=== PATIENT | female | born 2000 | race Caucasian/White ===

== ENCOUNTER → 2020-03-20 | Outpatient (CLI) | payer BC, SELFPAY ==
[2020-03-20 19:59] LABS: Chlamydia Trachomatis by PCR Negative (Negative); Neisserai gonorrhoeae by PCR Negative (Negative); Probe Check PASS; Sample Adequacy Control PASS; Specimen Processing Control PASS
== END | disposition home or self-care (01) ==
PROVIDERS: PCP Pediatrics; Visit Provider Obstetrics & Gynecology
DX: Z12.4 Encounter for screening for malignant neoplasm of cervix (principal); Z11.3 Encounter for screening for infections with a predominantly sexual mode of transmission
CPT/HCPCS: 87491; 87591; 88175; G0145

== ENCOUNTER → 2021-06-27 | Outpatient (CLI) | payer BC, SELFPAY | END | disposition home or self-care (01) | LOC: LABSPEC 10:27 | PROVIDERS: PCP Pediatrics; Visit Provider Obstetrics & Gynecology | DX: Z12.4 Encounter for screening for malignant neoplasm of cervix (principal) | CPT/HCPCS: 88175; G0145 ==

== ENCOUNTER → 2022-10-25 | Outpatient (CLI) | payer BC, SELFPAY ==
[2022-10-25 16:17] LABS: Absolute Lymphocyte Count 3.02 X10^3/uL (0.83-4.51); Absolute Neutrophil Count 7.6 X10^3/uL (2.0-7.7); Basophil# 0.04 X10^3/uL; Basophil% 0.3 % (0-1); Eosinophil# 0.04 X10^3/uL; Eosinophils% 0.3 % (0-5); Hematocrit 40.2 % (37-47); Hemoglobin 13.3 g/dL (12.0-15.0); Lymphocyte # 3.02 X10^3/ul (0.83-4.51); Lymphocyte % 26.4 % (19-41); Mean Corp Hgb Conc 33.1 g/dL (32-36); Mean Corpuscular Hgb 30.7 pg (27.0-32.0); Mean Corpuscular Volume 92.8 fL (81-99); Mean Platelet Vol. 9.9 fl (6.2-12.0); Monocyte# 0.73 X10^3/uL; Monocyte% 6.4 % (0-10); NRBC Flagged by Analyzer 0 % (0-5); Neutrophil # 7.58 X10^3/uL (2.7-7.7); Neutrophil % 66.3 % (47-70); Platelet Count 300 K/mm3 (150-450); RBC Distribution Width CV 11.6 % (11.6-14.6); RBC Distribution Width SD 39.8 fl (35.1-43.9); Red Blood Count 4.33 M/mm3 (4.2-5.4); White Blood Count 11.5 K/mm3 (4.4-11.0)
[2022-10-25 17:45] LABS: HIV - WCH Non-Reactive (Nonreactive); Hepatitis B Surface Antigen Non-Reactive (Nonreactive); Hepatitis C Antibody Non-Reactive (Nonreactive); Rubella IgG Reactive (Nonreactive); Syphilis Antibodies Non-reactive
[2022-10-27 09:22] LABS: V-Zoster IgG (Immunity) 396 index (Immune >165)
== END | disposition home or self-care (01) ==
LOC: WOBLAB 14:42
PROVIDERS: PCP Pediatrics; Visit Provider Obstetrics & Gynecology
DX: N91.2 Amenorrhea, unspecified (principal)
CPT/HCPCS: 36415; 85025; 86703; 86762; 86780; 86787; 86803; 87077; 87086; 87088; 87186; 87340

== ENCOUNTER → 2023-03-21 | Outpatient (CLI) | payer BC, MEDICAID, SELFPAY ==
[2023-03-21 10:27] LABS: Hematocrit 36.2 % (37-47); Hemoglobin 11.7 g/dL (12.0-15.0); Mean Corp Hgb Conc 32.3 g/dL (32-36); Mean Platelet Vol. 9.8 fl (6.2-12.0); Platelet Count 235 K/mm3 (150-450); RBC Distribution Width CV 12.6 % (11.6-14.6); RBC Distribution Width SD 44.5 fl (35.1-43.9); Red Blood Count 3.77 M/mm3 (4.2-5.4); White Blood Count 9.6 K/mm3 (4.4-11.0)
[2023-03-21 10:34] LABS: Glucose Challenge Gest 1H 50g 93 mg/dL (70-140)
[2023-03-21 11:00] LABS: Syphilis Antibodies Non-reactive
== END | disposition home or self-care (01) ==
LOC: WOBLAB 08:56
PROVIDERS: PCP Pediatrics; Visit Provider Obstetrics & Gynecology
DX: Z34.92 Encounter for supervision of normal pregnancy, unspecified, second trimester (principal); Z3A.00 Weeks of gestation of pregnancy not specified
CPT/HCPCS: 36415; 82950; 85027; 86780

== ENCOUNTER → 2023-04-11 | Outpatient (CLI) | payer BC, SELFPAY | END | disposition home or self-care (01) | LOC: LABSPEC 09:20 | PROVIDERS: PCP Pediatrics; Visit Provider Nurse Practitioner Women's Health | DX: N39.0 Urinary tract infection, site not specified (principal) | CPT/HCPCS: 87086; 87088 ==

== ENCOUNTER → 2023-05-23 | Outpatient (CLI) | payer BC, MEDICAID, SELFPAY ==
[2023-05-23 16:55] LABS: Hematocrit 35.8 % (37-47); Hemoglobin 12.2 g/dL (12.0-15.0); Mean Corp Hgb Conc 34.1 g/dL (32-36); Mean Corpuscular Hgb 31.4 pg (27.0-32.0); Mean Platelet Vol. 10.1 fl (6.2-12.0); Platelet Count 262 K/mm3 (150-450); RBC Distribution Width CV 12.5 % (11.6-14.6); RBC Distribution Width SD 41.2 fl (35.1-43.9); Red Blood Count 3.89 M/mm3 (4.2-5.4); White Blood Count 11.1 K/mm3 (4.4-11.0)
== END | disposition home or self-care (01) ==
PROVIDERS: PCP Pediatrics; Visit Provider Obstetrics & Gynecology
DX: Z34.83 Encounter for supervision of other normal pregnancy, third trimester (principal); Z36.85 Encounter for antenatal screening for Streptococcus B
CPT/HCPCS: 36415; 85027; 87081

== ENCOUNTER 2023-06-11 05:10 | Inpatient (IN) | payer BC, MEDICAID, SELFPAY ==
[2023-06-11] VITALS (59 sets, daily range): BP systolic 97–149; BP diastolic 50–83; PULSE 56–181; RESP 16; TEMP 36–37; O2SAT 94–99; BMI 32.9
[2023-06-11 05:07] LABS: ROM Internal Control Test YES-OK TO RESULT pt. (Internal QC)
[2023-06-11 05:11] LABS: ROM Patient Test POSITIVE (Negative); Record Kit Lot#, ROM+ K1374
[2023-06-11] MEDS: Lactated Ringers 1,000 ML 50 ML IV ×2 (05:35→09:24)
[2023-06-11 05:47] LABS: Absolute Lymphocyte Count 2.33 X10^3/uL (0.83-4.51); Absolute Neutrophil Count 12.1 X10^3/uL (2.0-7.7); Basophil# 0.04 X10^3/uL; Basophil% 0.3 % (0-1); Eosinophil# 0.04 X10^3/uL; Eosinophils% 0.3 % (0-5); Hematocrit 38.6 % (37-47); Hemoglobin 12.6 g/dL (12.0-15.0); Lymphocyte # 2.33 X10^3/ul (0.83-4.51); Lymphocyte % 15.2 % (19-41); Mean Corp Hgb Conc 32.6 g/dL (32-36); Mean Corpuscular Hgb 29.9 pg (27.0-32.0); Mean Corpuscular Volume 91.5 fL (81-99); Mean Platelet Vol. 10.1 fl (6.2-12.0); Monocyte# 0.69 X10^3/uL; Monocyte% 4.5 % (0-10); NRBC Flagged by Analyzer 0 % (0-5); Neutrophil # 12.07 X10^3/uL (2.7-7.7); Platelet Count 254 K/mm3 (150-450); RBC Distribution Width CV 13.2 % (11.6-14.6); RBC Distribution Width SD 43.4 fl (35.1-43.9); Red Blood Count 4.22 M/mm3 (4.2-5.4); White Blood Count 15.3 K/mm3 (4.4-11.0)
--- NOTE | 2023-06-11 06:46 | PCM.HP.BLA ---
History and Physical Date of Admission: 06/11/23 Chief complaint: Leakage of fluid History present illness: 23-year-old G1, P0 at 38 weeks and 6 days with MERLE 06/19/2023 arrives with leakage of clear fluid. Denies headache, vision change, chest pain, shortness of breath, nausea vomit, right upper quadrant pain. Patient states good movement. is complicated by BMI 32 Obstetric history: G1: Current Past medical history: None Medications: vitamin Past surgical history: Left ankle, wisdom teeth extraction Allergies: No known drug allergies Family history: Denies history DVT or PE Social history: Denies smoking, alcohol use, drug use Review of systems: Besides above pertinent positives a full review of systems was performed and found to be negative Physical exam: Vitals: Blood pressure 131/81 pulse 80 temperature 97.7 ?F SPO2 98% on room air General: Normal-appearing no acute distress HEENT: Normocephalic/atraumatic no cervical lymphadenopathy Cardiac/respiratory: No use of accessory muscles, nonlabored breathing Abdomen: Soft, nontender, gravid Extremities: No peripheral edema normal peripheral pulses Psych: Normal affect normal demeanor nonpressured speech Labs: White blood cell count 15.3 hemoglobin 12.6 hematocrit 38.6% platelets 254. ROM positive Assessment plan: 23-year-old G1, P0 at 38 weeks and 6 days with leakage of fluid and positive ROM, now with SROM Admit labor and delivery CEFM GBS negative Routine orders
[2023-06-11] MEDS: LACTATED RINGERS 500 ML 999 ML IV ×4 (07:51→20:15)
[2023-06-11 08:52] LABS: Syphilis Antibodies Non-reactive
[2023-06-11] MEDS: Oxytocin 15 Units/NS 250ml 15 UNITS/250 ML IV.SOLN 2 UNITS IV (11:25)
[2023-06-11] MEDS: fentaNYL 100 MCG/2 ML Ampul IV (15:59)
--- NOTE | 2023-06-11 16:54 | PN.OBGYN_ITS ---
Subjective Subjective Patient uncomfortable with contractions Objective Data Objective Data Vital Signs: Vital Signs Temp Pulse BP Pulse Ox 98.1 F 83 128/71 H 96 06/11/23 16:04 06/11/23 16:04 06/11/23 16:04 06/11/23 15:30 Weight: 174 lb 2.643 oz Body Mass Index (BMI) 32.9 Intake & Output: Intake and Output for Last 24 Hours 06/09/23 06/10/23 06/11/23 23:59 23:59 23:59 Intake Total 1290.83 / 1290.83 Output Total 401 / 401 Balance 889.83 / 889.83 Lab / Micro Data 06/11/23 05:35 Labs: Laboratory Results - last 24 hr 06/11/23 04:40: Vag Amniotic Fld Detect POSITIVE H 06/11/23 05:35: WBC 15.3 H, RBC 4.22, Hgb 12.6, Hct 38.6, MCV 91.5, MCH 29.9, MCHC 32.6, RDW Std Deviation 43.4, RDW Coeff of Fany 13.2, Plt Count 254, MPV 10.1, Immature Gran % (Auto) 0.700, Neut % (Auto) 79.0 H, Lymph % (Auto) 15.2 L, [place] % (Auto) 4.5, Eos % (Auto) 0.3, Baso % (Auto) 0.3, Absolute Neuts (auto) 12.1 H, Absolute Lymphs (auto) 2.33, Nucleated RBC % 0, Syphilis Total Ab Non- reactive, Blood Type A POSITIVE, Antibody Screen NEGATIVE Micro: Microbiology 06/11/23 05:30 Interface Orders Chlamydia trachomatis (PCR) - Final 06/11/23 05:30 Interface Orders Neisseria gonorrhoeae (PCR) - Final Physical Exam Const alert, oriented x3, average body habitus, healthy appearing and well nourished HEENT normocephalic and moist oral mucous membranes Eyes PERRL Neck full ROM Resp normal respiratory effort, no retractions and no use of accessory muscles Extremity normal to inspection and full ROM Neuro moves all extremities and no focal motor deficits Psych mental status grossly normal, affect normal, speech normal and activity/motor behavior normal Assessment & Plan (1) : PLAN: Patient seen and examined. Uncomfortable with contractions currently getting bolus IV fluids for epidural. Educated patient on epidurals risk benefits alternatives, discussed medical benefits and detriments of having epidural. Patient and partner state understanding. For epidural now and will recheck cervix after epidural placement, patient declines cervical exam now. Educated patient and nursing on care plan, patient and partner state lupillo matias
[2023-06-11] MEDS: fentaNYL-bupivacaine (epidural) 100 ML BAG EPIDURAL (17:45)
--- NOTE | 2023-06-11 19:57 | PCM.PN.OB ---
Subjective Subjective Patient comfortable with epidural Objective Data Objective Data Vital Signs: Vital Signs Temp Pulse BP Pulse Ox 97.3 F L 80 105/63 97 06/11/23 19:15 06/11/23 19:15 06/11/23 19:15 06/11/23 18:32 Weight: 174 lb 2.643 oz Body Mass Index (BMI) 32.9 Intake & Output: Intake and Output for Last 24 Hours 06/09/23 06/10/23 06/11/23 23:59 23:59 23:59 Intake Total 1806.40 / 1806.40 Output Total 401 / 401 Balance 1405.40 / 1405.40 Lab / Micro Data 06/11/23 05:35 Labs: Laboratory Results - last 24 hr 06/11/23 04:40: Vag Amniotic Fld Detect POSITIVE H 06/11/23 05:35: WBC 15.3 H, RBC 4.22, Hgb 12.6, Hct 38.6, MCV 91.5, MCH 29.9, MCHC 32.6, RDW Std Deviation 43.4, RDW Coeff of Fany 13.2, Plt Count 254, MPV 10.1, Immature Gran % (Auto) 0.700, Neut % (Auto) 79.0 H, Lymph % (Auto) 15.2 L, [place] % (Auto) 4.5, Eos % (Auto) 0.3, Baso % (Auto) 0.3, Absolute Neuts (auto) 12.1 H, Absolute Lymphs (auto) 2.33, Nucleated RBC % 0, Syphilis Total Ab Non-reactive, Blood Type A POSITIVE, Antibody Screen NEGATIVE Micro: Microbiology 06/11/23 05:30 Interface Orders Chlamydia trachomatis (PCR) - Final 06/11/23 05:30 Interface Orders Neisseria gonorrhoeae (PCR) - Final Physical Exam Const alert, oriented x3, no apparent distress, average body habitus, healthy appearing and well nourished HEENT normocephalic and moist oral mucous membranes Eyes PERRL Neck full ROM Resp normal respiratory effort, no retractions and no use of accessory muscles GI GI Narrative: Soft, nontender, gravid Narrative: Cervical exam: 6-70/-1 Psych mental status grossly normal, affect normal, speech normal and activity/motor behavior normal Assessment & Plan (1) : PLAN: Called by nursing patient status post epidural with recurrently decelerations, informed nursing that oxygen IV fluid bolus given and position change now with Pitocin off, nursing also notified me that FSE placed. Reviewed heart rate tracing with nursing somewhat improved heart rate tracing. Reviewed possible care plans with nursing thoroughly, nursing given opportunity to discuss her thoughts on the process, after further discussion discussed continue with Pitocin off until heart rate tracing category 1 and to continue to manage position changes to find position that heart rate tracings category 1. Nursing agrees states understanding. Patient seen and examined comfortable with epidural. Cervical exam as above unchanged from previous nursing exam. Scalp stim positive during cervical exam. At this time recurrent decelerations resolved while in room discussed criteria for section with patient, partner, and family thoroughly. At this time patient and partner do wish to continue current management with improved heart tones understanding the nonreassuring heart tones and there effects. We will continue to monitor with Pitocin off and if recurrent decelerations will refer to tracing and [place] heart rate tracing algorithm when applicable. Reviewed care plan with nursing who agrees. We will continue to monitor minutes a minute heart rate tracing and educated patient and partner on medical options including section
[2023-06-11] MEDS: Sodium Citrate/Citric Acid 30 ML UDC PO (20:14)
[2023-06-11] MEDS: Acetaminophen 500 MG Tablet PO (20:14)
[2023-06-11] MEDS: Cefazolin 2 GM in 0.9% Normal Saline 100 ML IV (20:24)
--- NOTE | 2023-06-11 21:25 | EX.PCM.OBRPT ---
Details Operative Information Date of Procedure: 06/11/23 Pre-Operative Diagnosis: Term, nonreassuring heart tones Post-Operative Diagnosis: Term, nonreassuring heart tones education instructor #1: Marguerite Phan Findings Description of Procedure: Procedure: Primary low transverse section Via Pfannenstiel incision Surgeon: Bolivar Kumar MD Esthesia: Epidural EBL: 850 cc Urine output: 400 cc IV fluids: 1500 cc Complications: None Specimen: None Findings: Male infant in vertex position Apgars 8/9. Normal uterus, tubes, and ovaries. Consent: Patient arrived with spontaneous rupture of membranes subsequently had nonreassuring heart tones and elected for primary low-transverse section via Pfannenstiel incision. Patient understands risk of the procedure include but are not limited to visceral vascular injury, prolonged hospitalization, blood loss need for transfusion, reoperation. Patient state understanding wish to proceed. All questions were answered and consent was signed. Procedure: Patient was brought back to the OR where epidural anesthesia was found to be adequate. 2 g of Ancef and 500 mg of azithromycin were given for infection prophylaxis. Patient was prepared and draped in a supine position with leftward tilt. A Pfannenstiel incision was made at the skin with a scalpel. The incision was carried down to the fascia with a scalpel. The fascia was excised and extended laterally. Rectus muscle was dissected at the midline down to the level of the pubic symphysis. Preperitoneal fat tissue was noted peritoneum was entered bluntly. Peritoneum was extended superiorly and inferiorly with good visualization of bladder. Bladder was inserted vesicouterine peritoneum was identified. Low transverse hysterotomy was made. Hand was placed in the incision and gentle fundal pressure was applied once the bladder blade was removed and the head was brought into the incision. Head and shoulders were delivered with ease. Cord was clamped and cut. Baby handed off to nursing. Placenta was delivered via cord traction and fundal massage. IV oxytocin was initiated on to facilitate uterine contractions. Uterus was exteriorized and wiped out with dry laparotomy sponge on removing placental membranes. Uterus was closed in a continuous running fashion. Iuadyy-tj-lqcos sutures were used for hemostasis and a Bovie, left round ligament with bleeding zyvakq-ov-fiacu suture was used for hemostasis. Good hemostasis was noted. Uterus was placed back in the abdominal cavity and the incision was reinspected, good hemostasis was noted. Floseal was placed at the site of the left round ligament bleeding and also along the rest of the hysterotomy. Good hemostasis was noted. Fascia was closed in continuous running fashion with PDS suture. Subcutaneous irrigation was performed and hemostasis was achieved with the Bovie. Good hemostasis was noted. Skin was closed in subcuticular fashion. Good hemostasis was noted. All counts were correct x2. Patient tolerated procedure well and was brought to recovery in stable condition.
[2023-06-11] MEDS: Oxytocin 15 Units/NS 250ml 15 UNITS/250 ML IV.SOLN 83 UNITS IV (21:55)
[2023-06-11] MEDS: Ketorolac 30 MG/ML Syringe IV (22:42)
[2023-06-12] VITALS (9 sets, daily range): BP systolic 96–104; BP diastolic 42–66; PULSE 84–101; RESP 16; TEMP 36.2–36.6; O2SAT 96–98
[2023-06-12] MEDS: Lactated Ringers 1,000 ML 100 ML IV (01:36)
[2023-06-12] MEDS: Acetaminophen 500 MG Tablet 1000 MG PO ×4 (01:37→21:07)
[2023-06-12] MEDS: Ketorolac 30 MG/ML Syringe IV ×3 (04:04→16:12)
[2023-06-12 04:41] LABS: Hematocrit 29.2 % (37-47); Hemoglobin 9.8 g/dL (12.0-15.0); Mean Corp Hgb Conc 33.6 g/dL (32-36); Mean Corpuscular Hgb 30.8 pg (27.0-32.0); Mean Corpuscular Volume 91.8 fL (81-99); Mean Platelet Vol. 10.1 fl (6.2-12.0); Platelet Count 214 K/mm3 (150-450); RBC Distribution Width CV 13.3 % (11.6-14.6); RBC Distribution Width SD 44.3 fl (35.1-43.9); Red Blood Count 3.18 M/mm3 (4.2-5.4); White Blood Count 14.4 K/mm3 (4.4-11.0)
--- NOTE | 2023-06-12 08:28 | PCM.PN.OB ---
Subjective Subjective No overnight complaints Objective Data Objective Data Vital Signs: Vital Signs Temp Pulse Resp BP Pulse Ox O2 Del Method 97.2 F L 89 16 96/57 L 98 Room Air 06/12/23 07:11 06/12/23 07:11 06/12/23 07:11 06/12/23 07:11 06/12/23 07:11 06/12/23 07:11 Oxygen Delivery Method Room Air Weight: 174 lb 2.643 oz Body Mass Index (BMI) 32.9 Intake & Output: Intake and Output for Last 24 Hours 06/10/23 06/11/23 06/12/23 23:59 23:59 23:59 Intake Total 2596.25 / 2851.25 505 / 505 Output Total 2251 / 2251 200 / 200 Balance 345.25 / 600.25 305 / 305 Lab / Micro Data 06/12/23 04:20 Labs: Laboratory Results - last 24 hr 06/11/23 05:35: Syphilis Total Ab Non-reactive 06/12/23 04:20: WBC 14.4 H, RBC 3.18 L, Hgb 9.8 L, Hct 29.2 L, MCV 91.8, MCH 30.8, MCHC 33.6, RDW Std Deviation 44.3 H, RDW Coeff of Fany 13.3, Plt Count 214, MPV 10.1 Micro: Microbiology 06/11/23 05:30 Interface Orders Chlamydia trachomatis (PCR) - Final 06/11/23 05:30 Interface Orders Neisseria gonorrhoeae (PCR) - Final Physical Exam Const alert, oriented x3, no apparent distress, average body habitus, healthy appearing and well nourished HEENT normocephalic and moist oral mucous membranes Eyes PERRL Neck full ROM Resp normal respiratory effort, no retractions and no use of accessory muscles GI GI Narrative: Soft, nontender, bandage clean dry and intact Extremity normal to inspection and full ROM Neuro moves all extremities and no focal motor deficits Psych mental status grossly normal, affect normal, speech normal and activity/motor behavior normal Assessment & Plan (1) delivery delivered: PLAN: Post op day 1 statues post primary section for nonreassuring heart tones. Breast feeding. Pain well controlled. Likely home tomorrow
[2023-06-12] MEDS: Senna/Docusate Sodium 1 Tablet PO (09:19)
[2023-06-12] MEDS: Enoxaparin 40 MG/0.4 ML Syringe SC (10:30)
[2023-06-12] MEDS: 0.9% Saline Lock 10 ML Syringe IV ×4 (10:33→16:18)
--- NOTE | 2023-06-12 11:06 | NURSING ---
This school of nursing director was present for med administration by [employer] student nurse.
--- NOTE | 2023-06-12 13:27 | NURSING ---
This nursing staff development coordinator reviewed the documentation completed by Chiquis Low, student nurse.
[2023-06-12] MEDS: Ibuprofen 600 MG Tablet PO (22:16)
[2023-06-13 02:00] VITALS: BP 102/64; PULSE 84; RESP 16; O2SAT 96
[2023-06-13] MEDS: Acetaminophen 500 MG Tablet 1000 MG PO ×2 (03:18→09:36)
[2023-06-13] MEDS: Ibuprofen 600 MG Tablet PO ×2 (04:50→11:14)
--- NOTE | 2023-06-13 07:13 | PCM.DC.BLA ---
Discharge Summary Date of Admission: 06/11/23 Date of Discharge: 06/13/23 Summary: Patient arrived on 06/11/2023 with spontaneous rupture of membranes subsequently with nonreassuring heart tones and elected for primary section performed on 06/11/2023. Routine postoperative recovery and discharged home on 06/13/2023 Meaningful Use Info Meaningful Use Diagnoses (Choose all that apply): None applicable Discharge Plan Admission Admit Date/Time: 06/11/23 05:10 Primary Reason for Your Visit: Spontaneous rupture membranes Attending Provider: Bolivar Kumar Primary Care Provider: Billy Cates Instructions Additional Instructions / Restrictions: Regular diet. Okay to shower. No tub baths for 2 weeks. No lifting over 25 pounds for 2 to 3 weeks. No intercourse for 6 to 8 weeks. Call if fevers, chills, chest pain, shortness of breath. Follow-up 2 weeks postoperatively Discharge Orders/Prescriptions Prescriptions: New oxycodone 5 mg tablet 5 mg PO Q6H PRN (Reason: pain (scale score 7-10)) 4 Days Qty: 16 0RF Continued PNV cmb#[id number] fumarate-FA [] 28 mg iron- 800 mcg tablet 1 tab PO DAILY Referrals / Follow Up: Billy Cates MD [Primary Care Provider] - Disposition Disposition (needs filled in before D/C Order can be placed): Home, Self Care
--- NOTE | 2023-06-13 07:15 | PCM.PN.OB ---
Subjective Subjective No overnight complaints Objective Data Objective Data Vital Signs: Vital Signs Temp Pulse Resp BP Pulse Ox O2 Del Method 97.9 F 84 16 102/64 96 Room Air 06/12/23 19:59 06/13/23 02:00 06/13/23 02:00 06/13/23 02:00 06/13/23 02:00 06/13/23 02:00 Oxygen Delivery Method Room Air Weight: 174 lb 2.643 oz Body Mass Index (BMI) 32.9 Intake & Output: Intake and Output for Last 24 Hours 06/11/23 06/12/23 06/13/23 23:59 23:59 23:59 Intake Total 2596.25 / 2851.25 505 / 505 Output Total 2251 / 2251 200 / 200 Balance 345.25 / 600.25 305 / 305 Lab / Micro Data 06/12/23 04:20 Micro: Microbiology 06/11/23 05:30 Interface Orders Chlamydia trachomatis (PCR) - Final 06/11/23 05:30 Interface Orders Neisseria gonorrhoeae (PCR) - Final Physical Exam Const alert, oriented x3, no apparent distress, average body habitus, healthy appearing and well nourished HEENT normocephalic and moist oral mucous membranes Eyes PERRL Neck full ROM Resp normal respiratory effort, no retractions and no use of accessory muscles GI GI Narrative: Soft, nontender, bandage clean dry and intact Extremity normal to inspection and full ROM Neuro moves all extremities and no focal motor deficits Psych mental status grossly normal, affect normal, speech normal and activity/motor behavior normal Assessment & Plan (1) delivery delivered: PLAN: Postop day 2 status post primary section for nonreassuring heart tones. Breast-feeding. Pain well controlled. Okay to discharge home today
[2023-06-13 08:00] VITALS: BP 125/67; PULSE 83; RESP 16; TEMP 36.8
[2023-06-13] MEDS: Senna/Docusate Sodium 1 Tablet PO (09:36)
[2023-06-13] MEDS: Enoxaparin 40 MG/0.4 ML Syringe SC (09:38)
== END 2023-06-13 11:40 | disposition home or self-care (01) | DRG 788 ==
LOC: WPOUT 05:13 → WP 05:13
PROVIDERS: Student in an Organized Health Care Education/Training Program; Admitting Provider Obstetrics & Gynecology; PCP Pediatrics; Visit Provider Obstetrics & Gynecology
DX: O76 Abnormality in fetal heart rate and rhythm complicating labor and delivery (principal); Z37.0 Single live birth; Z3A.38 38 weeks gestation of pregnancy
CPT/HCPCS: 59025; 59050; 84112; 85025; 85027; 86780; 86850; 86900; 86901; 87491; 87591; 99221; 99252; J7120; A4216; G0378; G0463; J2405; J3490

== ENCOUNTER → 2024-08-16 | Outpatient (CLI) | payer BC, SELFPAY ==
[2024-08-18 21:07] LABS: Chlamydia By Nucleic Acid AMP Negative (Negative); Gonococcus By Nucleic Acid AMP Negative (Negative)
[2024-08-24 12:57] LABS: HPV Reflexed? NOT INDICATED
== END | disposition home or self-care (01) ==
LOC: LABSPEC 15:52
PROVIDERS: PCP Pediatrics; Referring Provider Obstetrics & Gynecology; Visit Provider Obstetrics & Gynecology
DX: O99.210 Obesity complicating pregnancy, unspecified trimester (principal); Z3A.00 Weeks of gestation of pregnancy not specified; O09.90 Supervision of high risk pregnancy, unspecified, unspecified trimester; Z12.4 Encounter for screening for malignant neoplasm of cervix
CPT/HCPCS: 87086; 87088; 87491; 87591; 88175; G0145

== ENCOUNTER → 2024-09-13 | Outpatient (CLI) | payer BC, SELFPAY ==
[2024-09-13 17:09] LABS: Absolute Lymphocyte Count 3.06 X10^3/uL (0.83-4.51); Absolute Neutrophil Count 6.1 X10^3/uL (2.0-7.7); Basophil# 0.02 X10^3/uL; Basophil% 0.2 % (0-1); Eosinophil# 0.12 X10^3/uL; Eosinophils% 1.2 % (0-5); Hematocrit 38.7 % (37-47); Hemoglobin 12.7 g/dL (12.0-15.0); Lymphocyte # 3.06 X10^3/ul (0.83-4.51); Lymphocyte % 31.2 % (19-41); Mean Corp Hgb Conc 32.8 g/dL (32-36); Mean Corpuscular Volume 91.3 fL (81-99); Mean Platelet Vol. 9.7 fl (6.2-12.0); Monocyte% 5.1 % (0-10); NRBC Flagged by Analyzer 0 % (0-5); Neutrophil # 6.07 X10^3/uL (2.7-7.7); Platelet Count 290 K/mm3 (150-450); RBC Distribution Width CV 12.9 % (11.6-14.6); RBC Distribution Width SD 42.2 fl (35.1-43.9); Red Blood Count 4.24 M/mm3 (4.2-5.4); White Blood Count 9.8 K/mm3 (4.4-11.0)
[2024-09-13 17:38] LABS: Hemoglobin A1c 5.1 % (3.8-5.6)
[2024-09-13 18:06] LABS: HIV - WCH Non-Reactive (Nonreactive); Hepatitis B Surface Antigen Non-Reactive (Nonreactive); Hepatitis C Antibody Non-Reactive (Nonreactive); Rubella IgG Reactive (Nonreactive); Syphilis Antibodies Non-reactive
== END | disposition home or self-care (01) ==
LOC: BWCLAB 15:07
PROVIDERS: Obstetrics & Gynecology; PCP Pediatrics; Referring Provider Advanced Practice Midwife; Visit Provider Advanced Practice Midwife
DX: O99.210 Obesity complicating pregnancy, unspecified trimester (principal); Z3A.00 Weeks of gestation of pregnancy not specified
CPT/HCPCS: 36415; 83036; 85025; 86703; 86762; 86780; 86803; 86850; 86900; 86901; 87340

== ENCOUNTER → 2024-12-28 | Outpatient (CLI) | payer BC, SELFPAY ==
[2024-12-28 12:15] LABS: Absolute Lymphocyte Count 2.45 X10^3/uL (0.83-4.51); Absolute Neutrophil Count 6.8 X10^3/uL (2.0-7.7); Basophil# 0.05 X10^3/uL; Basophil% 0.5 % (0-1); Eosinophil# 0.09 X10^3/uL; Eosinophils% 0.9 % (0-5); Hematocrit 35.4 % (37-47); Hemoglobin 11.7 g/dL (12.0-15.0); Lymphocyte # 2.45 X10^3/ul (0.83-4.51); Lymphocyte % 24.4 % (19-41); Mean Corp Hgb Conc 33.1 g/dL (32-36); Mean Corpuscular Hgb 30.5 pg (27.0-32.0); Mean Corpuscular Volume 92.2 fL (81-99); Mean Platelet Vol. 9.8 fl (6.2-12.0); NRBC Flagged by Analyzer 0 % (0-5); Neutrophil # 6.78 X10^3/uL (2.7-7.7); Neutrophil % 67.5 % (47-70); Platelet Count 288 K/mm3 (150-450); RBC Distribution Width CV 13.3 % (11.6-14.6); RBC Distribution Width SD 44.9 fl (35.1-43.9); Red Blood Count 3.84 M/mm3 (4.2-5.4)
[2024-12-28 13:25] LABS: Glucose Challenge Gest 1H 50g 86 mg/dL (70-140); HIV Nonreactive (Nonreactive)
[2024-12-28 15:40] LABS: Syphilis Antibodies Nonreactive (Nonreactive)
== END | disposition home or self-care (01) ==
PROVIDERS: PCP Pediatrics; Referring Provider Obstetrics & Gynecology; Visit Provider Obstetrics & Gynecology
DX: O09.92 Supervision of high risk pregnancy, unspecified, second trimester (principal); Z13.1 Encounter for screening for diabetes mellitus; Z3A.00 Weeks of gestation of pregnancy not specified
CPT/HCPCS: 36415; 82950; 85025; 86703; 86780

== ENCOUNTER 2025-02-08 10:45 | Outpatient (CLI) | payer BC, SELFPAY ==
[2025-02-08 11:07] VITALS: RESP 18
[2025-02-08 11:10] VITALS: BP 110/73; PULSE 79; PULSE 86; O2SAT 97
--- NOTE | 2025-02-08 11:21 | US_ITS ---
PROCEDURE: BIOPHYSICAL PROF W/O NON STRES 02/08/2025 REASON FOR EXAM: DECREASED VARIABILITY TECHNIQUE: High resolution obstetric ultrasound performed using a 2D transducer. Standard views obtained, including biometry, anatomy survey, and Doppler studies. COMPARISON: None FINDINGS LMP: June 15, 2024. position: Cephalic heart rate: 143 beats per minute Amniotic fluid: Within normal limits. Largest fluid pocket measures 6 cm. COMPA: 20.9. Placenta location: Anterior and not low-lying. Biophysical profile: Breathing movements: 2 Gross body movements: 2 tone: 2 amniotic fluid volume: 2 Total score: 8/8 US/Biophysical Prof W/O Non Stres IMPRESSION: Normal biophysical profile. Reading Location: [facility]
--- NOTE | 2025-02-08 11:26 | US_ITS ---
PROCEDURE: OB LIMITED WITH BIOMETRICS 02/08/2025 REASON FOR EXAM: FOCUS ON COMPA AND GROWTH TECHNIQUE: High resolution obstetric ultrasound performed using a 2D transducer. Standard views obtained, including biometry, anatomy survey, and Doppler studies. COMPARISON: None FINDINGS LMP: June 15, 2024 Number: 1 Position: Vertex Placental Position: Anterior and not low-lying. Placental Abnormalities: None DIMENSIONS: Biparietal Diameter: 8.49 cm: 34 weeks and 1 day: 54 percentile/ Head Circumference: 30.87 cm: 34 weeks and 3 days: 25th percentile/ Abdominal Circumference: 30.66 cm: 34 weeks and 4 days: 71st percentile/ Femur Length: 6.24 cm: 32 weeks and 2 days: 7 percentile/ ESTIMATED WEIGHT: 2327 g plus/-349 g ESTIMATED WEIGHT PERCENTILE (24+ weeks): 44 ESTIMATED GESTATIONAL AGE: Baseline: 34 weeks and 0 days By Ultrasound: 34 weeks and 0 days ESTIMATED DATE OF DELIVERY: Baseline: March 22, 2025 By Ultrasound: March 22, 2025 BIOPHYSICAL ASSESSMENT: Amniotic Fluid Volume: 5.9 cm Amniotic Fluid Index: 20 (8-24 cm normal range) Cardiac Motion: 143 beats per minute (average) Trunk and Limb Motion: Present. MATERNAL ANATOMY: Adnexa: Neither maternal ovary is successfully identified. Cervical Length (if measured): 4.1 cm US/OB Limited With Biometrics IMPRESSION: Single live intrauterine gestation with a mean gestational age of 34 weeks. Reading Location: [place] [id number]
[2025-02-08 11:37] VITALS: BMI 34.7
--- NOTE | 2025-02-08 12:46 | OB.TRI.PN_ITS ---
Progress Notes Date of Service: 02/08/25 Progress Note: Patient presents for triage evaluation secondary to nonreassuring NST in office at 34 weeks. FHT: 140 Moderate variability reactive no decelerations category I tracing [place]: rare Contractions Assessment and plan: BPP 05/13 repeat compa is 20 cm, Reactive NST, reassuring maternal and status patient discharged to home to follow-up in office. See problem list details for additional plan information. Charges/Coding Multi Select Codes Urinary/Genital Urinary/Genital CPT Codes: 41921-50 non-stress test Interp Assessment & Plan (1) Polyhydramnios: COMMENT: COMPA 28 cm at 01/21 scan. COMPA 20cm 02/08 (2) Obesity affecting : QUALIFIERS: Trimester: second trimester Obesity type affecting : unspecified obesity Qualified Code(s): O99.212 - Obesity comp licating , second trimester COMMENT: HgbA1c (3) Supervision of high-risk : QUALIFIERS: Trimester: third trimester Qualified Code(s): O09.93 - Supervision of high risk , unspecified, third trimester COMMENT: PRR , MERLE 03/14/25 boy, PC Dwight, Jeremy (4) : QUALIFIERS: Weeks of gestation: 34 weeks Qualified Code(s): Z3 A.34 - 34 weeks gestation of COMMENT: declines NIPT & Carrier testing (5) Previous section: COMMENT: interested in (6) Non-reassuring electronic monitoring tracing: COMMENT: BPP 05/13, D/C home with reactive NST
== END 2025-02-08 14:15 | disposition home or self-care (01) ==
LOC: WPOUT 10:46 → WP 10:46
PROVIDERS: PCP Pediatrics; Referring Provider Advanced Practice Midwife; Visit Provider Advanced Practice Midwife
DX: O40.3XX0 Polyhydramnios, third trimester, not applicable or unspecified (principal); Z3A.34 34 weeks gestation of pregnancy; O99.213 Obesity complicating pregnancy, third trimester; O34.219 Maternal care for unspecified type scar from previous cesarean delivery
CPT/HCPCS: 59025; 59050; 76816; 76819; 99221; G0378

== ENCOUNTER 2025-02-16 15:27 | Outpatient (CLI) | payer BC, SELFPAY ==
[2025-02-16] VITALS (7 sets, daily range): BP systolic 105–119; BP diastolic 66–71; PULSE 83–114; RESP 13; TEMP 36.7; O2SAT 97–99; BMI 33.8
--- NOTE | 2025-02-16 15:43 | US_ITS ---
EXAM: US Biophysical Profile Without Non-Stress Testing CLINICAL INDICATION: LATE DECELERATION AT OB APPOINTMENT TECHNIQUE: Real-time ultrasound of the maternal pelvis for biophysical profile evaluation with image documentation. COMPARISON: No relevant prior studies available. FINDINGS: BREATHING MOVEMENTS: Present. Score 2/2. GROSS BODY MOVEMENTS: Present. Score 2/2. TONE: Present. Score 2/2. QUALITATIVE AMNIOTIC FLUID VOLUME: COMPA 19.2 cm. Largest pocket of fluid measures up to 5.8 cm. HEART RATE: heart rate 141 beats per minute. PRESENTATION: Cephalic presentation. PLACENTA: Anterior placenta. Low-lying. Placenta grade 2. OTHER FINDINGS: MERLE 03/22/2025. US/Biophysical Prof W/O Non Stres IMPRESSION: No acute findings. Normal biophysical profile with score of 8/8. Reading Location: [facility]
--- NOTE | 2025-02-16 20:45 | OB.TRI.HP_ITS ---
HPI - General HPI Narrative BRENDEN FENG, is a 24 y/o @ 35 weeks 1 day who presents to L&D for extended monitoring and a bpp for late decel in the office. NST was being performed for polyhydramnios that was 30 last week and this week is 20 Maternal Data Information MERLE Calculator Estimated Delivery Date Method Current WG Current Estimate 03/22/25 Ultrasound #1 35w 1d Other Estimates 03/14/25 LMP (Certain) 36w 2d PFSH PFSH Medical History delivery delivered Seizures Autoimmune disease Home Medications ?Medication ?Instructions ?Recorded ?Last Taken ?Type multivitamin no.47-iron fum 27 1 cap PO DAILY 08/10/24 02/08/25 09:00 History mg-folate no.1 1 mg-dha 300 mg 1 cap capsule (PNV-DHA) Allergy/AdvReac Type Severity Reaction Status Date / Time No Known Allergies Allergy Verified 02/16/25 18:30 Family History Grandmother Diabetes Paternal- Type 2 Heart disease, Onset Age: 74 Paternal-2 stents Breast cancer, Onset Age: 70 Paternal- All 11 siblings have some type of cancer Grandfather Diabetes Cancer, Onset Age: 68 Lung Colon cancer, Onset Age: 68 Grandmother Myocardial infarction, Onset Age: 54 Maternal Uncle Myocardial infarction, Onset Age: 60 Maternal Surgical History History of surgery Social History adopted: No household members: spouse and children number of children: 1 current occupational status: unemployed current occupation: [employer] pets and animals: Yes (outside animals) pets and animals: cat(s) and other details: chickens history of recent travel: No sexually active: Yes Smoking Status: Never smoker alcohol intake: never substance use type: does not use well-balanced diet: daily or most days caffeine: Yes Type: coffee Number of servings: 1 eating out: rarely or never during the past year weight has: remained stable what type of physical activity do you participate in: none cristela/orthodox: Tenriism seatbelt use: always do you feel safe at home: Yes additional 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 Date Name GA/Weeks Outcome Route Bth Weight Gen Labor Lgth Anesthesia Del Locatn Provider FOB 06/11/23 Dwight 38 live - full term 6#4oz Male sp inal [facility] Bolivar Luna Delivery Date: 06/11/23 Last Updated by: Rachel Mcfarland decels, cord around neck Visit Details Expected Delivery Route/Plan TOLAC patient counseled regarding risks/benefits of trial of labor versus repeat . ACOG/uptodate education given to patient. 59.7 % likelihood of success per calculator TOLAC consent form signed: [] Support person Jeremy Plans Covid status: [] Flu vaccine: [] Tdap vaccine: declines Rhogam: declines LARC form signed: yes movement and labor precautions reviewed. Problem list reviewed and updated with the most current plan of care details and appropriate orders placed. Relevant counseling for the gestational age provided. Continue routine care and follow up unless otherwise noted in visit notes/problem list details OB Flowsheet Initial Weight: Not Recorded Date -?-?-?-?-?-?-?-?-?-?-?-?- EGA Weight BP Urine Prot -?-?-?-?-?-?-?-?-?-?-?-?- Glucose FHR FuHt Pres Dilation -?-?-?-?-?-?-?-?-?-?-?-?- Effaced St Visit Note 08/16/24 -?-?-?-?-?-?-?-?-?-?-?-?- 8w 6d 161 lb 6 oz 128/76 -?--?-?-?-?-?-?-?-?-?-?-?- 187 -?-?-?-?-?-?-?-?-?-?-?-?- JV- CRL measures 8 weeks 6 days. JV- CRL measures 8 weeks 6 d ays and not consistent with LMP> pt wants to TOLAC.was not given a chance to labor last time due to decels at 38 weeks. undecided about NIPT. 09/13/24 -?-?-?-?-?-?-?-?-?-?-?-?- 12w 6d 164 lb 107/75 Negative -?-?-?-?-?-?-?-?-?-?-?-?- Negative 160 -?-?-?-?-?-?-?-?-?-?-?-?- KW- no vb/crampi ng. ordered. 10/12/24 -?-?-?-?-?-?-?-?-?-?-?-?- 17w 0d 171 lb 108/73 Negative -?-?-?-?-?-?-?-?-?-?-?-?- Negative 154 -?-?-?-?-?-?-?-?-?-?-?-?- -Chad. Maranda frank. Denies concerns. [facility] 10/2111/09/24 -?-?-?-?-?-?-?-?-?-?-?-?- 21w 0d 169 lb 8 oz 104/75 Nega tive -?-?-?-?-?-?-?-?-?-?-?-?- Negative 155 21 -?-?-?-?-?-?-?-?-?-?-?-?- JV- no complaint s today. has a sinus infection. Still plans tolac and does not want to schedule a cs at 40 or 41 weeks yet. 12/08/24 -?-?-?-?-?-?-?-?-?-?-?-?- 25w 1d 171 lb 4 oz 130/81 Nega tive -?-?-?-?-?-?-?-?-?-?-?-?- Negative 150 25 -?-?-?-?-?-?-?-?-?-?-?-?- SM- still having URI symptoms, send to urgent care now for treatment 12/28/24 -?-?-?-?-?-?-?-?-?-?-?-?- 28w 0d 178 lb 122/79 Negative -?-?-?-?-?-?-?-?-?-?-?-?- Negative 158 28 -?-?-?-?--?-?-?-?-?-?-?-?- MH-No VB, LOF. G ood Fm. 28 wk labs pending. Declines tdap. Larc done. 01/11/25 -?-?-?-?-?-?-?-?-?-?-?-?- 30w 0d 179 lb 6 oz 125/78 Nega tive -?-?-?-?-?-?-?-?-?-?-?-?- Negative 145 30 -?-?-?-?-?-?-?-?-?-?-?-?- SM- no vb lof go odfm no regular ctx SM- no vb lof goodfm no regu lar ctx still needs fu anatomy views 01/26/25 -?-?-?-?-?-?-?-?-?-?-?-?- 32w 1d 177 lb 2 oz 122/72 Nega tive -?-?-?-?-?-?-?-?-?-?-?-?- Negative 147 32.5 -?-?--?-?-?-?-?-?-?-?-?-?- JV_ polyhydramni os on last scan. patient states she feels large but no other complaints. Her son broke his femur and it is just a little hard to carry him around (19 months) 02/01/25 -?-?-?-?-?-?-?-?-?-?-?-?- 33w 0d 178 lb 113/74 Negative -?-?-?-?-?-?-?-?-?-?-?-?- Negative 130 -?-?-?-?-?-?-?-?-?-?-?-?- KW- no vb/lof/ct x. good fm. NST reactive 02/08/25 -?-?-?-?-?-?-?-?-?-?-?-?- 34w 0d 181 lb 2 oz 107/72 Nega tive -?-?-?-?-?-?-?-?-?-?-?-?- Negative 140 -?-?-?-?-?-?-?-?-?-?-?-?- KW- NST not reac tive to for BPP. needs to schedule growth. 02/16/25 -?-?-?-?-?-?-?-?-?-?-?-?- 35w 1d 180 lb 6 oz 119/77 Nega tive -?-?-?-?-?-?-?-?-?-?-?-?- Negative 145 -?-?-?-?-?-?-?-?-?-?-?-?- JV- NST shows ir regular rare contractions but there was a late decel from 140's down to 120's x 30 seconds. sending to L&D for continuous monitoring and a bpp. had compa of 30 until last week when it came back at 20 ROS Constitutional Constitutional: Reports systems reviewed and no addt'l complaints, except as documented Gastrointestinal Gastrointestinal: Denies bloating, constipation, cramping, diarrhea, nausea or vomiting Genitourinary Genitourinary: Reports other Details: Denies vaginal odor, vaginal bleeding, or vaginal discharge ; Denies difficulty urinating or flank pain Physical Exam HEENT normocephalic Resp normal respiratory effort and normal air movement no CVA tenderness Extremity normal to inspection General Extremity: edema bilateral (trace ) NST FHR Rate Baby A Baseline: 140 Variability:: Moderate Accelerations:: 15 x 15 Decelerations:: None NST Reactive:: Yes FHR Category:: Category I Assessment & Plan (1) Non-reassuring electronic monitoring tracing: COMMENT: sending to L&D, when this happened last a BPP was found to be 8/8 and she was D/C home with reactive NST (2) Polyhydramnios: COMMENT: COMPA 28 cm at 01/21 scan. COMPA 20cm /6 (3) Obesity affecting : QUALIFIERS: Trimester: second trimester Obesity type affecting : unspecified obesity Qualified Code(s): O99.212 - Obesity complicating , second trimester COMMENT: HgbA1c (4) Supervision of high-risk : QUALIFIERS: Trimester: third trimester Qualified Code(s): O09.93 - Supervision of high risk , unspecified, third trimester COMMENT: PRR , MERLE 03/14/25 boy, PC Dwight, Jeremy (5) : QUALIFIERS: Weeks of gestation: 34 weeks Qualified Code(s): Z3A.34 - 34 weeks gestation of COMMENT: declines NIPT & Carrier testing (6) Previous section: COMMENT: interested in PLAN: Plan tracing is reassuring on L&D for several hours. BPP was 05/13 ok to dc to home. Charges/Coding Multi Select Codes Visit Charges Office Visit/Consults: 20063 OV L3 Est 20min Urinary/Genital Urinary/Genital CPT Codes: 75845-16 non-stress test Interp
== END 2025-02-16 20:20 | disposition home or self-care (01) ==
LOC: WPOUT 15:29 → WP 15:37
PROVIDERS: PCP Pediatrics; Referring Provider Obstetrics & Gynecology; Visit Provider Obstetrics & Gynecology
DX: O76 Abnormality in fetal heart rate and rhythm complicating labor and delivery (principal); O40.3XX0 Polyhydramnios, third trimester, not applicable or unspecified; Z3A.35 35 weeks gestation of pregnancy; O99.213 Obesity complicating pregnancy, third trimester; O34.219 Maternal care for unspecified type scar from previous cesarean delivery
CPT/HCPCS: 59025; 59050; 76819; 99221; G0378

== ENCOUNTER → 2025-02-24 | Outpatient (CLI) | payer BC, SELFPAY | END | disposition home or self-care (01) | LOC: LABSPEC 11:50 | PROVIDERS: PCP Pediatrics; Referring Provider Obstetrics & Gynecology; Visit Provider Obstetrics & Gynecology | DX: O09.93 Supervision of high risk pregnancy, unspecified, third trimester (principal); Z3A.00 Weeks of gestation of pregnancy not specified | CPT/HCPCS: 87081 ==

== ENCOUNTER 2025-03-25 07:20 | Inpatient (IN) | payer BC, SELFPAY ==
[2025-03-25] VITALS (52 sets, daily range): BP systolic 79–150; BP diastolic 46–85; PULSE 79–111; RESP 15–20; TEMP 35.9–36.7; O2SAT 89–100; BMI 35.6
--- OUTSIDE RECORDS SUMMARY | 2025-03-25 06:39 | XMS RPT_ITS | CCD ---
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 Billy Cates MD Primary Care Provider Dr. Billy Cates MD Referring Provider [phone] Yady Maguire CNM Attending Provider [phone] Yady Maguire CNM Referring Provider [phone] Tessie Nieves Attending Provider [phone] Dr. Dianna Alberts DO Attending Provider Dr. Carol Zaman MD Attending Provider Dr. Carol Zaman MD Referring Provider [phone] NO PRIMARY CARE, Primary Care Unavailable KAREEM WINSTON Attending Unavailable CAROL ZAMAN Referring UnavailYADY Wade Referring Unavailable NO PRIMARY CARE, Primary Care Unavailable STEPHEN VARGAS Attending Unavailable Dr. Billy Cates MD Primary Care Provider Dr. Billy Cates MD Referring Provider [phone] Yady Maguire CNM Attending Provider [phone] aYdy Maguire CNM Referring Provider [phone] Yady Maguire CNM Other Provider [phone] Dr. Billy Cates MD Primary Care Provider Dr. Billy Cates MD Referring Provider [phone] Tessie Nieves Attending Provider [phone] Dr. Dianna Alberts DO Referring Provider Dr. Dianna Alberts DO Other Provider [phone] Nicole Fajardo CNM Attending Provider Darryn CARPENTER, Dr. Cervantes Primary Care Provider Darryn CARPENTER, Dr. Cervantes Referring Provider Dr. Dianna Alberts DO Attending Provider Strong, Billy Primary Care Unavailable Strong, Billy Referring Unavailable DanielYady Attending Unavailable Strong, Billy Primary Care Unavailable Strong, Billy Referring Unavailable Daniel, Yady Attending Unavailable Strong, Billy Referring Unavailable Strong, Billy Primary Care Unavailable MarcanthonyDaleon Attending Unavailable Abner MIXING MACHINE TENDER CORK GASKET, Tessie Attending Unavailable Strong, Billy Primary Care Unavailable Strong, Billy Referring Unavailable Strong, Billy Primary Care Unavailable Daniel, Yady Referring Unavailable Daniel, Yady Attending Unavailable Strong, Billy Primary Care Unavailable Marcanthony, Carol Attending Unavailable Marcanthony, Carol Referring Unavailable Marcanthony, Carol Referring Unavailable Strong, Billy Primary Care Unavailable Marcanthony, Carol Attending Unavailable Strong, Billy Primary Care Unavailable Vande Velde, Dianna Referring Unavailabl e Vande Velde, Dianna Attending Unavailabl e Strong, Billy Primary Care Unavailable Daniel, Yady Referring Unavailable Daniel Yady Attending Unavailable Strong, Billy Referring Unavailable Vande Velde, Dianna Attending Unavailabl e Strong, Billy Primary Care Unavailable Strong, Billy Referring Unavailable Marcanthony, Carol Attending Unavailable Strong, Billy Primary Care Unavailable Strong, Billy Referring Unavailable [place] MIXING MACHINE TENDER CORK GASKET, Tessie Attending Unavailable Strong, Billy Primary Care Unavailable Daniel, Yady Referring Unavailable Daniel, Yady Attending Unavailable Daniel, Yady Consulting Unavailable Strong, Billy Primary Care Unavailable Strong, Billy Primary Care Unavailable Vande Velde, Dianna Consulting Unavailabl e Vande Velde, Dianna Referring Unavailabl e Vande Velde, Dianna Attending Unavailabl e Strong, Billy Primary Care Unavailable Strong, Billy Referring Unavailable [place] MIXING MACHINE TENDER CORK GASKET, Tessie Attending Unavailable Strong, Billy Referring Unavailable Marcanthony, Carol Attending Unavailable Strong, Billy Primary Care Unavailable Strong, Billy Referring Unavailable Vande Velde, Dianna Attending Unavailabl e Strong, Billy Primary Care Unavailable Strong, Billy Referring Unavailable Strong, Billy Primary Care Unavailable Daniel Yady Attending Unavailable Strong, Billy Primary Care Unavailable Strong, Billy Referring Unavailable Marcanthony, Carol Attending Unavailable Strong, Billy Primary Care Unavailable Strong, Billy Referring Unavailable Nicole Fajardo Attending Unavailable Strong, Billy Primary Care Unavailable Marcanthony, Carol Attending Unavailable Marcanthony, Carol Admitting Unavailable Marcanthony, Carol Referring Unavailable Dianna Alberts Referring UnavailDianna Gonzalez Attending UnavailBilly Powell Primary Care Unavailable Billy Cates Referring Unavailable Dianna Alberts Attending Billy Holt Primary Care Unavailable Billy Cates Referring Unavailable Billy Cates Primary Care Unavailable Yady Maguire Attending Unavailable Darryn, Billy Referring Unavailable Billy Cates Primary Care Unavailable Yady Maguire Attending Unavailable Medications Current Medications Medication Drug Class(es) Dates Sig (Normalized) Sig (Original) Multivit 90-Lwya-Ftncso 1-Dha (Pnv-Dha) 27 mg iron-1 mg -300 mg capsule (10 sources) Start: 08-10-2024 Multivit 11-Hgay-Vequmf 1-Dha (Pnv-Dha) 27 mg iron-1 mg -300 mg capsule Active 1 NMA PO DAILY August 10, 2024 1:00am Start: 08-10-2024 Multivit 47-Ir on-Folate 1-Dha (Pnv-Dha) 27 mg iron-1 mg -300 mg capsule Active NMA PO August 10, 2024 1:00am PNV no.95/ferrous fum/folic ac ( ORAL) (4 sources) PNV no.95/ferrou s fum/folic ac ( ORAL) Take by mouth. Active Completed/Discontinued Medications Medication Drug Class(es) Dates Sig (Normalized) Sig (Original) Ethinyl Estradiol / Levonorgestrel (1 source) Progestin, Estrogen, Progestin-containi ng Intrauterine Device Start: 12-28-2017 End: 11-25-2024 take 1 tablet by mouth once daily L-Norgest and E Estradiol-E Estrad (DAYSEE) 0.15 mg-30 mcg (84)/10 mcg (7) 3MPk TAKE 1 TABLET BY MOUTH EVERY DAY 12/28/2017 11/25/2024 Discontinued nabumetone 750 mg oral tablet (16 sources) Nonsteroidal Anti-inflammatory Drug Start: 09-28-2017 End: 06-11-2023 take 1 tablet by mouth once daily Nabumetone 750 MG tablet Discontinued 2 {tbl} PO DAILY September 28, 2017 1:00am June 11, 2023 4:30am Start: 09-28-2017 End: 11-25-2024 take 2 tablets by mouth once daily nabumetone (RELAFEN) 750 mg tablet TAKE 2 TAB(S) ONCE A DAY ORALLY 30 DAY(S) 2 04/02/2018 11/25/2024 Discontinued oxyCODONE hydrochloride 5 mg oral tablet (11 sources) Opioid Agonist Start: 06-11-2023 End: 08-10-2024 take 1 tablet by mouth every six hours as needed for pain Oxycodone 5 mg tablet Discontinued 5 mg PO EVERY 6 HOURS as needed for pain (scale score 7-10) 16 4 June 11, 2023 August 10, 2024 10:41am Pnv Cmb#95-Ferrous Fumarate-Fa () 28 mg iron- 800 mcg tablet (11 sources) Start: 06-11-2023 End: 08-10-2024 Pnv Cmb#95-Ferrous Fumarate-Fa () 28 mg iron- 800 mcg tablet Discontinued 1 {tbl} PO DAILY June 11, 2023 12:00am August 10, 2024 10:41am Start: 06-11-2023 take 1 tablet by ela th once daily Pnv Cmb#95-Ferrous Fumarate-Fa () 28 mg iron- 800 mcg tablet Active 1 TABLET PO DAILY June 11, 2023 12:00am Problems Active Problems Problem Classification Problem Date Documented Date Episodic/Chronic Other complications of ; puerperium affecting management of mother (1 source) Encounter for delivery without indication; Translations: [ delivery, without mention of indication, delivered, with or without mention of antepartum condition] 06-13-2023 Episodic Other complications of ; puerperium affecting management of mother (1 source) Abnormality in heart rate and rhythm complicating labor and delivery; Translations: [Abnormality in heart rate and rhythm complicating labor and delivery] Onset: 03-14-2025 Episodic Other complications of (20 sources) Maternal obesity complicating , childbirth and the puerperium, antepartum; Translations: [Obesity complicating , unspecified trimester] 10-12-2024 Chronic Comment on above: HgbA1c Other complications of (2 sources) Obesity complicating , second trimester; Translations: [Obesity complicating , second trimester] Onset: 03-14-2025 Chronic Other complications of (1 source) Obesity complicating , unspecified trimester; Translations: [Obesity complicating , unspecified trimester] Onset: 11-05-2024 Chronic Other complications of (20 sources) High risk ; Translations: [Supervision of high risk , unspecified, unspecified trimester] 12-28-2024 Episodic Comment on above: PRR , MERLE 03/14/25 boy, PC Dwight, Jeremy PRR , MERLE 03/22/ 5 boy, BING Quintanilla, Jeremy Other complications of (20 sources) Finding of heart rate; Translations: [Maternal care for abnormalities of the heart rate or rhythm, unspecified trimester, not applicable or unspecified] 02-08-2025 Episodic Comment on above: BPP 05/13, D/C home wi th reactive NST sending to L&D, when this happened last a BPP was found to be 8/8 and she was D/C home with reactive NST Other complications of (2 sources) Supervision of high risk , unspecified, third trimester; Translations: [Supervision of high risk , unspecified, third trimester] Onset: 03-14-2025 Episodic Other complications of (2 sources) Maternal care for abnormalities of the heart rate or rhythm, unspecified trimester, not applicable or unspecified; Translations: [Maternal care for abnormalities of the heart rate or rhythm, unspecified trimester, not applicable or unspecified] Onset: 02-24-2025 Episodic Other complications of (1 source) Supervision of high risk , unspecified, second trimester; Translations: [Supervision of high risk , unspecified, second trimester] Onset: 01-03-2025 Episodic Other lower respiratory disease (2 sources) Cough; Translations: [Subacute cough] 12-08-2024 Episodic Other lower respiratory disease (2 sources) Rib pain; Translations: [Pleurodynia] 12-08-2024 Episodic Other lower respiratory disease (1 source) Pleurodynia; Translations: [Rib pain on left side] Onset: 12-08-2024 Episodic Other nervous system disorders (11 sources) Acute postoperative pain; Translations: [Other acute postprocedural pain] 06-11-2023 Episodic Other and delivery including normal (20 sources) ; Translations: [Encounter for supervision of normal , unspecified, unspecified trimester] Onset: 08-16-2024 3 Episodic Comment on above: Breast feeding 14 mo nth old- stopped at 21 weeks. declines NIPT & Rodríguez ier testing gbs neg. declines NI PT & Carrier testing Other upper respiratory infections (1 source) Viral upper respiratory tract infection; Translations: [Acute upper respiratory infection, unspecified] 11-25-2024 Episodic Polyhydramnios and other problems of amniotic cavity (20 sources) Polyhydramnios; Translations: [Polyhydramnios, unspecified trimester, not applicable or unspecified] Onset: 02-24-2025 02-08-2025 Episodic Comment on above: KIRK 28 cm at 01/21 sc an. KIRK 20cm 02/08 Residual codes; unclassified (2 sources) Gestation period, 25 weeks; Translations: [25 weeks gestation of ] 12-08-2024 Episodic Residual codes; unclassified (1 source) 39 weeks gestation of ; Translations: [39 weeks gestation of ] Onset: 03-21-2025 Episodic Residual codes; unclassified (2 sources) History of uterine scar from previous surgery; Translations: [History of uterine scar from previous surgery] Onset: 03-14-2025 Episodic Residual codes; unclassified (1 source) 36 weeks gestation of ; Translations: [36 weeks gestation of ] Onset: 02-24-2025 Episodic Residual codes; unclassified (2 sources) 34 weeks gestation of ; Translations: [34 weeks gestation of ] Onset: 02-16-2025 Episodic Unclassified (1 source) Subacute cough; Translations: [Subacute cough] Onset: 12-08-2024 Past or Other Problems Problem Classification Problem Date Documented Da te Episodic/Chronic Other complications of ; puerperium affecting management of mother (11 sources) Deliveries by ; Translations: [Encounter for delivery without indication] Resolved: 10-06-2022 06-12-2023 Episodic Other complications of (1 source) Supervision of high risk , unspecified, unspecified trimester; Translations: [Supervision of high risk , unspecified, unspecified trimester] Onset: 09-13-2024 Episodic Other ear and sense organ disorders (4 sources) Pain of ear structure; Translations: [Otalgia, unspecified ear] Onset: 11-30-2013 Resolved: 04-25-2014 04-25-2014 Episodic Residual codes; unclassified (2 sources) 25 weeks gestation of ; Translations: [ with 25 completed weeks gestation] Onset: 12-08-2024 Episodic Residual codes; unclassified (1 source) 12 weeks gestation of ; Translations: [12 weeks gestation of ] Onset: 09-13-2024 Episodic NEGATED: Highlighted row has been ruled out!Unclassified (4 sources) No known active problems 05-13-2019 Results Test Name Value Interpretation Reference Range Facility Health Communications Specialist Office Visit Reporton 03-21-2025 Health Communications Specialist Office Visit Report [facility] [address], [address] [place] [address] OFFICE VISIT Date of Service: 03/21/25 MR#: [id number] Acct: [id number] Name: BRENDEN HART Rep #: [id number] : 2000 Provider: PADMA Tesfaye ams Age/Sex: 25/F [place] [facility] [place]: Signed Intake Vital Signs 10/12/24 13:43 02/16/25 18:31 03/15/25 11:38 03/21/25 08:36 Height 5 ft 1 in 5 ft 1 in 5 ft 1 in 5 ft 1 in Weight: 189 lb 8 oz BMI 35.8 BP 111/74 Intake Visit Reasons: 40 wk ob *HAPPY DUE DATE Chief Complaint: 40wk 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 Is patient in pain?: No Allergies No Known Allergies Allergy (Verified 03/21/25 08:34) Medications ???Medication ???Instructions ???Recorded ???Confirmed ???Type multivitamin no.47-iron fum 27 1 cap PO DAILY 08/10/24 03/21/25 H istory mg-folate no.1 1 mg-dha 300 mg capsule (PNV-DHA) Last Menstrual Period: 06/07/24 : No Have you fallen in the past year?: No PFSH PFSH Medical History delivery delivered Seizures Autoimmune disease Surgical History History of surgery Family History Grandmother Diabetes Paternal- Type 2 Heart disease, Onset Age: 74 Paternal-2 stents Breast cancer, Onset Age: 70 Paternal- All 11 siblings have some type of cancer Grandfather Diabetes Cancer, Onset Age: 68 Lung Colon cancer, Onset Age: 68 Grandmother Myocardial infarction, Onset Age: 54 Maternal Uncle Myocardial infarction, Onset Age: 60 Maternal Social History adopted: No household members: spouse and children number of children: 1 current occupational status: unemployed current occupation: [employer] pets and animals: Yes (outside animals) pets and animals: cat(s) and other details: chickens history of recent travel: No sexually active: Yes Smoking Status: Never smoker alcohol intake: never substance use type: does not use well-balanced diet: daily or most days caffeine: Yes Type: coffee Number of servings: 1 eating out: rarely or never during the past year weight has: remained stable what type of physical activity do you participate in: none cristela/baptism: Jainism seatbelt use: always do you feel safe at home: Yes 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 Date Name GA/Weeks Outcome Route Bth Weight Gen Labor Lgth Anesthesia Del Locatn Provider FOB 06/11/23 Dwight 38 live - full term 6#4oz Male spinal [facility] [address] Kumar Jeremy Delivery Date: 06/11/23 Last Updated by: Rachel Mcfarland decels, cord around neck HPI 40 wk ob *HAPPY DUE DATE Details: BRENDEN HART is a 25 year old who presents for routine OB visit. OB Visit MERLE Calculator Estimated Delivery Date Method Current WG Current Estimate 03/22/25 Ultrasound #1 39w 6d Other Estimates 03/14/25 LMP (Certain) 41w 0d Expected Delivery Route/Plan TOLAC by 41 weeks patient counseled regarding risks/benefits of trial of labor versus repeat . ACOG/uptodate education given to patient. 59.7 % likelihood of success per calculator TOLAC consent form signed: [] Support person Jeremy Specific Issue/Plans Covid status: [] Flu vaccine: [] Tdap vaccine: declines Rhogam: declines LARC form signed: yes movement and labor precautions reviewed. Problem list reviewed and updated with the most current plan of care details and appropriate orders placed. Relevant counseling for the gestational age provided. Continue routine care and follow up unless otherwise noted in visit notes/problem list details Initial Weight: Not Recorded Date -???-???-???-???-??? -???-???-???-???-??? -???-???- EGA Weight BP Urine Prot -???-???-???-???-??? -???-???-???-???-??? -???-???- Glucose FHR FuHt Pres Dilation -???-???-???-???-??? -???-???-???-???-??? -???-???- Effaced St Visit Note 08/16/24 -???-???-???-???-??? -???-???-???-???-??? -???-???- 8w 6d 161 lb 6 oz 128/76 -???-???-???-???-??? -???-???-???-???-??? -???-???- 187 -???-???-???-???-??? -???-???-???-???-??? -???-???- JV- CRL ankur ures 8 weeks 6 days. JV- CRL measures 8 weeks 6 days an d not consistent with LMP> pt wants to TOLAC.was not given a chance to labor last time due to decels at 38 weeks. undecided about NIPT. 09/13/24 -???-???-???-???-??? -??? (more content not included)... Normal [facility] Laboratory - Chemistry and C hemistry - challengeOrdered By: Yady Maguire on 03-15-2025 Glucose Ql (U) Negative [facility] Laboratory - UrinalysisOrder ed By: Yady Maguire on 03-15-2025 Protein Ql (U) Negative [facility] Health Communications Specialist Office Visit Reporton 03-15-2025 Health Communications Specialist Office Visit Report [facility] [address], [address] [place] [address] OFFICE VISIT Date of Service: 03/15/25 MR#: [id number] Acct: [id number] Name: BRENDEN HART Rep #: [id number] : 2000 Provider: PADMA Tesfaye ams Age/Sex: 24/F [place] [facility] [place]: Signed Intake Vital Signs 10/12/24 13:43 03/10/25 10:37 03/15/25 11:38 Height 5 ft 1 in 5 ft 1 in 5 ft 1 in Weight: 186 lb 6 oz BMI 35.2 BP 118/76 Intake Visit Reasons: 39 wk ob 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 Is patient in pain?: No Allergies No Known Allergies Allergy (Verified 03/15/25 11:40) Medications ???Medication ???Instructions ???Recorded ???Confirmed ???Type multivitamin no.47-iron fum 27 1 cap PO DAILY 08/10/24 03/15/25 H istory mg-folate no.1 1 mg-dha 300 mg capsule (PNV-DHA) Last Menstrual Period: 06/07/24 Zika: Zika virus screening: Negative : No PFSH PFSH Medical History delivery delivered Seizures Autoimmune disease Surgical History History of surgery Family History Grandmother Diabetes Paternal- Type 2 Heart disease, Onset Age: 74 Paternal-2 stents Breast cancer, Onset Age: 70 Paternal- All 11 siblings have some type of cancer Grandfather Diabetes Cancer, Onset Age: 68 Lung Colon cancer, Onset Age: 68 Grandmother Myocardial infarction, Onset Age: 54 Maternal Uncle Myocardial infarction, Onset Age: 60 Maternal Social History adopted: No household members: spouse and children number of children: 1 current occupational status: unemployed current occupation: [employer] pets and animals: Yes (outside animals) pets and animals: cat(s) and other details: chickens history of recent travel: No sexually active: Yes Smoking Status: Never smoker alcohol intake: never substance use type: does not use well-balanced diet: daily or most days caffeine: Yes Type: coffee Number of servings: 1 eating out: rarely or never during the past year weight has: remained stable what type of physical activity do you participate in: none cristela/baptism: Jainism seatbelt use: always do you feel safe at home: Yes 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 Date Name GA/Weeks Outcome Route Bth Weight Gen Labor Lgth Anesthesia Del Locatn Provider FOB 06/11/23 Dwight 38 live - full term 6#4oz Male spinal [facility] ld José Luna Delivery Date: 06/11/23 Last Updated by: Rachel Mcfarland decels, cord around neck HPI 39 wk ob Details: BRENDEN HART is a 24 year old who presents for routine OB visit. OB Visit MERLE Calculator Estimated Delivery Date Method Current WG Current Estimate 03/22/25 Ultrasound #1 39w 0d Other Estimates 03/14/25 LMP (Certain) 40w 1d Expected Delivery Route/Plan TOLAC by 41 weeks patient counseled regarding risks/benefits of trial of labor versus repeat . ACOG/uptodate education given to patient. 59.7 % likelihood of success per calculator TOLAC consent form signed: [] Support person Jeremy Specific Issue/Plans Covid status: [] Flu vaccine: [] Tdap vaccine: declines Rhogam: declines LARC form signed: yes movement and labor precautions reviewed. Problem list reviewed and updated with the most current plan of care details and appropriate orders placed. Relevant counseling for the gestational age provided. Continue routine care and follow up unless otherwise noted in visit notes/problem list details Initial Weight: Not Recorded Date -???-???-???-???-??? -???-???-???-???-??? -???-???- EGA Weight BP Urine Prot -???-???-???-???-??? -???-???-???-???-??? -???-???- Glucose FHR FuHt Pres Dilation -???-???-???-???-??? -???-???-???-???-??? -???-???- Effaced St Visit Note 08/16/24 -???-???-???-???-??? -???-???-???-???-??? -???-???- 8w 6d 161 lb 6 oz 128/76 -???-???-???-???-??? -???-???-???-???-??? -???-???- 187 -???-???-???-???-??? -???-???-???-???-??? -???-???- JV- CRL ankur ures 8 weeks 6 days. JV- CRL measures 8 weeks 6 days an d not consistent with LMP> pt wants to TOLAC.was not given a chance to labor last time due to decels at 38 weeks. undecided about NIPT. 09/13/24 -???-???-???-???-??? -???-???-???-???-??? -???-???- 12w 6d 164 lb 107/75 Negative -???-???-???-?? (more content not included)... Normal [facility] Laboratory - Chemistry and C hemistry - challengeOrdered By: Carol Zaman on 03-10-2025 Glucose Ql (U) Negative [facility] Laboratory - UrinalysisOrder ed By: Carol Zaman on 03-10-2025 Protein Ql (U) Negative [facility] Health Communications Specialist Office Visit Reporton 03-10-2025 Health Communications Specialist Office Visit Report [facility] [address], [address] [place] [address] OFFICE VISIT Date of Service: 03/10/25 MR#: [id number] Acct: [id number] Name: BRENDEN HART Rep #: [id number] : 2000 Provider: Dr. 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 Is patient in pain?: No Allergies No Known Allergies Allergy (Verified 03/10/25 10:36) Medications ???Medication ???Instructions ???Recorded ???Confirmed ???Type multivitamin no.47-iron fum 27 1 cap PO DAILY 08/10/24 03/10/25 H istory mg-folate no.1 1 mg-dha 300 mg capsule (PNV-DHA) Last Menstrual Period: 06/07/24 Zika: Zika virus screening: Negative : No PFSH PFSH Medical History delivery delivered Seizures Autoimmune disease Surgical History History of surgery Family History Grandmother Diabetes Paternal- Type 2 Heart disease, Onset Age: 74 Paternal-2 stents Breast cancer, Onset Age: 70 Paternal- All 11 siblings have some type of cancer Grandfather Diabetes Cancer, Onset Age: 68 Lung Colon cancer, Onset Age: 68 Grandmother Myocardial infarction, Onset Age: 54 Maternal Uncle Myocardial infarction, Onset Age: 60 Maternal Social History adopted: No household members: spouse and children number of children: 1 current occupational status: unemployed current occupation: [employer] pets and animals: Yes (outside animals) pets and animals: cat(s) and other details: chickens history of recent travel: No sexually active: Yes Smoking Status: Never smoker alcohol intake: never substance use type: does not use well-balanced diet: daily or most days caffeine: Yes Type: coffee Number of servings: 1 eating out: rarely or never during the past year weight has: remained stable what type of physical activity do you participate in: none cristela/baptism: Jainism seatbelt use: always do you feel safe at home: Yes 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 Date Name GA/Weeks Outcome Route Bth Weight Infant Gen Labor Lgth Anesthesia Del Locatn Provider FOB 06/11/23 Dwight 38 live - full term 6#[facility] Delivery Date: 06/11/23 Last Updated by: Rachel Mcfarland decels, cord around neck HPI 38 wk ob Details: BRENDEN HART is a 24 year old who presents for routine OB visit. OB Visit MERLE Calculator Estimated Delivery Date Method Current Current Estimate 03/22/25 Ultrasound #1 38w 2d Other Estimates 03/14/25 LMP (Certain) 39w 3d Expected Delivery Route/Plan TOLAC by 41 weeks patient counseled regarding risks/benefits of trial of labor versus repeat . ACOG/uptodate education given to patient. 59.7 % likelihood of success per calculator TOLAC consent form signed: [] Support person Jeremy Specific Issue/Plans Covid status: [] Flu vaccine: [] Tdap vaccine: declines Rhogam: declines LARC form signed: yes movement and labor precautions reviewed. Problem list reviewed and updated with the most current plan of care details and appropriate orders placed. Relevant counseling for the gestational age provided. Continue routine care and follow up unless otherwise noted in visit notes/problem list details Initial Weight: Not Recorded Date -???-???-???-???-??? -???-???-???-???-??? -???-???- EGA Weight BP Urine Prot -???-???-???-???-??? -???-???-???-???-??? -???-???- Glucose FHR FuHt Pres Dilation -???-???-???-???-??? -???-???-???-???-??? -???-???- Effaced St Visit Note 08/16/24 -???-???-???-???-??? -???-???-???-???-??? -???-???- 8w 6d 161 lb 6 oz 128/76 -???-???-???-???-??? -???-???-???-???-??? -???-???- 187 -???-???-???-???-??? -???-???-???-???-??? -???-???- JV- CRL ankur ures 8 weeks 6 days. JV- CRL measures 8 weeks 6 days an d not consistent with LMP> pt wants to TOLAC.was not given a chance to labor last time due to decels at 38 weeks. undecided about NIPT. 09/13/24 -???-???-???-???-??? -???-???-???-???-??? -???-???- 12w (more content not included)... Normal [facility] Laboratory - Chemistry and C hemistry - challengeOrdered By: Nicole Fajardo on 03-04-2025 Glucose Ql (U) Negative [facility] Laboratory - UrinalysisOrder ed By: Nicole Fajardo on 03-04-2025 Protein Ql (U) Negative [facility] Health Communications Specialist Office Visit Reporton 03-04-2025 Health Communications Specialist Office Visit Report [facility] [address], [address] [place] [address] OFFICE VISIT Date of Service: 03/04/25 MR#: [id number] Acct: [id number] Name: BRENDEN HART Rep #: [id number] : 2000 Provider: PADMA napoles Age/Sex: 24/F [place] [facility] [place]: Signed Intake Vital Signs 10/12/24 13:43 02/24/25 10:31 03/04/25 09:50 Height 5 ft 1 in 5 ft 1 in 5 ft 1 in Weight: 184 lb 2 oz BMI 34.7 BP 113/72 Intake Visit Reasons: 37 wk ob 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 Is patient in pain?: No Allergies No Known Allergies Allergy (Verified 03/04/25 09:50) Medications ???Medication ???Instructions ???Recorded ???Confirmed ???Type multivitamin no.47-iron fum 27 1 cap PO DAILY 08/10/24 03/04/25 H istory mg-folate no.1 1 mg-dha 300 mg capsule (PNV-DHA) Last Menstrual Period: 06/07/24 Zika: Zika virus screening: Negative : No Have you fallen in the past year?: No PFSH PFSH Medical History delivery delivered Seizures Autoimmune disease Surgical History History of surgery Family History Grandmother Diabetes Paternal- Type 2 Heart disease, Onset Age: 74 Paternal-2 stents Breast cancer, Onset Age: 70 Paternal- All 11 siblings have some type of cancer Grandfather Diabetes Cancer, Onset Age: 68 Lung Colon cancer, Onset Age: 68 Grandmother Myocardial infarction, Onset Age: 54 Maternal Uncle Myocardial infarction, Onset Age: 60 Maternal Social History adopted: No household members: spouse and children number of children: 1 current occupational status: unemployed current occupation: [employer] pets and animals: Yes (outside animals) pets and animals: cat(s) and other details: chickens history of recent travel: No sexually active: Yes Smoking Status: Never smoker alcohol intake: never substance use type: does not use well-balanced diet: daily or most days caffeine: Yes Type: coffee Number of servings: 1 eating out: rarely or never during the past year weight has: remained stable what type of physical activity do you participate in: none cristela/baptism: Jainism seatbelt use: always do you feel safe at home: Yes 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 Date Name GA/Weeks Outcome Route Bth Weight Infant Gen Labor Lgth Anesthesia Del Locatn Provider FOB 06/11/23 Dwight 38 live - full term 6#4oz Male spinal [facility] ld Luna Delivery Date: 06/11/23 Last Updated by: Rachel Mcfarland decels, cord around neck HPI 37 wk ob Details: BRENDEN HART is a 24 year old who presents for routine OB visit. OB Visit MERLE Calculator Estimated Delivery Date Method Current Current Estimate 03/22/25 Ultrasound #1 37w 3d Other Estimates 03/14/25 LMP (Certain) 38w 4d Expected Delivery Route/Plan TOLAC patient counseled regarding risks/benefits of trial of labor versus repeat . ACOG/uptodate education given to patient. 59.7 % likelihood of success per calculator TOLAC consent form signed: [] Support person Jeremy Specific Issue/Plans Covid status: [] Flu vaccine: [] Tdap vaccine: declines Rhogam: declines LARC form signed: yes movement and labor precautions reviewed. Problem list reviewed and updated with the most current plan of care details and appropriate orders placed. Relevant counseling for the gestational age provided. Continue routine care and follow up unless otherwise noted in visit notes/problem list details Initial Weight: Not Recorded Date -???-???-???-???-??? -???-???-???-???-??? -???-???- EGA Weight BP Urine Prot -???-???-???-???-??? -???-???-???-???-??? -???-???- Glucose FHR FuHt Pres Dilation -???-???-???-???-??? -???-???-???-???-??? -???-???- Effaced St Visit Note 08/16/24 -???-???-???-???-??? -???-???-???-???-??? -???-???- 8w 6d 161 lb 6 oz 128/76 -???-???-???-???-??? -???-???-???-???-??? -???-???- 187 -???-???-???-???-??? -???-???-???-???-??? -???-???- JV- CRL ankur ures 8 weeks 6 days. JV- CRL measures 8 weeks 6 days an d not consistent with LMP> pt wants to TOLAC.was not given a chance to labor last time due to decels at 38 weeks. undecided about NIPT. 09/13/24 -???-???-???-???-??? -???-???-???-???-??? -???-???- 12w 6d 164 lb 107/75 Negat (more content not included)... Normal [facility] Rule out Beta Strep (Grp. B) on 02-26-2025 LUIS Group B Beta Streptococcus is not isolated. Normal [facility] Comment on above: Performed By: #### M [id number] #### [facility] Laboratory [place], [address] Laboratory - Chemistry and C hemistry - challengeOrdered By: Carol Zaman on 02-24-2025 Glucose Ql (U) Negative [facility] Laboratory - UrinalysisOrder ed By: Carol Karen on 02-24-2025 Protein Ql (U) Negative [facility] Health Communications Specialist Office Visit Reporton 02-24-2025 Health Communications Specialist Office Visit Report [facility] [address], [address] [place] [address] OFFICE VISIT Date of Service: 02/24/25 MR#: [id number] Acct: [id number] Name: BRENDEN HART Rep #: [id number] : 2000 Provider: Dr. Carol dumont MD Age/Sex: 24/F [place] [facility] [place]: Signed Intake Vital Signs 10/12/24 13:43 02/16/25 18:31 02/24/25 10:31 02/24/25 10:31 Height 5 ft 1 in 5 ft 1 in 5 ft 1 in 5 ft 1 in Weight: 185 lb 2 oz BMI 34.9 BP 113/76 Intake Visit Reasons: 36 wk ob/nst 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 Is patient in pain?: No Allergies No Known Allergies Allergy (Verified 02/24/25 10:29) Medications ???Medication ???Instructions ???Recorded ???Confirmed ???Type multivitamin no.47-iron fum 27 1 cap PO DAILY 08/10/24 02/24/25 H istory mg-folate no.1 1 mg-dha 300 mg capsule (PNV-DHA) Last Menstrual Period: 06/07/24 Zika: Zika virus screening: Negative : No PFSH PFSH Medical History delivery delivered Seizures Autoimmune disease Surgical History History of surgery Family History Grandmother Diabetes Paternal- Type 2 Heart disease, Onset Age: 74 Paternal-2 stents Breast cancer, Onset Age: 70 Paternal- All 11 siblings have some type of cancer Grandfather Diabetes Cancer, Onset Age: 68 Lung Colon cancer, Onset Age: 68 Grandmother Myocardial infarction, Onset Age: 54 Maternal Uncle Myocardial infarction, Onset Age: 60 Maternal Social History adopted: No household members: spouse and children number of children: 1 current occupational status: unemployed current occupation: [employer] pets and animals: Yes (outside animals) pets and animals: cat(s) and other details: chickens history of recent travel: No sexually active: Yes Smoking Status: Never smoker alcohol intake: never substance use type: does not use well-balanced diet: daily or most days caffeine: Yes Type: coffee Number of servings: 1 eating out: rarely or never during the past year weight has: remained stable what type of physical activity do you participate in: none cristela/baptism: Jainism seatbelt use: always do you feel safe at home: Yes 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 Date Name GA/Weeks Outcome Route Bth Weight Gen Labor Lgth Anesthesia Del Locatn Provider FOB 06/11/23 Dwight 38 live - full term 6#4oz Male spinal [facility] ld Kumar Jeremy Delivery Date: 06/11/23 Last Updated by: Rachel Mcfarland decels, cord around neck HPI 36 wk ob/nst Details: BRENDEN HART is a 24 year old who presents for routine OB visit. OB Visit MERLE Calculator Estimated Delivery Date Method Current WG Current Estimate 03/22/25 Ultrasound #1 36w 2d Other Estimates 03/14/25 LMP (Certain) 37w 3d Expected Delivery Route/Plan TOLAC patient counseled regarding risks/benefits of trial of labor versus repeat . ACOG/uptodate education given to patient. 59.7 % likelihood of success per calculator TOLAC consent form signed: [] Support person Jeremy Specific Issue/Plans Covid status: [] Flu vaccine: [] Tdap vaccine: declines Rhogam: declines LARC form signed: yes movement and labor precautions reviewed. Problem list reviewed and updated with the most current plan of care details and appropriate orders placed. Relevant counseling for the gestational age provided. Continue routine care and follow up unless otherwise noted in visit notes/problem list details Initial Weight: Not Recorded Date -???-???-???-???-??? -???-???-???-???-??? -???-???- EGA Weight BP Urine Prot -???-???-???-???-??? -???-???-???-???-??? -???-???- Glucose FHR FuHt Pres Dilation -???-???-???-???-??? -???-???-???-???-??? -???-???- Effaced St Visit Note 08/16/24 -???-???-???-???-??? -???-???-???-???-??? -???-???- 8w 6d 161 lb 6 oz 128/76 -???-???-???-???-??? -???-???-???-???-??? -???-???- 187 -???-???-???-???-??? -???-???-???-???-??? -???-???- JV- CRL ankur ures 8 weeks 6 days. JV- CRL measures 8 weeks 6 days an d not consistent with LMP> pt wants to TOLAC.was not given a chance to labor last time due to decels at 38 weeks. undecided about NIPT. 09/13/24 -???-???-???-???-??? -???-???-???-???-??? -???-???- 12w 6d 1 (more content not included)... Normal [facility] Screening beta-hemolytic Str eptococcus cultureOrdered By: Carol Gómezshannonluzmaria on 02-24-2025 Beta-hemolytic Streptococcus culture Group B Beta Streptococcus is not isolated. [facility] Biophysical Prof W/O Non Str eson 02-16-2025 Biophysical Prof W/O Non Stres [facility] [address] [place] [address] Biophysical Prof W/O Non Stres MR#: [id number] Acct: [id number] Name: BRENDEN HART Rep #: [id number] : 2000 24 From: Link Brito MD PCP: Dr. Billy Cates MD Status: REG CLI Study: Biophysical Prof W/O Non Stres Date of Exam: 0 02/16/25 Exam# [id number] Ordering Dr: Dianna Alberts DO EXAM: US Biophysical Profile Without Non-Stress Testing CLINICAL INDICATION: LATE DECELERATION AT OB APPOINTMENT TECHNIQUE: Real-time ultrasound of the maternal pelvis for biophysical profile evaluation with image documentation. COMPARISON: No relevant prior studies available. FINDINGS: BREATHING MOVEMENTS: Present. Score 2/2. GROSS BODY MOVEMENTS: Present. Score 2/2. TONE: Present. Score 2/2. QUALITATIVE AMNIOTIC FLUID VOLUME: KIRK 19.2 cm. Largest pocket of fluid measures up to 5.8 cm. HEART RATE: heart rate 141 beats per minute. PRESENTATION: Cephalic presentation. PLACENTA: Anterior placenta. Low-lying. Placenta grade 2. OTHER FINDINGS: MERLE 03/22/2025. US/Biophysical Prof W/O Non Stres IMPRESSION: No acute findings. Normal biophysical profile with score of 8/8. Reading Location: [facility] CC: Dr. Dianna Alberts DO; Dr. Billy Cates MD Professor Of Surgery: Signed Normal [facility] Laboratory - Chemistry and C hemistry - challengeOrdered By: Dianna Luther on 02-16-2025 Glucose Ql (U) Negative [facility] Laboratory - UrinalysisOrder ed By: Dianna Luther on 02-16-2025 Protein Ql (U) Negative [facility] OB Triage Physician Noteon 0 02-16-2025 OB Triage Physician Note [facility] Medical Records Department [address] [place] [address] OB Triage Physician Note 02/16/252044 MR#: [id number] Acct: [id number] Name: BRENDEN HART Rep #: [id number] : 2000 24 From: Dianna Alberts DO PCP: Dr. Billy Cates MD Status:REG CLI Y Location: [id number] HPI - General HPI Narrative BRENDEN HART, is a 24 y/o @ 35 weeks 1 day who presents to L D for extended monitoring and a bpp for late decel in the office. NST was being performed for polyhydramnios that was 30 last week and this week is 20 Maternal Data Information MERLE Calculator Estimated Delivery Date Method Current WG Current Estimate 03/22/25 Ultrasound #1 35w 1d Other Estimates 03/14/25 LMP (Certain) 36w 2d PFSH PFSH Medical History delivery delivered Seizures Autoimmune disease Home Medications ???Medication ???Instructions ???Recorded ???Last Taken ???Type multivitamin no.47-iron fum 27 1 cap PO DAILY 08/10/24 02/08/25 0 9:00 History mg-folate no.1 1 mg-dha 300 mg 1 cap capsule (PNV-DHA) Allergy/AdvReac Type Severity Reaction Status Date / Time No Known Allergies Allergy Verified 02/16/25 18:30 Family History Grandmother Diabetes Paternal- Type 2 Heart disease, Onset Age: 74 Paternal-2 stents Breast cancer, Onset Age: 70 Paternal- All 11 siblings have some type of cancer Grandfather Diabetes Cancer, Onset Age: 68 Lung Colon cancer, Onset Age: 68 Grandmother Myocardial infarction, Onset Age: 54 Maternal Uncle Myocardial infarction, Onset Age: 60 Maternal Surgical History History of surgery Social History adopted: No household members: spouse and children number of children: 1 current occupational status: unemployed current occupation: [employer] pets and animals: Yes (outside animals) pets and animals: cat(s) and other details: chickens history of recent travel: No sexually active: Yes Smoking Status: Never smoker alcohol intake: never substance use type: does not use well-balanced diet: daily or most days caffeine: Yes Type: coffee Number of servings: 1 eating out: rarely or never during the past year weight has: remained stable what type of physical activity do you participate in: none cristela/baptism: Jainism seatbelt use: always do you feel safe at home: Yes 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 Date Name GA/Weeks Outcome Route Bth Weight Gen Labor Lgth Anesthesia Del Locatn Provider FOB 06/11/23 Dwight 38 live - full term 6#4oz Male spinal [facility] ld Kumar Jeremy Delivery Date: 06/11/23 Last Updated by: Rachel Mcfarland decels, cord around neck Visit Details Expected Delivery Route/Plan TOLAC patient counseled regarding risks/benefits of trial of labor versus repeat . ACOG/uptodate education given to patient. 59.7 % likelihood of success per calculator TOLAC consent form signed: [] Support person Jeremy Plans Covid status: [] Flu vaccine: [] Tdap vaccine: declines Rhogam: declines LARC form signed: yes movement and labor precautions reviewed. Problem list reviewed and updated with the most current plan of care details and appropriate orders placed. Relevant counseling for the gestational age provided. Continue routine care and follow up unless otherwise noted in visit notes/problem list details OB Flowsheet Initial Weight: Not Recorded Date -???-???-???-???-??? -???-???-???-???-??? -???-???- EGA Weight BP Urine Prot -???-???-???-???-??? -???-???-???-???-??? -???-???- Glucose FHR FuHt Pres Dilation -???-???-???-???-??? -???-???-???-???-??? -???-???- Effaced St Visit Note 08/16/24 -???-???-???-???-??? -???-???-???-???-??? -???-???- 8w 6d 161 lb 6 oz 128/76 -???-???-???-???-??? -???-???-???-???-??? -???-???- 187 -???-???-???-???-??? -???-???-???-???-??? -???-???- JV- CRL ankur ures 8 weeks 6 days. JV- CRL measures 8 weeks 6 days an d not consistent with LMP> pt wants to TOLAC.was not given a chance to labor last time due to decels at 38 weeks. undecided about NIPT. 09/13/24 -???-???-???-???-??? -???-???-???-???-??? -???-???- 12w 6d 164 lb 107/75 Negative -???-???-???-???-??? -???-???-???-???-??? -???-???- Negative 160 -???-???-???-???-??? -???-???-???-???-??? -???-???- KW- no vb/c (more content not included)... Normal [facility] Health Communications Specialist Office Visit Reporton 02-16-2025 Health Communications Specialist Office Visit Report [facility] [address] [place] [address], [address] [place] [address] OFFICE VISIT Date of Service: 02/16/25 MR#: [id number] Acct: [id number] Name: BRENDEN HART Rep #: [id number] : 2000 Provider: ALBANIA honeycutt Age/Sex: 24/F [place] [facility] [place]: Signed Intake Vital Signs 01/26/25 11:07 01/31/25 08:09 02/16/25 13:53 02/16/25 13:53 Height 5 ft 1 in 5 ft 1 in 5 ft 5 ft Weight: 180 lb 6 oz BMI 35.2 BP 119/77 Intake Visit Reasons: 35 wk ob/nst 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 Is patient in pain?: No Allergies No Known Allergies Allergy (Verified 02/16/25 13:53) Medications ???Medication ???Instructions ???Recorded ???Confirmed ???Type multivitamin no.47-iron fum 27 1 cap PO DAILY 08/10/24 02/16/25 H istory mg-folate no.1 1 mg-dha 300 mg capsule (PNV-DHA) Last Menstrual Period: 06/07/24 Zika: Zika virus screening: Negative : No PFSH PFSH Medical History delivery delivered Seizures Autoimmune disease Surgical History History of surgery Family History Grandmother Diabetes Paternal- Type 2 Heart disease, Onset Age: 74 Paternal-2 stents Breast cancer, Onset Age: 70 Paternal- All 11 siblings have some type of cancer Grandfather Diabetes Cancer, Onset Age: 68 Lung Colon cancer, Onset Age: 68 Grandmother Myocardial infarction, Onset Age: 54 Maternal Uncle Myocardial infarction, Onset Age: 60 Maternal Social History adopted: No household members: spouse and children number of children: 1 current occupational status: unemployed current occupation: [employer] pets and animals: Yes (outside animals) pets and animals: cat(s) and other details: chickens history of recent travel: No sexually active: Yes Smoking Status: Never smoker alcohol intake: never substance use type: does not use well-balanced diet: daily or most days caffeine: Yes Type: coffee Number of servings: 1 eating out: rarely or never during the past year weight has: remained stable what type of physical activity do you participate in: none cristela/baptism: Jainism seatbelt use: always do you feel safe at home: Yes 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 Date Name GA/Weeks Outcome Route Bth Weight Gen Labor Lgth Anesthesia Del Locatn Provider FOB 06/11/23 Dwight 38 live - full term 6#[facility] Delivery Date: 06/11/23 Last Updated by: Rachel Mcfarland decels, cord around neck HPI 35 wk ob/nst Details: BRENDEN HART is a 24 year old who presents for routine OB visit. OB Visit MERLE Calculator Estimated Delivery Date Method Current WG Current Estimate 03/22/25 Ultrasound #1 35w 1d Other Estimates 03/14/25 LMP (Certain) 36w 2d Expected Delivery Route/Plan TOLAC patient counseled regarding risks/benefits of trial of labor versus repeat . ACOG/uptodate education given to patient. 59.7 % likelihood of success per calculator TOLAC consent form signed: [] Support person Jeremy Specific Issue/Plans Covid status: [] Flu vaccine: [] Tdap vaccine: declines Rhogam: declines LARC form signed: yes movement and labor precautions reviewed. Problem list reviewed and updated with the most current plan of care details and appropriate orders placed. Relevant counseling for the gestational age provided. Continue routine care and follow up unless otherwise noted in visit notes/problem list details Initial Weight: Not Recorded Date -???-???-???-???-??? -???-???-???-???-??? -???-???- EGA Weight BP Urine Prot -???-???-???-???-??? -???-???-???-???-??? -???-???- Glucose FHR FuHt Pres Dilation -???-???-???-???-??? -???-???-???-???-??? -???-???- Effaced St Visit Note 08/16/24 -???-???-???-???-??? -???-???-???-???-??? -???-???- 8w 6d 161 lb 6 oz 128/76 -???-???-???-???-??? -???-???-???-???-??? -???-???- 187 -???-???-???-???-??? -???-???-???-???-??? -???-???- JV- CRL ankur ures 8 weeks 6 days. JV- CRL measures 8 weeks 6 days an d not consistent with LMP> pt wants to TOLAC.was not given a chance to labor last time due to decels at 38 weeks. undecided about NIPT. 09/13/24 -???-???-???-???-??? -???-???-???-???-??? -???-???- 12w 6d 164 lb 107/75 Nega (more content not included)... Normal [facility] Biophysical Prof W/O Non Str eson 02-08-2025 Biophysical Prof W/O Non Stres [facility] [address] [place] [address] Biophysical Prof W/O Elizabet Hornerchet MR#: [id number] Acct: [id number] Name: BRENDEN HART Rep #: [id number] : 2000 F 24 From: David zhang MD PCP: Dr. Billy Cates MD Status: DEP CLI Study: Biophysical Prof W/O Non Stres Date of Exam: 0 02/08/25 Exam# [id number] Ordering Dr: Yady Maguire CNM PROCEDURE: BIOPHYSICAL PROF W/O NON STRES 02/08/2025 REASON FOR EXAM: DECREASED VARIABILITY TECHNIQUE: High resolution obstetric ultrasound performed using a 2D transducer. Standard views obtained, including biometry, anatomy survey, and Doppler studies. COMPARISON: None FINDINGS LMP: June 15, 2024. position: Cephalic heart rate: 143 beats per minute Amniotic fluid: Within normal limits. Largest fluid pocket measures 6 cm. KIRK: 20.9. Placenta location: Anterior and not low-lying. Biophysical profile: Breathing movements: 2 Gross body movements: 2 tone: 2 amniotic fluid volume: 2 Total score: 8/8 US/Biophysical Prof W/O Non Stres IMPRESSION: Normal biophysical profile. Reading Location: [facility] CC: PADMA Maguire; Dr. Billy Cates MD Professor Of Surgery: Signed Normal [facility] Laboratory - Chemistry and C hemistry - challengeOrdered By: Yady Maguire on 02-08-2025 Glucose Ql (U) Negative [facility] Laboratory - UrinalysisOrder ed By: Yady Maguire on 02-08-2025 Protein Ql (U) Negative [facility] OB Limited With Biometricson 02-08-2025 OB Limited With Biometrics [facility] Services [address], [place] [id number] OB Limited With Biometrics MR#: [id number] Acct: [id number] Name: BRENDEN HART Rep #: [id number] : 2000 F 24 From: David zhang MD PCP: Dr. Billy Cates MD Status: DEP CLI Study: OB Limited With Biometrics Date of Exam: 02/08 Exam# [id number] Ordering Dr: Yady Maguire CNM PROCEDURE: OB LIMITED WITH BIOMETRICS 02/08/2025 REASON FOR EXAM: FOCUS ON KIRK AND GROWTH TECHNIQUE: High resolution obstetric ultrasound performed using a 2D transducer. Standard views obtained, including biometry, anatomy survey, and Doppler studies. COMPARISON: None FINDINGS LMP: June 15, 2024 Number: 1 Position: Vertex Placental Position: Anterior and not low-lying. Placental Abnormalities: None DIMENSIONS: Biparietal Diameter: 8.49 cm: 34 weeks and 1 day: 54 percentile/ Head Circumference: 30.87 cm: 34 weeks and 3 days: 25th percentile/ Abdominal Circumference: 30.66 cm: 34 weeks and 4 days: 71st percentile/ Femur Length: 6.24 cm: 32 weeks and 2 days: 7 percentile/ ESTIMATED WEIGHT: 2327 g plus/-349 g ESTIMATED WEIGHT PERCENTILE (24+ weeks): 44 ESTIMATED GESTATIONAL AGE: Baseline: 34 weeks and 0 days By Ultrasound: 34 weeks and 0 days ESTIMATED DATE OF DELIVERY: Baseline: March 22, 2025 By Ultrasound: March 22, 2025 BIOPHYSICAL ASSESSMENT: Amniotic Fluid Volume: 5.9 cm Amniotic Fluid Index: 20 (8-24 cm normal range) Cardiac Motion: 143 beats per minute (average) Trunk and Limb Motion: Present. MATERNAL ANATOMY: Adnexa: Neither maternal ovary is successfully identified. Cervical Length (if measured): 4.1 cm US/OB Limited With Biometrics IMPRESSION: Single live intrauterine gestation with a mean gestational age of 34 weeks. Reading Location: [place] [address] CC: PADMA Maguire; Dr. 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 Billy Cates MD Status:REG CLI Y DOS: Location: [place] [address] Progress Notes Date of Service: 02/08/25 Progress Note: Patient presents for triage evaluation secondary to nonreassuring NST in office at 34 weeks. FHT: 140 Moderate variability reactive no decelerations category I tracing [place]: rare Contractions Assessment and plan: BPP 05/13 repeat kirk is 20 cm, Reactive NST, reassuring maternal and status patient discharged to home to follow-up in office. See problem list details for additional plan information. Charges/Coding Multi Select Codes Urinary/Genital Urinary/Genital CPT Codes: 73778-83 non-stress test Interp Assessment Plan (1) Polyhydramnios: COMMENT: KIRK 28 cm at 01/21 scan. KIRK 20cm 02/08 (2) Obesity affecting : QUALIFIERS: Trimester: second trimester Obesity type affecting : unspecified obesity Qualified Code(s): O99.212 - Obesity complicating , second trimester COMMENT: HgbA1c (3) Supervision of high-risk : QUALIFIERS: Trimester: third trimester Qualified Code(s): O09.93 - Supervision of high risk , unspecified, third trimester COMMENT: PRR , MERLE 03/14/25 boy, BING Quintanilla, Jeremy (4) : QUALIFIERS: Weeks of gestation: 34 weeks Qualified Code(s): Z3A.34 - 34 weeks gestation of COMMENT: declines NIPT Carrier testing (5) Previous section: COMMENT: interested in (6) Non-reassuring electronic monitoring tracing: COMMENT: BPP 05/13, D/C home with reactive NST 02/08/25 1249 Date Yady Pal Signature (if applicable): Date _ CC: PADMA Maguire; Dr. Billy Cates MD Signed Normal [facility] Health Communications Specialist Office Visit Reporton 02-08-2025 Health Communications Specialist Office Visit Report [facility] [address], [address] [place] [address] OFFICE VISIT Date of Service: 02/08/25 MR#: [id number] Acct: [id number] Name: BRENDEN HART Rep #: [id number] : 2000 Provider: PADMA Tesfaye ams Age/Sex: 24/F [place] [facility] [place]: Signed Intake Vital Signs 10/12/24 13:43 02/01/25 11:26 02/08/25 10:06 Height 5 ft 1 in 5 ft 1 in 5 ft 1 in Weight: 181 lb 2 oz BMI 34.2 BP 107/72 Intake Visit Reasons: 34 wk ob/nst Chief Complaint: 34wk 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 Is patient in pain?: No Allergies No Known Allergies Allergy (Verified 02/08/25 10:04) Medications ???Medication ???Instructions ???Recorded ???Confirmed ???Type multivitamin no.47-iron fum 27 cap PO 08/10/24 02/08/25 History mg-folate no.1 1 mg-dha 300 mg capsule (PNV-DHA) Last Menstrual Period: 06/07/24 : No PFSH PFSH Medical History delivery delivered Seizures Autoimmune disease Surgical History History of surgery Family History Grandmother Diabetes Paternal- Type 2 Heart disease, Onset Age: 74 Paternal-2 stents Breast cancer, Onset Age: 70 Paternal- All 11 siblings have some type of cancer Grandfather Diabetes Cancer, Onset Age: 68 Lung Colon cancer, Onset Age: 68 Grandmother Myocardial infarction, Onset Age: 54 Maternal Uncle Myocardial infarction, Onset Age: 60 Maternal Social History adopted: No household members: spouse and children number of children: 1 current occupational status: unemployed current occupation: [employer] pets and animals: Yes (outside animals) pets and animals: cat(s) and other details: chickens history of recent travel: No sexually active: Yes Smoking Status: Never smoker alcohol intake: never substance use type: does not use well-balanced diet: daily or most days caffeine: Yes Type: coffee Number of servings: 1 eating out: rarely or never during the past year weight has: remained stable what type of physical activity do you participate in: none cristela/baptism: Jainism seatbelt use: always do you feel safe at home: Yes 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 Date Name GA/Weeks Outcome Route Bth Weight Infant Gen Labor Lgth Anesthesia Del Locatn Provider FOB 06/11/23 Dwight 38 live - full term 6#4oz Male spinal [facility] Ja ld Luna Delivery Date: 06/11/23 Last Updated by: Rachel Mcfarland decels, cord around neck HPI 34 wk ob/nst Details: BRENDEN HART is a 24 year old who presents for routine OB visit. OB Visit MERLE Calculator Estimated Delivery Date Method Current WG Current Estimate 03/22/25 Ultrasound #1 34w 0d Other Estimates 03/14/25 LMP (Certain) 35w 1d Expected Delivery Route/Plan TOLAC patient counseled regarding risks/benefits of trial of labor versus repeat . ACOG/uptodate education given to patient. 59.7 % likelihood of success per calculator TOLAC consent form signed: [] Support person Jeremy Specific Issue/Plans Covid status: [] Flu vaccine: [] Tdap vaccine: declines Rhogam: declines LARC form signed: yes movement and labor precautions reviewed. Problem list reviewed and updated with the most current plan of care details and appropriate orders placed. Relevant counseling for the gestational age provided. Continue routine care and follow up unless otherwise noted in visit notes/problem list details Initial Weight: Not Recorded Date -???-???-???-???-??? -???-???-???-???-??? -???-???- EGA Weight BP Urine Prot -???-???-???-???-??? -???-???-???-???-??? -???-???- Glucose FHR FuHt Pres Dilation -???-???-???-???-??? -???-???-???-???-??? -???-???- Effaced St Visit Note 08/16/24 -???-???-???-???-??? -???-???-???-???-??? -???-???- 8w 6d 161 lb 6 oz 128/76 -???-???-???-???-??? -???-???-???-???-??? -???-???- 187 -???-???-???-???-??? -???-???-???-???-??? -???-???- JV- CRL ankur ures 8 weeks 6 days. JV- CRL measures 8 weeks 6 days an d not consistent with LMP> pt wants to TOLAC.was not given a chance to labor last time due to decels at 38 weeks. undecided about NIPT. 09/13/24 -???-???-???-???-??? -???-???-???-???-??? -???-???- 12w 6d 164 lb 107/75 Negative -???-???-???-???-??? -???-???-???-???-??? -???-???- Ne (more content not included)... Normal [facility] Laboratory - Chemistry and C hemistry - challengeOrdered By: Yady Maguire on 02-01-2025 Glucose Ql (U) Negative [facility] Laboratory - UrinalysisOrder ed By: Yady Maguire on 02-01-2025 Protein Ql (U) Negative [facility] Health Communications Specialist Office Visit Reporton 02-01-2025 Health Communications Specialist Office Visit Report [facility] [address], [address] [place] [address] OFFICE VISIT Date of Service: 02/01/25 MR#: [id number] Acct: [id number] Name: BRENDEN HART Rep #: [id number] : 2000 Provider: PADMA Tesfaye ams Age/Sex: 24/F [place] [facility] [place]: Signed Intake Vital Signs 01/26/25 11:07 02/01/25 11:26 Height 5 ft 1 in 5 ft 1 in Weight: 178 lb BMI 33.6 BP 113/74 Intake Visit Reasons: 33 wk ob/nst Chief Complaint: 33wk OB/NST 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 Is patient in pain?: No Allergies No Known Allergies Allergy (Verified 02/01/25 11:24) Medications ???Medication ???Instructions ???Recorded ???Confirmed ???Type multivitamin no.47-iron fum 27 cap PO 08/10/24 02/01/25 History mg-folate no.1 1 mg-dha 300 mg capsule (PNV-DHA) Last Menstrual Period: 06/07/24 : No PFSH PFSH Medical History delivery delivered Seizures Autoimmune disease Surgical History History of surgery Family History Grandmother Diabetes Paternal- Type 2 Heart disease, Onset Age: 74 Paternal-2 stents Breast cancer, Onset Age: 70 Paternal- All 11 siblings have some type of cancer Grandfather Diabetes Cancer, Onset Age: 68 Lung Colon cancer, Onset Age: 68 Grandmother Myocardial infarction, Onset Age: 54 Maternal Uncle Myocardial infarction, Onset Age: 60 Maternal Social History adopted: No household members: spouse and children number of children: 1 current occupational status: unemployed current occupation: [employer] pets and animals: Yes (outside animals) pets and animals: cat(s) and other details: chickens history of recent travel: No sexually active: Yes Smoking Status: Never smoker alcohol intake: never substance use type: does not use well-balanced diet: daily or most days caffeine: Yes Type: coffee Number of servings: 1 eating out: rarely or never during the past year weight has: remained stable what type of physical activity do you participate in: none cristela/baptism: Jainism seatbelt use: always do you feel safe at home: Yes 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 Date Name GA/Weeks Outcome Route Bth Weight Infant Gen Labor Lgth Anesthesia Del Locatn Provider FOB 06/11/23 Dwight 38 live - full term 6#4oz Male spinal [facility] Ja mes José Luna Delivery Date: 06/11/23 Last Updated by: Rachel Mcfarland decels, cord around neck HPI 33 wk ob/nst Details: BRENDEN HART is a 24 year old who presents for routine OB visit. OB Visit MERLE Calculator Estimated Delivery Date Method Current WG Current Estimate 03/22/25 Ultrasound #1 33w 0d Other Estimates 03/14/25 LMP (Certain) 34w 1d Expected Delivery Route/Plan TOLAC patient counseled regarding risks/benefits of trial of labor versus repeat . ACOG/uptodate education given to patient. 59.7 % likelihood of success per calculator TOLAC consent form signed: [] Support person Jeremy Specific Issue/Plans Covid status: [] Flu vaccine: [] Tdap vaccine: declines Rhogam: declines LARC form signed: yes movement and labor precautions reviewed. Problem list reviewed and updated with the most current plan of care details and appropriate orders placed. Relevant counseling for the gestational age provided. Continue routine care and follow up unless otherwise noted in visit notes/problem list details Initial Weight: Not Recorded Date -???-???-???-???-??? -???-???-???-???-??? -???-???- EGA Weight BP Urine Prot -???-???-???-???-??? -???-???-???-???-??? -???-???- Glucose FHR FuHt Pres Dilation -???-???-???-???-??? -???-???-???-???-??? -???-???- Effaced St Visit Note 08/16/24 -???-???-???-???-??? -???-???-???-???-??? -???-???- 8w 6d 161 lb 6 oz 128/76 -???-???-???-???-??? -???-???-???-???-??? -???-???- 187 -???-???-???-???-??? -???-???-???-???-??? -???-???- JV- CRL ankur ures 8 weeks 6 days. JV- CRL measures 8 weeks 6 days an d not consistent with LMP> pt wants to TOLAC.was not given a chance to labor last time due to decels at 38 weeks. undecided about NIPT. 09/13/24 -???-???-???-???-??? -???-???-???-???-??? -???-???- 12w 6d 164 lb 107/75 Negative -???-???-???-???-??? -???-???-???-???-??? -???-???- Negative 160 -???-???-???-?? (more content not included)... Normal [facility] Laboratory - Chemistry and C hemistry - challengeOrdered By: Dianna Luther on 01-26-2025 Glucose Ql (U) Negative [facility] Laboratory - UrinalysisOrder ed By: Dianna Luther on 01-26-2025 Protein Ql (U) Negative [facility] Health Communications Specialist Office Visit Reporton 01-26-2025 Health Communications Specialist Office Visit Report [facility] [address], [address] [place] [address] OFFICE VISIT Date of Service: 01/26/25 MR#: [id number] Acct: [id number] Name: BRENDEN HART Rep #: [id number] : 2000 Provider: Dr. Dianna Rain DO Age/Sex: 24/F [place] [facility] [place]: Signed Intake Vital Signs 10/12/24 13:43 01/11/25 10:14 01/26/25 10:58 01/26/25 11:07 Height 5 ft 1 in 5 ft 1 in 5 ft 1 in 5 ft 1 in Weight: 177 lb 2 oz BMI 33.5 BP 122/72 H Intake Visit Reasons: 32 wk ob 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 Is patient in pain?: No Allergies No Known Allergies Allergy (Verified 01/26/25 10:58) Medications ???Medication ???Instructions ???Recorded ???Confirmed ???Type multivitamin no.47-iron fum 27 cap PO 08/10/24 01/26/25 History mg-folate no.1 1 mg-dha 300 mg capsule (PNV-DHA) Last Menstrual Period: 06/07/24 Zika: Zika virus screening: Negative : No PFSH PFSH Medical History delivery delivered Seizures Autoimmune disease Surgical History History of surgery Family History Grandmother Diabetes Paternal- Type 2 Heart disease, Onset Age: 74 Paternal-2 stents Breast cancer, Onset Age: 70 Paternal- All 11 siblings have some type of cancer Grandfather Diabetes Cancer, Onset Age: 68 Lung Colon cancer, Onset Age: 68 Grandmother Myocardial infarction, Onset Age: 54 Maternal Uncle Myocardial infarction, Onset Age: 60 Maternal Social History adopted: No household members: spouse and children number of children: 1 current occupational status: unemployed current occupation: [employer] pets and animals: Yes (outside animals) pets and animals: cat(s) and other details: chickens history of recent travel: No sexually active: Yes Smoking Status: Never smoker alcohol intake: never substance use type: does not use well-balanced diet: daily or most days caffeine: Yes Type: coffee Number of servings: 1 eating out: rarely or never during the past year weight has: remained stable what type of physical activity do you participate in: none cristela/baptism: Jainism seatbelt use: always do you feel safe at home: Yes 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 Date Name GA/Weeks Outcome Route Bth Weight Gen Labor Lgth Anesthesia Del Locatn Provider FOB 06/11/23 Dwight 38 live - full term 6#4oz Male spinal [facility] ld José Luna Delivery Date: 06/11/23 Last Updated by: Rachel Mcfarland decels, cord around neck HPI 32 wk ob Details: BRENDEN HART is a 24 year old who presents for routine OB visit. OB Visit MERLE Calculator Estimated Delivery Date Method Current WG Current Estimate 03/22/25 Ultrasound #1 32w 1d Other Estimates 03/14/25 LMP (Certain) 33w 2d Expected Delivery Route/Plan TOLAC patient counseled regarding risks/benefits of trial of labor versus repeat . ACOG/uptodate education given to patient. 59.7 % likelihood of success per calculator TOLAC consent form signed: [] Support person Jeremy Specific Issue/Plans Covid status: [] Flu vaccine: [] Tdap vaccine: declines Rhogam: declines LARC form signed: yes movement and labor precautions reviewed. Problem list reviewed and updated with the most current plan of care details and appropriate orders placed. Relevant counseling for the gestational age provided. Continue routine care and follow up unless otherwise noted in visit notes/problem list details Initial Weight: Not Recorded Date -???-???-???-???-??? -???-???-???-???-??? -???-???- EGA Weight BP Urine Prot -???-???-???-???-??? -???-???-???-???-??? -???-???- Glucose FHR FuHt Pres Dilation -???-???-???-???-??? -???-???-???-???-??? -???-???- Effaced St Visit Note 08/16/24 -???-???-???-???-??? -???-???-???-???-??? -???-???- 8w 6d 161 lb 6 oz 128/76 -???-???-???-???-??? -???-???-???-???-??? -???-???- 187 -???-???-???-???-??? -???-???-???-???-??? -???-???- JV- CRL ankur ures 8 weeks 6 days. JV- CRL measures 8 weeks 6 days an d not consistent with LMP> pt wants to TOLAC.was not given a chance to labor last time due to decels at 38 weeks. undecided about NIPT. 09/13/24 -???-???-???-???-??? -???-???-???-???-??? -???-???- 12w 6d 164 lb 107/75 Ne (more content not included)... Normal [facility] Laboratory - Chemistry and C hemistry - challengeOrdered By: Carol Zaman on 01-11-2025 Glucose Ql (U) Negative [facility] Laboratory - UrinalysisOrder ed By: Carol Zaman on 01-11-2025 Protein Ql (U) Negative [facility] Health Communications Specialist Office Visit Reporton 01-11-2025 Health Communications Specialist Office Visit Report [facility] [address], [address] [place] [address] OFFICE VISIT Date of Service: 01/11/25 MR#: [id number] Acct: [id number] Name: BRENDEN HART Rep #: [id number] : 2000 Provider: Dr. Carol dumont MD Age/Sex: 24/F [place] [facility] [place]: Signed Intake Vital Signs 10/12/24 13:43 12/28/24 09:52 01/11/25 10:14 Height 5 ft 1 in 5 ft 1 in 5 ft 1 in Weight: 178 lb 179 lb 6 oz BMI 33.6 33.9 BP 122/79 H 125/78 H Intake Visit Reasons: 30 wk ob 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 Is patient in pain?: No Allergies No Known Allergies Allergy (Verified 01/11/25 10:15) Medications ???Medication ???Instructions ???Recorded ???Confirmed ???Type multivitamin no.47-iron fum 27 cap PO 08/10/24 01/11/25 History mg-folate no.1 1 mg-dha 300 mg capsule (PNV-DHA) Last Menstrual Period: 06/07/24 Zika: Zika virus screening: Negative : No PFSH PFSH Medical History delivery delivered Seizures Autoimmune disease Surgical History History of surgery Family History Grandmother Diabetes Paternal- Type 2 Heart disease, Onset Age: 74 Paternal-2 stents Breast cancer, Onset Age: 70 Paternal- All 11 siblings have some type of cancer Grandfather Diabetes Cancer, Onset Age: 68 Lung Colon cancer, Onset Age: 68 Grandmother Myocardial infarction, Onset Age: 54 Maternal Uncle Myocardial infarction, Onset Age: 60 Maternal Social History adopted: No household members: spouse and children number of children: 1 current occupational status: unemployed current occupation: [employer] pets and animals: Yes (outside animals) pets and animals: cat(s) and other details: chickens history of recent travel: No sexually active: Yes Smoking Status: Never smoker alcohol intake: never substance use type: does not use well-balanced diet: daily or most days caffeine: Yes Type: coffee Number of servings: 1 eating out: rarely or never during the past year weight has: remained stable what type of physical activity do you participate in: none cristela/baptism: Jainism seatbelt use: always do you feel safe at home: Yes 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 Date Name GA/Weeks Outcome Route Bth Weight Gen Labor Lgth Anesthesia Del Locatn Provider FOB 06/11/23 Dwight 38 live - full term 6#4oz Male spinal [facility] José Luna Delivery Date: 06/11/23 Last Updated by: Rachel Mcfarland decels, cord around neck HPI 30 wk ob Details: BRENDEN HART is a 24 year old who presents for routine OB visit. OB Visit MERLE Calculator Estimated Delivery Date Method Current WG Current Estimate 03/22/25 Ultrasound #1 30w 0d Other Estimates 03/14/25 LMP (Certain) 31w 1d Expected Delivery Route/Plan TOLAC patient counseled regarding risks/benefits of trial of labor versus repeat . ACOG/uptodate education given to patient. 59.7 % likelihood of success per calculator TOLAC consent form signed: [] Support person Jeremy Specific Issue/Plans Covid status: [] Flu vaccine: [] Tdap vaccine: declines Rhogam: declines LARC form signed: yes movement and labor precautions reviewed. Problem list reviewed and updated with the most current plan of care details and appropriate orders placed. Relevant counseling for the gestational age provided. Continue routine care and follow up unless otherwise noted in visit notes/problem list details Initial Weight: Not Recorded Date -???-???-???-???-??? -???-???-???-???-??? -???-???- EGA Weight BP Urine Prot -???-???-???-???-??? -???-???-???-???-??? -???-???- Glucose FHR FuHt Pres Dilation -???-???-???-???-??? -???-???-???-???-??? -???-???- Effaced St Visit Note 08/16/24 -???-???-???-???-??? -???-???-???-???-??? -???-???- 8w 6d 161 lb 6 oz 128/76 -???-???-???-???-??? -???-???-???-???-??? -???-???- 187 -???-???-???-???-??? -???-???-???-???-??? -???-???- JV- CRL ankur ures 8 weeks 6 days. JV- CRL measures 8 weeks 6 days an d not consistent with LMP> pt wants to TOLAC.was not given a chance to labor last time due to decels at 38 weeks. undecided about NIPT. 09/13/24 -???-???-???-???-??? -???-???-???-???-??? -???-???- 12w 6d 164 lb 107/75 Negative -???-?? (more content not included)... Normal [facility] Absolute lymphocyte countOrd ered By: Carol Zaman on 12-28-2024 Lymphocytes Auto (Unsp spec) [#/Vol] 2.45 10*3/uL 0.83-4.51 [facility] Absolute neutrophil countOrd ered By: Carol Zaman on 12-28-2024 Neutrophils (Bld) [#/Vol] 6.8 10*3/uL 2.0-7.7 [facility] Automated lymphocyte count a s percentage of total leukocytesOrdered By: Carol Zaman on 12-28-2024 Lymphocytes/100 WBC Auto (Unsp spec) 24.4 % 19-41 [facility] Basophil percentageOrdered B y: Carol Zaman on 12-28-2024 Basophils/100 WBC (Bld) 0.5 % 0-[address] [facility] CBC W/Diff, Automatedon 12-05 Absolute Lymph 2.45 X10 3/uL Normal 0.83-4.51 [facility] Comment on above: Performed By: #### L 501.0250, L509.8002, L3890.6006, L100.0100 ####[facility] [address] [place], [address] Absolute Neut 6.8 X10 3/uL Normal 2.0-7.7 [facility] Comment on above: Performed By: #### L 501.0250, L509.8002, L3890.6006, L100.0100 ####[facility] [address] [place], [address] Basophils/100 WBC (Bld) 0.5 % Normal 0-[address] [facility] Comment on above: Performed By: #### L 501.0250, L509.8002, L3890.6006, L100.0100 ####[facility] [address] [place], [address] Eosinophils/100 WBC (Bld) 0.9 % Normal 0-5 [facility] Comment on above: Performed By: #### L 501.0250, L509.8002, L3890.6006, L100.0100 ####[facility] [address] [place], [address] Erythrocyte distribution width (RBC) [Ratio] 13.3 % Normal 11.6-14.6 [facility] Comment on above: Performed By: #### L 501.0250, L509.8002, L3890.6006, L100.0100 ####[facility] [address] [place], [address] Hematocrit (Bld) [Volume fraction] 35.4 % Low 37-47 [facility] Comment on above: Performed By: #### L 501.0250, L509.8002, L3890.6006, L100.0100 ####[facility] [address] [place], [address] Hemoglobin (Bld) [Mass/Vol] 11.7 g/dL Low 12.0-15.0 [facility] Comment on above: Performed By: #### L 501.0250, L509.8002, L3890.6006, L100.0100 ####[facility] [address] [place], [address] IG% 0.700 Normal 0.0-0.9 [facility] Comment on above: Result Comment: IG% - Immature Granulocytes (promyelocytes, myelocytes and metamyelocytes) > 1% indicates that a LEFT SHIFT is Present. Performed By: #### L 501.0250, L509.8002, L3890.6006, L100.0100 ####[facility] [address] [place], [address] Lymphocytes/100 WBC (Bld) 24.4 % Normal 19-41 [facility] Comment on above: Performed By: #### L 501.0250, L509.8002, L3890.6006, L100.0100 ####[facility] [address] [place], [address] MCH (RBC) [Entitic mass] 30.5 pg Normal 27.0-32.0 [facility] Comment on above: Performed By: #### L 501.0250, L509.8002, L3890.6006, L100.0100 ####[facility] [address] [place], [address] MCHC (RBC) [Mass/Vol] 33.1 g/dL Normal 32-36 [facility] Comment on above: Performed By: #### L 501.0250, L509.8002, L3890.6006, L100.0100 ####[facility] [address] [place], [address] MCV (RBC) [Entitic vol] 92.2 fL Normal 81-[address] [facility] Comment on above: Performed By: #### L 501.0250, L509.8002, L3890.6006, L100.0100 ####[facility] [address] [place], [address] Monocytes/100 WBC (Bld) 6.0 % Normal 0-[address] [facility] Comment on above: Performed By: #### L 501.0250, L509.8002, L3890.6006, L100.0100 ####[facility] [address] [place], [address] Neutrophils/100 WBC (Bld) 67.5 % Normal 47-70 [facility] Comment on above: Performed By: #### L 501.0250, L509.8002, L3890.6006, L100.0100 ####[facility] [address] [place], [address] Nucleated RBC (Bld) [#/Vol] 0 10*3/uL Normal 0-5 [facility] Comment on above: Performed By: #### L 501.0250, L509.8002, L3890.6006, L100.0100 ####[facility] [address] [place], [address] Platelet mean volume (Bld) [Entitic vol] 9.8 fL Normal 6.2-12.0 [facility] Comment on above: Performed By: #### L 501.0250, L509.8002, L3890.6006, L100.0100 ####[facility] [address] [place], [address] Platelets (Bld) [#/Vol] 288 10*3/uL Normal 150-450 [facility] Comment on above: Performed By: #### L 501.0250, L509.8002, L3890.6006, L100.0100 ####[facility] [address] [place], [address] RBC (Bld) [#/Vol] 3.84 10*6/uL Low 4.2-5.4 [facility] Comment on above: Performed By: #### L 501.0250, L509.8002, L3890.6006, L100.0100 ####[facility] [address] [place], [address] RDW SD 44.9 fl High 35.1-43.9 [facility] Comment on above: Performed By: #### L 501.0250, L509.8002, L3890.6006, L100.0100 ####[facility] [address] [place], [address] WBC (Bld) [#/Vol] 10.0 10*3/uL Normal 4.4-11.0 [facility] Comment on above: Performed By: #### L 501.0250, L509.8002, L3890.6006, L100.0100 ####[facility] [address] [place], [address] Eosinophil percentageOrdered By: Carol Zaman on 12-28-2024 Eosinophils/100 WBC (Bld) 0.9 % 0-5 [facility] Erythrocyte distribution wid th ratioOrdered By: Carol Zaman on 12-28-2024 Erythrocyte distribution width (RBC) [Ratio] 13.3 % 11.6-14.6 [facility] Erythrocyte distribution wid th standard deviationOrdered By: Carol Zaman on 12-28-2024 Erythrocyte distribution width (RBC) [Entitic vol] 44.9 fL High 35.1-43.9 [facility] Erythrocyte distribution width (RBC) [Ratio] 44.9 fl High 35.1-43.9 [facility] Glucose Challenge Gest 1H 50 rivas 12-28-2024 GLU GEST 50g 1H 86 mg/dL Normal 70-140 [facility] Comment on above: Performed By: #### L 501.0250, L509.8002, L3890.6006, L100.0100 ####[facility] [address] [place], [place], [id number] Glucose measurement at 2 allan rs post-dose gestational glucose tolerance testOrdered By: Carol Zaman on 12-28-2024 Glucose [Mass/Vol] 86 mg/dL 70-140 [facility] Hematocrit Auto (Bld) [Volum e fraction]Ordered By: Carol Zaman on 12-28-2024 Hematocrit (Bld) [Volume fraction] 35.4 % Low 37-47 [facility] Hemoglobin measurementOrdere d By: Carol Zaman on 12-28-2024 Hemoglobin (Bld) [Mass/Vol] 11.7 g/dL Low 12.0-15.0 [facility] Immature granulocytes/100 WB C Auto (Bld)Ordered By: Carol Zaman on 12-28-2024 Immature granulocytes/100 WBC (Bld) 0.700 % 0.0-0.9 [facility] Comment on above: IG% - Immature Granu locytes (promyelocytes, myelocytes and metamyelocytes) > 1% indicates that a LEFT SHIFT is Present. L3890.6006on 12-28-2024 HIV Non-Reactive Normal Nonreactive [facility] Comment on above: Result Comment: Non- Reactive Reactive Repeatedly reactive samples must be confirmed according to CDC recommended confirmatory algorithms. The subresults for either HIVAG or AHIV can be used as an aid in the selection of the confirmation algorithm for reactive samples. Send out specimens with Reactive results to [facility] for confirmation. Order the HIV antibody detection and differentiation: lc#[id number] Performed By: #### L 501.0250, L509.8002, L3890.6006, L100.0100 ####[facility] [address] [place], [address] L509.8002on 12-28-2024 Syphilis Abs Non-Reactive Normal Nonreactive [facility] Comment on above: Performed By: #### L 501.0250, L509.8002, L3890.6006, L100.0100 ####[facility] [address] [place], [address] Laboratory - Chemistry and C hemistry - challengeOrdered By: Tessie Levine on 12-28-2024 Glucose Ql (U) Negative [facility] Laboratory - UrinalysisOrder ed By: Tessie Levine on 12-28-2024 Protein Ql (U) Negative [facility] Lymphocytes Auto (Unsp spec) [#/Vol]Ordered By: Carol Zaman on 12-28-2024 Lymphocytes (Bld) [#/Vol] 2.45 10*3/uL 0.83-4.51 [facility] Lymphocytes/100 WBC Auto (Un sp spec)Ordered By: Carol Zaman on 12-28-2024 Lymphocytes/100 WBC (Bld) 24.4 % 19-41 [facility] MCV (mean corpuscular volume ) determinationOrdered By: Carol Zaman on 12-28-2024 MCV (RBC) [Entitic vol] 92.2 fL 81-99 [facility] Mean corpuscular hemoglobin (MCH) determinationOrdered By: Carol Zaman on 12-28-2024 MCH (RBC) [Entitic mass] 30.5 pg 27.0-32.0 [facility] Mean corpuscular hemoglobin concentration (MCHC) determinationOrdered By: Carol Zaman on 12-28-2024 MCHC (RBC) [Mass/Vol] 33.1 g/dL 32-36 [facility] Mean platelet volume determi nationOrdered By: Carol Zaman on 12-28-2024 Platelet mean volume (Bld) [Entitic vol] 9.8 fL 6.2-12.0 [facility] Monocyte percentageOrdered B y: Carol Zaman on 12-28-2024 Monocytes/100 WBC (Bld) 6.0 % 0-[address] [facility] Neutrophil percentageOrdered By: Carol Zaman on 12-28-2024 Neutrophils/100 WBC (Bld) 67.5 % 47-70 [facility] No Panel InformationOrdered By: Carol Zaman on 12-28-2024 HIV (1&2) Antibody Non-Reactive Nonreactive [facility] Comment on above: Non-ReactiveReactive Repeatedly reactive samples must be confirmed according to CDC recommended confirmatory algorithms. The subresults for either HIVAG or AHIV can be used as an aid in the selection of the confirmation algorithm for reactive samples.Send out specimens with Reactive results to [facility] for confirmation.Order the HIV antibody detection and differentiation: #[id number] Nucleated red blood cell per centageOrdered By: Carol Zaman on 12-28-2024 Nucleated RBC/100 WBC (Bld) [Ratio] 0 % 0-5 [facility] Health Communications Specialist Office Visit Reporton 12-28-2024 Health Communications Specialist Office Visit Report [facility] [address], [address] [place] [address] OFFICE VISIT Date of Service: 12/28/24 MR#: [id number] Acct: [id number] Name: HARTBRENDEN Ajith SAMMI Rep #: [id number] : 2000 Provider: [place] honeycutt Age/Sex: 24/F Location: [facility] Status: Signed Intake Vital Signs 10/12/24 13:43 12/08/24 10:29 12/28/24 09:52 Height 5 ft 1 in 5 ft 1 in 5 ft 1 in Weight: 178 lb BMI 33.6 BP 122/79 H Intake Visit Reasons: 28 wk ob/glucose *med recs Chief Complaint: 28 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 Is patient in pain?: No Allergies No Known Allergies Allergy (Verified 12/28/24 09:51) Medications ???Medication ???Instructions ???Recorded ???Confirmed ???Type multivitamin no.47-iron fum 27 cap PO 08/10/24 12/28/24 History mg-folate no.1 1 mg-dha 300 mg capsule (PNV-DHA) Last Menstrual Period: 06/07/24 Zika: Zika virus screening: Negative : Yes PFSH PFSH Medical History delivery delivered Seizures Autoimmune disease Surgical History History of surgery Family History Grandmother Diabetes Paternal- Type 2 Heart disease, Onset Age: 74 Paternal-2 stents Breast cancer, Onset Age: 70 Paternal- All 11 siblings have some type of cancer Grandfather Diabetes Cancer, Onset Age: 68 Lung Colon cancer, Onset Age: 68 Grandmother Myocardial infarction, Onset Age: 54 Maternal Uncle Myocardial infarction, Onset Age: 60 Maternal Social History adopted: No household members: spouse and children number of children: 1 current occupational status: unemployed current occupation: [employer] pets and animals: Yes (outside animals) pets and animals: cat(s) and other details: chickens history of recent travel: No sexually active: Yes Smoking Status: Never smoker alcohol intake: never substance use type: does not use well-balanced diet: daily or most days caffeine: Yes Type: coffee Number of servings: 1 eating out: rarely or never during the past year weight has: remained stable what type of physical activity do you participate in: none cristela/baptism: Jainism seatbelt use: always do you feel safe at home: Yes 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 Date Name GA/Weeks Outcome Route Bth Weight Gen Labor Lgth Anesthesia Del Locatn Provider FOB 06/11/23 Dwight 38 live - full term 6#4oz Male spinal [facility] [address] Delivery Date: 06/11/23 Last Updated by: Rachel Mcfarland decels, cord around neck HPI 28 wk ob/glucose *med recs Details: BRENDEN HART is a 24 year old who presents for routine OB visit. OB Visit MERLE Calculator Estimated Delivery Date Method Current WG Current Estimate 03/22/25 Ultrasound #1 28w 0d Other Estimates 03/14/25 LMP (Certain) 29w 1d Expected Delivery Route/Plan TOLAC patient counseled regarding risks/benefits of trial of labor versus repeat . ACOG/uptodate education given to patient. 59.7 % likelihood of success per calculator TOLAC consent form signed: [] Support person Jeremy Specific Issue/Plans Covid status: [] Flu vaccine: [] Tdap vaccine: declines Rhogam: declines LARC form signed: yes Problem list reviewed and updated with the most current plan of care details and appropriate orders placed. Relevant counseling for the gestational age provided. Continue routine care and follow up unless otherwise noted in visit notes/problem list details Initial Weight: Not Recorded Date -???-???-???-???-??? -???-???-???-???-??? -???-???- EGA Weight BP Urine Prot -???-???-???-???-??? -???-???-???-???-??? -???-???- Glucose FHR FuHt Pres Dilation -???-???-???-???-??? -???-???-???-???-??? -???-???- Effaced St Visit Note 08/16/24 -???-???-???-???-??? -???-???-???-???-??? -???-???- 8w 6d 161 lb 6 oz 128/76 -???-???-???-???-??? -???-???-???-???-??? -???-???- 187 -???-???-???-???-??? -???-???-???-???-??? -???-???- JV- CRL ankur ures 8 weeks 6 days. JV- CRL measures 8 weeks 6 days an d not consistent with LMP> pt wants to TOLAC.was not given a chance to labor last time due to decels at 38 weeks. undecided about NIPT. 09/13/24 -???-???-???-???-??? -???-???-???-???-??? -???-???- 12w 6d 164 lb 107/75 Negative -? (more content not included)... Normal [facility] Platelet countOrdered By: Scott Zaman on 12-28-2024 Platelets (Bld) [#/Vol] 288 10*3/uL 150-450 [facility] RBC Auto (Bld) [#/Vol]Ordere d By: Carol Zaman on 12-28-2024 RBC (Bld) [#/Vol] 3.84 10*6/uL Low 4.2-5.4 [facility] T. pallidum abOrdered By: Scott Zaman on 12-28-2024 Syphilis Total Antibody Non-Reactive Nonreactiv e [facility] White blood cell (WBC) count Ordered By: Carol Zaman on 12-28-2024 WBC (Bld) [#/Vol] 10.0 10*3/uL 4.4-11.0 [facility] CNOVon 12-08-2024 CNOV Office Visit (UCWSTR) BRENDEN HART ([id number]) 2000 F Date Time Provider Department 12/08/24 11:30 AM MAIKOL TAYLOR [facility] During your visit today, we recorded the following information about you: Temperature Pulse Respiration Blood pressure 97.4 degrees 94/minute 16/minute 122/72 Weight 78.6 kg Maikol Taylor MD 12/08/2024 11:54 AM Signed Patient presents with: Chest Congestion: cough, sob x 1 month, 25 weeks HPI: Coughing for 1 month. She was seen here 11/25/24 after 3 weeks of coughing and the cough has not improved. Her last fever was 2 1/2 weeks ago. Her left lower ribs started hurting 2 days ago. She was sent her by her OB for CXR because her breathing or heart rate were elevated. Positive symptoms: Cough, Chest pain, baseline Nasal Congestion, Negative symptoms: Shortness of breath, Sore throat, Rhinorrhea, Fever, OTC: Tylenol MEDICATIONS: Current Outpatient Medications Medication Sig PNV no.95/ferrous fum/folic ac ( ORAL) Take by mouth. No current facility-administere d medications for this visit. ALLERGIES: ALLERGIES No Known Allergies VITALS: BP 122/72 Pulse 94 Temp 36.3 ?C (97.4 ?F) Resp 16 Wt 78.6 kg (173 lb 4.5 oz) LMP (LMP Unknown) SpO2 97% BMI 33.14 kg/m? PHYSICAL EXAM: GEN: Pleasant, in no acute distress. HEENT: PERRL, EOMI, conjunctiva clear Ears: canals clear. TMs without erythema, bulge, or effusion Sinuses: non-tender frontal sinus, non-tender maxillary sinuses Throat: moist mucous membranes, mild erythema, no exudate Neck: supple, no thyromegaly, no lymphadenopathy HEART: regular rate, regular rhythm, no murmurs LUNGS: clear to auscultation, no wheezes or crackles, no increased WOB CHEST: left lower lateral and anterior rib margin tender. ASSESSMENT/PLAN: 1. Subacute cough - ICD9: 786.2, ICD10: R05.2 (primary diagnosis) 2. Rib pain on left side - ICD9: 786.50, ICD10: R07.81 3. with 25 completed weeks gestation - ICD9: V22.2, ICD10: Z3A.25 - XR CHEST 2V FRONTAL/LAT - no pneumonia or rib fracture. Right lower lung crackles have resolved since her last exam. Expectant management for post bronchitic cough. Continue supportive care treatment for left lower rib strain with as needed acetaminophen. Follow up with worsening cough, worsening shortness of breath, increasing chest pain, or late onset fever. Maikol Taylor MD Allergies As of Date: 12/08/2024 (No Known Allergies) Date Reviewed: 12/08/2024 Reviewed by: Birgit Lance MA - Fully Assessed Reason for Visit: Chest Congestion [236] Cmt: cough, sob x 1 month, 25 weeks Primary Visit Diagnosis:Subacute cough [R05.2] Other Visit Diagnoses:Rib pain on left side [R07.81] with 25 completed weeks gestation [Z3A.25] Order(s):XR CHEST 2V FRONTAL/LAT [[id number]] Order #: [id number] FUTURE Prescriptions as of 12/08/2024 - PNV no.95/ferrous fum/folic ac ( ORAL) Take by mouth. Problem List As Of Date 12/08/2024 Noted Resolved Mastoid pain [H92.09] 11/30/2013 04/25/2014 Level of Service: OFFICE/OUTPATIENT ESTABLISHED MOD [facility] 30 MIN [63132] Encounter Status:Closed by MAIKOL TAYLOR on 12/08/24 Normal [facility] Laboratory - Chemistry and C hemistry - challengeOrdered By: Caorl Zaman on 12-08-2024 Glucose Ql (U) Negative [facility] Laboratory - UrinalysisOrder ed By: Carol Zaman on 12-08-2024 Protein Ql (U) Negative [facility] Health Communications Specialist Office Visit Reporton 12-08-2024 Health Communications Specialist Office Visit Report [facility] [address], [address] [place] [address] OFFICE VISIT Date of Service: 12/08/24 MR#: [id number] Acct: [id number] Name: JUNGBRENDEN D SAMMI Rep #: [id number] : 2000 Provider: Dr. 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 Feel stressed/tense/nervo us/anxious/difficult y sleeping: not at all Allergies No Known Allergies Allergy (Verified 12/08/24 10:31) Medications ???Medication ???Instructions ???Recorded ???Confirmed ???Type multivitamin no.47-iron fum 27 cap PO 08/10/24 12/08/24 History mg-folate no.1 1 mg-dha 300 mg capsule (PNV-DHA) Last Menstrual Period: 06/07/24 : No PFSH PFSH Medical History delivery delivered Seizures Autoimmune disease Surgical History History of surgery Family History Grandmother Diabetes Paternal- Type 2 Heart disease, Onset Age: 74 Paternal-2 stents Breast cancer, Onset Age: 70 Paternal- All 11 siblings have some type of cancer Grandfather Diabetes Cancer, Onset Age: 68 Lung Colon cancer, Onset Age: 68 Grandmother Myocardial infarction, Onset Age: 54 Maternal Uncle Myocardial infarction, Onset Age: 60 Maternal Social History adopted: No household members: spouse and children number of children: 1 current occupational status: unemployed current occupation: [employer] pets and animals: Yes (outside animals) pets and animals: cat(s) and other details: chickens history of recent travel: No sexually active: Yes Smoking Status: Never smoker alcohol intake: never substance use type: does not use well-balanced diet: daily or most days caffeine: Yes Type: coffee Number of servings: 1 eating out: rarely or never during the past year weight has: remained stable what type of physical activity do you participate in: none cristela/baptism: Jainism seatbelt use: always do you feel safe at home: Yes 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 Date Name GA/Weeks Outcome Route Bth Weight Gen Labor Lgth Anesthesia Del Locatn Provider FOB 06/11/23 Dwight 38 live - full term 6#4oz Male spinal [facility] [address] Delivery Date: 06/11/23 Last Updated by: Rachel Mcfarland decels, cord around neck HPI 25 wk ob Details: BRENDEN HART is a 24 year old who presents for routine OB visit. OB Visit MERLE Calculator Estimated Delivery Date Method Current WG Current Estimate 03/22/25 Ultrasound #1 25w 1d Other Estimates 03/14/25 LMP (Certain) 26w 2d Expected Delivery Route/Plan TOLAC patient counseled regarding risks/benefits of trial of labor versus repeat . ACOG/uptodate education given to patient. 59.7 % likelihood of success per calculator TOLAC consent form signed: [] Specific Issue/Plans Covid status: [] Flu vaccine: [] Tdap vaccine: [] Rhogam: [] LARC form signed: [] Problem list reviewed and updated with the most current plan of care details and appropriate orders placed. Relevant counseling for the gestational age provided. Continue routine care and follow up unless otherwise noted in visit notes/problem list details Initial Weight: Not Recorded Date -???-???-???-???-??? -???-???-???-???-??? -???-???- EGA Weight BP Urine Prot -???-???-???-???-??? -???-???-???-???-??? -???-???- Glucose FHR FuHt Pres Dilation -???-???-???-???-??? -???-???-???-???-??? -???-???- Effaced St Visit Note 08/16/24 -???-???-???-???-??? -???-???-???-???-??? -???-???- 8w 6d 161 lb 6 oz 128/76 -???-???-???-???-??? -???-???-???-???-??? -???-???- 187 -???-???-???-???-??? -???-???-???-???-??? -???-???- JV- CRL ankur ures 8 weeks 6 days. JV- CRL measures 8 weeks 6 days an d not consistent with LMP> pt wants to TOLAC.was not given a chance to labor last time due to decels at 38 weeks. undecided about NIPT. 09/13/24 -???-???-???-???-??? -???-???-???-???-??? -???-???- 12w 6d 164 lb 107/75 Negative -???-???-???-???-??? -???-???-???-???-??? -???-???- Negative 160 -???-???-???-???-??? -???-???-???-???-??? - (more content not included)... Normal [facility] XR CHEST 2V FRONTAL/LATon XR CHEST 2V FRONTAL/LAT * * *Final Repor t* * * DATE OF EXAM: Dec 08 2024 11:46AM WOX [id number] - XR CHEST 2V FRONTAL/LAT / PROCEDURE REASON: multiple diagnoses * * * * Physician Interpretation * * * * EXAMINATION: CHEST RADIOGRAPH (2 VIEW FRONTAL and LATERAL) CLINICAL HISTORY: Subacute cough Rib pain on left side MQ: [id number] EXAM DATE/TIME: 12/08/2024 11:46 AM COMPARISON: No relevant prior studies available. RESULT: Lines, tubes, and devices: None. Lungs and pleura: No consolidation. No lung mass. No pleural effusion. No pneumothorax. Cardiomediastinal silhouette: Normal cardiomediastinal silhouette. Bones and soft tissues: Unremarkable. IMPRESSION: No acute radiographic abnormality. Professor Of Surgery: TONE Transcribe Date/Time: Dec 08 2024 11:46A Dictated by : STACEY HAMM MD This examination was interpreted and the report reviewed and electronically signed by: STACEY HAMM MD on Dec 08 2024 11:47AM EST [id number] Normal [facility] XR Chest PA and Lateralon Radiology Study observation (narrative) Vasquez [facility] IMPRESSION: No acute radiographic abnormality. Professor Of Surgery: TONE Transcribe Date/Time: Dec 08 2024 11:46A Dictated by : STACEY HAMM MD This examination was interpreted and the report reviewed and electronically signed by: STACEY HAMM MD on Dec 08 2024 11:47AM EST DIVISION OF RADIOLOGY * * *Final Report* * * DATE OF EXAM: Dec 08 2024 11:46AM WOX 5291 - XR CHEST 2V FRONTAL/LAT / PROCEDURE REASON: multiple diagnoses * * * * Physician Interpretation * * * * EXAMINATION: CHEST RADIOGRAPH (2 VIEW FRONTAL & LATERAL) CLINICAL HISTORY: Subacute cough Rib pain on left side MQ: XC2_6 EXAM DATE/TIME: 12/08/2024 11:46 AM COMPARISON: No relevant prior studies available. RESULT: Lines, tubes, and devices: None. Lungs and pleura: No consolidation. No lung mass. No pleural effusion. No pneumothorax. Cardiomediastinal silhouette: Normal cardiomediastinal silhouette. Bones and soft tissues: Unremarkable. DIVISION OF RADIOLOGY Provider, [facility] - 12/08/2024 * * *Final Report* * * DATE OF EXAM: Dec 08 2024 11:46AM WOX 5291 - XR CHEST 2V FRONTAL/LAT / PROCEDURE REASON: multiple diagnoses * * * * Physician Interpretation * * * * EXAMINATION: CHEST RADIOGRAPH (2 VIEW FRONTAL & LATERAL) CLINICAL HISTORY: Subacute cough Rib pain on left side MQ: XC2_6 EXAM DATE/TIME: 12/08/2024 11:46 AM COMPARISON: No relevant prior studies available. RESULT: Lines, tubes, and devices: None. Lungs and pleura: No consolidation. No lung mass. No pleural effusion. No pneumothorax. Cardiomediastinal silhouette: Normal cardiomediastinal silhouette. Bones and soft tissues: Unremarkable. IMPRESSION IMPRESSION: No acute radiographic abnormality. Professor Of Surgery: TONE Transcribe Date/Time: Dec 08 2024 11:46A Dictated by : STACEY HAMM MD This examination was interpreted and the report reviewed and electronically signed by: STACEY HAMM MD on Dec 08 2024 11:47AM EST [facility] XR Chest PA and LateralOrder ed By: Ccf Provider on 12-08-2024 [facility] CNOVon 11-25-2024 CNOV Office Visit (UCWSTR) BRENDEN HART ([id number]) 2000 F Date Time Provider Department 11/25/24 10:30 AM MAIKOL TAYLOR [facility] During your visit today, we recorded the following information about you: Temperature Pulse Respiration Blood pressure 97.5 degrees 85/minute 18/minute 100/69 Weight 78.1 kg Maikol Taylor MD 11/25/2024 11:34 AM Signed Patient presents with: Cough: Chest congestion, fever intermittent x2 weeks HPI: Feeling sick for 3 weeks with cough. Her son has had waxing and waning URI symptoms the last 3 weeks also. Her cough has been persistent. Currently 23 weeks . Positive symptoms: Cough, Nasal Congestion, Rhinorrhea, Fever (last fever 6 days ago), abdomen is sore from coughing Negative symptoms: Shortness of breath, Chest pain, Sore throat, Sinus pressure, OTC: lozenges. PAST MEDICAL HISTORY Diagnosis Date Concussion 07/2013 head contusion Febrile convulsions (simple), unspecified 12/04 Seizure. Seen at [facility]. Varicella without mention of complication 09/2006 mild case MEDICATIONS: Current Outpatient Medications Medication Sig PNV no.95/ferrous fum/folic ac ( ORAL) Take by mouth. No current facility-administere d medications for this visit. ALLERGIES: ALLERGIES No Known Allergies VITALS: BP 100/69 Pulse 85 Temp 36.4 ?C (97.5 ?F) Resp 18 Wt 78.1 kg (172 lb 2.9 oz) LMP (LMP Unknown) SpO2 96% BMI 32.93 kg/m? PHYSICAL EXAM: GEN: mildly ill appearing, pleasant, alert HEENT: PERRL, EOMI, conjunctiva clear Ears: canals clear. TMs without erythema, bulge, or effusion Sinuses: non-tender frontal sinus, non-tender maxillary sinuses Throat: moist mucous membranes, no erythema, no exudate Neck: supple, no thyromegaly, no lymphadenopathy HEART: regular rate, regular rhythm, no murmurs LUNGS: fine right lower lung inspiratory crackles, no increased WOB ASSESSMENT/PLAN: 1. Viral URI with cough - ICD9: 465.9, ICD10: J06.9 - suspect multiple viral URIs. Right lower lung crackles could represent pneumonia but has been afebrile for 6 days. She would like to avoid xray because of . Xray recommended with worsening cough, shortness of breath, chest pain, or return of fever. - Discussed supportive care treatment with rest, OB approved cough/cold medicine, and analgesia. - COVID AND INFLUENZA A/B AND RSV PCR, ROUTINE Maikol Taylor MD Allergies As of Date: 11/25/2024 (No Known Allergies) Date Reviewed: 11/25/2024 Reviewed by: Brenden Swain MA - Fully Assessed Reason for Visit: Cough [28] Cmt: Chest congestion, fever intermittent x2 weeks Primary Visit Diagnosis:Viral URI with cough [J06.9] Order(s):COVID AND INFLUENZA A/B AND RSV PCR, ROUTINE [SQCVFLRS] Order #: [id number]. #:[id number] Prescriptions as of 11/25/2024 - PNV no.95/ferrous fum/folic ac ( ORAL) Take by mouth. Problem List As Of Date 11/25/2024 Noted Resolved Mastoid pain [H92.09] 11/30/2013 04/25/2014 Medications Discontinued During This Encounter Prescriptions - nabumetone (RELAFEN) 750 mg tablet (Discontinued) Reported on 11/25/2024 - L-Norgest and E Estradiol-E Estrad (DAYSEE) 0.15 mg-30 mcg (84)/10 mcg (7) 3MPk (Discontinued) Reported on 11/25/2024 Level of Service: OFFICE/OUTPATIENT [facility] 30 MINUTES [82000] Encounter Status:Closed by MAIKOL TAYLOR on 11/25/24 Normal [facility] Laboratory - Chemistry and C hemistry - challengeOrdered By: Dianna Luther on 11-09-2024 Glucose Ql (U) Negative [facility] Laboratory - UrinalysisOrder ed By: Dianna Luther on 11-09-2024 Protein Ql (U) Negative [facility] Health Communications Specialist Office Visit Reporton 11-09-2024 Health Communications Specialist Office Visit Report [facility] [address], [address] [place] [address] OFFICE VISIT Date of Service: 11/09/24 MR#: [id number] Acct: [id number] Name: BRENDEN HART Rep #: [id number] : 2000 Provider: Dr. 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 Is patient in pain?: No Allergies No Known Allergies Allergy (Verified 11/09/24 11:04) Medications ???Medication ???Instructions ???Recorded ???Confirmed ???Type multivitamin no.47-iron fum 27 cap PO 08/10/24 11/09/24 History mg-folate no.1 1 mg-dha 300 mg capsule (PNV-DHA) Last Menstrual Period: 06/07/24 Zika: Zika virus screening: Negative : No PFSH PFSH Medical History delivery delivered Seizures Autoimmune disease Surgical History History of surgery Family History Grandmother Diabetes Paternal- Type 2 Heart disease, Onset Age: 74 Paternal-2 stents Breast cancer, Onset Age: 70 Paternal- All 11 siblings have some type of cancer Grandfather Diabetes Cancer, Onset Age: 68 Lung Colon cancer, Onset Age: 68 Grandmother Myocardial infarction, Onset Age: 54 Maternal Uncle Myocardial infarction, Onset Age: 60 Maternal Social History adopted: No household members: spouse and children number of children: 1 current occupational status: unemployed current occupation: [employer] pets and animals: Yes (outside animals) pets and animals: cat(s) and other details: chickens history of recent travel: No sexually active: Yes Smoking Status: Never smoker alcohol intake: never substance use type: does not use well-balanced diet: daily or most days caffeine: Yes Type: coffee Number of servings: 1 eating out: rarely or never during the past year weight has: remained stable what type of physical activity do you participate in: none cristela/baptism: Jainism seatbelt use: always do you feel safe at home: Yes 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 Date Name GA/Weeks Outcome Route Bth Weight Gen Labor Lgth Anesthesia Del Locatn Provider FOB 06/11/23 Dwight 38 live - full term 6#4oz Male spinal [facility] ld [facility] Delivery Date: 06/11/23 Last Updated by: Rachel Mcfarland decels, cord around neck HPI 21 WK OB Details: BRENDEN HART is a 24 year old who presents for routine OB visit. OB Visit MERLE Calculator Estimated Delivery Date Method Current WG Current Estimate 03/22/25 Ultrasound #1 21w 0d Other Estimates 03/14/25 LMP (Certain) 22w 1d Expected Delivery Route/Plan patient counseled regarding risks/benefits of trial of labor versus repeat . ACOG/uptodate education given to patient. 59.7 % likelihood of success per calculator TOLAC consent form signed: [] Specific Issue/Plans Covid status: [] Flu vaccine: [] Tdap vaccine: [] Rhogam: [] LARC form signed: [] Problem list reviewed and updated with the most current plan of care details and appropriate orders placed. Relevant counseling for the gestational age provided. Continue routine care and follow up unless otherwise noted in visit notes/problem list details Initial Weight: Not Recorded Date -???-???-???-???-??? -???-???-???-???-??? -???-???- EGA Weight BP Urine Prot -???-???-???-???-??? -???-???-???-???-??? -???-???- Glucose FHR FuHt Pres Dilation -???-???-???-???-??? -???-???-???-???-??? -???-???- Effaced St Visit Note 08/16/24 -???-???-???-???-??? -???-???-???-???-??? -???-???- 8w 6d 161 lb 6 oz 128/76 -???-???-???-???-??? -???-???-???-???-??? -???-???- 187 -???-???-???-???-??? -???-???-???-???-??? -???-???- JV- CRL ankur ures 8 weeks 6 days. JV- CRL measures 8 weeks 6 days an d not consistent with LMP> pt wants to TOLAC.was not given a chance to labor last time due to decels at 38 weeks. undecided about NIPT. 09/13/24 -???-???-???-???-??? -???-???-???-???-??? -???-???- 12w 6d 164 lb 107/75 Negative -???-???-???-???-??? -???-???-???-???-??? -???-???- Negative 160 -???-???-???-???-?? (more content not included)... Normal [facility] Laboratory - Chemistry and C hemistry - challengeon 10-12-2024 Glucose Ql (U) Negative [facility] Laboratory - Urinalysison Protein Ql (U) Negative [facility] Health Communications Specialist Office Visit Reporton 10-12-2024 Health Communications Specialist Office Visit Report [facility] [address], [address] [place] [address] OFFICE VISIT Date of Service: 10/12/24 MR#: [id number] Acct: [id number] Name: BRENDEN HART Rep #: [id number] : 2000 Provider: [place] honeycutt Age/Sex: 24/F [place] [facility] [place] Status: Signed Intake Vital Signs 08/16/24 13:47 09/13/24 14:39 10/12/24 13:43 Height 5 ft 1 in 5 ft 1 in 5 ft 1 in Weight: 171 lb BMI 32.3 BP 108/73 Blood Pressure Location Lt brachial Position Sitting Intake Visit Reasons: 17 WK OB Chief Complaint: 17 wk ob Allergies No Known Allergies Allergy (Verified 10/12/24 13:57) Medications ???Medication ???Instructions ???Recorded ???Confirmed ???Type multivitamin no.47-iron fum 27 cap PO 08/10/24 10/12/24 History mg-folate no.1 1 mg-dha 300 mg capsule (PNV-DHA) Last Menstrual Period: 06/07/24 : No Nurse's Note: 17 wk ob PFSH PFSH Medical History delivery delivered Seizures Autoimmune disease Surgical History History of surgery Family History Grandmother Diabetes Paternal- Type 2 Heart disease, Onset Age: 74 Paternal-2 stents Breast cancer, Onset Age: 70 Paternal- All 11 siblings have some type of cancer Grandfather Diabetes Cancer, Onset Age: 68 Lung Colon cancer, Onset Age: 68 Grandmother Myocardial infarction, Onset Age: 54 Maternal Uncle Myocardial infarction, Onset Age: 60 Maternal Social History adopted: No household members: spouse and children number of children: 1 current occupational status: unemployed current occupation: [employer] pets and animals: Yes (outside animals) pets and animals: cat(s) and other details: chickens history of recent travel: No sexually active: Yes Smoking Status: Never smoker alcohol intake: never substance use type: does not use well-balanced diet: daily or most days caffeine: Yes Type: coffee Number of servings: 1 eating out: rarely or never during the past year weight has: remained stable what type of physical activity do you participate in: none cristela/baptism: Jainism seatbelt use: always do you feel safe at home: Yes 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 Date Name GA/Weeks Outcome Route Bth Weight Gen Labor Lgth Anesthesia Del Locatn Provider FOB 06/11/23 Dwight 38 live - full term 6#4oz Male spinal [facility] [address] [place] Delivery Date: 06/11/23 Last Updated by: Rachel Mcfarland decels, cord around neck HPI 17 WK OB Details: BRENDEN HART is a 24 year old who presents for routine OB visit. OB Visit MERLE Calculator Estimated Delivery Date Method Current WG Current Estimate 03/22/25 Ultrasound #1 17w 0d Other Estimates 03/14/25 LMP (Certain) 18w 1d Expected Delivery Route/Plan patient counseled regarding risks/benefits of trial of labor versus repeat . ACOG/uptodate education given to patient. 59.7 % likelihood of success per calculator TOLAC consent form signed: [] Specific Issue/Plans Covid status: [] Flu vaccine: [] Tdap vaccine: [] Rhogam: [] LARC form signed: [] Problem list reviewed and updated with the most current plan of care details and appropriate orders placed. Relevant counseling for the gestational age provided. Continue routine care and follow up unless otherwise noted in visit notes/problem list details Initial Weight: Not Recorded Date -???-???-???-???-??? -???-???-???-???-??? -???-???- EGA Weight BP Urine Prot -???-???-???-???-??? -???-???-???-???-??? -???-???- Glucose FHR FuHt Pres Dilation -???-???-???-???-??? -???-???-???-???-??? -???-???- Effaced St Visit Note 08/16/24 -???-???-???-???-??? -???-???-???-???-??? -???-???- 8w 6d 161 lb 6 oz 128/76 -???-???-???-???-??? -???-???-???-???-??? -???-???- 187 -???-???-???-???-??? -???-???-???-???-??? -???-???- JV- CRL ankur ures 8 weeks 6 days. JV- CRL measures 8 weeks 6 days an d not consistent with LMP> pt wants to TOLAC.was not given a chance to labor last time due to decels at 38 weeks. undecided about NIPT. 09/13/24 -???-???-???-???-??? -???-???-???-???-??? -???-???- 12w 6d 164 lb 107/75 Negative -???-???-???-???-??? -???-???-???-???-??? -???-???- Negative 160 -???-???-???-???-??? -???-???-???-???-??? -???-???- (more content not included)... Normal [facility] Absolute neutrophil countOrd ered By: Dianna Mominklasu on 09-13-2024 Neutrophils (Bld) [#/Vol] 6.1 10*3/uL 2.0-7.7 [facility] Basophil percentageOrdered B y: Dianna Homa on 09-13-2024 Basophils/100 WBC (Bld) 0.2 % 0-[address] [facility] CBC W/Diff, Automatedon 12-0 Absolute Lymph 3.06 X10 3/uL Normal 0.83-4.51 [facility] Comment on above: Performed By: #### L 509.4005, L3890.6005, L100.0100, L3890.6300, L3890.6100, L501.9985, L509.8000, BTS #### [facility] Laboratory [address] [place], [place], [id number] (707) Absolute Neut 6.1 X10 3/uL Normal 2.0-7.7 [facility] Comment on above: Performed By: #### L 509.4005, L3890.6005, L100.0100, L3890.6300, L3890.6100, L501.9985, L509.8000, BTS #### [facility] [address] [place], [address] Basophils/100 WBC (Bld) 0.2 % Normal 0-[address] [facility] Comment on above: Performed By: #### L 509.4005, L3890.6005, L100.0100, L3890.6300, L3890.6100, L501.9985, L509.8000, BTS #### [facility] [address] [place], [address] Eosinophils/100 WBC (Bld) 1.2 % Normal 0-5 [facility] Comment on above: Performed By: #### L 509.4005, L3890.6005, L100.0100, L3890.6300, L3890.6100, L501.9985, L509.8000, BTS #### [facility] [address] [place], [address] Erythrocyte distribution width (RBC) [Ratio] 12.9 % Normal 11.6-14.6 [facility] Comment on above: Performed By: #### L 509.4005, L3890.6005, L100.0100, L3890.6300, L3890.6100, L501.9985, L509.8000, BTS #### [facility] [address] [place], [address] Hematocrit (Bld) [Volume fraction] 38.7 % Normal 37-47 [facility] Comment on above: Performed By: #### L 509.4005, L3890.6005, L100.0100, L3890.6300, L3890.6100, L501.9985, L509.8000, BTS #### [facility] [address] [place], [address] Hemoglobin (Bld) [Mass/Vol] 12.7 g/dL Normal 12.0-15.0 [facility] Comment on above: Performed By: #### L 509.4005, L3890.6005, L100.0100, L3890.6300, L3890.6100, L501.9985, L509.8000, BTS #### [facility] [address] [place], [address] IG% 0.300 Normal 0.0-0.9 [facility] Comment on above: Result Comment: IG% - Immature Granulocytes (promyelocytes, myelocytes and metamyelocytes) > 1% indicates that a LEFT SHIFT is Present. Performed By: #### L 509.4005, L3890.6005, L100.0100, L3890.6300, L3890.6100, L501.9985, L509.8000, BTS #### [facility] [address] [place], [address] Lymphocytes/100 WBC (Bld) 31.2 % Normal 19-41 [facility] Comment on above: Performed By: #### L 509.4005, L3890.6005, L100.0100, L3890.6300, L3890.6100, L501.9985, L509.8000, BTS #### [facility] [address] [place], [address] MCH (RBC) [Entitic mass] 30.0 pg Normal 27.0-32.0 [facility] Comment on above: Performed By: #### L 509.4005, L3890.6005, L100.0100, L3890.6300, L3890.6100, L501.9985, L509.8000, BTS #### [facility] [address] [place], [address] MCHC (RBC) [Mass/Vol] 32.8 g/dL Normal 32-36 [facility] Comment on above: Performed By: #### L 509.4005, L3890.6005, L100.0100, L3890.6300, L3890.6100, L501.9985, L509.8000, BTS #### [facility] [address] [place], [address] MCV (RBC) [Entitic vol] 91.3 fL Normal 81-[address] [facility] Comment on above: Performed By: #### L 509.4005, L3890.6005, L100.0100, L3890.6300, L3890.6100, L501.9985, L509.8000, BTS #### [facility] [address] [place], [address] Monocytes/100 WBC (Bld) 5.1 % Normal 0-[address] [facility] Comment on above: Performed By: #### L 509.4005, L3890.6005, L100.0100, L3890.6300, L3890.6100, L501.9985, L509.8000, BTS #### [facility] [address] [place], [address] Neutrophils/100 WBC (Bld) 62.0 % Normal 47-70 [facility] Comment on above: Performed By: #### L 509.4005, L3890.6005, L100.0100, L3890.6300, L3890.6100, L501.9985, L509.8000, BTS #### [facility] [address] [place], [address] Nucleated RBC (Bld) [#/Vol] 0 10*3/uL Normal 0-5 [facility] Comment on above: Performed By: #### L 509.4005, L3890.6005, L100.0100, L3890.6300, L3890.6100, L501.9985, L509.8000, BTS #### [facility] [address] [place], [address] Platelet mean volume (Bld) [Entitic vol] 9.7 fL Normal 6.2-12.0 [facility] Comment on above: Performed By: #### L 509.4005, L3890.6005, L100.0100, L3890.6300, L3890.6100, L501.9985, L509.8000, BTS #### [facility] [address] [place], [address] Platelets (Bld) [#/Vol] 290 10*3/uL Normal 150-450 [facility] Comment on above: Performed By: #### L 509.4005, L3890.6005, L100.0100, L3890.6300, L3890.6100, L501.9985, L509.8000, BTS #### [facility] [address] [place], [address] RBC (Bld) [#/Vol] 4.24 10*6/uL Normal 4.2-5.4 [facility] Comment on above: Performed By: #### L 509.4005, L3890.6005, L100.0100, L3890.6300, L3890.6100, L501.9985, L509.8000, BTS #### [facility] [address] [place], [address] RDW SD 42.2 fl Normal 35.1-43.9 [facility] Comment on above: Performed By: #### L 509.4005, L3890.6005, L100.0100, L3890.6300, L3890.6100, L501.9985, L509.8000, BTS #### [facility] [address] [place], [address] WBC (Bld) [#/Vol] 9.8 10*3/uL Normal 4.4-11.0 [facility] Comment on above: Performed By: #### L 509.4005, L3890.6005, L100.0100, L3890.6300, L3890.6100, L501.9985, L509.8000, BTS #### [facility] [address] [place], [address] Eosinophil percentageOrdered By: Dianna Luther on 09-13-2024 Eosinophils/100 WBC (Bld) 1.2 % 0-5 [facility] Erythrocyte distribution wid th ratioOrdered By: Dianna Homa on 09-13-2024 Erythrocyte distribution width (RBC) [Ratio] 12.9 % 11.6-14.6 [facility] Erythrocyte distribution wid th standard deviationOrdered By: Dianna Homa on 09-13-2024 Erythrocyte distribution width (RBC) [Entitic vol] 42.2 fL 35.1-43.9 [facility] HIV - WCHon 09-13-2024 HIV Non-Reactive Normal Nonreactive [facility] Comment on above: Order Comment: Reaso n for Exam: Performed By: #### L 509.4005, L3890.6005, L100.0100, L3890.6300, L3890.6100, L501.9985, L509.8000, BTS ####[facility] [id number] [place], [address] HIV 1+2 Ab+HIV1 p24 Ag IA Ql Ordered By: Dianna Luther on 09-13-2024 HIV (1&2) Antibody Non-Reactive Nonreactive [facility] Hematocrit Auto (Bld) [Volum e fraction]Ordered By: Dianna Luther on 09-13-2024 Hematocrit (Bld) [Volume fraction] 38.7 % 37-47 [facility] Hemoglobin A1con 09-13-2024 HbA1c (Bld) [Mass fraction] 5.1 % Normal 3.8-5.6 [facility] Comment on above: Result Comment: Norm al < 5.7 % Prediabetic 5.7 - 6.4 % Diabetic >or= 6.5 % Please note range changes. Performed By: #### L 509.4005, L3890.6005, L100.0100, L3890.6300, L3890.6100, L501.9985, L509.8000, BTS ####[facility] [id number] [place], [place], [id number] Hemoglobin A1c percentageOrd ered By: Dianna Luther on 09-13-2024 HbA1c (Bld) [Mass fraction] 5.1 % 3.8-5.6 [facility] Comment on above: Normal < 5.7 % Predi abetic 5.7 - 6.4 % Diabetic >or= 6.5 % Please note range changes. Hemoglobin measurementOrdere d By: Dianna Luther on 09-13-2024 Hemoglobin (Bld) [Mass/Vol] 12.7 g/dL 12.0-15.0 [facility] Hepatitis B Surface Antigeno n 09-13-2024 HEP B Surf Ag Non-Reactive Normal Nonreactive [facility] Comment on above: Order Comment: Reaso n for Exam: Performed By: #### L 509.4005, L3890.6005, L100.0100, L3890.6300, L3890.6100, L501.9985, L509.8000, BTS ####[facility] [id number] [place], [address] Hepatitis B surface antigen detectionOrdered By: Dianna Luther on 09-13-2024 Hepatitis B Surface Antigen Non-Reactive Nonreactive [facility] Hepatitis C Antibodyon 09-13 Hepatitis C AB [facility] Comment on above: Order Comment: Reaso n for Exam: Result Comment: Non Reactive: < 0.8 Equivocal: >/= 0.8 to < 1.0 Reactive: >/= 1.[address] [facility] requires that a reactive/equivocal HCV antibody result be sent out for confirmation. HCV Quant by PCR testing. Performed By: #### L 509.4005, L3890.6005, L100.0100, L3890.6300, L3890.6100, L501.9985, L509.8000, BTS ####[facility] [address] [place], [address] Hepatitis C virus antibody a ssayOrdered By: Dianna Luther on 09-13-2024 Hepatitis C Antibody Non-Reactive Nonreactive [facility] Comment on above: Non Reactive: < 0.8 Equivocal: >/= 0.8 to < 1.0 Reactive: >/= 1.0The CDC requires that a reactive/equivocal HCV antibody result be sent out for confirmation. HCV Quant by PCR testing. Immature granulocytes/100 WB C Auto (Bld)Ordered By: Dianna Luther on 09-13-2024 Immature granulocytes/100 WBC (Bld) 0.300 % 0.0-0.9 [facility] Comment on above: IG% - Immature Granu locytes (promyelocytes, myelocytes and metamyelocytes) > 1% indicates that a LEFT SHIFT is Present. L509.8000on 09-13-2024 Syphilis Abs Non-Reactive Normal [facility] Comment on above: Order Comment: Reaso n for Exam: Performed By: #### L 509.4005, L3890.6005, L100.0100, L3890.6300, L3890.6100, L501.9985, L509.8000, BTS ####[facility] [address] [place], [address] Laboratory - Chemistry and C hemistry - challengeon 09-13-2024 Glucose Ql (U) Negative [facility] Laboratory - Urinalysison Protein Ql (U) Negative [facility] Lymphocytes Auto (Unsp spec) [#/Vol]Ordered By: Dianna Luther on 09-13-2024 Lymphocytes (Bld) [#/Vol] 3.06 10*3/uL 0.83-4.51 [facility] Lymphocytes/100 WBC Auto (Un sp spec)Ordered By: Dianna Luther on 09-13-2024 Lymphocytes/100 WBC (Bld) 31.2 % 19-41 [facility] MCV (mean corpuscular volume ) determinationOrdered By: Dianna Luther on 09-13-2024 MCV (RBC) [Entitic vol] 91.3 fL 81-[address] [facility] Mean corpuscular hemoglobin (MCH) determinationOrdered By: Dianna Luther on 09-13-2024 MCH (RBC) [Entitic mass] 30.0 pg 27.0-32.0 [facility] Mean corpuscular hemoglobin concentration (MCHC) determinationOrdered By: Dianna Luther on 09-13-2024 MCHC (RBC) [Mass/Vol] 32.8 g/dL 32-36 [facility] Mean platelet volume determi nationOrdered By: Dianna Homa on 09-13-2024 Platelet mean volume (Bld) [Entitic vol] 9.7 fL 6.2-12.0 [facility] Monocyte percentageOrdered B y: Dianna Homa on 09-13-2024 Monocytes/100 WBC (Bld) 5.1 % 0-[address] [facility] Neutrophil percentageOrdered By: Dianna Homa on 09-13-2024 Neutrophils/100 WBC (Bld) 62.0 % 47-70 [facility] Nucleated red blood cell per centageOrdered By: Dianna Homa on 09-13-2024 Nucleated RBC/100 WBC (Bld) [Ratio] 0 % 0-5 [facility] Health Communications Specialist Office Visit Reporton 09-13-2024 Health Communications Specialist Office Visit Report [facility] [address], [address] [place] [address] OFFICE VISIT Date of Service: 09/13/24 MR#: [id number] Acct: [id number] Name: BRENDEN HART Rep #: [id number] : 2000 Provider: PADMA Tesfaye ams Age/Sex: 24/F [place] [facility] [place]: Signed Intake Vital Signs 06/11/23 04:31 08/16/24 13:47 09/13/24 14:32 09/13/24 14:39 Height 5 ft 1 in 5 ft 1 in 5 ft 1 in 5 ft 1 in Weight: 164 lb BMI 30.9 BP 107/75 Intake Visit Reasons: 13wk 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 Is patient in pain?: No Allergies No Known Allergies Allergy (Verified 09/13/24 14:34) Medications ???Medication ???Instructions ???Recorded ???Confirmed ???Type multivitamin no.47-iron fum 27 cap PO 08/10/24 09/13/24 History mg-folate no.1 1 mg-dha 300 mg capsule (PNV-DHA) Last Menstrual Period: 06/07/24 Zika: Zika virus screening: Negative : No Have you fallen in the past year?: No PFSH PFSH Medical History delivery delivered Seizures Autoimmune disease Surgical History History of surgery Family History Grandmother Diabetes Paternal- Type 2 Heart disease, Onset Age: 74 Paternal-2 stents Breast cancer, Onset Age: 70 Paternal- All 11 siblings have some type of cancer Grandfather Diabetes Cancer, Onset Age: 68 Lung Colon cancer, Onset Age: 68 Grandmother Myocardial infarction, Onset Age: 54 Maternal Uncle Myocardial infarction, Onset Age: 60 Maternal Social History adopted: No household members: spouse and children number of children: 1 current occupational status: unemployed current occupation: [employer] pets and animals: Yes (outside animals) pets and animals: cat(s) and other details: chickens history of recent travel: No sexually active: Yes Smoking Status: Never smoker alcohol intake: never substance use type: does not use well-balanced diet: daily or most days caffeine: Yes Type: coffee Number of servings: 1 eating out: rarely or never during the past year weight has: remained stable what type of physical activity do you participate in: none cristela/baptism: Jainism seatbelt use: always do you feel safe at home: Yes 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 Date Name GA/Weeks Outcome Route Bth Weight Infant Gen Labor Lgth Anesthesia Del Locatn Provider FOB 06/11/23 Dwight 38 live - full term 6#4oz Male spinal [facility] [address] [facility] Luna Delivery Date: 06/11/23 Last Updated by: Rachel Mcfarland decels, cord around neck HPI 13wk OB Details: BRENDEN HART is a 24 year old who presents for routine OB visit. OB Visit MERLE Calculator Estimated Delivery Date Method Current WG Current Estimate 03/22/25 Ultrasound #1 12w 6d Other Estimates 03/14/25 LMP (Certain) 14w 0d Expected Delivery Route/Plan patient counseled regarding risks/benefits of trial of labor versus repeat . ACOG/uptodate education given to patient. 59.7 % likelihood of success per calculator TOLAC consent form signed: [] Specific Issue/Plans Covid status: [] Flu vaccine: [] Tdap vaccine: [] Rhogam: [] LARC form signed: [] Problem list reviewed and updated with the most current plan of care details and appropriate orders placed. Relevant counseling for the gestational age provided. Continue routine care and follow up unless otherwise noted in visit notes/problem list details Initial Weight: Not Recorded Date -???-???-???-???-??? -???-???-???-???-??? -???-???- EGA Weight BP Urine Prot -???-???-???-???-??? -???-???-???-???-??? -???-???- Glucose FHR FuHt Pres Dilation -???-???-???-???-??? -???-???-???-???-??? -???-???- Effaced St Visit Note 08/16/24 -???-???-???-???-??? -???-???-???-???-??? -???-???- 8w 6d 161 lb 6 oz 128/76 -???-???-???-???-??? -???-???-???-???-??? -???-???- 187 -???-???-???-???-??? -???-???-???-???-??? -???-???- JV- CRL ankur ures 8 weeks 6 days. JV- CRL measures 8 weeks 6 days an d not consistent with LMP> pt wants to TOLAC.was not given a chance to labor last time due to decels at 38 weeks. undecided about NIPT. 09/13/24 -???-???-???-???-??? -???-???-???-???-??? -???-???- 12w 6d 164 lb 107/75 Negative -???-???-???-???-??? -???-???-???-???-??? -???-???- Negative 16 (more content not included)... Normal [facility] Platelet countOrdered By: Tao Luther on 09-13-2024 Platelets (Bld) [#/Vol] 290 10*3/uL 150-450 [facility] RBC Auto (Bld) [#/Vol]Ordere d By: Dianna Luther on 09-13-2024 RBC (Bld) [#/Vol] 4.24 10*6/uL 4.2-5.4 [facility] Rubella IgGon 09-13-2024 Rubella IgG Reactive Normal Nonreactive [facility] Comment on above: Order Comment: Reaso n for Exam: Result Comment: Anti body Results Interpretation of Immune Status Non Reactive Presumed Non-Immune Equivocal Equivocal Reactive Presumed Immune Performed By: #### L 509.4005, L3890.6005, L100.0100, L3890.6300, L3890.6100, L501.9985, L509.8000, BTS ####[facility] [address] [place], [place], [address] Rubella immune status IgGOrd ered By: Dianna Luther on 09-13-2024 Rubella IgG Antibody Reactive Nonreactive [facility] Comment on above: Antibody Results Int erpretation of Immune Status Non Reactive Presumed Non-Immune Equivocal Equivocal Reactive Presumed Immune Treponema sp Ab Ql (S)Ordere d By: Dianna Luther on 09-13-2024 Syphilis Total Antibody Non-Reactive [facility] Type AND Screenon 09-13-2024 ABO and Rh group Nom (Bld) Blood group A Rh(D) positive Normal [facility] Comment on above: Order Comment: PN Performed By: #### L 509.4005, L3890.6005, L100.0100, L3890.6300, L3890.6100, L501.9985, L509.8000, BTS ####[facility] [address] [place], [address] White blood cell (WBC) count Ordered By: Dianna Luther on 09-13-2024 WBC (Bld) [#/Vol] 9.8 10*3/uL 4.4-11.0 [facility] PAP I-G w/rfx hrHPV-Aptimaon 08-24-2024 ADEQ Comment Normal . [facility] Comment on above: Order Comment: Speci men Comment: [id number] Comment: Source.............CervixSpecimen Comment: LMP / Prev Treat...[id number] Comment: Other..............Specimen Comment: No. of containers..01 ThinPrep Vial Result Comment: Sati sfactory for evaluation. Endocervical and/or squamous metaplastic cells (endocervical component) are present. Performed By: #### M 100.2200, L7000.1800, L7400.0353 ####[facility] [address] [place], [address] COMM . Normal . [facility] Comment on above: Order Comment: Speci men Comment: [id number] Comment: Source.............CervixSpecimen Comment: LMP / Prev Treat...[id number] Comment: Other..............Specimen Comment: No. of containers..01 ThinPrep Vial Performed By: #### M 100.2200, L7000.1800, L7400.0353 ####[facility] [address] [place], [place], [id number] COMMENT Comment Normal . [facility] Comment on above: Order Comment: Speci men Comment: [id number] Comment: Source.............CervixSpecimen Comment: LMP / Prev Treat...[id number] Comment: Other..............Specimen Comment: No. of containers..01 ThinPrep Vial Result Comment: This liquid based ThinPrep(R) pap test was screened with the use of an image guided system. Performed By: #### M 100.2200, L7000.1800, L7400.0353 ####[facility] [address] [place], [place], [address] DIAG Comment Normal . [facility] Comment on above: Order Comment: Speci men Comment: [id number] Comment: Source.............CervixSpecimen Comment: LMP / Prev Treat...[id number] Comment: Other..............Specimen Comment: No. of containers..01 ThinPrep Vial Result Comment: NEGA TIVE FOR INTRAEPITHELIAL LESION OR MALIGNANCY. CELLULAR CHANGES ASSOCIATED WITH INFLAMMATION ARE PRESENT. Performed By: #### M 100.2200, L7000.1800, L7400.0353 ####[facility] [address] [place], [place], [id number] HPV RFLX Comment Normal . [facility] Comment on above: Order Comment: Speci men Comment: [id number] Comment: Source.............CervixSpecimen Comment: LMP / Prev Treat...[id number] Comment: Other..............Specimen Comment: No. of containers..01 ThinPrep Vial Result Comment: The HPV DNA reflex criteria were not met with this specimen result therefore, no HPV testing was performed. Performed at: [address] [id number] Shell Trim Operator: Violet Larson MD, Phone: [phone] Performed By: #### M 100.2200, L7000.1800, L7400.0353 ####[facility] [address] [place], [address] PAPSMR Comment Normal . [facility] Comment on above: Order Comment: Speci men Comment: [id number] Comment: Source.............CervixSpecimen Comment: LMP / Prev Treat...[id number] Comment: Other..............Specimen Comment: No. of containers..01 ThinPrep Vial Result Comment: The Pap smear is a screening test designed to aid in the detection of premalignant and malignant conditions of the uterine cervix. It is not a diagnostic procedure and should not be used as the sole means of detecting cervical cancer. Both false-positive and false-negative reports do occur. Performed By: #### M 100.2200, L7000.1800, L7400.0353 ####[facility] [address] [facility] [address] [place], [place], [id number] PERFORM Comment Normal . [facility] Comment on above: Order Comment: Speci men Comment: [id number] Comment: Source.............CervixSpecimen Comment: LMP / Prev Treat...[id number] Comment: Other..............Specimen Comment: No. of containers..01 ThinPrep Vial Result Comment: Riana Winkler Engineer Booster And Exhauster (ASCP) Performed By: #### M 100.2200, L7000.1800, L7400.0353 ####[facility] [address] [place], [address] Chlamydia/GC DEXTER aptimaon CHLAMY,NUC ACID Negative Normal Negative [facility] Comment on above: Performed By: #### M 100.2200, L7000.1800, L7400.0353 ####[facility] [address] [place], [address] GC BY NUC ACID Negative Normal Negative [facility] Comment on above: Result Comment: Perf ormed at: =G - [facility] [address] [id number] Shell Trim Operator: Violet Larson MD, Phone: [phone] Performed By: #### M 100.2200, L7000.1800, L7400.0353 ####[facility] [address] [place], [address] Urine Cultureon 08-18-2024 [facility] Mixed Gram Positive Organisms [place] Count 80,000-100,000 MIXC Mixed contaminants. Submit a new specimen if indicated. Normal [facility] Comment on above: Performed By: #### M 100.2200, L7000.1800, L7400.0353 ####[facility] [address] [place], [address] Health Communications Specialist Office Visit Reporton 08-16-2024 Health Communications Specialist Office Visit Report [facility] [address], [address] [place] [address] OFFICE VISIT Date of Service: 08/16/24 MR#: [id number] Acct: [id number] Name: JUNGBRENDENREJI CHAPA Rep #: [id number] : 2000 Provider: Dr. 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 Is patient in pain?: No Allergies No Known Allergies Allergy (Verified 08/16/24 13:45) Medications ???Medication ???Instructions ???Recorded ???Confirmed ???Type multivitamin no.47-iron fum 27 cap PO 08/10/24 08/16/24 History mg-folate no.1 1 mg-dha 300 mg capsule (PNV-DHA) Last Menstrual Period: 06/07/24 Zika: Zika virus screening: Negative : No PFSH PFSH Medical History delivery delivered Seizures Autoimmune disease Surgical History History of surgery Family History Grandmother Diabetes Paternal- Type 2 Heart disease, Onset Age: 74 Paternal-2 stents Breast cancer, Onset Age: 70 Paternal- All 11 siblings have some type of cancer Grandfather Diabetes Cancer, Onset Age: 68 Lung Colon cancer, Onset Age: 68 Grandmother Myocardial infarction, Onset Age: 54 Maternal Uncle Myocardial infarction, Onset Age: 60 Maternal Social History adopted: No household members: spouse and children number of children: 1 service: No current occupational status: unemployed current occupation: [employer] pets and animals: Yes (outside animals) pets and animals: cat(s) and other details: chickens history of recent travel: No sexually active: Yes Smoking Status: Never smoker alcohol intake: never substance use type: does not use well-balanced diet: daily or most days caffeine: Yes Type: coffee Number of servings: 1 eating out: rarely or never during the past year weight has: remained stable what type of physical activity do you participate in: none cristela/baptism: Jainism seatbelt use: always do you feel safe at home: Yes 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 Date Name GA/Weeks Outcome Route Bth Weight Gen Labor Lgth Anesthesia Del Locatn Provider FOB 06/11/23 Dwight Salas live - full term 6#4oz Male spinal [facility] Ja ld Luna Delivery Date: 06/11/23 Last Updated by: Rachel Mcfarland decels, cord around neck HPI NOB LMP 06/07 Details: BRENDEN HART is a 24 year old who presents for New OB visit. OB Visit MERLE Calculator Estimated Delivery Date Method Current WG Current Estimate 03/22/25 Ultrasound #1 8w 6d Other Estimates 03/14/25 LMP (Certain) 10w 0d Comments: HIV: Urine Culture: Sequential Screen: NIPT Screen: Estimated Due Date: 03/14/25 Expected Delivery Route/Plan patient counseled regarding risks/benefits of trial of labor versus repeat . ACOG/uptodate education given to patient. 59.7 % likelihood of success per calculator TOLAC consent form signed: [] Specific Issue/Plans Covid status: [] Flu vaccine: [] Tdap vaccine: [] Rhogam: [] LARC form signed: [] Problem list reviewed and updated with the most current plan of care details and appropriate orders placed. Relevant counseling for the gestational age provided. Continue routine care and follow up unless otherwise noted in visit notes/problem list details Initial Weight: Not Recorded Date -???-???-???-???-??? -???-???-???-???-??? -???-???- EGA Weight BP Urine Prot -???-???-???-???-??? -???-???-???-???-??? -???-???- Glucose FHR FuHt Pres Dilation -???-???-???-???-??? -???-???-???-???-??? -???-???- Effaced St Visit Note 08/16/24 -???-???-???-???-??? -???-???-???-???-??? -???-???- 8w 6d 161 lb 6 oz 128/76 -???-???-???-???-??? -???-???-???-???-??? -???-???- 187 -???-???-???-???-??? -???-???-???-???-??? -???-???- JV- CRL ankur ures 8 weeks 6 days. JV- CRL measures 8 weeks 6 days an d not consistent with LMP> pt wants to TOLAC.was not given a chance to labor last time due to decels at 38 weeks. undecided about NIPT. Menstrual History Last Menstrual Period: 06/07/24 Reported LMP: definit (more content not included)... Normal [facility] Basophil percentageOrdered B y: Bolivar Kumar on 06-12-2023 WBC (Bld) [#/Vol] 14.4 10*3/uL 4.4-11.0 [facility] Blood erythrocytes count (nu mber/volume)Ordered By: Bolivar Kumar on 06-12-2023 RBC (Bld) [#/Vol] 3.18 10*6/uL 4.2-5.4 [facility] Blood hemoglobin measurement (mass/volume)Ordered By: Bolivar Kumar on 06-12-2023 Hemoglobin (Bld) [Mass/Vol] 9.8 g/dL 12.0-15.0 [facility] Blood platelet mean volumeOr dered By: Bolivar Kumar on 06-12-2023 Platelet mean volume (Bld) [Entitic vol] 10.1 fL 6.2-12.0 [facility] Determination of erythrocyte mean corpuscular volume (MCV)Ordered By: Bolivar Kumar on 06-12-2023 MCV (RBC) [Entitic vol] 91.8 fL 81-[address] [facility] Hematocrit Auto (Bld) [Volum e fraction]Ordered By: Bolivar Kumar on 06-12-2023 Hematocrit (Bld) [Volume fraction] 29.2 % 37-47 [facility] Laboratory - Hematology and Cell countsOrdered By: Bolivar Kumar on 06-12-2023 Erythrocyte distribution width (RBC) [Entitic vol] 44.3 fL 35.1-43.9 [facility] Erythrocyte distribution width (RBC) [Ratio] 13.3 % 11.6-14.6 [facility] MCH (RBC) [Entitic mass] 30.8 pg 27.0-32.0 [facility] MCHC Auto (RBC) [Mass/Vol]Or dered By: Bolivar Kumar on 06-12-2023 MCHC (RBC) [Mass/Vol] 33.6 g/dL 32-36 [facility] Platelets bldOrdered By: Scott Kumar on 06-12-2023 Platelets (Bld) [#/Vol] 214 10*3/uL 150-450 [facility] Absolute lymphocyte countOrd ered By: Marlee Kumar on 06-11-2023 Lymphocytes Auto (Unsp spec) [#/Vol] 2.33 10*3/uL 0.83-4.51 [facility] Basophil percentageOrdered B y: Marlee Kumar on 06-11-2023 Basophils/100 WBC (Bld) 0.3 % 0-[address] [facility] Eosinophils/100 WBC (Bld) 0.3 % 0-5 [facility] Neutrophils (Bld) [#/Vol] 12.1 10*3/uL 2.0-7.7 [facility] Neutrophils/100 WBC (Bld) 79.0 % 47-70 [facility] Blood lymphocytes/100 leukoc ytesOrdered By: Marlee Kumar on 06-11-2023 Lymphocytes/100 WBC (Bld) 15.2 % 19-41 [facility] Blood monocytes/100 leukocyt esOrdered By: Marlee Kumar on 06-11-2023 Monocytes/100 WBC (Bld) 4.5 % 0-[address] [facility] Laboratory - Hematology and Cell countsOrdered By: Marlee Kumar on 06-11-2023 Immature granulocytes/100 WBC (Bld) 0.700 % 0.0-0.9 [facility] Comment on above: IG% - Immature Granu locytes (promyelocytes, myelocytes and metamyelocytes) > 1% indicates that a LEFT SHIFT is Present. Nucleated RBC/100 WBC (Bld) [Ratio] 0 % 0-5 [facility] Neisseria gonorrhoeae genita l PCROrdered By: Marlee Kumar on 06-11-2023 N. gonorrhoeae DNA DEXTER+probe Ql (Genital specimen) [facility] No Panel InformationOrdered By: Marlee Kumar on 06-11-2023 Chlamydia trachomatis (PCR) [facility] Vaginal Amniotic Fluid Detection Positive Negative [facility] Comment on above: Amniotic fluid prese nt indicates rupture of Membranes. RESULTS CALLED TO Miroslava MONSALVE RN (WP) 06/11/23 0371 Korey Goodrich.REPORT READ BACK BY SAME . Serum Treponema species anti body detectionOrdered By: Marlee Kumar on 06-11-2023 Treponema sp Ab Ql (S) Non-Reactive [facility] Basophil percentageOrdered B y: Bolivar Kumar on 05-23-2023 WBC (Bld) [#/Vol] 11.1 10*3/uL 4.4-11.0 [facility] Blood erythrocytes count (nu mber/volume)Ordered By: Bolivar Kumar on 05-23-2023 RBC (Bld) [#/Vol] 3.89 10*6/uL 4.2-5.4 [facility] Blood hemoglobin measurement (mass/volume)Ordered By: Bolivar Kumar on 05-23-2023 Hemoglobin (Bld) [Mass/Vol] 12.2 g/dL 12.0-15.0 [facility] Blood platelet mean volumeOr dered By: Bolivar Kumar on 05-23-2023 Platelet mean volume (Bld) [Entitic vol] 10.1 fL 6.2-12.0 [facility] Determination of erythrocyte mean corpuscular volume (MCV)Ordered By: Bolivar Kumar on 05-23-2023 MCV (RBC) [Entitic vol] 92.0 fL 81-[address] [facility] Hematocrit Auto (Bld) [Volum e fraction]Ordered By: Bolivar Kumar on 05-23-2023 Hematocrit (Bld) [Volume fraction] 35.8 % 37-47 [facility] Laboratory - Hematology and Cell countsOrdered By: Bolivar Kumar on 05-23-2023 Erythrocyte distribution width (RBC) [Entitic vol] 41.2 fL 35.1-43.9 [facility] Erythrocyte distribution width (RBC) [Ratio] 12.5 % 11.6-14.6 [facility] MCH (RBC) [Entitic mass] 31.4 pg 27.0-32.0 [facility] MCHC Auto (RBC) [Mass/Vol]Or dered By: Bolivar Kumar on 05-23-2023 MCHC (RBC) [Mass/Vol] 34.1 g/dL 32-36 [facility] No Panel InformationOrdered By: Bolivar Kumar on 05-23-2023 Group B Streptococcus Culture Group B Beta Streptococcus is not isolated. [facility] Platelets bldOrdered By: Scott Kumar on 05-23-2023 Platelets (Bld) [#/Vol] 262 10*3/uL 150-450 [facility] Culture, urineOrdered By: Ngoc Tobar on 04-11-2023 Bacteria identified Cx Nom (U) Positive [facility] Basophil percentageOrdered B y: Dr. Kumar on 03-21-2023 WBC (Bld) [#/Vol] 9.6 10*3/uL 4.4-11.0 [facility] Blood erythrocytes count (nu mber/volume)Ordered By: Dr. Kumar on 03-21-2023 RBC (Bld) [#/Vol] 3.77 10*6/uL 4.2-5.4 [facility] Blood hemoglobin measurement (mass/volume)Ordered By: Dr. Kumar on 03-21-2023 Hemoglobin (Bld) [Mass/Vol] 11.7 g/dL 12.0-15.0 [facility] Blood platelet mean volumeOr dered By: Dr. Kumar on 03-21-2023 Platelet mean volume (Bld) [Entitic vol] 9.8 fL 6.2-12.0 [facility] Determination of erythrocyte mean corpuscular volume (MCV)Ordered By: Dr. Kumar on 03-21-2023 MCV (RBC) [Entitic vol] 96.0 fL 81-[address] [facility] Gestational diabetes screen 1-hour screen with 50g oral glucose loadOrdered By: Dr. Kumar on 03-21-2023 Glucose 1 Hr post 50 g glucose PO [Mass/Vol] 93 mg/dL 70-140 [facility] Hematocrit Auto (Bld) [Volum e fraction]Ordered By: Dr. Kumar on 03-21-2023 Hematocrit (Bld) [Volume fraction] 36.2 % 37-47 [facility] Laboratory - Hematology and Cell countsOrdered By: Dr. Kumar on 03-21-2023 Erythrocyte distribution width (RBC) [Entitic vol] 44.5 fL 35.1-43.9 [facility] Erythrocyte distribution width (RBC) [Ratio] 12.6 % 11.6-14.6 [facility] MCH (RBC) [Entitic mass] 31.0 pg 27.0-32.0 [facility] MCHC Auto (RBC) [Mass/Vol]Or dered By: Dr. Kumar on 03-21-2023 MCHC (RBC) [Mass/Vol] 32.3 g/dL 32-36 [facility] Platelets bldOrdered By: Dr. Kumar on 03-21-2023 Platelets (Bld) [#/Vol] 235 10*3/uL 150-450 [facility] Serum Treponema species anti body detectionOrdered By: Dr. Kumar on 03-21-2023 Treponema sp Ab Ql (S) Non-Reactive [facility] Culture, urineOrdered By: Dr Fabiola Kumar on 10-27-2022 Bacteria identified Cx Nom (U) Escherichia coli [facility] Absolute lymphocyte countOrd ered By: Dr. Kumar on 10-25-2022 Lymphocytes Auto (Unsp spec) [#/Vol] 3.02 10*3/uL 0.83-4.51 [facility] Basophil percentageOrdered B y: Dr. Kumar on 10-25-2022 Basophils/100 WBC (Bld) 0.3 % 0-[address] [facility] Eosinophils/100 WBC (Bld) 0.3 % 0-5 [facility] Neutrophils (Bld) [#/Vol] 7.6 10*3/uL 2.0-7.7 [facility] Neutrophils/100 WBC (Bld) 66.3 % 47-70 [facility] WBC (Bld) [#/Vol] 11.5 10*3/uL 4.4-11.0 [facility] Blood erythrocytes count (nu mber/volume)Ordered By: Dr. Kumar on 10-25-2022 RBC (Bld) [#/Vol] 4.33 10*6/uL 4.2-5.4 [facility] Blood hemoglobin measurement (mass/volume)Ordered By: Dr. Kumar on 10-25-2022 Hemoglobin (Bld) [Mass/Vol] 13.3 g/dL 12.0-15.0 [facility] Blood lymphocytes/100 leukoc ytesOrdered By: Dr. Kumar on 10-25-2022 Lymphocytes/100 WBC (Bld) 26.4 % 19-41 [facility] Blood monocytes/100 leukocyt esOrdered By: Dr. Kumar on 10-25-2022 Monocytes/100 WBC (Bld) 6.4 % 0-[address] [facility] Blood platelet mean volumeOr dered By: Dr. Kumar on 10-25-2022 Platelet mean volume (Bld) [Entitic vol] 9.9 fL 6.2-12.0 [facility] Determination of erythrocyte mean corpuscular volume (MCV)Ordered By: Dr. Kumar on 10-25-2022 MCV (RBC) [Entitic vol] 92.8 fL 81-[address] [facility] HIV 1 and HIV-2 antibody ass ay with HIV-1 p24 antigen detectionOrdered By: Dr. Kumar on 10-25-2022 HIV 1+2 Ab+HIV1 p24 Ag IA Ql Non-Reactive Nonreactive [facility] Hematocrit Auto (Bld) [Volum e fraction]Ordered By: Dr. Kumar on 10-25-2022 Hematocrit (Bld) [Volume fraction] 40.2 % 37-47 [facility] Laboratory - Hematology and Cell countsOrdered By: Dr. Kumar on 10-25-2022 Erythrocyte distribution width (RBC) [Entitic vol] 39.8 fL 35.1-43.9 [facility] Erythrocyte distribution width (RBC) [Ratio] 11.6 % 11.6-14.6 [facility] Immature granulocytes/100 WBC (Bld) 0.300 % 0.0-0.9 [facility] Comment on above: IG% - Immature Granu locytes (promyelocytes, myelocytes and metamyelocytes) > 1% indicates that a LEFT SHIFT is Present. MCH (RBC) [Entitic mass] 30.7 pg 27.0-32.0 [facility] Nucleated RBC/100 WBC (Bld) [Ratio] 0 % 0-[facility] Auto (RBC) [Mass/Vol]Or dered By: Dr. Kumar on 10-25-2022 MCHC (RBC) [Mass/Vol] 33.1 g/dL 32-36 [facility] No Panel InformationOrdered By: Dr. Kumar on 10-25-2022 Hepatitis B Surface Antigen Non-Reactive Nonreactive [facility] Hepatitis C Antibody Non-Reactive Nonreactive [facility] Comment on above: Non Reactive: < 0.8 Equivocal: >/= 0.8 to < 1.0 Reactive: >/= 1.0The CDC recommends that a reactive/equivocal HCV antibody result be followed up by the HCV Nucleic Acid Amplificationtest ([id number]) Rubella IgG Antibody Reactive Nonreactive [facility] Comment on above: Antibody Results Int erpretation of Immune Status Non Reactive Presumed Non-Immune Equivocal Equivocal Reactive Presumed Immune Platelets bldOrdered By: Dr. Kumar on 10-25-2022 Platelets (Bld) [#/Vol] 300 10*3/uL 150-450 [facility] Serum Treponema species anti body detectionOrdered By: Dr. Kumar on 10-25-2022 Treponema sp Ab Ql (S) Non-Reactive [facility] Serum Varicella zoster virus IgG antibody assay by immunoassay (units/volume)Ordered By: Dr. Kumar on 10-25-2022 VZV IgG IA Qn (S) 396 index Immune >165 [facility] Comment on above: Negative <135 Equivo patty 135 - 165 Positive >165A positive result generally indicates exposure to thepathogen or administration of specific immunoglobulins,but it is not indication of active infection or stageof disease.Performed at: [address] [id number] Director: Diomedes Subramanian PhD, Phone: [phone] Vital Signs Date Time Vital Sign Value Performing Clinician Facility 03-23-2025 14:31-0400 Body height 154.[address] Billy Cates MD Work Phone: [facility] 03-23-2025 14:31-0400 Body mass index (BMI) [Ratio] 35.9 kg/m2 Dr. Billy Cates MD Work Phone: [facility] 03-23-2025 14:31-0400 Body weight 86.[address] Billy Cates MD Work Phone: 2(878)173-059379 [place] [address] 03-23-2025 14:31-0400 Diastolic blood pressure 69 mm[Hg] Dr. Billy Cates MD Work Phone: 3(057)287-370979 [place] [address] 03-23-2025 14:31-0400 Systolic blood pressure 111 mm[Hg] Dr. Billy Cates MD Work Phone: 0(989)777-789979 [place] [address] 03-21-2025 08:36-0400 Body height 154.[address] Billy Cates MD Work Phone: 0(588)705-113479 [place] [address] 03-21-2025 08:36-0400 Body mass index (BMI) [Ratio] 35.8 kg/m2 Dr. Billy Cates MD Work Phone: 1(471)376-395079 [place] [address] 03-21-2025 08:36-0400 Body weight 85.[address] Billy Cates MD Work Phone: 8(047)210-305379 [place] [address] 03-21-2025 08:36-0400 Diastolic blood pressure 74 mm[Hg] Dr. Billy Cates MD Work Phone: 3(773)403-640279 [place] [address] 03-21-2025 08:36-0400 Systolic blood pressure 111 mm[Hg] Dr. Billy Cates MD Work Phone: 5(621)651-620179 [place] [address] 03-15-2025 11:38-0400 Body height 154.[address] Billy Cates MD Work Phone: 2(268)694-585279 [place] [address] 03-15-2025 11:38-0400 Body mass index (BMI) [Ratio] 35.2 kg/m2 Dr. Billy Cates MD Work Phone: 4(615)627-476979 [place] [address] 03-15-2025 11:38-0400 Body weight 84.[address] Billy Cates MD Work Phone: 6(644)971-055479 [place] [address] 03-15-2025 11:38-0400 Diastolic blood pressure 76 mm[Hg] Dr. Billy Cates MD Work Phone: 5(765)280-792379 [place] [address] 03-15-2025 11:38-0400 Systolic blood pressure 118 mm[Hg] Dr. Billy Cates MD Work Phone: 7(236)755-887579 [place] [address] 03-10-2025 10:37-0400 Body height 154.[address] Billy Cates MD Work Phone: 1(774)412-674379 [place] [address] 03-10-2025 10:37-0400 Body mass index (BMI) [Ratio] 35.3 kg/m2 Dr. Billy Cates MD Work Phone: 4(837)827-312879 [place] [address] 03-10-2025 10:37-0400 Body weight 84.[address] Billy Cates MD Work Phone: 9(053)977-892179 [place] [address] 03-10-2025 10:37-0400 Diastolic blood pressure 63 mm[Hg] Dr. Billy Cates MD Work Phone: 9(037)675-439579 [place] [address] 03-10-2025 10:37-0400 Systolic blood pressure 115 mm[Hg] Dr. Billy Cates MD Work Phone: 4(855)142-401979 [place] [address] 03-04-2025 09:50-0400 Body height 154.[address] Billy Cates MD Work Phone: 2(689)904-209679 [place] [address] 03-04-2025 09:50-0400 Body mass index (BMI) [Ratio] 34.7 kg/m2 Dr. Billy Cates MD Work Phone: 1(030)144-956379 [place] [address] 03-04-2025 09:50-0400 Body weight 83.[address] Billy Cates MD Work Phone: 7(412)601-713079 [place] [address] 03-04-2025 09:50-0400 Diastolic blood pressure 72 mm[Hg] Dr. Billy Cates MD Work Phone: 3(953)071-890479 [place] [address] 03-04-2025 09:50-0400 Systolic blood pressure 113 mm[Hg] Dr. Billy Cates MD Work Phone: 4(483)590-934479 [place] [address] 02-24-2025 10:31-0400 Body height 154.[address] Billy Cates MD Work Phone: 8(857)540-265779 [place] [address] 02-24-2025 10:31-0400 Body mass index (BMI) [Ratio] 34.9 kg/m2 Dr. Billy Cates MD Work Phone: 1(855)910-243279 [place] [address] 02-24-2025 10:31-0400 Body weight 83.[address] Billy Cates MD Work Phone: 9(188)079-817479 [place] [address] 02-24-2025 10:31-0400 Diastolic blood pressure 76 mm[Hg] Dr. Billy Cates MD Work Phone: 4(337)053-721579 [place] [address] 02-24-2025 10:31-0400 Systolic blood pressure 113 mm[Hg] Dr. Billy Cates MD Work Phone: 0(908)259-171879 [place] [address] 02-16-2025 22:22-0400 Heart rate 106 /min Dr. Billy Cates MD Work Phone: 7(047)328-326279 [place] [address] 02-16-2025 22:22-0400 SaO2% (BldA) [Mass fraction] 98 % Dr. Billy Cates MD Work Phone: 5(888)832-365079 [place] [address] 02-16-2025 22:02-0400 Diastolic blood pressure 71 mm[Hg] Dr. Billy Cates MD Work Phone: 0(052)435-015679 [place] [address] 02-16-2025 22:02-0400 Systolic blood pressure 119 mm[Hg] Dr. Billy Cates MD Work Phone: 6(296)516-254579 [place] [address] 02-16-2025 19:52-0400 Diastolic blood pressure 67 mm[Hg] Dr. Billy Cates MD Work Phone: 4(219)773-742779 [place] [address] 02-16-2025 19:52-0400 Heart rate 83 /min Dr. Billy Cates MD Work Phone: 1(115)995-731079 [place] [address] 02-16-2025 19:52-0400 Systolic blood pressure 109 mm[Hg] Dr. Billy Cates MD Work Phone: 4(423)431-685679 [place] [address] 02-16-2025 18:31-0400 Body height 154.[address] Billy Cates MD Work Phone: 3(104)652-353379 [place] [address] 02-16-2025 18:31-0400 Body mass index (BMI) [Ratio] 33.8 kg/m2 Dr. Billy Cates MD Work Phone: 6(712)511-367179 [place] [address] 02-16-2025 18:31-0400 Body weight 81.[address] Billy Cates MD Work Phone: 8(859)499-641579 [place] [address] 02-16-2025 17:01-0400 Body temperature 98.1 [degF] Dr. Billy Cates MD Work Phone: 5(978)593-698979 [place] [address] 02-16-2025 17:01-0400 Respiratory rate 13 /min Dr. Billy Cates MD Work Phone: 6(051)272-896579 [place] [address] 02-16-2025 13:53-0400 Body height 152.[address] Billy Cates MD Work Phone: 0(075)934-124279 [place] [address] 02-16-2025 13:53-0400 Body mass index (BMI) [Ratio] 35.2 kg/m2 Dr. Billy Cates MD Work Phone: 7(756)238-575079 [place] [address] 02-16-2025 13:53-0400 Body weight 81.[address] Billy Cates MD Work Phone: 7(873)213-719379 [place] [address] 02-16-2025 13:53-0400 Diastolic blood pressure 77 mm[Hg] Dr. Billy Cates MD Work Phone: 0(004)638-710779 [place] [address] 02-16-2025 13:53-0400 Systolic blood pressure 119 mm[Hg] Dr. Billy Cates MD Work Phone: 3(514)830-150079 [place] [address] 02-08-2025 11:37-0400 Body height 152.[address] Billy Cates MD Work Phone: 1(420)458-123379 [place] [address] 02-08-2025 11:37-0400 Body mass index (BMI) [Ratio] 34.7 kg/m2 Dr. Billy Cates MD Work Phone: 3(924)993-493679 [place] [address] 02-08-2025 11:37-0400 Body weight 80.[address] Billy Cates MD Work Phone: 2(285)204-042179 [place] [address] 02-08-2025 11:10-0400 Diastolic blood pressure 73 mm[Hg] Dr. Billy Cates MD Work Phone: 7(491)081-524679 [place] [address] 02-08-2025 11:10-0400 Heart rate 86 /min Dr. Billy Cates MD Work Phone: 5(758)558-765579 [place] [address] 02-08-2025 11:10-0400 SaO2% (BldA) [Mass fraction] 97 % Dr. Billy Cates MD Work Phone: 2(571)708-121779 [place] [address] 02-08-2025 11:10-0400 Systolic blood pressure 110 mm[Hg] Dr. Billy Cates MD Work Phone: 4(008)351-481779 [place] [address] 02-08-2025 11:07-0400 Respiratory rate 18 /min Dr. Billy Cates MD Work Phone: 1(138)479-990279 [place] [address] 02-08-2025 10:06-0400 Body mass index (BMI) [Ratio] 34.2 kg/m2 Dr. Billy Cates MD Work Phone: 9(318)889-867879 [place] [address] 02-08-2025 10:06-0400 Body weight 82.[address] Billy Cates MD Work Phone: 3(050)858-493179 [place] [address] 02-08-2025 10:06-0400 Diastolic blood pressure 72 mm[Hg] Dr. Billy Cates MD Work Phone: 0(020)935-109979 [place] [address] 02-08-2025 10:06-0400 Systolic blood pressure 107 mm[Hg] Dr. Billy Cates MD Work Phone: 2(609)165-197879 [place] [address] 02-01-2025 11:26-0400 Body mass index (BMI) [Ratio] 33.6 kg/m2 Dr. Billy Cates MD Work Phone: 0(541)827-531079 [place] [address] 02-01-2025 11:26-0400 Body weight 80.[address] Billy Cates MD Work Phone: 8(103)201-314579 [place] [address] 02-01-2025 11:26-0400 Diastolic blood pressure 74 mm[Hg] Dr. Billy Cates MD Work Phone: 9(146)717-511679 [place] [address] 02-01-2025 11:26-0400 Systolic blood pressure 113 mm[Hg] Dr. Billy Cates MD Work Phone: 9(085)419-587079 [place] [address] 01-26-2025 10:58-0400 Body mass index (BMI) [Ratio] 33.5 kg/m2 Dr. Billy Cates MD Work Phone: 9(465)334-194379 [place] [address] 01-26-2025 10:58-0400 Body weight 80.[address] Billy Cates MD Work Phone: 7(166)287-739579 [place] [address] 01-26-2025 10:58-0400 Diastolic blood pressure 72 mm[Hg] Dr. Billy Cates MD Work Phone: 5(354)872-222979 [place] [address] 01-26-2025 10:58-0400 Systolic blood pressure 122 mm[Hg] Dr. Billy Cates MD Work Phone: 6(934)551-065579 [place] [address] 01-11-2025 10:14-0400 Body mass index (BMI) [Ratio] 33.9 kg/m2 Dr. Billy Cates MD Work Phone: 0(904)537-739579 [place] [address] 01-11-2025 10:14-0400 Body weight 81.[address] Billy Cates MD Work Phone: 3(229)612-148779 [place] [address] 01-11-2025 10:14-0400 Diastolic blood pressure 78 mm[Hg] Dr. Billy Cates MD Work Phone: 1(320)200-504879 [place] [address] 01-11-2025 10:14-0400 Systolic blood pressure 125 mm[Hg] Dr. Billy Cates MD Work Phone: 1(653)183-715979 [place] [address] 12-28-2024 09:52-0400 Body height 154.[address] Billy Cates MD Work Phone: 6(290)764-775579 [place] [address] 12-28-2024 09:52-0400 Body mass index (BMI) [Ratio] 33.6 kg/m2 Dr. Billy Cates MD Work Phone: 9(058)963-261379 [place] [address] 12-28-2024 09:52-0400 Body weight 80.[address] Billy Cates MD Work Phone: 9(632)178-763679 [place] [address] 12-28-2024 09:52-0400 Diastolic blood pressure 79 mm[Hg] Dr. Billy Cates MD Work Phone: 3(613)924-902279 [place] [address] 12-28-2024 09:52-0400 Systolic blood pressure 122 mm[Hg] Dr. Billy Cates MD Work Phone: 2(432)720-881079 [place] [address] 12-08-2024 11:27-0500 Body mass index (BMI) [Ratio] 33.14 kg/m2 Maikol Taylor MD Work Phone: [facility] 12-08-2024 11:27-0500 Body temperature 97.39 [degF] Maikol Taylor MD Work Phone: [facility] 12-08-2024 11:27-0500 Body weight 78.6 kg Maikol Taylor MD Work Phone: [facility] 12-08-2024 11:27-0500 Diastolic blood pressure 72 mm[Hg] Maikol Taylor MD Work Phone: [facility] 12-08-2024 11:27-0500 Heart rate 94 /min Maiokl Taylor MD Work Phone: [facility] 12-08-2024 11:27-0500 Respiratory rate 16 /min Maikol Taylor MD Work Phone: [facility] 12-08-2024 11:27-0500 SaO2% (BldA) [Mass fraction] 97 % Maikol Taylor MD Work Phone: [facility] 12-08-2024 11:27-0500 Systolic blood pressure 122 mm[Hg] Maikol Taylor MD Work Phone: [facility] 12-08-2024 10:29-0500 Body mass index (BMI) [Ratio] 32.3 kg/m2 Dr. Billy Cates MD Work Phone: [facility] 12-08-2024 10:29-0500 Body weight 77.[address] Billy Cates MD Work Phone: [facility] 12-08-2024 10:29-0500 Diastolic blood pressure 81 mm[Hg] Dr. Billy Cates MD Work Phone: [facility] 12-08-2024 10:29-0500 Systolic blood pressure 130 mm[Hg] Dr. Billy Cates MD Work Phone: [facility] 11-25-2024 10:45-0500 Body mass index (BMI) [Ratio] 32.93 kg/m2 Maikol Taylor MD Work Phone: [facility] 11-25-2024 10:45-0500 Body temperature 97.5 [degF] Maikol Taylor MD Work Phone: [facility] 11-25-2024 10:45-0500 Body weight 78.1 kg Maikol Taylor MD Work Phone: [facility] 11-25-2024 10:45-0500 Diastolic blood pressure 69 mm[Hg] Maikol Taylor MD Work Phone: [facility] 11-25-2024 10:45-0500 Heart rate 85 /min Maikol Taylor MD Work Phone: [facility] 11-25-2024 10:45-0500 Respiratory rate 18 /min Maikol Taylor MD Work Phone: [facility] 11-25-2024 10:45-0500 SaO2% (BldA) [Mass fraction] 96 % Maikol Taylor MD Work Phone: [facility] 11-25-2024 10:45-0500 Systolic blood pressure 100 mm[Hg] Maikol Taylor MD Work Phone: [facility] 11-09-2024 11:05-0500 Body mass index (BMI) [Ratio] 32 kg/m2 Dr. Billy Cates MD Work Phone: [facility] 11-09-2024 11:05-0500 Body weight 76.[address] Billy Cates MD Work Phone: [facility] 11-09-2024 11:05-0500 Diastolic blood pressure 75 mm[Hg] Dr. Billy Cates MD Work Phone: [facility] 11-09-2024 11:05-0500 Systolic blood pressure 104 mm[Hg] Dr. Billy Cates MD Work Phone: [facility] 10-12-2024 13:43-0500 Body mass index (BMI) [Ratio] 32.3 kg/m2 Dr. Billy Cates MD Work Phone: [facility] 10-12-2024 13:43-0500 Body weight 77.[address] Billy Cates MD Work Phone: [facility] 10-12-2024 13:43-0500 Diastolic blood pressure 73 mm[Hg] Dr. Billy Cates MD Work Phone: [facility] 10-12-2024 13:43-0500 Systolic blood pressure 108 mm[Hg] Dr. Billy Cates MD Work Phone: [facility] 09-13-2024 14:32-0500 Body mass index (BMI) [Ratio] 30.9 kg/m2 Dr. Billy Cates MD Work Phone: [facility] 09-13-2024 14:32-0500 Body weight 74.[address] Billy Cates MD Work Phone: [facility] 09-13-2024 14:32-0500 Diastolic blood pressure 75 mm[Hg] Dr. Billy Cates MD Work Phone: [facility] 09-13-2024 14:32-0500 Systolic blood pressure 107 mm[Hg] Dr. Billy Cates MD Work Phone: [facility] 06-13-2023 14:00-0400 SaO2% (BldA) [Mass fraction] 96 % [facility] 06-13-2023 08:00-0400 Body temperature 98.3 [degF] [facility] 06-13-2023 08:00-0400 Diastolic blood pressure 67 mm[Hg] [facility] 06-13-2023 08:00-0400 Heart rate 83 /min [facility] 06-13-2023 08:00-0400 Respiratory rate 16 /min [facility] 06-13-2023 08:00-0400 Systolic blood pressure 125 mm[Hg] [facility] 06-11-2023 04:31-0400 Body height 154.94 cm [facility] 06-11-2023 04:31-0400 Body mass index (BMI) [Ratio] 32.9 kg/m2 [facility] 06-11-2023 04:31-0400 Body weight 79 kg [facility] Encounters Encounter Date Encounter Type Care Provider Facility Start: 03-23-2025 End: 03-23-[address] Billy Cates MD Work Phone: [facility] Work Phone: Start: 03-23-2025 End: 03-23-[address] Carol Zaman MD -[facility] Work Phone: Start: 03-21-2025 End: 03-21-[address] Billy Cates MD Work Phone: [facility] Work Phone: Start: 03-21-2025 End: 03-21-2025 Patient encounter procedure Yady Maguire [facility] -[facility] Work Phone: Start: 03-15-2025 End: 03-15-2025 Patient encounter procedure Yady TAVARES -[facility] Work Phone: Start: 03-15-2025 End: 03-15-[address] Billy Cates MD Work Phone: [facility] Work Phone: Start: 03-10-2025 End: 03-10-[address] Carol Zaman MD -[facility] Work Phone: Start: 03-10-2025 End: 03-10-[address] Billy Cates MD Work Phone: [facility] Work Phone: Start: 03-04-2025 End: 03-04-2025 Patient encounter procedure Nicole TAVARES -[facility] Work Phone: Start: 03-04-2025 End: 03-04-[address] Billy Cates MD Work Phone: [facility] Work Phone: Start: 02-24-2025 End: 02-24-[address] Billy Cates MD Work Phone: [facility] Work Phone: Start: 02-24-2025 End: 02-24-[address] Carol Zaman MD -Laboratory Specimen Work Phone: Start: 02-24-2025 End: 02-24-[address] Carol Zaman MD -[facility] Work Phone: Start: 02-24-2025 End: 02-24-2025 ambulatory Billy [place] Facility:[facility] Start: 02-24-2025 End: 02-24-2025 ambulatory Billy [place] Facility:[facility] Start: 02-16-2025 ambulatory Billy [place] Facility:[facility] Start: 02-16-2025 Non-patient / Non-visit Dr. Dianna Alberts DO -[facility] Start: 02-16-2025 End: 02-16-2025 Patient encounter procedure Tessie LOVELACE -[facility] Work Phone: Start: 02-16-2025 End: 02-16-[address] Billy Cates MD Work Phone: [facility] Work Phone: Start: 02-08-2025 ambulatory Yady Maguire Facility :[facility] Start: 02-08-2025 Non-patient / Non-visit Yady Maguire CNM -[facility] Start: 02-08-2025 End: 02-08-2025 Patient encounter procedure Yady Maguire CNM -[facility] Work Phone: Start: 02-08-2025 End: 02-08-[address] Billy Cates MD Work Phone: [facility] Work Phone: Start: 02-01-2025 End: 02-01-2025 Patient encounter procedure Yady Maguire CNM -[facility] Work Phone: Start: 02-01-2025 End: 02-01-2025 ambulatory Billy Cates Facility:[facility] Start: 01-26-2025 End: 01-26-[address] Dianna Alberts DO -[facility] Work Phone: Start: 01-26-2025 End: 01-26-2025 ambulatory Billy Darryn Facility:[facility] Start: 01-20-2025 End: 01-20-2025 ambulatory MD CAMPBELL [facility] Start: 01-11-2025 End: 01-11-[address] Carol Zaman MD -[facility] Work Phone: Start: 01-11-2025 End: 01-11-2025 ambulatory Billy Cates Facility:[facility] Start: 12-28-2024 End: 12-28-2024 Patient encounter procedure Tessie LOVELACE -[facility] Work Phone: Start: 12-28-2024 End: 12-28-[address] Billy Cates MD Work Phone: [facility] Work Phone: Start: 12-28-2024 End: 12-28-2024 ambulatory Carol Zaman Facility:[facility] Start: 12-08-2024 End: 12-08-2024 Subsequent hospital visit by physician Xr [facility] Work Phone: Radiology Comment on above: Subacute cough [R05. 2] Start: 12-08-2024 End: 12-08-2024 ambulatory MAIKOL TAYLOR Facility:[facility] Start: 12-08-2024 End: 12-08-2024 Office outpatient visit 25 minutes Maikol Taylor MD Work Phone: [facility] Comment on above: Subacute cough (Prim jessica Dx); Rib pain on left side; with 25 completed weeks gestation Start: 12-08-2024 End: 12-08-[address] Carol Zaman MD -[facility] Work Phone: Start: 12-08-2024 End: 12-08-2024 ambulatory Billy Darryn Facility:[facility] Start: 11-26-2024 End: 01-26-2025 Follow-up encounter Kobi Qureshi APRN.CNP Work Phone: [facility] Start: 11-25-2024 End: 11-25-2024 ambulatory MAIKOL TAYLOR Facility:[facility] Start: 11-25-2024 End: 11-25-2024 Office outpatient new 30 minutes Maikol Taylor MD Work Phone: [facility] Comment on above: Viral URI with cough (Primary Dx) Start: 11-09-2024 End: 11-09-[address] 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[employer] -[facility] Work Phone: Start: 10-12-2024 End: 10-12-2024 ambulatory Tessie Levine NP Facility:[facility] Start: 09-13-2024 End: 09-13-2024 Patient encounter procedure Yady Maguire CN -[facility] Work Phone: Start: 09-13-2024 End: 09-13-2024 ambulatory Billy Cates Facility:[facility] Start: 09-13-2024 End: 09-13-2024 ambulatory Billy Cates Facility:[facility] Start: 08-16-2024 End: 08-16-2024 ambulatory Billy Cates Facility:[facility] Start: 08-16-2024 End: 08-16-2024 ambulatory Dianna Alberts Facility:[facility] Start: 06-11-2023 End: 06-13-2023 Evaluation and management of inpatient [facility] [place] Work Phone: Start: 05-23-2023 End: 05-23-2023 ambulatory [facility] Work Phone: Start: 05-23-2023 End: 05-23-2023 Patient encounter procedure [facility] [place] [employer] product demonstr[employer] Start: 04-11-2023 End: 04-11-2023 ambulatory [facility] Work Phone: Start: 04-11-2023 End: 04-11-2023 [facility] Work [facility]: Start: 03-21-2023 End: 03-21-2023 ambulatory [facility] Work Phone: Start: 03-21-2023 End: 03-21-2023 [facility] Start: 10-25-2022 End: 10-25-2022 ambulatory [facility] Work Phone: Start: 10-25-2022 End: 10-25-2022 [facility] Procedures Date Procedure Procedure Detail Performing Clinician Start: 02-24-2025 Beta-hemolytic Streptococcus culture Dr. Billy Cates MD Work Phone: Start: 02-16-2025 Ultrasonography for biophysical profile without non-stress testing Dr. Billy Cates MD Work Phone: Start: 02-08-2025 End: 02-08-2025 Ultrasonography for biophysical profile without non-stress testing Dr. Billy Cates MD Work Phone: Start: 12-28-2024 Serologic test for syphilis Dr. Billy Cates MD Work Phone: Start: 12-08-2024 Radiologic exam ches t 2 views Maikol Taylor MD Work Phone: Start: 06-11-2023 Bacterial nucleic ac id assay Start: 06-11-2023 Chlamydia trachomati s (PCR) Start: 05-23-2023 Group B Streptococcu s Culture Start: 04-11-2023 Urine culture H/O: section Previous c esarean section Dr. Billy Cates MD Work Phone: Comment on above: interested in interested in . c/s scheduled 03/29. H/O: section Previous c esarean section Yady Maguire CNM H/O: section Previous c esarean section Tessie Levine M[employer]ING MACHINE [employer] GASK[employer]-C H/O: section Previous c esarean section Dr. Dianna Alberts DO H/O: section Previous c esarean section Dr. 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 Carol Zaman MD H/O: section Previous c esarean section Dr. 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 Carol Zaman MD H/O: section Previous c esarean section Nicole Fajardo CNM H/O: section Previous c esarean section Dr. Carol Zaman MD H/O: section Previous c esarean section Yady Maguire CNM H/O: section Previous c esarean section Yady Maguire CNM H/O: section Previous c esarean section Dr. Carol Zaman MD Urine culture Plan of Treatment Date Care Activity Detail Author Start: 03-29-2025 ambulatory Ambulatory Facility:[facility] Start: 02-16-2025 Nonstress test [facility] Start: 02-16-2025 Obstetric monitoring [facility] Start: 02-16-2025 Vital signs measurements [facility] Start: 02-16-2025 [facility] Start: 02-16-2025 Patient discharge [facility] Start: 02-08-2025 Nonstress test [facility] Start: 02-08-2025 Ultrasound scan for growth [facility] Start: 02-08-2025 Obstetric monitoring [facility] Start: 02-08-2025 [facility] Start: 02-08-2025 Biophysical profile panel US [facility] Start: 02-08-2025 Ultrasonography for biophysical profile without non-stress testing Biophysical Prof W/O Non Stres [facility] Start: 02-08-2025 Vital signs measurements [facility] Start: 06-06-2024 Covid-19 Vaccine ( season) Covid-19 Vaccine ( season) [facility] Start: 06-06-2024 Influenza vaccination Influenza Vaccine (#1) [facility] Start: 06-13-2023 Patient discharge [facility] Start: 06-12-2023 Application of abdominal corset [facility] Start: 06-11-2023 End: 06-12-2023 [facility] Start: 06-11-2023 Administration of medication [facility] Start: 06-11-2023 Ambulation therapy management [facility] Start: 06-11-2023 Application of device [facility] Start: 06-11-2023 Application of intermittent pneumatic compression device [facility] Start: 06-11-2023 Assessment of risk of venous thromboembolism [facility] Start: 06-11-2023 Catheterization of vein [facility] Start: 06-11-2023 Deep breathing and coughing exercises [facility] Start: 06-11-2023 Exercises [facility] Start: 06-11-2023 Measuring intake and output [facility] Start: 06-11-2023 End: 06-11-2023 Notification of physician [facility] Start: 06-11-2023 Procedure discontinued [facility] Start: 06-11-2023 Provision of activity privileges [facility] Start: 06-11-2023 Wound care [facility] Start: 06-11-2023 Application of abdominal corset [facility] Start: 06-11-2023 Vital signs measurements [facility] Start: 06-11-2023 Notification of physician [facility] Start: 06-11-2023 Admission procedure [facility] Start: 06-11-2023 Anesthesia consultation [facility] Start: 06-11-2023 Insertion of catheter into peripheral vein [facility] Start: 06-11-2023 Introduction of urinary catheter [facility] Start: 06-11-2023 End: 09-06-2023 Obstetric monitoring [facility] Start: 06-11-2023 Vital signs measurements [facility] Start: 04-12-2020 Urine microalbumin profile DTaP,Tdap,Td Vaccine (7 - Td or Tdap) [facility] Start: 2020 Screening for malignant neoplasm of cervix Cervical Cancer Screening [facility] Start: 2017 Anxiety Screening Anxiety Screening [facility] Start: 2017 Depression Screening Depression Screening [facility] Start: 2017 Hepatitis C screening Hepatitis C Screening [facility] Start: 2017 HIV screening HIV Screening [facility] Start: 2013 Peds To Adult Transition Annual Assessment Peds To Adult Transition Annual Assessment [facility] Start: 2011 Peds To Adult Transition Initial Discussion Peds To Adult Transition Initial Discussion [facility] COVID & INFLUENZA A/ B & RSV PCR, ROUTINE COVID & INFLUENZA A/B & RSV PCR, ROUTINE Microbiology Routine Viral URI with cough 11/25/2024 12:04 PM EST [facility] Work Phone: Patient Education [facility] Work Phone: Patient referral [facility] Work Phone: Ultrasound scan for growth [facility] Immunizations Immunization Date Immunization Notes Care Provider Lizabeth zavala 05-04-2018 hepatitis A vaccine, adult dosage Maikol Taylor MD Work Phone: [facility] 04-26-2015 meningococcal polysaccharide (groups A, C, Y and W-135) diphtheria toxoid conjugate vaccine (MCV4P) Maikol Taylor MD Work Phone: [facility] 11-22-2011 human papilloma viru s vaccine, quadrivalent Maikol Taylor MD Work Phone: [facility] 07-31-2011 human papilloma viru s vaccine, quadrivalent Maikol Taylor MD Work Phone: [facility] Work Phone: 05-13-2011 human papilloma viru s vaccine, quadrivalent Maikol Taylor MD Work Phone: [facility] 04-12-2010 Meningococcal, MCV4, unspecified conjugate formulation(groups A, C, Y and W-135) Maikol Taylor MD Work Phone: [facility] 04-12-2010 tetanus toxoid, redu koko diphtheria toxoid, and acellular pertussis vaccine, adsorbed Maikol Taylor MD Work Phone: [facility] Work Phone: 2006 chicken pox (disease) Maikol Taylor MD Work Phone: [facility] 06-04-2004 diphtheria, tetanus toxoids and acellular pertussis vaccine Maikol Taylor MD Work Phone: [facility] 04-25-2004 measles, mumps and rubella virus vaccine Maikol Taylor MD Work Phone: [facility] 04-25-2004 poliovirus vaccine, inactivated Maikol Taylor MD Work Phone: [facility] 05-10-2002 diphtheria, tetanus toxoids and acellular pertussis vaccine Maikol Taylor MD Work Phone: [facility] 05-18-2001 haemophilus influenz ae type b vaccine, HbOC conjugate Maikol Taylor MD Work Phone: [facility] 04-21-2000 measles, mumps and rubella virus vaccine Maikol Taylor MD Work Phone: [facility] 04-21-2000 poliovirus vaccine, inactivated Maikol Taylor MD Work Phone: [facility] 04-21-2000 varicella virus vaccine Veto Taylor MD Work Phone: [facility] 1999 diphtheria, tetanus toxoids and acellular pertussis vaccine Maikol Taylor MD Work Phone: [facility] 1999 haemophilus influenz ae type b vaccine, HbOC conjugate Maikol Taylor MD Work Phone: [facility] 1999 hepatitis B vaccine, pediatric or pediatric/adolescent dosage Maikol Taylor MD Work Phone: [facility] 1999 diphtheria, tetanus toxoids and acellular pertussis vaccine Maikol Taylor MD Work Phone: [facility] 1999 haemophilus influenz ae type b vaccine, HbOC conjugate Maikol Taylor MD Work Phone: [facility] 1999 poliovirus vaccine, inactivated Maikol Taylor MD Work Phone: [facility] 1999 diphtheria, tetanus toxoids and acellular pertussis vaccine Maikol Taylor MD Work Phone: [facility] Work Phone: 1999 haemophilus influenz ae type b vaccine, HbOC conjugate Maikol Taylor MD Work Phone: [facility] 1999 hepatitis B vaccine, pediatric or pediatric/adolescent dosage Maikol Taylor MD Work Phone: [facility] 1999 poliovirus vaccine, inactivated Maikol Taylor MD Work Phone: [facility] 1999 hepatitis B vaccine, pediatric or pediatric/adolescent dosage Maikol Taylor MD Work Phone: [facility] Payers Date Payer Category Payer [facility] [id number] 2024 Self-pay [id number] 2024 Unknown [id number] [address] [facility] [id number] 1999 Unknown [id number] 1999 Unknown [id number] Unknown [facility]THE[facility] [id number] Unknown [facility] [id number] Unknown [id number] [id number]2 Unknown [id number] 2.16.840.1.023581.3.579.2.462 Unknown [id number] 2.16.840.1.968325.3.579.2.462 Unknown [id number] 2.16.840.1.482127.3.579.2.462 Unknown [id number] 2.16.840.1.638005.3.579.2.462 Unknown [id number] 2.16.840.1.746908.3.579.2.462 Unknown [id number] 2.16.840.1.205320.3.579.2.462 Unknown [id number] 2.16.840.1.366999.3.579.2.462 Unknown [id number] 2.16.840.1.230572.3.579.2.462 Unknown [id number] 2.16.840.1.311633.3.579.2.462 Unknown [id number] 2.16.840.1.638189.3.579.2.462 Unknown [id number] 2.16.840.1.401235.3.579.2.462 Unknown [id number] 2.16.840.1.853115.3.579.2.462 Unknown [id number] 2.16.840.1.095484.3.579.2.462 Unknown [id number] 2.16.840.1.059055.3.579.2.462 Unknown [id number] 2.16.840.1.267860.3.579.2.462 Unknown [id number] 2.16.840.1.843163.3.579.2.462 Unknown [id number] 2.16.840.1.926156.3.579.2.462 Unknown [id number] 2.16.840.1.092243.3.579.2.462 Unknown [id number] 2.16.840.1.773149.3.579.2.462 Unknown [id number] 2.16.840.1.013187.3.579.2.462 Unknown [id number] 2.16.840.1.872188.3.579.2.462 Unknown [id number] 2.16.840.1.752130.3.579.2.462 Unknown [id number] 2.16.840.1.896783.3.579.2.462 Unknown [id number] 2.16.840.1.728730.3.579.2.462 Social History Date Type Detail Facility Start: 09-28-2017 End: 06-11-2023 Tobacco smoking status [facility] Unknown if ever smoked [facility] Start: 2000 Sex Assigned At Female W [facility] Start: 11-25-2024 End: 01-31-2025 Tobacco smoking status SCIS Never smoked tobacco [facility] Start: 11-25-2024 Tobacco use and exposure Smokeless tobacco non-user [facility] Start: 11-25-2024 Alcoholic beverage intake Not Asked [facility] Start: 09-13-2020 End: 11-25-2024 History of Social function [facility] Start: 09-13-2020 End: 11-25-[address] [facility] National Score (1-10 0), lower number is lower risk Not on file [facility] Start: 06-29-2024 [facility] Start: 2000 Sex assigned at Not on file [facility] Start: 01-03-2025 End: 02-08-2025 Sex Female (finding) [facility] Goals Date Patient Goal Desired Activity /State Functional Status Date Assessment Result Facility 04-26-2015 Are you deaf, or do you have serious difficulty hearing No 04/26/2015 3:43 PM EDT Jessika Leyva RN No [facility] 04-26-2015 Are you blind, or do you have serious difficulty seeing, even when wearing glasses No 04/26/2015 3:43 PM EDT Jessika Leyva RN No [facility] 04-26-2015 Do you have serious difficulty walking or climbing stairs No 04/26/2015 3:43 PM EDT Jessika Leyva RN No [facility] 04-26-2015 Do you have difficul ty dressing or bathing No 04/26/2015 3:43 PM EDT Jessika Leyva RN No [facility] 04-26-2015 Because of a physica l, mental, or emotional condition, do you have difficulty doing errands alone such as visiting a physician's office or shopping No 04/26/2015 3:43 PM EDT Jessika Leyva RN No [facility] Mental Status Date Assessment Result Facility 06-12-2023 Cognitive function Level Of Cons ciousness Awake;Alert;Appropriate [facility] Work Phone: 04-26-2015 Because of a physica l, mental, or emotional condition, do you have serious difficulty concentrating, remembering, or making decisions No 04/26/2015 3:43 PM EDT Jessika Leyva RN No [facility] Clinical Notes 06-11-2023 to 03-21-2025 Note Date & Type Note Facility 03-21-[address] [facility] 03-15-[address] [facility] 03-10-[address] [facility] 02-16-2025 History and physi patty note [facility] 02-16-2025 Radiology Diagnostic study note [facility] Imaging Services [address] [place] [place], [place] [address] Biophysical Prof W/O Non Stres MR#: [id number] Acct: [id number] Name: BRENDEN HART SAMMI Rep #: [id number] : 2000 24 From: Hellen Brito MD PCP: Dr. Billy Cates MD Status: REG CL I Study:Biophysical Prof W/O Non Stres Date of Exam: 02/16/25 Exam# [id number] Ordering Dr: Dianna Rothman DO EXAM: US Biophysical Profile Without Non-Stress Testing CLINICAL INDICATION: LATE DECELERATION AT OB APPOINTMENT TECHNIQUE: Real-time ultrasound of the maternal pelvis for biophysical profile evaluation with image documentation. COMPARISON: No relevant prior studies available. FINDINGS: BREATHING MOVEMENTS: Present. Score 2/2. GROSS BODY MOVEMENTS: Present. Score 2/2. TONE: Present. Score 2/2. QUALITATIVE AMNIOTIC FLUID VOLUME: KIRK 19.2 cm. Largest pocket of fluid measures up to 5.8 cm. HEART RATE: heart rate 141 beats per minute. PRESENTATION: Cephalic presentation. PLACENTA: Anterior placenta. Low-lying. Placenta grade 2. OTHER FINDINGS: MERLE 03/22/2025. US/Biophysical Prof W/O Non Stres IMPRESSION: No acute findings. Normal biophysical profile with score of 8/8. Reading Location: [facility] CC: Dr. Dianna Alberts DO; Dr. Billy Cates MD ~ Professor Of Surgery: Signed [facility] 02-08-2025 Progress note Note Date/Time February 08, 2025 12:49p m [facility] Medical Records Department [address] [place] [address] OB Triage Progress Note 02/08/25 1246 MR#: [id number] Acct: [id number] Name: BRENDEN HART Rep #:[id number] : 2000 24 From: Yady Maguire CNM PCP: Dr. Billy Cates MD Status:REG CL I Y DOS: Location: [place] [id number] Progress Notes Date of Service: 02/08/25 Progress Note: Patient presents for triage evaluation secondary to nonreassuring NST in office at 34 weeks. FHT: 140 Moderate variability reactive no decelerations category I tracing [place]: rare Contractions Assessment and plan: BPP 05/13 repeat kirk is 20 cm, Reactive NST, reassuring maternal and status patient discharged to home to follow-up in office. See problem list details for additional plan information. Charges/Coding Multi Select Codes Urinary/Genital Urinary/Genital CPT Codes: 94225-74 non-stress test Interp Assessment & Plan (1) Polyhydramnios: COMMENT: KIRK 28 cm at 01/21 scan. KIRK 20cm 02/08 (2) Obesity affecting : QUALIFIERS: Trimester: second trimester Obesity type affecting : unspecified obesity Qualified Code(s): O99.212 - Obesity complicating , second trimester COMMENT: HgbA1c (3) Supervision of high-risk : QUALIFIERS: Trimester: third trimester Qualified Code(s): O09.93 - Supervision of high risk , unspecified, third trimester COMMENT: PRR , MERLE 03/14/25 boy, PC Dwight, Jeremy (4) : QUALIFIERS: Weeks of gestation: 34 weeks Qualified Code(s): Z3A.34 - 34 weeks gestation of COMMENT: declines NIPT & Carrier testing (5) Previous section: COMMENT: interested in (6) Non-reassuring electronic monitoring tracing: COMMENT: BPP 05/13, D/C home with reactive NST 02/08/25 1249 <Electronically signed by Yady rosenberg CNM> Date _ Yady Maguire CNM Cosigner Signature (if applicable): Date CC: PADMA Maguire; Dr. Billy Cates MD ~ Signed [facility] Work Phone: 1(656) 624-201905-06-2025 Progress note [facility] Medical Records Department [address] [place] [address] OB Triage Progress Note 02/08/25 1246 MR#: [id number] Acct: [id number] Name: BRENDEN HART Rep #:[id number] : 2000 From: Yady Maguire CNM PCP: Dr. Billy Cates MD Status:REG CL I Y DOS: Location: [place] [address] Progress Notes Date of Service: 02/08/25 Progress Note: Patient presents for triage evaluation secondary to nonreassuring NST in office at 34 weeks. FHT: 140 Moderate variability reactive no decelerations category I tracing [place]: rare Contractions Assessment and plan: BPP 05/13 repeat kirk is 20 cm, Reactive NST, reassuring maternal and status patient discharged to home to follow-up in office. See problem list details for additional plan information. Charges/Coding Multi Select Codes Urinary/Genital Urinary/Genital CPT Codes: 07709-22 non-stress test Interp Assessment & Plan (1) Polyhydramnios: COMMENT: KIRK 28 cm at 01/21 scan. KIRK 20cm 02/08 (2) Obesity affecting : QUALIFIERS: Trimester: second trimester Obesity type affecting : unspecified obesity Qualified Code(s): O99.212 - Obesity complicating , second trimester COMMENT: HgbA1c (3) Supervision of high-risk : QUALIFIERS: Trimester: third trimester Qualified Code(s): O09.93 - Supervision of high risk , unspecified, third trimester COMMENT: PRR , MERLE 03/14/25 boy, BING Quintanilla, Jeremy (4) : QUALIFIERS: Weeks of gestation: 34 weeks Qualified Code(s): Z3A.34 - 34 weeks gestation of COMMENT: declines NIPT & Carrier testing (5) Previous section: COMMENT: interested in (6) Non-reassuring electronic monitoring tracing: COMMENT: BPP 05/13, D/C home with reactive NST 02/08/25 1249 s CNM> Date _ Yady Maguire CNM Cosigner Signature (if applicable): Date CC: PADMA Maguire; Dr. Billy Cates MD ~ Signed [facility]03-05-2025 Evaluation note* Diagnosis Onset Date Resolution Status Admit Date Obesity affecting acute December 08, 2024 10:20am acute December 08 10:20am Previous section acute December 08, 2024 10:20am Supervision of high-risk acute December 08, 2024 10:20am Mother currently breast-feeding reso lved December 08, 2024 10:20am Obesity affecting acute December 28, 2024 9:46am acute December 28 9:46am Previous section acute December 28, 2024 9:46am Supervision of high-risk acute December 28, 2024 9:46am Obesity affecting acute January 11, 2025 10:11am acute January 11 10:11am Previous section acute January 11, 2025 10:11am Supervision of high-risk acute January 11, 2025 10:11am Obesity affecting acute January 26, 2025 10:55am acute January 26 10:55am Previous section acute January 26, 2025 10:55am Supervision of high-risk acute January 26, 2025 10:55am Polyhydramnios resolved January 10:55am Obesity affecting acute February 01, 2025 11:19am acute February 01 11:19am Previous section acute February 01, 2025 11:19am Supervision of high-risk acute February 01, 2025 11:19am Polyhydramnios resolved January 11:19am Obesity affecting acute February 08, 2025 10:03am acute February 08, 2025 10:03am Previous section acute February 08, 2025 10:03am Supervision of high-risk acute February 08, 2025 10 :03am Polyhydramnios resolved February 08, 025 10:03am Obesity affecting acute February 08, 2025 10:45am acute February 08, 2025 10:45am Previous section acute February 08, 2025 10:45am Supervision of high-risk acute February 08, 2025 10 :45am Non-reassuring electronic fe sameera monitoring tracing resolved February 08, 2025 10:45am Polyhydramnios resolved February 08, 025 10:45am Obesity affecting acute February 16, 2025 3:06pm acute February 16, 2025 3:06pm Previous section acute February 16, 2025 3:06pm Supervision of high-risk acute February 16, 2025 3 :06pm Non-reassuring electronic fe sameera monitoring tracing resolved February 16 3:06pm Polyhydramnios resolved February 16, 2025 3:06pm Obesity affecting acute February 16, 2025 3:27pm acute February 16, 2025 3:27pm Previous section acute February 16, 2025 3:27pm Supervision of high-risk acute February 16, 2025 3 :27pm Non-reassuring electronic fe sameera monitoring tracing resolved February 16 3:27pm Polyhydramnios resolved February 16, 2025 3:27pm Obesity affecting acute February 24, 2025 10:28am acute February 24, 2025 10:28am Previous section acute February 24, 2025 10:28am Supervision of high-risk acute February 24, 2025 1 0:28am Non-reassuring electronic fe sameera monitoring tracing resolved February 24 10:28am Polyhydramnios resolved February 24, 2025 10:28am Obesity affecting acute March 04, 2025 9:48am acute March 04, 2025 9:48am Previous section acute March 04, 2025 9:48am Supervision of high-risk acute March 04, 2025 9 :48am Obesity affecting acute March 10, 2025 10:31am acute March 10, 2025 10:31am Previous section acute March 10, 2025 10:31am Supervision of high-risk acute March 10, 2025 1 0:31am [facility] Work Phone: 1(357) 940-340703-05-2025 Evaluation note* Diagnosis Onset Date Resolution Status Admit Date Obesity affecting acute December 08, 2024 10:20am acute December 08 10:20am Previous section acute December 08, 2024 10:20am Supervision of high-risk acute December 08, 2024 10:20am Mother currently breast-feeding reso lved December 08, 2024 10:20am Obesity affecting acute December 28, 2024 9:46am acute December 28 9:46am Previous section acute December 28, 2024 9:46am Supervision of high-risk acute December 28, 2024 9:46am Obesity affecting acute January 11, 2025 10:11am acute January 11 10:11am Previous section acute January 11, 2025 10:11am Supervision of high-risk acute January 11, 2025 10:11am Obesity affecting acute January 26, 2025 10:55am acute January 26 10:55am Previous section acute January 26, 2025 10:55am Supervision of high-risk acute January 26, 2025 10:55am Polyhydramnios resolved January 10:55am Obesity affecting acute February 01, 2025 11:19am acute February 01 11:19am Previous section acute February 01, 2025 11:19am Supervision of high-risk acute February 01, 2025 11:19am Polyhydramnios resolved January 11:19am Obesity affecting acute February 08, 2025 10:03am acute February 08, 2025 10:03am Previous section acute February 08, 2025 10:03am Supervision of high-risk acute February 08, 2025 10 :03am Polyhydramnios resolved February 08, 025 10:03am Obesity affecting acute February 08, 2025 10:45am acute February 08, 2025 10:45am Previous section acute February 08, 2025 10:45am Supervision of high-risk acute February 08, 2025 10 :45am Non-reassuring electronic fe sameera monitoring tracing resolved February 08, 2025 10:45am Polyhydramnios resolved February 08, 025 10:45am Obesity affecting acute February 16, 2025 3:06pm acute February 16, 2025 3:06pm Previous section acute February 16, 2025 3:06pm Supervision of high-risk acute February 16, 2025 3 :06pm Non-reassuring electronic fe sameera monitoring tracing resolved February 16 3:06pm Polyhydramnios resolved February 16, 2025 3:06pm Obesity affecting acute February 16, 2025 3:27pm acute February 16, 2025 3:27pm Previous section acute February 16, 2025 3:27pm Supervision of high-risk acute February 16, 2025 3 :27pm Non-reassuring electronic fe sameera monitoring tracing resolved February 16 3:27pm Polyhydramnios resolved February 16, 2025 3:27pm Obesity affecting acute February 24, 2025 10:28am acute February 24, 2025 10:28am Previous section acute February 24, 2025 10:28am Supervision of high-risk acute February 24, 2025 1 0:28am Non-reassuring electronic fe sameera monitoring tracing resolved February 24 10:28am Polyhydramnios resolved February 24, 2025 10:28am Obesity affecting acute March 04, 2025 9:48am acute March 04, 2025 9:48am Previous section acute March 04, 2025 9:48am Supervision of high-risk acute March 04, 2025 9 :48am Obesity affecting acute March 10, 2025 10:31am acute March 10, 2025 10:31am Previous section acute March 10, 2025 10:31am Supervision of high-risk acute March 10, 2025 1 0:31am Obesity affecting acute March 15, 2025 11:35am acute March 15 11:35am Previous section acute March 15, 2025 11:35am Supervision of high-risk acute March 15, 2025 11:35am [facility] Work Phone: 1([phone]) 191-175503-05-2025 Evaluation note* Diagnosis Onset Date Resolution Status Admit Date Obesity affecting acute December 08, 2024 10:20am acute December 08 10:20am Previous section acute December 08, 2024 10:20am Supervision of high-risk acute December 08, 2024 10:20am Mother currently breast-feeding reso lved December 08, 2024 10:20am Obesity affecting acute December 28, 2024 9:46am acute December 28 9:46am Previous section acute December 28, 2024 9:46am Supervision of high-risk acute December 28, 2024 9:46am Obesity affecting acute January 11, 2025 10:11am acute January 11 10:11am Previous section acute January 11, 2025 10:11am Supervision of high-risk acute January 11, 2025 10:11am Obesity affecting acute January 26, 2025 10:55am acute Nataliia 23rd, 20 25 10:55am Previous section acute January 26, 2025 10:55am Supervision of high-risk acute January 26, 2025 10:55am Polyhydramnios resolved January 10:55am Obesity affecting acute February 01, 2025 11:19am acute February 01 11:19am Previous section acute February 01, 2025 11:19am Supervision of high-risk acute February 01, 2025 11:19am Polyhydramnios resolved January 11:19am Obesity affecting acute February 08, 2025 10:03am acute February 08, 2025 10:03am Previous section acute February 08, 2025 10:03am Supervision of high-risk acute February 08, 2025 10 :03am Polyhydramnios resolved February 08, 025 10:03am Obesity affecting acute February 08, 2025 10:45am acute February 08, 2025 10:45am Previous section acute February 08, 2025 10:45am Supervision of high-risk acute February 08, 2025 10 :45am Non-reassuring electronic fe sameera monitoring tracing resolved February 08, 2025 10:45am Polyhydramnios resolved February 08, 2 025 10:45am Obesity affecting acute February 16, 2025 3:06pm acute February 16, 2025 3:06pm Previous section acute February 16, 2025 3:06pm Supervision of high-risk acute February 16, 2025 3 :06pm Non-reassuring electronic fe sameera monitoring tracing resolved February 16 3:06pm Polyhydramnios resolved February 16, 2025 3:06pm Obesity affecting acute February 16, 2025 3:27pm acute February 16, 2025 3:27pm Previous section acute February 16, 2025 3:27pm Supervision of high-risk acute February 16, 2025 3 :27pm Non-reassuring electronic fe sameera monitoring tracing resolved February 16 3:27pm Polyhydramnios resolved February 16, 2025 3:27pm Obesity affecting acute February 24, 2025 10:28am acute February 24, 2025 10:28am Previous section acute February 24, 2025 10:28am Supervision of high-risk acute February 24, 2025 1 0:28am Non-reassuring electronic fe sameera monitoring tracing resolved February 24 10:28am Polyhydramnios resolved February 24, 2025 10:28am Obesity affecting acute March 04, 2025 9:48am acute March 04, 2025 9:48am Previous section acute March 04, 2025 9:48am Supervision of high-risk acute March 04, 2025 9 :48am Obesity affecting acute March 10, 2025 10:31am acute March 10, 2025 10:31am Previous section acute March 10, 2025 10:31am Supervision of high-risk acute March 10, 2025 1 0:31am Obesity affecting acute March 15, 2025 11:35am acute March 15 11:35am Previous section acute March 15, 2025 11:35am Supervision of high-risk acute March 15, 2025 11:35am Obesity affecting acute March 21, 2025 8:34am acute March 21 8:34am Previous section acute March 21, 2025 8:34am Supervision of high-risk acute March 21, 2025 8:34am [facility] Work Phone: [phone]) 237-722303-05-2025 Evaluation note* Diagnosis Onset Date Resolution Status Admit Date Obesity affecting acute December 08, 2024 10:20am acute December 08 10:20am Previous section acute December 08, 2024 10:20am Supervision of high-risk acute December 08, 2024 10:20am Mother currently breast-feeding reso lved December 08, 2024 10:20am Obesity affecting acute December 28, 2024 9:46am acute December 28 9:46am Previous section acute December 28, 2024 9:46am Supervision of high-risk acute December 28, 2024 9:46am Obesity affecting acute January 11, 2025 10:11am acute January 11 10:11am Previous section acute January 11, 2025 10:11am Supervision of high-risk acute January 11, 2025 10:11am Obesity affecting acute January 26, 2025 10:55am acute January 26 10:55am Previous section acute January 26, 2025 10:55am Supervision of high-risk acute January 26, 2025 10:55am Polyhydramnios resolved January 10:55am Obesity affecting acute February 01, 2025 11:19am acute February 01 11:19am Previous section acute February 01, 2025 11:19am Supervision of high-risk acute February 01, 2025 11:19am Polyhydramnios resolved January 11:19am Obesity affecting acute February 08, 2025 10:03am acute February 08, 2025 10:03am Previous section acute February 08, 2025 10:03am Supervision of high-risk acute February 08, 2025 10 :03am Polyhydramnios resolved February 08, 025 10:03am Obesity affecting acute February 08, 2025 10:45am acute February 08, 2025 10:45am Previous section acute February 08, 2025 10:45am Supervision of high-risk acute February 08, 2025 10 :45am Non-reassuring electronic fe sameera monitoring tracing resolved February 08, 2025 10:45am Polyhydramnios resolved February 08, 2 025 10:45am Obesity affecting acute February 16, 2025 3:06pm acute February 16, 2025 3:06pm Previous section acute February 16, 2025 3:06pm Supervision of high-risk acute February 16, 2025 3 :06pm Non-reassuring electronic fe sameera monitoring tracing resolved February 16 3:06pm Polyhydramnios resolved February 16, 2025 3:06pm Obesity affecting acute February 16, 2025 3:27pm acute February 16, 2025 3:27pm Previous section acute February 16, 2025 3:27pm Supervision of high-risk acute February 16, 2025 3 :27pm Non-reassuring electronic fe sameera monitoring tracing resolved February 16 3:27pm Polyhydramnios resolved February 16, 2025 3:27pm Obesity affecting acute February 24, 2025 10:28am acute February 24, 2025 10:28am Previous section acute February 24, 2025 10:28am Supervision of high-risk acute February 24, 2025 1 0:28am Non-reassuring electronic fe sameera monitoring tracing resolved February 24 10:28am Polyhydramnios resolved February 24, 2025 10:28am Obesity affecting acute March 04, 2025 9:48am acute March 04, 2025 9:48am Previous section acute March 04, 2025 9:48am Supervision of high-risk acute March 04, 2025 9 :48am Obesity affecting acute March 10, 2025 10:31am acute March 10, 2025 10:31am Previous section acute March 10, 2025 10:31am Supervision of high-risk acute March 10, 2025 1 0:31am Obesity affecting acute March 15, 2025 11:35am acute March 15 11:35am Previous section acute March 15, 2025 11:35am Supervision of high-risk acute March 15, 2025 11:35am Obesity affecting acute March 21, 2025 8:34am acute March 21 8:34am Previous section acute March 21, 2025 8:34am Supervision of high-risk acute March 21, 2025 8:34am Obesity affecting acute March 23, 2025 2:29pm acute March 23 2:29pm Previous section acute March 23, 2025 2:29pm Supervision of high-risk acute March 23, 2025 2:29pm [facility] Work Phone: [phone] 536-406403-05-2025 History of Present illness Narrative* Tali Abdi Tech - 12/08/2024 11:50 AM EST Radiology Service Progress Note PATIENT NAME: Brenden Hart DATE OF SERVICE: December 08, 2024 TIME: 11:37 AM PATIENT IDENTITY VERIFICATION COMPLETED USING TWO (2) IDENTIFIERS: Name and Date of confirmedby patient verbally. FALL SCREENING: Has the patient had 2 falls in the last year or 1 fall with injury or currently using an Ambulatory Assistive Device (Walker, Cane, Wheelchair, Crutches, etc.)? No PATIENT GENDER DATA: Assigned female at . status: : Yes. Internal Quality Check OK. status: NO. PATIENT RELEVANT IMPLANT DATA REVIEWED: Not Applicable PATIENT PRESENTS WITH AN IMPLANTABLE OR ATTACHED SHUTTLE ROUTE VEHICLE OPERATOR: No RADIOLOGY DEPARTMENT: General X-ray: Exam(s) Completed: Chest X-Ray PERIPHERAL IV DATA: Not applicable SIGNED BY: Cheri Crews December 08, 2024 11:37 AM documented in [facility]St[facility] NoteHNO ID: [id number] Author: TALI ABDI Tech Service: ? Author Type: Technologist Type: Progress Notes Filed: 12/08/2024 11:46 Note Text: Radiology Service Progress Note PATIENT NAME: Brenden Hart DATE OF SERVICE: December 08, 2024 TIME: 11:37 AM PATIENT IDENTITY VERIFICATION COMPLETED USING TWO (2) IDENTIFIERS: Name and Date of confirmed by patient verbally. FALL SCREENING: Has the patient had 2 falls in the last year or 1 fall with injury or currently using an Ambulatory Assistive Device (Walker, Cane, Wheelchair, Crutches, etc.)? No PATIENT GENDER DATA: Assigned female at . status: : Yes. Internal Quality Check OK. status: NO. PATIENT RELEVANT IMPLANT DATA REVIEWED: Not Applicable PATIENT PRESENTS WITH AN IMPLANTABLE OR ATTACHED SHUTTLE ROUTE VEHICLE OPERATOR: No RADIOLOGY DEPARTMENT: General X-ray: Exam(s) Completed: Chest X-Ray PERIPHERAL IV DATA: Not applicable SIGNED BY: Cheri Crews December 08, 2024 11:37 [facility]03-05-2025 NoteHNO ID: [id number] Author: MAIKOL TAYLOR MD Service: ? Author Type: Physician Type: Progress Notes Filed: 12/08/2024 11:54 Note Text: Patient presents with: Chest Congestion: cough, sob x 1 month, 25 weeks HPI: Coughing for 1 month. She was seen here 11/25/24 after 3 weeks of coughing and the cough has not improved. Her last fever was 2 1/2 weeks ago. Her left lower ribs started hurting 2 days ago. She was sent her by her OB for CXR because her breathing or heart rate were elevated. Positive symptoms: Cough, Chest pain, baseline Nasal Congestion, Negative symptoms: Shortness of breath, Sore throat, Rhinorrhea, Fever, OTC: Tylenol MEDICATIONS: Current Outpatient Medications Medication Sig PNV no.95/ferrous fum/folic ac ( ORAL) Take by mouth. No current facility-administered medications for this visit. ALLERGIES: ALLERGIES No Known Allergies VITALS: BP 122/72 Pulse 94 Temp 36.3 ?C (97.4 ?F) Resp 16 Wt 78.6 kg (173 lb 4.5 oz) LMP (LMP Unknown) SpO2 97% BMI 33.14 kg/m? PHYSICAL EXAM: GEN: Pleasant, in no acute distress. HEENT: PERRL, EOMI, conjunctiva clear Ears: canals clear. TMs without erythema, bulge, or effusion Sinuses: non-tender frontal sinus, non-tender maxillary sinuses Throat: moist mucous membranes, mild erythema, no exudate Neck: supple, no thyromegaly, no lymphadenopathy HEART: regular rate, regular rhythm, no murmurs LUNGS: clear to auscultation, no wheezes or crackles, no increased WOB CHEST: left lower lateral and anterior rib margin tender. ASSESSMENT/PLAN: 1. Subacute cough - ICD9: 786.2, ICD10: R05.2 (primary diagnosis) 2. Rib pain on left side - ICD9: 786.50, ICD10: R07.81 3. with 25 completed weeks gestation - ICD9: V22.2, ICD10: Z3A.25 - XR CHEST 2V FRONTAL/LAT - no pneumonia or rib fracture. Right lower lung crackles have resolved since her last exam. Expectant management for post bronchitic cough. Continue supportive care treatment for left lower rib strain with as needed acetaminophen. Follow up with worsening cough, worsening shortness of breath, increasing chest pain, or late onset fever. Maikol Taylor [facility]03-05-2025 History of Present illness Narrative* Maikol Taylor MD - 12/08/2024 11:33 AM EST Patient presents with: Chest Congestion: cough, sob x 1 month, 25 weeks HPI: Coughing for 1 month. She was seen here 11/25/24 after 3 weeks of coughing and the cough has not improved. Her last fever was 2 1/2 weeks ago. Her left lower ribs started hurting 2 days ago. She was sent her by her OB for CXR because her breathing or heart rate were elevated. Positive symptoms: Cough, Chest pain, baseline Nasal Congestion, Negative symptoms: Shortness of breath, Sore throat, Rhinorrhea, Fever, OTC: Tylenol MEDICATIONS: Current Outpatient Medications Medication Sig PNV no.95/ferrous fum/folic ac ( ORAL) Take by mouth. No current facility-administered medications for this visit. ALLERGIES: ALLERGIES No Known Allergies VITALS: BP 122/72 Pulse 94 Temp 36.3 C (97.4 F) Resp 16 Wt 78.6 kg (173 lb 4.5 oz) LMP (LMP Unknown) SpO2 97% BMI 33.14 kg/m PHYSICAL EXAM: GEN: Pleasant, in no acute distress. HEENT: PERRL, EOMI, conjunctiva clear Ears: canals clear. TMs without erythema, bulge, or effusion Sinuses: non-tender frontal sinus, non-tender maxillary sinuses Throat: moist mucous membranes, mild erythema, no exudate Neck: supple, no thyromegaly, no lymphadenopathy HEART: regular rate, regular rhythm, no murmurs LUNGS: clear to auscultation, no wheezes or crackles, no increased WOB CHEST: left lower lateral and anterior rib margin tender. ASSESSMENT/PLAN: 1. Subacute cough - ICD9: 786.2, ICD10: R05.2 (primary diagnosis) 2. Rib pain on left side - ICD9: 786.50, ICD10: R07.81 3. with 25 completed weeks gestation - ICD9: V22.2, ICD10: Z3A.25 - XR CHEST 2V FRONTAL/LAT - no pneumonia or rib fracture. Right lower lung crackles have resolved since her last exam. Expectant management for post bronchitic cough. Continue supportive care treatment for left lower rib strain with as needed acetaminophen. Follow up with worsening cough, worsening shortness of breath, increasing chest pain, or late onsetfever. Maikol Taylor MD documented in this encounterSt. [facility] [id number] (AGENT OF COVID-19) RNA: Not detected INFLUENZA A RNA: Not detected INFLUENZA B RNA: Not detected RESPIRATORY SYNCYTIAL VIRUS (RSV) RNA: Not detectedKeenan Private HospitalComment on above:Performed By: #### [id number] #### [facility] CLIA [id number] [address] [place], [place] [address] [address] [place] [id number] NoteHNO ID: [id number] Author: MAIKOL TAYLOR MD Service: ? Author Type: Physician Type: Progress Notes Filed: 11/25/2024 11:34 Note Text: Patient presents with: Cough: Chest congestion, fever intermittent x2 weeks HPI: Feeling sick for 3 weeks with cough. Her son has had waxing and waning URI symptoms the last 3 weeks also. Her cough has been persistent. Currently 23 weeks . Positive symptoms: Cough, Nasal Congestion, Rhinorrhea, Fever (last fever 6 days ago), abdomen is sore from coughing Negative symptoms: Shortness of breath, Chest pain, Sore throat, Sinus pressure, OTC: lozenges. PAST MEDICAL HISTORY Diagnosis Date Concussion 07/2013 head contusion Febrile convulsions (simple), unspecified 12/04 Seizure. Seen at [facility]. Varicella without mention of complication 09/2006 mild case MEDICATIONS: Current Outpatient Medications Medication Sig PNV no.95/ferrous fum/folic ac ( ORAL) Take by mouth. No current facility-administered medications for this visit. ALLERGIES: ALLERGIES No Known Allergies VITALS: BP 100/69 Pulse 85 Temp 36.4 ?C (97.5 ?F) Resp 18 Wt 78.1 kg (172 lb 2.9 oz) LMP (LMP Unknown) SpO2 96% BMI 32.93 kg/m? PHYSICAL EXAM: GEN: mildly ill appearing, pleasant, alert HEENT: PERRL, EOMI, conjunctiva clear Ears: canals clear. TMs without erythema, bulge, or effusion Sinuses: non-tender frontal sinus, non-tender maxillary sinuses Throat: moist mucous membranes, no erythema, no exudate Neck: supple, no thyromegaly, no lymphadenopathy HEART: regular rate, regular rhythm, no murmurs LUNGS: fine right lower lung inspiratory crackles, no increased WOB ASSESSMENT/PLAN: 1. Viral URI with cough - ICD9: 465.9, ICD10: J06.9 - suspect multiple viral URIs. Right lower lung crackles could represent pneumonia but has been afebrile for 6 days. She would like to avoid xray because of . Xray recommended with worsening cough, shortness of breath, chest pain, or return of fever. - Discussed supportive care treatment with rest, OB approved cough/cold medicine, and analgesia. - COVID AND INFLUENZA A/B AND RSV PCR, ROUTINE Maikol Taylor [facility]02-20-2025 History of Present illness Narrative* Maikol Taylor MD - 11/25/2024 10:59 AM EST Patient presents with: Cough: Chest congestion, fever intermittent x2 weeks HPI: Feeling sick for 3 weeks with cough. Her son has had waxing and waning URI symptoms the last 3 weeks also. Her cough has been persistent. Currently 23 weeks . Positive symptoms: Cough, Nasal Congestion, Rhinorrhea, Fever (last fever 6 days ago), abdomen is sore from coughing Negative symptoms: Shortness of breath, Chest pain, Sore throat, Sinus pressure, OTC: lozenges. PAST MEDICAL HISTORY Diagnosis Date Concussion 07/2013 head contusion Febrile convulsions (simple), unspecified 12/04 Seizure. Seen at [facility]. Varicella without mention of complication 09/2006 mild case MEDICATIONS: Current Outpatient Medications Medication Sig PNV no.95/ferrous fum/folic ac ( ORAL) Take by mouth. No current facility-administered medications for this visit. ALLERGIES: ALLERGIES No Known Allergies VITALS: BP 100/69 Pulse 85 Temp 36.4 C (97.5 F) Resp 18 Wt 78.1 kg (172 lb 2.9 oz) LMP (LMP Unknown) SpO2 96% BMI 32.93 kg/m PHYSICAL EXAM: GEN: mildly ill appearing, pleasant, alert HEENT: PERRL, EOMI, conjunctiva clear Ears: canals clear. TMs without erythema, bulge, or effusion Sinuses: non-tender frontal sinus, non-tender maxillary sinuses Throat: moist mucous membranes, no erythema, no exudate Neck: supple, no thyromegaly, no lymphadenopathy HEART: regular rate, regular rhythm, no murmurs LUNGS: fine right lower lung inspiratory crackles, no increased WOB ASSESSMENT/PLAN: 1. Viral URI with cough - ICD9: 465.9, ICD10: J06.9 - suspect multiple viral URIs. Right lower lung crackles could represent pneumonia but has been afebrile for 6 days. She would like to avoid xray because of . Xray recommended with worsening cough, shortness of breath, chest pain, or return of fever. - Discussed supportive care treatment with rest, OB approved cough/cold medicine, and analgesia. - COVID & INFLUENZA A/B & RSV PCR, ROUTINE Maikol Taylor MD [facility]* Diagnosis Onset Date Resolution Status Admit Date Obesity affecting acute November 09, 2024 11:00am acute November 09, 2024 11:00am Previous section acute November 09, 2024 11:00am Supervision of high-risk acute November 09 11:00am Mother currently breast-feeding resolved November 09 11:00am Obesity affecting acute December 08, 2024 10:20am acute December 08 10:20am Previous section acute December 08, 2024 10:20am Supervision of high-risk acute December 08, 2024 10:20am Mother currently breast-feeding resolved December 08, 2024 10:20am Obesity affecting acute December 28, 2024 9:46am acute December 28 9:46am Previous section acute December 28, 2024 9:46am Supervision of high-risk acute December 28, 2024 9:46am Obesity affecting acute January 11, 2025 10:11am acute January 11 10:11am Previous section acute January 11, 2025 10:11am Supervision of high-risk acute January 11, 2025 10:11am Obesity affecting acute January 26, 2025 10:55am Polyhydramnios acute January 10:55am acute January 26 10:55am Previous section acute January 26, 2025 10:55am Supervision of high-risk acute January 26, 2025 10:55am Obesity affecting acute February 01, 2025 11:19am Polyhydramnios acute January 11:19am acute February 01 11:19am Previous section acute February 01, 2025 11:19am Supervision of high-risk acute February 01, 2025 11:19am Obesity affecting acute February 08, 2025 10:03am Polyhydramnios acute February 08, 025 10:03am acute February 08, 2025 10:03am Previous section acute February 08, 2025 10:03am Supervision of high-risk acute February 08, 2025 10 :03am Non-reassuring electronic monitoring tracing acute February 10:45am Obesity affecting acute February 08, 2025 10:45am Polyhydramnios acute February 08, 10:45am acute February 08, 2025 10:45am Previous section acute February 08, 2025 10:45am Supervision of high-risk acute February 08, 2025 10 :45am [facility] [employer] Work Phone: 1([phone]) 279-388002-04-2025 Evaluation note* Diagnosis Onset Date Resolution Status Admit Date Obesity affecting acute November 09, 2024 11:00am acute November 09, 2024 11:00am Previous section acute November 09, 2024 11:00am Supervision of high-risk acute November 09 11:00am Mother currently breast-feeding resolved November 09 11:00am Obesity affecting acute December 08, 2024 10:20am acute December 08 10:20am Previous section acute December 08, 2024 10:20am Supervision of high-risk acute December 08, 2024 10:20am Mother currently breast-feeding resolved December 08, 2024 10:20am Obesity affecting acute December 28, 2024 9:46am acute December 28 9:46am Previous section acute December 28, 2024 9:46am Supervision of high-risk acute December 28, 2024 9:46am Obesity affecting acute January 11, 2025 10:11am acute January 11 10:11am Previous section acute January 11, 2025 10:11am Supervision of high-risk acute January 11, 2025 10:11am Obesity affecting acute January 26, 2025 10:55am Polyhydramnios acute January 10:55am acute January 26 10:55am Previous section acute January 26, 2025 10:55am Supervision of high-risk acute January 26, 2025 10:55am Obesity affecting acute February 01, 2025 11:19am Polyhydramnios acute January 11:19am acute February 01 11:19am Previous section acute February 01, 2025 11:19am Supervision of high-risk acute February 01, 2025 11:19am Obesity affecting acute February 08, 2025 10:03am Polyhydramnios acute February 08, 025 10:03am acute February 08, 2025 10:03am Previous section acute February 08, 2025 10:03am Supervision of high-risk acute February 08, 2025 10 :03am Non-reassuring electronic monitoring tracing acute February 10:45am Obesity affecting acute February 08, 2025 10:45am Polyhydramnios acute February 08, 025 10:45am acute February 08, 2025 10:45am Previous section acute February 08, 2025 10:45am Supervision of high-risk acute February 08, 2025 10 :45am Non-reassuring electronic monitoring tracing acute February 3:06pm Obesity affecting acute February 16, 2025 3:06pm Polyhydramnios acute February 16, 2025 3:06pm acute February 16, 2025 3:06pm Previous section acute February 16, 2025 3:06pm Supervision of high-risk acute February 16, 2025 3 :06pm Non-reassuring electronic monitoring tracing acute February 3:27pm Obesity affecting acute February 16, 2025 3:27pm Polyhydramnios acute February 16, 2025 3:27pm acute February 16, 2025 3:27pm Previous section acute February 16, 2025 3:27pm Supervision of high-risk acute February 16, 2025 3 :27pm [facility] Work Phone: 1(653) 138-485602-04-2025 Evaluation note* Diagnosis Onset Date Resolution Status Admit Date Obesity affecting acute November 09, 2024 11:00am acute November 09, 2024 11:00am Previous section acute November 09, 2024 11:00am Supervision of high-risk acute November 09 11:00am Mother currently breast-feeding resolved November 09 11:00am Obesity affecting acute December 08, 2024 10:20am acute December 08 10:20am Previous section acute December 08, 2024 10:20am Supervision of high-risk acute December 08, 2024 10:20am Mother currently breast-feeding resolved December 08, 2024 10:20am Obesity affecting acute December 28, 2024 9:46am acute December 28 9:46am Previous section acute December 28, 2024 9:46am Supervision of high-risk acute December 28, 2024 9:46am Obesity affecting acute January 11, 2025 10:11am acute January 11 10:11am Previous section acute January 11, 2025 10:11am Supervision of high-risk acute January 11, 2025 10:11am Obesity affecting acute January 26, 2025 10:55am acute January 26 10:55am Previous section acute January 26, 2025 10:55am Supervision of high-risk acute January 26, 2025 10:55am Polyhydramnios resolved January 10:55am Obesity affecting acute February 01, 2025 11:19am acute February 01 11:19am Previous section acute February 01, 2025 11:19am Supervision of high-risk acute February 01, 2025 11:19am Polyhydramnios resolved January 11:19am Obesity affecting acute February 08, 2025 10:03am acute February 08, 2025 10:03am Previous section acute February 08, 2025 10:03am Supervision of high-risk acute February 08, 2025 10 :03am Polyhydramnios resolved February 08, 025 10:03am Obesity affecting acute February 08, 2025 10:45am acute February 08, 2025 10:45am Previous section acute February 08, 2025 10:45am Supervision of high-risk acute February 08, 2025 10 :45am Non-reassuring electronic monitoring tracing resolved February 10:45am Polyhydramnios resolved February 08, 2 025 10:45am Obesity affecting acute February 16, 2025 3:06pm acute February 16, 2025 3:06pm Previous section acute February 16, 2025 3:06pm Supervision of high-risk acute February 16, 2025 3 :06pm Non-reassuring electronic monitoring tracing resolved February h2024 3:06pm Polyhydramnios resolved February 16, 2025 3:06pm Obesity affecting acute February 16, 2025 3:27pm acute February 16, 2025 3:27pm Previous section acute February 16, 2025 3:27pm Supervision of high-risk acute February 16, 2025 3 :27pm Non-reassuring electronic monitoring tracing resolved February h2024 3:27pm Polyhydramnios resolved February 16, 2025 3:27pm Obesity affecting acute February 24, 2025 10:28am acute February 24, 2025 10:28am Previous section acute February 24, 2025 10:28am Supervision of high-risk acute February 24, 2025 1 0:28am Non-reassuring electronic monitoring tracing resolved February 10:28am Polyhydramnios resolved February 24, 2025 10:28am [facility] Work Phone: 1(646) 217-928502-04-2025 Evaluation note* Diagnosis Onset Date Resolution Status Admit Date Obesity affecting acute November 09, 2024 11:00am acute November 09, 2024 11:00am Previous section acute November 09, 2024 11:00am Supervision of high-risk acute November 09 11:00am Mother currently breast-feeding resolved November 09 11:00am Obesity affecting acute December 08, 2024 10:20am acute December 08 10:20am Previous section acute December 08, 2024 10:20am Supervision of high-risk acute December 08, 2024 10:20am Mother currently breast-feeding resolved December 08, 2024 10:20am Obesity affecting acute December 28, 2024 9:46am acute December 28 9:46am Previous section acute December 28, 2024 9:46am Supervision of high-risk acute December 28, 2024 9:46am Obesity affecting acute January 11, 2025 10:11am acute January 11 10:11am Previous section acute January 11, 2025 10:11am Supervision of high-risk acute January 11, 2025 10:11am Obesity affecting acute January 26, 2025 10:55am acute January 26 10:55am Previous section acute January 26, 2025 10:55am Supervision of high-risk acute January 26, 2025 10:55am Polyhydramnios resolved January 10:55am Obesity affecting acute February 01, 2025 11:19am acute February 01 11:19am Previous section acute February 01, 2025 11:19am Supervision of high-risk acute February 01, 2025 11:19am Polyhydramnios resolved January 11:19am Obesity affecting acute February 08, 2025 10:03am acute February 08, 2025 10:03am Previous section acute February 08, 2025 10:03am Supervision of high-risk acute February 08, 2025 10 :03am Polyhydramnios resolved February 08, 025 10:03am Obesity affecting acute February 08, 2025 10:45am acute February 08, 2025 10:45am Previous section acute February 08, 2025 10:45am Supervision of high-risk acute February 08, 2025 10 :45am Non-reassuring electronic monitoring tracing resolved February 10:45am Polyhydramnios resolved February 08, 2 025 10:45am Obesity affecting acute February 16, 2025 3:06pm acute February 16, 2025 3:06pm Previous section acute February 16, 2025 3:06pm Supervision of high-risk acute February 16, 2025 3 :06pm Non-reassuring electronic monitoring tracing resolved February 3:06pm Polyhydramnios resolved February 16, 2025 3:06pm Obesity affecting acute February 16, 2025 3:27pm acute February 16, 2025 3:27pm Previous section acute February 16, 2025 3:27pm Supervision of high-risk acute February 16, 2025 3 :27pm Non-reassuring electronic monitoring tracing resolved February 3:27pm Polyhydramnios resolved February 16, 2025 3:27pm Obesity affecting acute February 24, 2025 10:28am acute February 24, 2025 10:28am Previous section acute February 24, 2025 10:28am Supervision of high-risk acute February 24, 2025 1 0:28am Non-reassuring electronic monitoring tracing resolved February 10:28am Polyhydramnios resolved February 24, 2025 10:28am Obesity affecting acute March 04, 2025 9:48am acute March 04, 2025 9:48am Previous section acute March 04, 2025 9:48am Supervision of high-risk acute March 04, 2025 9 :48am [facility] Work Phone: 1([phone]) 632-610201-07-2025 Evaluation note* Diagnosis Onset Date Resolution Status Admit Date Obesity affecting acute October 12, 2024 1:41pm acute October 12, 025 1:41pm Previous section acute October 12, 2024 1:41pm Supervision of high-risk acute October 12 1:41pm Mother currently breast-feeding resolved October 12 1:41pm Obesity affecting acute November 09, 2024 11:00am acute November 09, 2024 11:00am Previous section acute November 09, 2024 11:00am Supervision of high-risk acute November 09 11:00am Mother currently breast-feeding resolved November 09 11:00am Obesity affecting acute December 08, 2024 10:20am acute December 08 10:20am Previous section acute December 08, 2024 10:20am Supervision of high-risk acute December 08, 2024 10:20am Mother currently breast-feeding resolved December 08, 2024 10:20am Obesity affecting acute December 28, 2024 9:46am acute December 28 9:46am Previous section acute December 28, 2024 9:46am Supervision of high-risk acute December 28, 2024 9:46am Obesity affecting acute January 11, 2025 10:11am acute January 11 10:11am Previous section acute January 11, 2025 10:11am Supervision of high-risk acute January 11, 2025 10:11am Obesity affecting acute January 26, 2025 10:55am Polyhydramnios acute January 10:55am acute January 26 10:55am Previous section acute January 26, 2025 10:55am Supervision of high-risk acute January 26, 2025 10:55am Obesity affecting acute February 01, 2025 11:19am Polyhydramnios acute January 11:19am acute February 01 11:19am Previous section acute February 01, 2025 11:19am Supervision of high-risk acute February 01, 2025 11:19am Obesity affecting acute February 08, 2025 10:03am Polyhydramnios acute February 08, 025 10:03am acute February 08, 2025 10:03am Previous section acute February 08, 2025 10:03am Supervision of high-risk acute February 08, 2025 10 :03am Non-reassuring electronic monitoring tracing acute February 10:45am Obesity affecting acute February 08, 2025 10:45am Polyhydramnios acute February 08, 2 025 10:45am acute February 08, 2025 10:45am Previous section acute February 08, 2025 10:45am Supervision of high-risk acute February 08, 2025 10 :45am [facility] Work Phone: [phone]) 403-145212-09-2024 Evaluation note* Diagnosis Onset Date Resolution Status Admit Date Obesity affecting acute September 13, 2024 2:32pm acute September 13, 2024 2:32pm Previous section acute September 13, 2024 2:32pm Supervision of high-risk acute September 13 2:32pm Mother currently breast-feeding resolved September 13 2:32pm Obesity affecting acute October 12, 2024 1:41pm acute October 12, 2 025 1:41pm Previous section acute October 12, 2024 1:41pm Supervision of high-risk acute October 12 1:41pm Mother currently breast-feeding resolved October 12 1:41pm Obesity affecting acute November 09, 2024 11:00am acute November 09, 2024 11:00am Previous section acute November 09, 2024 11:00am Supervision of high-risk acute November 09 11:00am Mother currently breast-feeding resolved November 09 11:00am Obesity affecting acute December 08, 2024 10:20am acute December 08 10:20am Previous section acute December 08, 2024 10:20am Supervision of high-risk acute December 08, 2024 10:20am Mother currently breast-feeding resolved December 08, 2024 10:20am Obesity affecting acute December 28, 2024 9:46am acute December 28 9:46am Previous section acute December 28, 2024 9:46am Supervision of high-risk acute December 28, 2024 9:46am [facility] Work Phone: 1(990) 402-132309-08-2023 Discharge summary Author Bolivar Kumar [facility] June 13, 2023 7:15am Note Date/Time June 13, 2023 7:14am [facility] Medical Records Department [address] [place] [id number] Discharge Summary 06/13/23712 MR#: [id number] Acct: [id number] Name: BRENDEN DE PAZ Rep #:[id number] : 2000 23 From: Bolivar Kumar MD PCP: Dr. Billy Cates MD Status:ADM IN Location: [id number] Discharge Summary Date of Admission: 06/11/23 Date of Discharge: 06/13/23 Summary: Patient arrived on 06/11/2023 with spontaneous rupture of membranes subsequently with nonreassuring heart tones and elected for primary section performed on 06/11/2023. Routine postoperative recovery and discharged home on 06/13/2023 Meaningful Use Info Meaningful Use Diagnoses (Choose all that apply): None applicable Discharge Plan Admission Admit Date/Time: 06/11/23 05:10 Primary Reason for Your Visit: Spontaneous rupture membranes Attending Provider: Bolivar Kumar Primary Care Provider: Billy Cates Instructions Additional Instructions / Restrictions: Regular diet. Okay to shower. No tub baths for 2 weeks. No lifting over 25 pounds for 2 to 3 weeks. No intercourse for 6 to 8 weeks. Call if fevers, chills, chest pain, shortness of breath. Follow-up 2 weeks postoperatively Discharge Orders/Prescriptions Prescriptions: New oxycodone 5 mg tablet 5 mg PO Q6H PRN (Reason: pain (scale score 7-10)) 4 Days Qty: 16 0RF Continued PNV cmb#[id number] fumarate-FA [] 28 mg iron- 800 mcg tablet 1 tab PO DAILY Referrals / Follow Up: Billy Cates MD [Primary Care Provider] - Disposition Disposition (needs filled in before D/C Order can be placed): Home, Self Care 06/13/23714 <Electronically signed by Bolivar Kumar MD> Cosigner Signature (if applicable): CC: Dr. Bolivar Kumar MD; Dr. Billy Cates MD~ Signed [facility] Work Phone: 1([phone]) 146-493809-08-2023 Progress note Author Bolivar Kumar [facility] June 13, 2023 7:15am Note Date/Time June 13, 2023 7:16am [facility] Medical Records Department [address] [place] [address] Progress Note - OBGYN 06/13/23714 MR#: [id number] Acct: [id number] Name: BRENDEN DE PAZ Rep #:[id number] : 2000 23 From: Bolivar Kumar MD PCP: Dr. Billy Cates MD Status:ADM IN Location: [id number] Subjective Subjective No overnight complaints Objective Data Objective Data Vital Signs: Vital Signs Temp Pulse Resp BP Pulse Ox O2 Del Method 97.9 F 84 16 102/64 96 Room Air 06/12/23 19:59 06/13/23 02:00 06/13/23 02:00 06/13/23 02:00 06/13/23 02:00 06/13/23 02:00 Oxygen Delivery Method Room Air Weight: 174 lb 2.643 oz Body Mass Index (BMI) 32.9 Intake & Output: Intake and Output for Last 24 Hours 06/11/23 06/12/23 06/13/23 23:59 23:59 23:59 Intake Total 2596.25 / 2851.25 505 / 505 Output Total 2251 / 2251 200 / 200 Balance 345.25 / 600.25 305 / 305 Lab / Micro Data 06/12/23 04:20 Micro: Microbiology 06/11/23 05:30 Interface Orders Chlamydia trachomatis (PCR) - Final 06/11/23 05:30 Interface Orders Neisseria gonorrhoeae (PCR) - Final Physical Exam Const alert, oriented x3, no apparent distress, average body habitus, healthy appearing and well nourished HEENT normocephalic and moist oral mucous membranes Eyes PERRL Neck full ROM Resp normal respiratory effort, no retractions and no use of accessory muscles GI GI Narrative: Soft, nontender, bandage clean dry and intact Extremity normal to inspection and full ROM Neuro moves all extremities and no focal motor deficits Psych mental status grossly normal, affect normal, speech normal and activity/motor behavior normal Assessment & Plan (1) delivery delivered: PLAN: Postop day 2 status post primary section for nonreassuring heart tones. Breast-feeding. Pain well controlled. Okay to discharge home today 06/13/23714 <Electronically signed by Bolivar Kumar MD> Cosigner Signature (if applicable): CC: ~ Signed [facility] Work Phone: 1(767) 448-497309-08-2023 Hospital Discharge instructions Additional Instructions Regular diet. Okay to shower. No tub baths for 2 weeks. No lifting over 25 pounds for 2 to 3 weeks. No intercourse for 6 to 8 weeks. Call if fevers, chills, chest pain, shortness of breath. Follow-up 2 weeks postoperatively Date of Discharge: 06/13/23[facility] Work Phone: 1([phone]) 212-312109-07-2023 Progress note Author Bolivar Kumar [facility] June 12, 2023 8:31am Note Date/Time June 12, 2023 8:31am [facility] Medical Records Department [address] [place] [address] Progress Note - OBGYN 06/12/23827 MR#: [id number] Acct: [id number] Name: ZANDRABRENDEN D SAMMI Rep #:[id number] : 2000 23 From: Bolivar Kumar MD PCP: Dr. Billy Cates MD Status:ADM IN Location: [id number] Subjective Subjective No overnight complaints Objective Data Objective Data Vital Signs: Vital Signs Temp Pulse Resp BP Pulse Ox O2 Del Method 97.2 F L 89 16 96/57 L 98 Room Air 06/12/23 07:11 06/12/23 07:11 06/12/23 07:11 06/12/23 07:11 06/12/23 07:11 06/12/23 07:11 Oxygen Delivery Method Room Air Weight: 174 lb 2.643 oz Body Mass Index (BMI) 32.9 Intake & Output: Intake and Output for Last 24 Hours 06/10/23 06/11/23 06/12/23 23:59 23:59 23:59 Intake Total 2596.25 / 2851.25 505 / 505 Output Total 2251 / 2251 200 / 200 Balance 345.25 / 600.25 305 / 305 Lab / Micro Data 06/12/23 04:20 Labs: Laboratory Results - last 24 hr 06/11/23 05:35: Syphilis Total Ab Non-reactive 06/12/23 04:20: WBC 14.4 H, RBC 3.18 L, Hgb 9.8 L, Hct 29.2 L, MCV 91.8, MCH 30.8, MCHC 33.6, RDW Std Deviation 44.3 H, RDW Coeff of Fany 13.3, Plt Count 214,MPV 10.1 Micro: Microbiology 06/11/23 05:30 Interface Orders Chlamydia trachomatis (PCR) - Final 06/11/23 05:30 Interface Orders Neisseria gonorrhoeae (PCR) - Final Physical Exam Const alert, oriented x3, no apparent distress, average body habitus, healthy appearing and well nourished HEENT normocephalic and moist oral mucous membranes Eyes PERRL Neck full ROM Resp normal respiratory effort, no retractions and no use of accessory muscles GI GI Narrative: Soft, nontender, bandage clean dry and intact Extremity normal to inspection and full ROM Neuro moves all extremities and no focal motor deficits Psych mental status grossly normal, affect normal, speech normal and activity/motor behavior normal Assessment & Plan (1) delivery delivered: PLAN: Post op day 1 statues post primary section for nonreassuring heart tones. Breast feeding. Pain well controlled. Likely home tomorrow 06/12/23 0831 <Electronically signed by Bolivar Kumar MD> Cosigner Signature (if applicable): CC: ~ Signed [facility] Work Phone: 1(661) 182-975309-06-2023 Progress note Author Bolivar Kumar [facility] June 11, 2023 8:20pm Note Date/Time June 11, 2023 8:02pm [facility] Medical Records Department [address] [place] [address] Progress Note - OBGYN 06/11/231956 MR#: [id number] Acct: [id number] Name: BRENDEN DE PAZ Rep #:[id number] : 2000 From: Bolivar Kumar MD PCP: Dr. Billy Cates MD Status:ADM IN Location: [id number] Subjective Subjective Patient comfortable with epidural Objective Data Objective Data Vital Signs: Vital Signs Temp Pulse BP Pulse Ox 97.3 F L 80 105/63 97 06/11/23 19:15 06/11/23 19:15 06/11/23 19:15 06/11/23 18:32 Weight: 174 lb 2.643 oz Body Mass Index (BMI) 32.9 Intake & Output: Intake and Output for Last 24 Hours 06/09/23 06/10/23 06/11/23 23:59 23:59 23:59 Intake Total 1806.40 / 1806.40 Output Total 401 / 401 Balance 1405.40 / 1405.40 Lab / Micro Data 06/11/23 05:35 Labs: Laboratory Results - last 24 hr 06/11/23 04:40: Vag Amniotic Fld Detect POSITIVE H 06/11/23 05:35: WBC 15.3 H, RBC 4.22, Hgb 12.6, Hct 38.6, MCV 91.5, MCH 29.9, MCHC 32.6, RDW Std Deviation 43.4, RDW Coeff of Fany 13.2, Plt Count 254, MPV 10.1, Immature Gran % (Auto) 0.700, Neut % (Auto) 79.0 H, Lymph % (Auto) 15.2 L,Cascade % (Auto) 4.5, Eos % (Auto) 0.3, Baso % (Auto) 0.3, Absolute Neuts (auto) 12.1 H, Absolute Lymphs (auto) 2.33, Nucleated RBC % 0, Syphilis Total Ab Non-reactive, Blood Type A POSITIVE, Antibody Screen NEGATIVE Micro: Microbiology 06/11/23 05:30 Interface Orders Chlamydia trachomatis (PCR) - Final 06/11/23 05:30 Interface Orders Neisseria gonorrhoeae (PCR) - Final Physical Exam Const alert, oriented x3, no apparent distress, average body habitus, healthy appearing and well nourished HEENT normocephalic and moist oral mucous membranes Eyes PERRL Neck full ROM Resp normal respiratory effort, no retractions and no use of accessory muscles GI GI Narrative: Soft, nontender, gravid Narrative: Cervical exam: 6-7/-1 Psych mental status grossly normal, affect normal, speech normal and activity/motor behavior normal Assessment & Plan (1) : PLAN: Called by nursing patient status post epidural with recurrently decelerations, informed nursing that oxygen IV fluid bolus given and position change now with Pitocin off, nursing also notified me that FSE placed. Reviewed heart rate tracing with nursing somewhat improved heart rate tracing. Reviewed possible care plans with nursing thoroughly, nursing given opportunity to discuss her thoughts on the process, after further discussion discussed continue with Pitocin off until heart rate tracing category 1 and to continue to manage position changes to find position that heart rate tracings category 1. Nursing agrees states understanding. Patient seen and examined comfortable with epidural. Cervical exam as above unchanged from previous nursing exam. Scalp stim positive during cervical exam. At this time recurrent decelerations resolved while in room discussed criteria for section with patient, partner, andfamily thoroughly. At this time patient and partner do wish to continue currentmanagement with improved heart tones understanding the nonreassuring fetalheart tones and there effects. We will continue to monitor with Pitocin off and if recurrent decelerations will refer to tracing and [place] [place] fetalheart rate tracing algorithm when applicable. Reviewed care plan with nursing who agrees. We will continue to monitor minutes a minute heart rate tracing and educated patient and partner on medical options including section 06/11/232001 <Electronically signed by Bolivar Kumar MD> Cosigner Signature (if applicable): CC: ~ Signed ADDENDUM by Dr. Bolivar Kumar MD on 06/11/23 at 2020 Addendum Immediately after patient seen variable decelerations noted and minimal variability Pitocin continues to be off. Patient seen and examined rediscussed heart rate tracing and again stressed persistent and recurrent decelerations and need for section. Educated patient on risk benefits alternatives of include but are not limited to visceral or vascular injury, prolonged hospitalization, blood loss need for transfusion, reoperation. Patient state understanding and wished to proceed. All questions were answeredand consent was signed. We will proceed with primary section for nonreassuring heart tones. For 2 g Ancef and 500 mg of azithromycin. CAR SWEEPER and anesthesia notified. Discussed case with nurse practitioner hospitalist, to be at delivery. 06/11/232019<Electronically signed by Bolivar Kumar MD> Cosigner Signature (if applicable): cc: ~* Signed [facility] Work Phone: 1(542) 546-882609-06-2023 Procedure [facility] 06-11-2023 Progress note Author Bolivar Kumar [facility] June 11, 2023 4:56pm Note Date/Time June 11, 2023 4:56pm [facility] Medical Records Department [address] [place] [id number] Progress Note - OBGYN 06/11/23 1654 MR#: [id number] Acct: [id number] Name: BRENDEN DE PAZ Rep #:[id number] : 2000 23 From: Bolivar Kumar MD PCP: Dr. Billy Cates MD Status:ADM IN Location: [place] [id number] Subjective Subjective Patient uncomfortable with contractions Objective Data Objective Data Vital Signs: Vital Signs Temp Pulse BP Pulse Ox 98.1 F 83 128/71 H 96 06/11/23 16:04 06/11/23 16:04 06/11/23 16:04 06/11/23 15:30 Weight: 174 lb 2.643 oz Body Mass Index (BMI) 32.9 Intake & Output: Intake and Output for Last 24 Hours 06/09/23 06/10/23 06/11/23 23:59 23:59 23:59 Intake Total 1290.83 / 1290.83 Output Total 401 / 401 Balance 889.83 / 889.83 Lab / Micro Data 06/11/23 05:35 Labs: Laboratory Results - last 24 hr 06/11/23 04:40: Vag Amniotic Fld Detect POSITIVE H 06/11/23 05:35: WBC 15.3 H, RBC 4.22, Hgb 12.6, Hct 38.6, MCV 91.5, MCH 29.9, MCHC 32.6, RDW Std Deviation 43.4, RDW Coeff of Fany 13.2, Plt Count 254, MPV 10.1, Immature Gran % (Auto) 0.700, Neut % (Auto) 79.0 H, Lymph % (Auto) 15.2 L,Cascade % (Auto) 4.5, Eos % (Auto) 0.3, Baso % (Auto) 0.3, Absolute Neuts (auto) 12.1 H, Absolute Lymphs (auto) 2.33, Nucleated RBC % 0, Syphilis Total Ab Non-reactive, Blood Type A POSITIVE, Antibody Screen NEGATIVE Micro: Microbiology 06/11/23 05:30 Interface Orders Chlamydia trachomatis (PCR) - Final 06/11/23 05:30 Interface Orders Neisseria gonorrhoeae (PCR) - Final Physical Exam Const alert, oriented x3, average body habitus, healthy appearing and well nourished HEENT normocephalic and moist oral mucous membranes Eyes PERRL Neck full ROM Resp normal respiratory effort, no retractions and no use of accessory muscles Extremity normal to inspection and full ROM Neuro moves all extremities and no focal motor deficits Psych mental status grossly normal, affect normal, speech normal and activity/motor behavior normal Assessment & Plan (1) : PLAN: Patient seen and examined. Uncomfortable with contractions currently getting bolus IV fluids for epidural. Educated patient on epidurals risk benefits alternatives, discussed medical benefits and detriments of having epidural. Patient and partner state understanding. For epidural now and will recheck cervix after epidural placement, patient declines cervical exam now. Educated patient and nursing on care plan, patient and partner state understanding 06/11/23 2869 <Electronically signed by Bolivar Kumar MD> Cosigner Signature (if applicable): CC: ~ Signed [facility] Work Phone: 1(976) 526-951809-06-2023 History and physical note Author Bolivar Kumar [facility] June 11, 2023 7:12am Note Date/Time June 11, 2023 6:48am [facility] Medical Records Department [address] [place] [address] H&P Exam - MARKETING INFORMATION ANALYST 06/11/23 0646 MR#: [id number] Acct: [id number] Name: BRENDEN DE PAZ Rep #:[id number] : 2000 23 From: Bolivar Kumar MD PCP: Dr. Billy Cates MD Status:ADM IN Location: [address] History and Physical Date of Admission: 06/11/23 Chief complaint: Leakage of fluid History present illness: 23-year-old G1, P0 at 38 weeks and 6 days with MERLE 06/19/2023 arrives with leakage of clear fluid. Denies headache, vision change, chest pain, shortness of breath, nausea vomit, right upper quadrant pain. Patient states good movement. is complicated by BMI 32 Obstetric history: G1: Current Past medical history: None Medications: vitamin Past surgical history: Left ankle, wisdom teeth extraction Allergies: No known drug allergies Family history: Denies history DVT or PE Social history: Denies smoking, alcohol use, drug use Review of systems: Besides above pertinent positives a full review of systems was performed and found to be negative Physical exam: Vitals: Blood pressure 131/81 pulse 80 temperature 97.7 ?F SPO2 98% on room air General: Normal-appearing no acute distress HEENT: Normocephalic/atraumatic no cervical lymphadenopathy Cardiac/respiratory: No use of accessory muscles, nonlabored breathing Abdomen: Soft, nontender, gravid Extremities: No peripheral edema normal peripheral pulses Psych: Normal affect normal demeanor nonpressured speech Labs: White blood cell count 15.3 hemoglobin 12.6 hematocrit 38.6% platelets 254. ROM positive Assessment plan: 23-year-old G1, P0 at 38 weeks and 6 days with leakage of fluid and positive ROM, now with SROM Admit labor and delivery CEFM GBS negative Routine orders 06/11/23 0712 <Electronically signed by Bolivar Kumar MD> Cosigner Signature (if applicable): CC: Dr. Bolivar Kumar MD; Dr. Billy Cates MD~ Signed [facility] Work Phone: Evaluation noteNo assessment information available [facility] Work Phone: Evaluation note* Diagnosis Onset Date Resolution Status delivery delivered acute acute [facility] Work Phone: Evaluation note* Diagnosis Viral URI with cough- Primary Acute upper respiratory infections of unspecified site [facility] Subacute cough- Primary Cough Rib pain on left side Chest pain, unspecified with 25 completed weeks gestation Subacute cough Cough Rib pain on left side Chest pain, unspecified with 25 completed weeks gestation [facility] Diagnosis Subacute cough Cough Rib pain on left side Chest pain, unspecified with 25 completed weeks gestation [facility] Author Dianna Luther [facility] Note Date/Time February 16, 2025 8:47p m [facility] Medical Records Department [address] [place] [address] OB Triage Physician Note 02/16/252044 MR#: [id number] Acct: [id number] Name: BRENDEN HART Rep #:[id number] : 2000 24 From: Dianna Alberts DO PCP: Dr. Billy Cates MD Status:REG CL I Y Location: [id number] HPI - General HPI Narrative BRENDEN HART, is a 24 y/o @ 35 weeks 1 day who presents to L&D for extended monitoring and a bpp for late decel in the office. NST was being performed for polyhydramnios that was 30 last week and this week is 20 Maternal Data Information MERLE Calculator Estimated Delivery Date Method Current WG Current Estimate 03/22/25 Ultrasound #1 35w 1d Other Estimates 03/14/25 LMP (Certain) 36w 2d PFSH PFSH Medical History delivery delivered Seizures Autoimmune disease Home Medications ?Medication ?Instructions ?Recorded ?Last Taken ?Type multivitamin no.47-iron fum 27 1 cap PO DAILY 08/10/24 02/08/25 09:00 History mg-folate no.1 1 mg-dha 300 mg 1 cap capsule (PNV-DHA) Allergy/AdvReac Type Severity Reaction Status Date / Time No Known Allergies Allergy Verified 02/16/25 18:30 Family History Grandmother Diabetes Paternal- Type 2 Heart disease, Onset Age: 74 Paternal-2 stents Breast cancer, Onset Age: 70 Paternal- All 11 siblings have some type of cancer Grandfather Diabetes Cancer, Onset Age: 68 Lung Colon cancer, Onset Age: 68 Grandmother Myocardial infarction, Onset Age: 54 Maternal Uncle Myocardial infarction, Onset Age: 60 Maternal Surgical History History of surgery Social History adopted: No household members: spouse and children number of children: 1 current occupational status: unemployed current occupation: [employer] pets and animals: Yes (outside animals) pets and animals: cat(s) and other details: chickens history of recent travel: No sexually active: Yes Smoking Status: Never smoker alcohol intake: never substance use type: does not use well-balanced diet: daily or most days caffeine: Yes Type: coffee Number of servings: 1 eating out: rarely or never during the past year weight has: remained stable what type of physical activity do you participate in: none cristela/baptism: Jainism seatbelt use: always do you feel safe at home: Yes 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 Date Name GA/Weeks Outcome Route Bth Weight Gen Labor Lgth Anesthesia Del Locatn Provider FOB 06/11/23 Dwight 38 live - full term 6#4oz Male sp inal [facility] Bolivar Kumar Jeremy Delivery Date: 06/11/23 Last Updated by: Rachel Mcfarland decels, cord around neck Visit Details Expected Delivery Route/Plan TOLAC patient counseled regarding risks/benefits of trial of labor versus repeat . ACOG/uptodate education given to patient. 59.7 % likelihood of success per calculator TOLAC consent form signed: [] Support person Jeremy Plans Covid status: [] Flu vaccine: [] Tdap vaccine: declines Rhogam: declines LARC form signed: yes movement and labor precautions reviewed. Problem list reviewed and updated with the most current plan of care details and appropriate orders placed. Relevant counseling for the gestational age provided. Continue routine care and follow up unless otherwise noted in visit notes/problem list details OB Flowsheet Initial Weight: Not Recorded Date -?-?-?-?-?-?-?-?-?-?-?-?- EGA Weight BP Urine Prot -?-?-?-?-?-?-?-?-?-?-?-?- Glucose FHR FuHt Pres Dilation -?-?-?-?-?-?-?-?-?-?-?-?- Effaced St Visit Note 08/16/24 -?-?-?-?-?-?-?-?-?-?-?-?- 8w 6d 161 lb 6 oz 128/76 -?--?-?-?-?-?-?-?-?-?-?-?- 187 -?-?-?-?-?-?-?-?-?-?-?-?- JV- CRL measures 8 weeks 6 days. JV- CRL measures 8 weeks 6 d ays and not consistent with LMP> pt wants to TOLAC.was not given a chance to labor last time due to decels at 38 weeks. undecided about NIPT. 09/13/24 -?-?-?-?-?-?-?-?-?-?-?-?- 12w 6d 164 lb 107/75 Negative -?-?-?-?-?-?-?-?-?-?-?-?- Negative 160 -?-?-?-?-?-?-?-?-?-?-?-?- KW- no vb/crampi ng. US ordered. 10/12/24 -?-?-?-?-?-?-?-?-?-?-?-?- 17w 0d 171 lb 108/73 Negative -?-?-?-?-?-?-?-?-?-?-?-?- Negative 154 -?-?-?-?-?-?-?-?-?-?-?-?- -Jessy. Maranda frank. Denies concerns. [facility] 10/2111/09/24 -?-?-?-?-?-?-?-?-?-?-?-?- 21w 0d 169 lb 8 oz 104/75 Nega tive -?-?-?-?-?-?-?-?-?-?-?-?- Negative 155 21 -?-?-?-?-?-?-?-?-?-?-?-?- JV- no complaint s today. has a sinus infection. Still plans tolac and does not want to schedule a cs at 40 or 41 weeks yet. 12/08/24 -?-?-?-?-?-?-?-?-?-?-?-?- 25w 1d 171 lb 4 oz 130/81 Nega tive -?-?-?-?-?-?-?-?-?-?-?-?- Negative 150 25 -?-?-?-?-?-?-?-?-?-?-?-?- SM- still having URI symptoms, send to urgent care now for treatment 12/28/24 -?-?-?-?-?-?-?-?-?-?-?-?- 28w 0d 178 lb 122/79 Negative -?-?-?-?-?-?-?-?-?-?-?-?- Negative 158 28 -?-?-?-?--?-?-?-?-?-?-?-?- MH-No VB, LOF. G ood Fm. 28 wk labs pending. Declines tdap. Larc done. 01/11/25 -?-?-?-?-?-?-?-?-?-?-?-?- 30w 0d 179 lb 6 oz 125/78 Nega tive -?-?-?-?-?-?-?-?-?-?-?-?- Negative 145 30 -?-?-?-?-?-?-?-?-?-?-?-?- SM- no vb lof go odfm no regular ctx SM- no vb lof goodfm no regu lar ctx still needs fu anatomy views 01/26/25 -?-?-?-?-?-?-?-?-?-?-?-?- 32w 1d 177 lb 2 oz 122/72 Nega tive -?-?-?-?-?-?-?-?-?-?-?-?- Negative 147 32.5 -?-?--?-?-?-?-?-?-?-?-?-?- JV_ polyhydramni os on last scan. patient states she feels large but no other complaints. Her son broke his femur and it is just a little hard to carry him around (19 months) 02/01/25 -?-?-?-?-?-?-?-?-?-?-?-?- 33w 0d 178 lb 113/74 Negative -?-?-?-?-?-?-?-?-?-?-?-?- Negative 130 -?-?-?-?-?-?-?-?-?-?-?-?- KW- no vb/lof/ct x. good fm. NST reactive 02/08/25 -?-?-?-?-?-?-?-?-?-?-?-?- 34w 0d 181 lb 2 oz 107/72 Nega tive -?-?-?-?-?-?-?-?-?-?-?-?- Negative 140 -?-?-?-?-?-?-?-?-?-?-?-?- KW- NST not reac tive to for BPP. needs to schedule growth. 02/16/25 -?-?-?-?-?-?-?-?-?-?-?-?- 35w 1d 180 lb 6 oz 119/77 Nega tive -?-?-?-?-?-?-?-?-?-?-?-?- Negative 145 -?-?-?-?-?-?-?-?-?-?-?-?- JV- NST shows ir regular rare contractions but there was a late decel from 140's down to 120's x 30 seconds. sending to L&D for continuous monitoring and a bpp. had kirk of 30 until last week when it came back at 20 ROS Constitutional Constitutional: Reports systems reviewed and no addt'l complaints, except as documented Gastrointestinal Gastrointestinal: Denies bloating, constipation, cramping, diarrhea, nausea or vomiting Genitourinary Genitourinary: Reports other Details: Denies vaginal odor, vaginal bleeding, or vaginal discharge ; Denies difficulty urinating or flank pain Physical Exam HEENT normocephalic Resp normal respiratory effort and normal air movement no CVA tenderness Extremity normal to inspection General Extremity: edema bilateral (trace ) NST FHR Rate Baby A Baseline: 140 Variability:: Moderate Accelerations:: 15 x 15 Decelerations:: None NST Reactive:: Yes FHR Category:: Category I Assessment & Plan (1) Non-reassuring electronic monitoring tracing: COMMENT: sending to L&D, when this happened last a BPP was found to be 8/8 and she was D/C home with reactive NST (2) Polyhydramnios: COMMENT: KIRK 28 cm at 01/21 scan. KIRK 20cm 02/08 (3) Obesity affecting : QUALIFIERS: Trimester: second trimester Obesity type affecting : unspecified obesity Qualified Code(s): O99.212 - Obesity complicating , second trimester COMMENT: HgbA1c (4) Supervision of high-risk : QUALIFIERS: Trimester: third trimester Qualified Code(s): O09.93 - Supervision of high risk , unspecified, third trimester COMMENT: PRR , MERLE 03/14/25 boy, PC Dwight, Jeremy (5) : QUALIFIERS: Weeks of gestation: 34 weeks Qualified Code(s): Z3A.34 - 34 weeks gestation of COMMENT: declines NIPT & Carrier testing (6) Previous section: COMMENT: interested in PLAN: Plan tracing is reassuring on L&D for several hours. BPP was 8/8 ok to dc to home. Charges/Coding Multi Select Codes Visit Charges Office Visit/Consults: 37726 OV L3 Est 20min Urinary/Genital Urinary/Genital CPT Codes: 21956-55 non-stress test Interp 02/16/252046 <Electronically signed by Dianna Chong DO> Date _ Dianna Alberts DO Cosigner Signature (if applicable): Date CC: Dr. Dianna Alberts DO; Dr. Billy Cates MD ~ Signed [facility] Work Phone: Progress note Author Carol Zaman [facility] Note Date/Time March 10, 2025 11:[address] [facility] [address] [place] [address], [address] [place] [address] OFFICE VISIT Date of Service: 03/10/25 MR#: [id number] Acct: [id number] Name: BRENDEN HART ep #: [id number] : 2000 Provider: Dr. 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 Is patient in pain?: No Allergies No Known Allergies Allergy (Verified 03/10/25 10:36) Medications ?Medication ?Instructions ?Recorded ?Confirmed ?Type multivitamin no.47-iron fum 27 1 cap PO DAILY 08/10/24 03/10/25 History mg-folate no.1 1 mg-dha 300 mg capsule (PNV-DHA) Last Menstrual Period: 06/07/24 Zika: Zika virus screening: Negative : No PFSH PFSH Medical History delivery delivered Seizures Autoimmune disease Surgical History History of surgery Family History Grandmother Diabetes Paternal- Type 2 Heart disease, Onset Age: 74 Paternal-2 stents Breast cancer, Onset Age: 70 Paternal- All 11 siblings have some type of cancer Grandfather Diabetes Cancer, Onset Age: 68 Lung Colon cancer, Onset Age: 68 Grandmother Myocardial infarction, Onset Age: 54 Maternal Uncle Myocardial infarction, Onset Age: 60 Maternal Social History adopted: No household members: spouse and children number of children: 1 current occupational status: unemployed current occupation: [employer] pets and animals: Yes (outside animals) pets and animals: cat(s) and other details: chickens history of recent travel: No sexually active: Yes Smoking Status: Never smoker alcohol intake: never substance use type: does not use well-balanced diet: daily or most days caffeine: Yes Type: coffee Number of servings: 1 eating out: rarely or never during the past year weight has: remained stable what type of physical activity do you participate in: none cristela/baptism: Jainism seatbelt use: always do you feel safe at home: Yes 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 Date Name GA/Weeks Outcome Route Bth Weight Infant Gen Labor Lgth Anesthesia Del Locatn Provider FOB 06/11/23 Dwight 38 live - full term 6#4oz Male sp inal [facility] Bolivar Luna Delivery Date: 06/11/23 Last Updated by: Rachel Mcfarland decels, cord around neck HPI 38 wk ob Details: BRENDEN HART is a 24 year old who presents for routine OB visit. OB Visit MERLE Calculator Estimated Delivery Date Method Current WG Current Estimate 03/22/25 Ultrasound #1 38w 2d Other Estimates 03/14/25 LMP (Certain) 39w 3d Expected Delivery Route/Plan TOLAC by 41 weeks patient counseled regarding risks/benefits of trial of labor versus repeat . ACOG/uptodate education given to patient. 59.7 % likelihood of success per calculator TOLAC consent form signed: [] Support person Jeremy Specific Issue/Plans Covid status: [] Flu vaccine: [] Tdap vaccine: declines Rhogam: declines LARC form signed: yes movement and labor precautions reviewed. Problem list reviewed and updated with the most current plan of care details and appropriate orders placed. Relevant counseling for the gestational age provided. Continue routine care and follow up unless otherwise noted in visit notes/problem list details Initial Weight: Not Recorded Date -?-?-?-?-?-?-?-?-?-?-?-?- EGA Weight BP Urine Prot -?-?-?-?-?-?-?-?-?-?-?-?- Glucose FHR FuHt Pres Dilation -?-?-?-?-?-?-?-?-?-?-?-?- Effaced St Visit Note 08/16/24 -?-?-?-?-?-?-?-?-?-?-?-?- 8w 6d 161 lb 6 oz 128/76 -?-?-?-?-?-?-?-?-?-?-?-?- 187 -?-?-?-?-?-?-?-?-?-?-?-?- JV- CRL measures 8 weeks 6 days. JV- CRL measures 8 weeks 6 d ays and not consistent with LMP> pt wants to TOLAC.was not given a chance to labor last time due to decels at 38 weeks. undecided about NIPT. 09/13/24 -?-?-?-?-?-?-?-?-?-?-?-?- 12w 6d 164 lb 107/75 Negative -?-?-?-?-?-?-?-?-?-?-?-?- Negative 160 -?-?-?-?-?-?-?-?-?-?-?-?- KW- no vb/yesenia ng. US ordered. 10/12/24 -?-?-?-?-?-?-?-?-?-?-?-?- 17w 0d 171 lb 108/73 Negative -?-?--?-?-?-?-?-?-?-?-?-?- Negative 154 -?-?-?-?-?-?-?-?-?-?-?-?- -Jessy. Maranda frank. Denies concerns. MFM US 10/2111/09/24 -?-?-?-?-?-?-?-?-?-?-?-?- 21w 0d 169 lb 8 oz 104/75 Nega tive -?-?-?-?-?-?-?-?-?-?-?-?- Negative 155 21 -?-?-?-?-?-?-?-?-?-?-?-?- JV- no complaint s today. has a sinus infection. Still plans tolac and does not want to schedule a cs at 40 or 41 weeks yet. 12/08/24 -?-?-?-?-?-?-?-?-?-?-?-?- 25w 1d 171 lb 4 oz 130/81 Nega tive -?-?-?-?-?-?-?-?-?-?-?-?- Negative 150 25 -?-?-?-?-?-?-?-?-?-?-?-?- SM- still having URI symptoms, send to urgent care now for treatment 12/28/24 -?-?-?-?-?-?-?-?-?-?-?-?- 28w 0d 178 lb 122/79 Negative -?-?-?-?-?-?-?-?-?-?-?-?- Negative 158 28 -?-?-?-?-?-?-?-?-?-?-?-?- -No VB, LOF. G ood Fm. 28 wk labs pending. Declines tdap. Larc done. 01/11/25 -?-?-?-?-?-?-?-?-?-?-?-?- 30w 0d 179 lb 6 oz 125/78 Nega tive -?-?-?-?-?-?-?-?-?-?-?-?- Negative 145 30 -?-?-?-?-?-?-?-?-?-?-?-?- SM- no vb lof go odfm no regular ctx SM- no vb lof goodfm no regu lar ctx still needs fu anatomy views 01/26/25 -?-?-?-?--?-?-?-?-?-?-?-?- 32w 1d 177 lb 2 oz 122/72 Nega tive -?-?-?-?-?-?-?-?-?-?-?-?- Negative 147 32.5 -?-?-?-?-?-?-?-?-?-?-?-?- JV_ polyhydramni os on last scan. patient states she feels large but no other complaints. Her son broke his femur and it is just a little hard to carry him around (19 months) 02/01/25 -?-?-?-?-?-?-?-?-?-?-?-?- 33w 0d 178 lb 113/74 Negative -?-?-?-?-?-?-?-?-?-?-?-?- Negative 130 -?-?-?-?-?-?-?-?-?-?-?-?- KW- no vb/lof/ct x. good fm. NST reactive 02/08/25 -?-?-?-?-?-?-?-?-?-?-?-?- 34w 0d 181 lb 2 oz 107/72 Nega tive -?-?-?-?-?-?-?-?-?-?-?-?- Negative 140 -?-?-?-?-?-?-?-?-?-?-?-?- KW- NST not reac tive to WP for BPP. needs to schedule growth. 02/16/25 -?-?-?-?-?-?-?-?-?-?-?-?- 35w 1d 180 lb 6 oz 119/77 Nega tive -?-?-?-?-?-?-?-?-?-?-?--?- Negative 145 -?-?-?-?-?-?-?-?-?-?-?-?- JV- NST shows ir regular rare contractions but there was a late decel from 140's down to 120's x 30 seconds. sending to L&D for continuous monitoring and a bpp. had kirk of 30 until last week when it came back at 20 02/24/25 -?-?-?-?-?-?-?-?-?-?-?-?- 36w 2d 185 lb 2 oz 113/76 Nega tive -?-?-?-?-?-?-?-?-?-?-?-?- Negative 140 0 -?-?-?-?-?-?-?-?-?-?-?-?- SM- no vb lof go od fm no regualr ctx reactive nst discussed doesn't need NSTs anymore 03/04/25 -?-?-?-?-?-?-?-?-?-?-?-?- 37w 3d 184 lb 2 oz 113/72 Nega tive -?-?-?-?-?-?-?-?-?-?-?-?- Negative 145 37 Cephalic 0 -?-?-?-?-?-?-?-?-?--?-?-?- LC- no vb/ctx/lo f. good fm. no concerns today. reviewed preferences. LC- no vb/ctx/lof. good fm. no concerns today. reviewed preferences. internal os closed. 03/10/25 -?-?-?-?-?-?-?-?-?-?-?-?- 38w 2d 187 lb 2 oz 115/63 Nega tive -?-?-?-?-?-?-?-?-?-?-?-?- Negative 140 37 Cephalic -?-?-?-?-?-?-?-?-?-?-?-?- SM- no vb lof go od fm no reuglar ctx discussed RLTCS at 41 weeks or consider IOL if favorable cervix ACOG First Trimester First Trimester: Discussed Second Trimester Second Trimester: Signs and Symptoms of Labor; Discussed Tobacco Cessation, Discussed Depression/Anxiety and Discussed Intimate Partner Violence Third Trimester Third Trimester: Pain Management Plans, Labor support person(s), Immediate Larc, Circumcision preference, Movement Monitoring, Signs and Symptoms of Preeclampsia, Feeding No and Family Medical Leave or Disability Forms Results POC Urinalysis 2 Dip (Clinic) Office Urine Glucose Negative Last Edit by Vanessa Winters on 03/10/25 10: 48 Office Urine Protein Negative Last Edit by Vanessa Winters on 03/10/25 10: 48 Coding Level of Care Code OB Routine Diagnoses Obesity affecting in second trimester, unspecified obesity type O99.212 Obesity type affecting : unspecified obesity Trimester: second trimester Supervision of high risk in third trimester O09.93 Trimester: third trimester 38 weeks gestation of Z3A.38 Weeks of gestation: 38 weeks Previous section Z98.891 Assessment and Plan Assessment and Plan (1) Obesity affecting : Status: Acute Qualifiers: Obesity type affecting : unspecified obesity Trimester: second trimester Qualified Code(s): O99.212 - Obesity complicating , second trimester Comment: HgbA1c (2) Supervision of high-risk : Status: Acute Qualifiers: Trimester: third trimester Qualified Code(s): O09.93 - Supervision of high risk , unspecified, third trimester Comment: PRR , MERLE 03/22/25 boy, PC Dwight, Jeremy (3) : Status: Acute Qualifiers: Weeks of gestation: 38 weeks Qualified Code(s): Z3A.38 - 38 weeks gestation of Comment: gbs neg. declines NIPT & Carrier testing (4) Previous section: Status: Acute Comment: interested in Orders: Orders POC Urinalysis 2 Dip (Clinic) Today 03/10/25 1106 <Electronically signed by Carol hay MD> Date _ Carol Zaman MD Cosigner Signature: Date (if applicable) CC: ~ [facility] Work Phone: progrirc note Author Yady Maguire [facility] Note Date/Time March 15, 2025 12:[address] 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 Is patient in pain?: No Allergies No Known Allergies Allergy (Verified 03/15/25 11:40) Medications ?Medication ?Instructions ?Recorded ?Confirmed ?Type multivitamin no.47-iron fum 27 1 cap PO DAILY 08/10/24 03/15/25 History mg-folate no.1 1 mg-dha 300 mg capsule (PNV-DHA) Last Menstrual Period: 06/07/24 Zika: Zika virus screening: Negative : No PFSH PFSH Medical History delivery delivered Seizures Autoimmune disease Surgical History History of surgery Family History Grandmother Diabetes Paternal- Type 2 Heart disease, Onset Age: 74 Paternal-2 stents Breast cancer, Onset Age: 70 Paternal- All 11 siblings have some type of cancer Grandfather Diabetes Cancer, Onset Age: 68 Lung Colon cancer, Onset Age: 68 Grandmother Myocardial infarction, Onset Age: 54 Maternal Uncle Myocardial infarction, Onset Age: 60 Maternal Social History adopted: No household members: spouse and children number of children: 1 current occupational status: unemployed current occupation: [employer] pets and animals: Yes (outside animals) pets and animals: cat(s) and other details: chickens history of recent travel: No sexually active: Yes Smoking Status: Never smoker alcohol intake: never substance use type: does not use well-balanced diet: daily or most days caffeine: Yes Type: coffee Number of servings: 1 eating out: rarely or never during the past year weight has: remained stable what type of physical activity do you participate in: none cristela/baptism: Jainism seatbelt use: always do you feel safe at home: Yes 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 Date Name GA/Weeks Outcome Route Bth Weight Infant Gen Labor Lgth Anesthesia Del Locatn Provider FOB 06/11/23 Dwight 38 live - full term 6#4oz Male sp inal [facility] Boliv[facility] Luna Delivery Date: 06/11/23 Last Updated by: Rachel Mcfarland decels, cord around neck HPI 39 wk ob Details: BRENDEN HART is a 24 year old who presents for routine OB visit. OB Visit MERLE Calculator Estimated Delivery Date Method Current WG Current Estimate 03/22/25 Ultrasound #1 39w 0d Other Estimates 03/14/25 LMP (Certain) 40w 1d Expected Delivery Route/Plan TOLAC by 41 weeks patient counseled regarding risks/benefits of trial of labor versus repeat . ACOG/uptodate education given to patient. 59.7 % likelihood of success per calculator TOLAC consent form signed: [] Support person Jeremy Specific Issue/Plans Covid status: [] Flu vaccine: [] Tdap vaccine: declines Rhogam: declines LARC form signed: yes movement and labor precautions reviewed. Problem list reviewed and updated with the most current plan of care details and appropriate orders placed. Relevant counseling for the gestational age provided. Continue routine care and follow up unless otherwise noted in visit notes/problem list details Initial Weight: Not Recorded Date -?-?-?-?-?-?-?-?-?-?-?-?- EGA Weight BP Urine Prot -?-?-?-?-?-?-?-?-?-?-?-?- Glucose FHR FuHt Pres Dilation -?-?-?-?-?-?-?-?-?-?-?-?- Effaced St Visit Note 08/16/24 -?-?-?-?-?-?-?-?-?-?-?-?- 8w 6d 161 lb 6 oz 128/76 -?-?-?-?-?-?-?-?-?-?-?-?- 187 -?-?-?-?-?-?-?-?-?-?-?-?- JV- CRL measures 8 weeks 6 days. JV- CRL measures 8 weeks 6 d ays and not consistent with LMP> pt wants to TOLAC.was not given a chance to labor last time due to decels at 38 weeks. undecided about NIPT. 09/13/24 -?-?-?-?-?-?-?-?-?-?-?-?- 12w 6d 164 lb 107/75 Negative -?-?-?-?-?-?-?-?-?-?-?-?- Negative 160 -?-?-?-?-?-?-?-?-?-?-?-?- KW- no vb/yesenia ng. ordered. 10/12/24 -?-?-?-?-?-?-?-?-?-?-?-?- 17w 0d 171 lb 108/73 Negative -?-?-?-?-?-?-?-?-?-?-?-?- Negative 154 -?-?-?-?-?-?-?-?-?-?-?-?- -NoVb. Maranda frank. Denies concerns. [facility] 10/2111/09/24 -?-?-?-?-?-?-?-?-?-?-?-?- 21w 0d 169 lb 8 oz 104/75 Nega tive -?-?-?-?-?-?-?-?-?-?-?-?- Negative 155 21 -?-?-?-?-?-?-?-?-?-?-?-?- JV- no complaint s today. has a sinus infection. Still plans tolac and does not want to schedule a cs at 40 or 41 weeks yet. 12/08/24 -?-?-?-?-?-?-?-?-?-?-?-?- 25w 1d 171 lb 4 oz 130/81 Nega tive -?-?-?-?-?-?-?-?-?-?-?-?- Negative 150 25 -?-?-?-?-?-?-?-?-?-?-?-?- SM- still having URI symptoms, send to urgent care now for treatment 12/28/24 -?-?-?-?-?-?-?-?-?-?-?-?- 28w 0d 178 lb 122/79 Negative -?-?-?-?-?-?-?-?-?-?-?-?- Negative 158 28 -?-?-?-?-?-?-?-?-?-?-?-?- MH-No VB, LOF. G ood Fm. 28 wk labs pending. Declines tdap. Larc done. 01/11/25 -?-?-?-?-?-?-?-?-?-?-?-?- 30w 0d 179 lb 6 oz 125/78 Nega tive -?-?-?-?-?-?-?-?-?-?-?-?- Negative 145 30 -?-?-?-?-?-?-?-?-?-?-?-?- SM- no vb lof go odfm no regular ctx SM- no vb lof goodfm no regu lar ctx still needs fu anatomy views 01/26/25 -?-?-?-?-?-?-?-?-?-?-?-?- 32w 1d 177 lb 2 oz 122/72 Nega tive -?-?-?-?-?-?-?-?-?-?-?-?- Negative 147 32.5 -?-?-?-?-?-?-?-?-?-?-?-?- JV_ polyhydramni os on last scan. patient states she feels large but no other complaints. Her son broke his femur and it is just a little hard to carry him around (19 months) 02/01/25 -?-?-?-?-?-?-?-?-?-?-?-?- 33w 0d 178 lb 113/74 Negative -?-?-?-?-?-?-?-?-?-?-?-?- Negative 130 -?-?-?-?-?-?-?-?-?-?-?-?- KW- no vb/lof/ct x. good fm. NST reactive 02/08/25 -?-?-?-?-?-?-?-?-?-?-?-?- 34w 0d 181 lb 2 oz 107/72 Nega tive -?-?-?-?-?-?-?-?-?-?-?-?- Negative 140 -?-?-?-?-?-?-?-?-?-?-?-?- KW- NST not reac tive to WP for BPP. needs to schedule growth. 02/16/25 -?-?-?-?-?-?-?-?-?-?-?-?- 35w 1d 180 lb 6 oz 119/77 Nega tive -?-?-?-?-?-?-?-?-?-?-?-?- Negative 145 -?-?-?-?--?-?-?-?-?-?-?-?- JV- NST shows ir regular rare contractions but there was a late decel from 140's down to 120's x 30 seconds. sending to L&D for continuous monitoring and a bpp. had kirk of 30 until last week when it came back at 20 02/24/25 -?-?-?-?-?-?-?-?-?-?-?-?- 36w 2d 185 lb 2 oz 113/76 Nega tive -?-?-?-?-?-?-?-?-?-?-?-?- Negative 140 0 -?-?-?-?-?-?-?-?-?-?-?-?- SM- no vb lof go od fm no regualr ctx reactive nst discussed doesn't need NSTs anymore 03/04/25 -?-?-?-?-?-?-?-?-?-?-?-?- 37w 3d 184 lb 2 oz 113/72 Nega tive -?-?-?-?-?-?-?-?-?-?-?-?- Negative 145 37 Cephalic 0 -?-?-?-?-?-?-?-?-?-?-?-?- LC- no vb/ctx/lo f. good fm. no concerns today. reviewed preferences. LC- no vb/ctx/lof. good fm. no concerns today. reviewed preferences. internal os closed. 03/10/25 -?-?-?-?-?-?-?-?-?-?-?-?- 38w 2d 187 lb 2 oz 115/63 Nega tive -?-?-?-?-?-?-?-?-?-?-?-?- Negative 140 37 Cephalic -?-?-?-?-?-?-?-?-?-?-?-?- SM- no vb lof go od fm no reuglar ctx discussed RLTCS at 41 weeks or consider IOL if favorable cervix 03/15/25 -?-?-?-?-?-?-?-?-?-?-?-?- 39w 0d 186 lb 6 oz 118/76 Nega tive -?-?-?-?-?-?-?-?-?-?-?-?- Negative 125 39 Cephalic -?-?-?-?-?-?-?-?-?-?-?-?- KW- no vb/lof/ct x. good fm. no concerns ACOG First Trimester First Trimester: Discussed Second Trimester Second Trimester: Signs and Symptoms of Labor; Discussed Tobacco Cessation, Discussed Depression/Anxiety and Discussed Intimate Partner Violence Third Trimester Third Trimester: Pain Management Plans, Labor support person(s), Immediate Larc, Circumcision preference, Movement Monitoring, Signs and Symptoms of Preeclampsia, Feeding No and Family Medical Leave or Disability Forms ROS Const Reports system reviewed and no additional complaints, except as documented Eyes Reports system reviewed and no additional complaints, except as documented ENT Reports system reviewed and no additional complaints, except as documented Card Reports system reviewed and no additional complaints, except as documented Resp Reports system reviewed and no additional complaints, except as documented GI Reports system reviewed and no additional complaints, except as documented, Denies nausea and Denies vomiting Reports system reviewed and no additional complaints, except as documented Musc Reports system reviewed and no additional complaints, except as documented Skin/Breast Reports system reviewed and no additional complaints, except as documented Neuro Yes system reviewed and no additional complaints, except as documented Psych Reports system reviewed and no additional complaints, except as documented Endo Reports system reviewed and no additional complaints, except as documented Fazal/Lymph Reports system reviewed and no additional complaints, except as documented Aller/Immun Reports system reviewed and no additional complaints, except as documented Exam Const General: cooperative, healthy appearing and no acute distress Orientation: alert, awake and oriented x3 Neck Neck: normal visual inspection and full ROM Resp Effort & Inspection: normal respiratory effort, able to speak in complete sentences and symmetric chest movement GI Inspection: normal to inspection Palpation: soft and other Other: gravid Skin General: no rashes or lesions noted Neuro General: patient alert, patient awake and patient oriented x3 Cognition: normal cognition Speech: speech normal Gait: normal gait Motor: muscle tone normal throughout Extrem General: normal to inspection and full ROM Psych Appearance: grossly normal Mental Status: mental status grossly normal Mood: congruent mood Affect: normal affect Speech and Movement: speech and movement normal Attitude: cooperative Thought Process: normal Thought Content: normal Judgment: judgment good Results POC Urinalysis 2 Dip (Clinic) Office Urine Glucose Negative Last Edit by Tessie Umana on 03/15/25 11:45 Office Urine Protein Negative Last Edit by Tessie Umana on 03/15/25 11:45 Coding Level of Care Code OB Routine Diagnoses Obesity affecting in second trimester, unspecified obesity type O99.212 Obesity type affecting : unspecified obesity Trimester: second trimester Supervision of high risk in third trimester O09.93 Trimester: third trimester 39 weeks gestation of Z3A.39 Weeks of gestation: 39 weeks Previous section Z98.891 Assessment and Plan Assessment and Plan (1) Obesity affecting : Status: Acute Qualifiers: Obesity type affecting : unspecified obesity Trimester: second trimester Qualified Code(s): O99.212 - Obesity complicating , second trimester Comment: HgbA1c (2) Supervision of high-risk : Status: Acute Qualifiers: Trimester: third trimester Qualified Code(s): O09.93 - Supervision of high risk , unspecified, third trimester Comment: PRR , MERLE 03/22/25 boy, PC Dwight, Jeremy (3) : Status: Acute Qualifiers: Weeks of gestation: 39 weeks Qualified Code(s): Z3A.39 - 39 weeks gestation of Comment: gbs neg. declines NIPT & Carrier testing (4) Previous section: Status: Acute Comment: interested in . c/s scheduled 03/29. Orders: Orders POC Urinalysis 2 Dip (Clinic) Today Plan Details Additional Comments: ACOG trimester education reviewed and updated. see problem list details for updated plan management information and see below for orders placed at this visit. GA appropriate handout given. 03/15/25 1200 <Electronically signed by Yady rosenberg CNM> Date _ Yady Maguire CNM Cosigner Signature: Date (if applicable) CC: ~ [facility] Work Phone: Progress note Author Yady Maguire [facility] Note Date/Time March 21, 2025 9:[address] 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 Is patient in pain?: No Allergies No Known Allergies Allergy (Verified 03/21/25 08:34) Medications ?Medication ?Instructions ?Recorded ?Confirmed ?Type multivitamin no.47-iron fum 27 1 cap PO DAILY 08/10/24 03/21/25 History mg-folate no.1 1 mg-dha 300 mg capsule (PNV-DHA) Last Menstrual Period: 06/07/24 : No Have you fallen in the past year?: No PFSH PFSH Medical History delivery delivered Seizures Autoimmune disease Surgical History History of surgery Family History Grandmother Diabetes Paternal- Type 2 Heart disease, Onset Age: 74 Paternal-2 stents Breast cancer, Onset Age: 70 Paternal- All 11 siblings have some type of cancer Grandfather Diabetes Cancer, Onset Age: 68 Lung Colon cancer, Onset Age: 68 Grandmother Myocardial infarction, Onset Age: 54 Maternal Uncle Myocardial infarction, Onset Age: 60 Maternal Social History adopted: No household members: spouse and children number of children: 1 current occupational status: unemployed current occupation: [employer] pets and animals: Yes (outside animals) pets and animals: cat(s) and other details: chickens history of recent travel: No sexually active: Yes Smoking Status: Never smoker alcohol intake: never substance use type: does not use well-balanced diet: daily or most days caffeine: Yes Type: coffee Number of servings: 1 eating out: rarely or never during the past year weight has: remained stable what type of physical activity do you participate in: none cristela/baptism: Jainism seatbelt use: always do you feel safe at home: Yes 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 Date Name GA/Weeks Outcome Route Bth Weight Gen Labor Lgth Anesthesia Del Brianatn Provider FOB 06/11/23 Dwight Salas live - full term 6#4oz Male sp inal [facility] Luna Delivery Date: 06/11/23 Last Updated by: Rachel Mcfarland decels, cord around neck HPI 40 wk ob *HAPPY DUE DATE Details: BRENDEN HART is a 25 year old who presents for routine OB visit. OB Visit MERLE Calculator Estimated Delivery Date Method Current WG Current Estimate 03/22/25 Ultrasound #1 39w 6d Other Estimates 03/14/25 LMP (Certain) 41w 0d Expected Delivery Route/Plan TOLAC by 41 weeks patient counseled regarding risks/benefits of trial of labor versus repeat . ACOG/uptodate education given to patient. 59.7 % likelihood of success per calculator TOLAC consent form signed: [] Support person Jeremy Specific Issue/Plans Covid status: [] Flu vaccine: [] Tdap vaccine: declines Rhogam: declines LARC form signed: yes movement and labor precautions reviewed. Problem list reviewed and updated with the most current plan of care details and appropriate orders placed. Relevant counseling for the gestational age provided. Continue routine care and follow up unless otherwise noted in visit notes/problem list details Initial Weight: Not Recorded Date -?-?-?-?-?-?-?-?-?-?-?-?- EGA Weight BP Urine Prot -?-?-?-?-?-?-?-?-?-?-?-?- Glucose FHR FuHt Pres Dilation -?-?-?-?-?-?-?-?-?-?-?-?- Effaced St Visit Note 08/16/24 -?-?-?-?-?-?-?-?-?-?-?-?- 8w 6d 161 lb 6 oz 128/76 -?-?-?-?-?-?-?-?-?-?-?-?- 187 -?-?-?-?-?-?-?-?-?-?-?-?- JV- CRL measures 8 weeks 6 days. JV- CRL measures 8 weeks 6 d ays and not consistent with LMP> pt wants to TOLAC.was not given a chance to labor last time due to decels at 38 weeks. undecided about NIPT. 09/13/24 -?-?-?-?-?-?-?-?-?-?-?-?- 12w 6d 164 lb 107/75 Negative -?-?-?-?-?-?-?-?-?-?-?-?- Negative 160 -?-?-?-?-?-?-?-?-?-?-?-?- KW- no vb/crampi ng. US ordered. 10/12/24 -?-?-?-?-?-?-?-?-?-?-?-?- 17w 0d 171 lb 108/73 Negative -?-?-?-?-?-?-?-?-?-?-?-?- Negative 154 -?-?-?-?-?-?-?-?-?-?-?-?- -NoV. Maranda frank. Denies concerns. [facility] 10/2111/09/24 -?-?-?-?-?-?-?-?-?-?-?-?- 21w 0d 169 lb 8 oz 104/75 Nega tive -?-?-?-?-?-?-?-?-?-?-?-?- Negative 155 21 -?-?-?-?-?-?-?-?-?-?-?--?- JV- no complaint s today. has a sinus infection. Still plans tolac and does not want to schedule a cs at 40 or 41 weeks yet. 12/08/24 -?-?-?-?-?-?-?-?-?-?-?-?- 25w 1d 171 lb 4 oz 130/81 Nega tive -?-?-?-?-?-?-?-?-?-?-?-?- Negative 150 25 -?-?-?-?-?-?-?-?-?-?-?-?- SM- still having URI symptoms, send to urgent care now for treatment 12/28/24 -?-?-?-?-?-?-?-?-?-?-?-?- 28w 0d 178 lb 122/79 Negative -?-?-?-?-?-?-?-?-?-?-?-?- Negative 158 28 -?-?-?-?-?-?-?-?-?-?-?-?- MH-No VB, LOF. G ood Fm. 28 wk labs pending. Declines tdap. Larc done. 01/11/25 -?-?-?-?-?-?-?-?-?-?-?-?- 30w 0d 179 lb 6 oz 125/78 Nega tive -?-?-?-?-?-?-?-?-?-?-?-?- Negative 145 30 -?-?-?-?-?-?-?-?-?-?-?-?- SM- no vb lof go odfm no regular ctx SM- no vb lof goodfm no regu lar ctx still needs fu anatomy views 01/26/25 -?-?-?-?-?-?-?-?-?-?-?-?- 32w 1d 177 lb 2 oz 122/72 Nega tive -?-?-?-?-?-?-?-?-?-?-?-?- Negative 147 32.5 -?-?-?-?-?-?-?-?-?-?-?-?- JV_ polyhydramni os on last scan. patient states she feels large but no other complaints. Her son broke his femur and it is just a little hard to carry him around (19 months) 02/01/25 -?-?-?-?-?-?-?-?-?-?-?-?- 33w 0d 178 lb 113/74 Negative -?-?-?-?-?-?-?-?-?-?-?-?- Negative 130 -?-?-?-?-?-?-?-?-?-?-?-?- KW- no vb/lof/ct x. good fm. NST reactive 02/08/25 -?-?-?-?-?-?-?-?-?-?-?-?- 34w 0d 181 lb 2 oz 107/72 Nega tive -?-?-?-?-?-?-?-?-?-?-?-?- Negative 140 -?-?-?-?-?-?-?-?-?-?-?-?- KW- NST not reac tive to WP for BPP. needs to schedule growth. 02/16/25 -?-?-?-?-?-?-?-?-?-?-?-?- 35w 1d 180 lb 6 oz 119/77 Nega tive -?-?-?-?-?-?-?-?-?-?-?-?- Negative 145 -?-?-?-?-?-?-?-?-?-?-?-?- JV- NST shows ir regular rare contractions but there was a late decel from 140's down to 120's x 30 seconds. sending to L&D for continuous monitoring and a bpp. had kirk of 30 until last week when it came back at 20 02/24/25 -?-?-?-?-?-?-?-?-?-?-?-?- 36w 2d 185 lb 2 oz 113/76 Nega tive -?-?-?-?-?-?-?-?-?-?-?-?- Negative 140 0 -?-?-?-?-?-?-?-?-?-?-?-?- SM- no vb lof go od fm no regualr ctx reactive nst discussed doesn't need NSTs anymore 03/04/25 -?-?-?-?-?-?-?-?-?-?-?-?- 37w 3d 184 lb 2 oz 113/72 Nega tive -?-?-?-?-?-?-?-?-?-?-?-?- Negative 145 37 Cephalic 0 -?-?-?-?-?-?-?-?-?-?-?-?- LC- no vb/ctx/lo f. good fm. no concerns today. reviewed preferences. LC- no vb/ctx/lof. good fm. no concerns today. reviewed preferences. internal os closed. 03/10/25 -?-?-?-?-?-?-?-?-?-?-?-?- 38w 2d 187 lb 2 oz 115/63 Nega tive -?-?-?-?-?-?-?-?-?-?-?-?- Negative 140 37 Cephalic -?-?-?-?-?-?-?-?-?-?-?-?- SM- no vb lof go od fm no reuglar ctx discussed RLTCS at 41 weeks or consider IOL if favorable cervix 03/15/25 -?-?-?-?-?-?-?-?-?-?-?-?- 39w 0d 186 lb 6 oz 118/76 Nega tive -?-?-?-?-?-?-?-?-?-?-?-?- Negative 125 39 Cephalic -?-?-?-?-?-?-?-?-?-?-?-?- KW- no vb/lof/ct x. good fm. no concerns 03/21/25 -?-?-?-?-?-?-?-?-?-?-?-?- 39w 6d 189 lb 8 oz 111/74 Nega tive -?-?-?-?-?-?-?-?-?-?-?-?- Negative 140 39 Cephalic 1 -?-?-?-?-?-?-?-?-?-?-?-?- 60 -3 KW- no vb/ lof/ctx. good fm. unable to do membrane sweep this week. will return later this week for sweep and C/S instructions. ACOG First Trimester First Trimester: Discussed Second Trimester Second Trimester: Signs and Symptoms of Labor; Discussed Tobacco Cessation, Discussed Depression/Anxiety and Discussed Intimate Partner Violence Third Trimester Third Trimester: Pain Management Plans, Labor support person(s), Immediate Larc, Circumcision preference, Movement Monitoring, Signs and Symptoms of Preeclampsia, Infant Feeding No and Family Medical Leave or Disability Forms ROS Const Reports system reviewed and no additional complaints, except as documented Eyes Reports system reviewed and no additional complaints, except as documented ENT Reports system reviewed and no additional complaints, except as documented Card Reports system reviewed and no additional complaints, except as documented Resp Reports system reviewed and no additional complaints, except as documented GI Reports system reviewed and no additional complaints, except as documented, Denies nausea and Denies vomiting Reports system reviewed and no additional complaints, except as documented Musc Reports system reviewed and no additional complaints, except as documented Skin/Breast Reports system reviewed and no additional complaints, except as documented Neuro Yes system reviewed and no additional complaints, except as documented Psych Reports system reviewed and no additional complaints, except as documented Endo Reports system reviewed and no additional complaints, except as documented Fazal/Lymph Reports system reviewed and no additional complaints, except as documented Aller/Immun Reports system reviewed and no additional complaints, except as documented Exam Const General: cooperative, healthy appearing and no acute distress Orientation: alert, awake and oriented x3 Neck Neck: normal visual inspection and full ROM Resp Effort & Inspection: normal respiratory effort, able to speak in complete sentences and symmetric chest movement GI Inspection: normal to inspection Palpation: soft and other Other: gravid Skin General: no rashes or lesions noted Neuro General: patient alert, patient awake and patient oriented x3 Cognition: normal cognition Speech: speech normal Gait: normal gait Motor: muscle tone normal throughout Extrem General: normal to inspection and full ROM Psych Appearance: grossly normal Mental Status: mental status grossly normal Mood: congruent mood Affect: normal affect Speech and Movement: speech and movement normal Attitude: cooperative Thought Process: normal Thought Content: normal Judgment: judgment good Results POC Urinalysis 2 Dip (Clinic) Office Urine Glucose Negative Last Edit by Isabella Denis on 03/21/25 08:42 Office Urine Protein Negative Last Edit by Isabella Denis on 03/21/25 08:42 Coding Level of Care Code OB Routine Diagnoses Obesity affecting in second trimester, unspecified obesity type O99.212 Obesity type affecting : unspecified obesity Trimester: second trimester Supervision of high risk in third trimester O09.93 Trimester: third trimester 39 weeks gestation of Z3A.39 Weeks of gestation: 39 weeks Previous section Z98.891 Assessment and Plan Assessment and Plan (1) Obesity affecting : Status: Acute Qualifiers: Obesity type affecting : unspecified obesity Trimester: second trimester Qualified Code(s): O99.212 - Obesity complicating , second trimester Comment: HgbA1c (2) Supervision of high-risk : Status: Acute Qualifiers: Trimester: third trimester Qualified Code(s): O09.93 - Supervision of high risk , unspecified, third trimester Comment: PRR , MERLE 03/22/25 boy, PC Dwight, Jeremy (3) : Status: Acute Qualifiers: Weeks of gestation: 39 weeks Qualified Code(s): Z3A.39 - 39 weeks gestation of Comment: gbs neg. declines NIPT & Carrier testing (4) Previous section: Status: Acute Comment: interested in . c/s scheduled 03/29. Orders: Orders POC Urinalysis 2 Dip (Clinic) Today Plan Details Additional Comments: ACOG trimester education reviewed and updated. see problem list details for updated plan management information and see below for orders placed at this visit. GA appropriate handout given. Clinical Quality Measures Falls Risk Screening/Assistive Devices Have you fallen in the past year?: No 03/21/25 0909 <Electronically signed by Yady rosenberg CNM> Date _ Yady Maguire CNM Cosigner Signature: Date (if applicable) CC: ~ [facility] Work Phone: Reason for referral (narrative)No reason for referral information available[facility] Work Phone: Advance Directives Advance Directive Response Recorded Date/ Time Living Will No September 28, 2 017 4:30am Power of Cigar Maker No September 28, 2017 4:30am Advance Directive Response Recorded Date/ Time Living Will No September 28, 2 017 5:30am Power of Cigar Maker No September 28, 2017 5:30am Advance Directive Response Recorded Date/ Time Living Will No June 11, 2 023 6:02am Power of Cigar Maker No June 11, 2023 6:02am Advance Directive Response Recorded Date/ Time Living Will No June 11 023 6:02am Do you have a Healthcare Power of Cigar Maker? No June 11, 2023 6:02am Chief Complaint and Reason for Visit Chief Complaint Reason for Visit delivery de livered Chief Complaint Admit Date 13wk OB September 13, 2024 2 :32pm 17 WK OB October 12, 2024 1: 41pm 21 WK OB November 09, 2024 1 1:00am 25 wk ob December 08, 2024 10:2 0am 28 wk ob/glucose *med recs December 28 9:46am Reason for Visit Admit Date Obesity affecting September 2:32pm September 13, 2024 2 :32pm Previous section September 13, 2024 2:32pm Supervision of high-risk Decem 2023 2:32pm Mother currently breast-feeding September 13, 2024 2:32pm Obesity affecting October 12, 2024 1:41pm October 12, 2024 1: 41pm Previous section October 12 1:41pm Supervision of high-risk Janua 2024 1:41pm Mother currently breast-feeding October 12, 2024 1:41pm Obesity affecting November 11:00am November 09, 2024 1 1:00am Previous section November 09, 2024 11:00am Supervision of high-risk Febru [email or web address] 11:00am Mother currently breast-feeding November 09, 2024 11:00am Obesity affecting December 08 025 10:20am December 08, 2024 10:2 0am Previous section December 08 10:20am Supervision of high-risk December 08, 2024 10:20am Mother currently breast-feeding December 10:20am Obesity affecting December 28, 2024 9:46am December 28, 2024 9:4 6am Previous section December 28 9:46am Supervision of high-risk December 28, 2024 9:46am Chief Complaint Admit Date 17 WK OB October 12, 2024 1: 41pm 21 WK OB November 09, 2024 1 1:00am 25 wk ob December 08, 2024 10:2 0am 28 wk ob/glucose *med recs December 28 9:46am 30 wk ob January 11, 2025 10:1 1am 32 wk ob January 26, 2025 10: 55am 33 wk ob/nst February 01, 2025 11: 19am 34 wk ob/nst February 08, 2025 10:03a m BPP February 08, 2025 10:45a m BPP February 08, 2025 12:46p m Reason for Visit Admit Date Obesity affecting October 12, 2024 1:41pm October 12, 2024 1: 41pm Previous section October 12 1:41pm Supervision of high-risk Janua 2024 1:41pm Mother currently breast-feeding October 12, 2024 1:41pm Obesity affecting November 11:00am November 09, 2024 1 1:00am Previous section November 09, 2024 11:00am Supervision of high-risk Febru [email or web address] 11:00am Mother currently breast-feeding November 09, 2024 11:00am Obesity affecting December 08 10:20am December 08, 2024 10:2 0am Previous section December 08 10:20am Supervision of high-risk December 08, 2024 10:20am Mother currently breast-feeding December 10:20am Obesity affecting December 28, 2024 9:46am December 28, 2024 9:4 6am Previous section December 28 9:46am Supervision of high-risk December 28, 2024 9:46am Obesity affecting January 11 10:11am January 11, 2025 10:1 1am Previous section January 11 10:11am Supervision of high-risk January 11, 2025 10:11am Obesity affecting January 26, 2025 10:55am Polyhydramnios January 26, 2025 10: 55am January 26, 2025 10: 55am Previous section January 26 10:55am Supervision of high-risk January 26, 2025 10:55am Obesity affecting February 01, 2025 11:19am Polyhydramnios February 01, 2025 11: 19am February 01, 2025 11: 19am Previous section February 01 11:19am Supervision of high-risk February 01, 2025 11:19am Obesity affecting February 08 10:03am Polyhydramnios February 08, 2025 10:03a m February 08, 2025 10:03a m Previous section February 08, 2025 10:03am Supervision of high-risk February 082024 10:03am Non-reassuring electronic monitori ng tracing February 08, 2025 10:45am Obesity affecting February 08 10:45am Polyhydramnios February 08, 2025 10:45a m February 08, 2025 10:45a m Previous section February 08, 2025 10:45am Supervision of high-risk February 082024 10:45am Chief Complaint Admit Date 21 WK OB November 09, 2024 1 1:00am 25 wk ob December 08, 2024 10:2 0am 28 wk ob/glucose *med recs December 28 025 9:46am 30 wk ob January 11, 2025 10:1 1am 32 wk ob January 26, 2025 10: 55am 33 wk ob/nst February 01, 2025 11: 19am 34 wk ob/nst February 08, 2025 10:03a m BPP February 08, 2025 10:45a m BPP February 08, 2025 12:46p m 35 wk ob/nst February 16, 2025 3:06p m Reason for Visit Admit Date Obesity affecting November 11:00am November 09, 2024 1 1:00am Previous section November 09, 2024 11:00am Supervision of high-risk Febru [email or web address] 11:00am Mother currently breast-feeding November 09, 2024 11:00am Obesity affecting December 08 10:20am December 08, 2024 10:2 0am Previous section December 08 10:20am Supervision of high-risk December 08, 2024 10:20am Mother currently breast-feeding December 10:20am Obesity affecting December 28, 2024 9:46am December 28, 2024 9:4 6am Previous section December 28 9:46am Supervision of high-risk December 28, 2024 9:46am Obesity affecting January 11 10:11am January 11, 2025 10:1 1am Previous section January 11 10:11am Supervision of high-risk January 11, 2025 10:11am Obesity affecting January 26, 2025 10:55am Polyhydramnios January 26, 2025 10: 55am January 26, 2025 10: 55am Previous section January 26 10:55am Supervision of high-risk January 26, 2025 10:55am Obesity affecting February 01, 2025 11:19am Polyhydramnios February 01, 2025 11: 19am February 01, 2025 11: 19am Previous section February 01 11:19am Supervision of high-risk February 01, 2025 11:19am Obesity affecting February 08 10:03am Polyhydramnios February 08, 2025 10:03a m February 08, 2025 10:03a m Previous section February 08, 2025 10:03am Supervision of high-risk February 082024 10:03am Non-reassuring electronic monitori ng tracing February 08, 2025 10:45am Obesity affecting February 08 10:45am Polyhydramnios February 08, 2025 10:45a m February 08, 2025 10:45a m Previous section February 08, 2025 10:45am Supervision of high-risk February 082024 10:45am Chief Complaint Admit Date 21 WK OB November 09, 2024 1 1:00am 25 wk ob December 08, 2024 10:2 0am 28 wk ob/glucose *med recs December 28, 9:46am 30 wk ob January 11, 2025 10:1 1am 32 wk ob January 26, 2025 10: 55am 33 wk ob/nst February 01, 2025 11: 19am 34 wk ob/nst February 08, 2025 10:03a m BPP February 08, 2025 10:45a m BPP February 08, 2025 12:46p m 35 wk ob/nst February 16, 2025 3:06p m EXTENDED MONITORING February 16, 2025 3:27pm EXTENDED MONITORING February 16, 2025 8:45pm Reason for Visit Admit Date Obesity affecting November 11:00am November 09, 2024 1 1:00am Previous section November 09, 2024 11:00am Supervision of high-risk Febru [email or web address] 11:00am Mother currently breast-feeding November 09, 2024 11:00am Obesity affecting December 08 025 10:20am December 08, 2024 10:2 0am Previous section December 08 10:20am Supervision of high-risk December 08, 2024 10:20am Mother currently breast-feeding December 10:20am Obesity affecting December 28, 2024 9:46am December 28, 2024 9:4 6am Previous section December 28 9:46am Supervision of high-risk December 28, 2024 9:46am Obesity affecting January 11 10:11am January 11, 2025 10:1 1am Previous section January 11 10:11am Supervision of high-risk January 11, 2025 10:11am Obesity affecting January 26, 2025 10:55am Polyhydramnios January 26, 2025 10: 55am January 26, 2025 10: 55am Previous section January 26 10:55am Supervision of high-risk January 26, 2025 10:55am Obesity affecting February 01, 2025 11:19am Polyhydramnios February 01, 2025 11: 19am February 01, 2025 11: 19am Previous section February 01 11:19am Supervision of high-risk February 01, 2025 11:19am Obesity affecting February 08 10:03am Polyhydramnios February 08, 2025 10:03a m February 08, 2025 10:03a m Previous section February 08, 2025 10:03am Supervision of high-risk February 082024 10:03am Non-reassuring electronic monitori ng tracing February 08, 2025 10:45am Obesity affecting February 08 10:45am Polyhydramnios February 08, 2025 10:45a m February 08, 2025 10:45a m Previous section February 08, 2025 10:45am Supervision of high-risk February 082024 10:45am Non-reassuring electronic monitori ng tracing February 16, 2025 3:06pm Obesity affecting February 16 3:06pm Polyhydramnios February 16, 2025 3:06p m February 16, 2025 3:06p m Previous section February 16, 2025 3:06pm Supervision of high-risk February 032024 3:06pm Non-reassuring electronic monitori ng tracing February 16, 2025 3:27pm Obesity affecting February 16 3:27pm Polyhydramnios February 16, 2025 3:27p m February 16, 2025 3:27p m Previous section February 16, 2025 3:27pm Supervision of high-risk February 032024 3:27pm Chief Complaint Admit Date 21 WK OB November 09, 2024 1 1:00am 25 wk ob December 08, 2024 10:2 0am 28 wk ob/glucose *med recs December 28, 2 025 9:46am 30 wk ob January 11, 2025 10:1 1am 32 wk ob January 26, 2025 10: 55am 33 wk ob/nst February 01, 2025 11: 19am 34 wk ob/nst February 08, 2025 10:03a m BPP February 08, 2025 10:45a m BPP February 08, 2025 12:46p m 35 wk ob/nst February 16, 2025 3:06p m EXTENDED MONITORING February 16, 2025 3:27pm EXTENDED MONITORING February 16, 2025 8:45pm 36 wk ob/nst February 24, 2025 10:28 am Reason for Visit Admit Date Obesity affecting November 11:00am November 09, 2024 1 1:00am Previous section November 09, 2024 11:00am Supervision of high-risk Febru [email or web address] 11:00am Mother currently breast-feeding November 09, 2024 11:00am Obesity affecting December 08 025 10:20am December 08, 2024 10:2 0am Previous section December 08 10:20am Supervision of high-risk December 08, 2024 10:20am Mother currently breast-feeding December 10:20am Obesity affecting December 28, 2024 9:46am December 28, 2024 9:4 6am Previous section December 28 9:46am Supervision of high-risk December 28, 2024 9:46am Obesity affecting January 11 10:11am January 11, 2025 10:1 1am Previous section January 11 10:11am Supervision of high-risk January 11, 2025 10:11am Obesity affecting January 26, 2025 10:55am January 26, 2025 10: 55am Previous section January 26 10:55am Supervision of high-risk January 26, 2025 10:55am Polyhydramnios January 26, 2025 10: 55am Obesity affecting February 01, 2025 11:19am February 01, 2025 11: 19am Previous section February 01 11:19am Supervision of high-risk February 01, 2025 11:19am Polyhydramnios February 01, 2025 11: 19am Obesity affecting February 08 10:03am February 08, 2025 10:03a m Previous section February 08, 2025 10:03am Supervision of high-risk February 082024 10:03am Polyhydramnios February 08, 2025 10:03a m Obesity affecting February 08 10:45am February 08, 2025 10:45a m Previous section February 08, 2025 10:45am Supervision of high-risk February 082024 10:45am Non-reassuring electronic monitori ng tracing February 08, 2025 10:45am Polyhydramnios February 08, 2025 10:45a m Obesity affecting February 16 3:06pm February 16, 2025 3:06p m Previous section February 16, 2025 3:06pm Supervision of high-risk February 032024 3:06pm Non-reassuring electronic monitori ng tracing February 16, 2025 3:06pm Polyhydramnios February 16, 2025 3:06p m Obesity affecting February 16 3:27pm February 16, 2025 3:27p m Previous section February 16, 2025 3:27pm Supervision of high-risk February 032024 3:27pm Non-reassuring electronic monitori ng tracing February 16, 2025 3:27pm Polyhydramnios February 16, 2025 3:27p m Obesity affecting February 24 10:28am February 24, 2025 10:28 am Previous section February 24, 2025 10:28am Supervision of high-risk February 042024 10:28am Non-reassuring electronic monitori ng tracing February 24, 2025 10:28am Polyhydramnios February 24, 2025 10:28 am Chief Complaint Admit Date 21 WK OB November 09, 2024 1 1:00am 25 wk ob December 08, 2024 10:2 0am 28 wk ob/glucose *med recs December 28, 2 025 9:46am 30 wk ob January 11, 2025 10:1 1am 32 wk ob January 26, 2025 10: 55am 33 wk ob/nst February 01, 2025 11: 19am 34 wk ob/nst February 08, 2025 10:03a m BPP February 08, 2025 10:45a m BPP February 08, 2025 12:46p m 35 wk ob/nst February 16, 2025 3:06p m EXTENDED MONITORING February 16, 2025 3:27pm EXTENDED MONITORING February 16, 2025 8:45pm 36 wk ob/nst February 24, 2025 10:28 am 37 wk ob March 04, 2025 9:48a m Reason for Visit Admit Date Obesity affecting November 11:00am November 09, 2024 1 1:00am Previous section November 09, 2024 11:00am Supervision of high-risk Eagleu [email or web address] 11:00am Mother currently breast-feeding November 09, 2024 11:00am Obesity affecting December 08 10:20am December 08, 2024 10:2 0am Previous section December 08 10:20am Supervision of high-risk December 08, 2024 10:20am Mother currently breast-feeding December 10:20am Obesity affecting December 28, 2024 9:46am December 28, 2024 9:4 6am Previous section December 28 9:46am Supervision of high-risk December 28, 2024 9:46am Obesity affecting January 11 10:11am January 11, 2025 10:1 1am Previous section January 11 10:11am Supervision of high-risk January 11, 2025 10:11am Obesity affecting January 26, 2025 10:55am January 26, 2025 10: 55am Previous section January 26 10:55am Supervision of high-risk January 26, 2025 10:55am Polyhydramnios January 26, 2025 10: 55am Obesity affecting February 01, 2025 11:19am February 01, 2025 11: 19am Previous section February 01 11:19am Supervision of high-risk February 01, 2025 11:19am Polyhydramnios February 01, 2025 11: 19am Obesity affecting February 08 10:03am February 08, 2025 10:03a m Previous section February 08, 2025 10:03am Supervision of high-risk February 082024 10:03am Polyhydramnios February 08, 2025 10:03a m Obesity affecting February 08 10:45am February 08, 2025 10:45a m Previous section February 08, 2025 10:45am Supervision of high-risk February 082024 10:45am Non-reassuring electronic monitori ng tracing February 08, 2025 10:45am Polyhydramnios February 08, 2025 10:45a m Obesity affecting February 16 3:06pm February 16, 2025 3:06p m Previous section February 16, 2025 3:06pm Supervision of high-risk February 032024 3:06pm Non-reassuring electronic monitori ng tracing February 16, 2025 3:06pm Polyhydramnios February 16, 2025 3:06p m Obesity affecting February 16 3:27pm February 16, 2025 3:27p m Previous section February 16, 2025 3:27pm Supervision of high-risk February 032024 3:27pm Non-reassuring electronic monitori ng tracing February 16, 2025 3:27pm Polyhydramnios February 16, 2025 3:27p m Obesity affecting February 24 10:28am February 24, 2025 10:28 am Previous section February 24, 2025 10:28am Supervision of high-risk February 042024 10:28am Non-reassuring electronic monitori ng tracing February 24, 2025 10:28am Polyhydramnios February 24, 2025 10:28 am Obesity affecting March 04 9:48am March 04, 2025 9:48a m Previous section March 04, 2025 9:48am Supervision of high-risk February 052024 9:48am Chief Complaint Admit Date 25 wk ob December 08, 2024 10:2 0am 28 wk ob/glucose *med recs December 28, 025 9:46am 30 wk ob January 11, 2025 10:1 1am 32 wk ob January 26, 2025 10: 55am 33 wk ob/nst February 01, 2025 11: 19am 34 wk ob/nst February 08, 2025 10:03a m BPP February 08, 2025 10:45a m BPP February 08, 2025 12:46p m 35 wk ob/nst February 16, 2025 3:06p m EXTENDED MONITORING February 16, 2025 3:27pm EXTENDED MONITORING February 16, 2025 8:45pm 36 wk ob/nst February 24, 2025 10:28 am 37 wk ob March 04, 2025 9:48a m 38 wk ob March 10, 2025 10:31 am Reason for Visit Admit Date Obesity affecting December 08, 025 10:20am December 08, 2024 10:2 0am Previous section December 08 10:20am Supervision of high-risk December 08, 2024 10:20am Mother currently breast-feeding December 10:20am Obesity affecting December 28, 2024 9:46am December 28, 2024 9:4 6am Previous section December 28 9:46am Supervision of high-risk December 28, 2024 9:46am Obesity affecting January 11 10:11am January 11, 2025 10:1 1am Previous section January 11 10:11am Supervision of high-risk January 11, 2025 10:11am Obesity affecting January 26, 2025 10:55am January 26, 2025 10: 55am Previous section January 26 10:55am Supervision of high-risk January 26, 2025 10:55am Polyhydramnios January 26, 2025 10: 55am Obesity affecting February 01, 2025 11:19am February 01, 2025 11: 19am Previous section February 01 11:19am Supervision of high-risk February 01, 2025 11:19am Polyhydramnios February 01, 2025 11: 19am Obesity affecting February 08 10:03am February 08, 2025 10:03a m Previous section February 08, 2025 10:03am Supervision of high-risk February 082024 10:03am Polyhydramnios February 08, 2025 10:03a m Obesity affecting February 08 10:45am February 08, 2025 10:45a m Previous section February 08, 2025 10:45am Supervision of high-risk February 082024 10:45am Non-reassuring electronic monitori ng tracing February 08, 2025 10:45am Polyhydramnios February 08, 2025 10:45a m Obesity affecting February 16 3:06pm February 16, 2025 3:06p m Previous section February 16, 2025 3:06pm Supervision of high-risk February 032024 3:06pm Non-reassuring electronic monitori ng tracing February 16, 2025 3:06pm Polyhydramnios February 16, 2025 3:06p m Obesity affecting February 16 3:27pm February 16, 2025 3:27p m Previous section February 16, 2025 3:27pm Supervision of high-risk February 032024 3:27pm Non-reassuring electronic monitori ng tracing February 16, 2025 3:27pm Polyhydramnios February 16, 2025 3:27p m Obesity affecting February 24 10:28am February 24, 2025 10:28 am Previous section February 24, 2025 10:28am Supervision of high-risk February 042024 10:28am Non-reassuring electronic monitori ng tracing February 24, 2025 10:28am Polyhydramnios February 24, 2025 10:28 am Obesity affecting March 04 9:48am March 04, 2025 9:48a m Previous section March 04, 2025 9:48am Supervision of high-risk February 052024 9:48am Obesity affecting March 10 10:31am March 10, 2025 10:31 am Previous section March 10, 2025 10:31am Supervision of high-risk March 10, 2025 10:31am Chief Complaint Admit Date 25 wk ob December 08, 2024 10:2 0am 28 wk ob/glucose *med recs December 28, 2 025 9:46am 30 wk ob January 11, 2025 10:1 1am 32 wk ob January 26, 2025 10: 55am 33 wk ob/nst February 01, 2025 11: 19am 34 wk ob/nst February 08, 2025 10:03a m BPP February 08, 2025 10:45a m BPP February 08, 2025 12:46p m 35 wk ob/nst February 16, 2025 3:06p m EXTENDED MONITORING February 16, 2025 3:27pm EXTENDED MONITORING February 16, 2025 8:45pm 36 wk ob/nst February 24, 2025 10:28 am 37 wk ob March 04, 2025 9:48a m 38 wk ob March 10, 2025 10:31 am 39 wk ob March 15, 2025 11:3 5am Reason for Visit Admit Date Obesity affecting December 08 025 10:20am December 08, 2024 10:2 0am Previous section December 08 10:20am Supervision of high-risk December 08, 2024 10:20am Mother currently breast-feeding December 10:20am Obesity affecting December 28, 2024 9:46am December 28, 2024 9:4 6am Previous section December 28 9:46am Supervision of high-risk December 28, 2024 9:46am Obesity affecting January 11 10:11am January 11, 2025 10:1 1am Previous section January 11 10:11am Supervision of high-risk January 11, 2025 10:11am Obesity affecting January 26, 2025 10:55am January 26, 2025 10: 55am Previous section January 26 10:55am Supervision of high-risk January 26, 2025 10:55am Polyhydramnios January 26, 2025 10: 55am Obesity affecting February 01, 2025 11:19am February 01, 2025 11: 19am Previous section February 01 11:19am Supervision of high-risk February 01, 2025 11:19am Polyhydramnios February 01, 2025 11: 19am Obesity affecting February 08 10:03am February 08, 2025 10:03a m Previous section February 08, 2025 10:03am Supervision of high-risk February 082024 10:03am Polyhydramnios February 08, 2025 10:03a m Obesity affecting February 08 10:45am February 08, 2025 10:45a m Previous section February 08, 2025 10:45am Supervision of high-risk February 082024 10:45am Non-reassuring electronic monitori ng tracing February 08, 2025 10:45am Polyhydramnios February 08, 2025 10:45a m Obesity affecting February 16 3:06pm February 16, 2025 3:06p m Previous section February 16, 2025 3:06pm Supervision of high-risk February 032024 3:06pm Non-reassuring electronic monitori ng tracing February 16, 2025 3:06pm Polyhydramnios February 16, 2025 3:06p m Obesity affecting February 16 3:27pm February 16, 2025 3:27p m Previous section February 16, 2025 3:27pm Supervision of high-risk February 032024 3:27pm Non-reassuring electronic monitori ng tracing February 16, 2025 3:27pm Polyhydramnios February 16, 2025 3:27p m Obesity affecting February 24 10:28am February 24, 2025 10:28 am Previous section February 24, 2025 10:28am Supervision of high-risk February 042024 10:28am Non-reassuring electronic monitori ng tracing February 24, 2025 10:28am Polyhydramnios February 24, 2025 10:28 am Obesity affecting March 04 9:48am March 04, 2025 9:48a m Previous section March 04, 2025 9:48am Supervision of high-risk February 052024 9:48am Obesity affecting March 10 10:31am March 10, 2025 10:31 am Previous section March 10, 2025 10:31am Supervision of high-risk March 10, 2025 10:31am Obesity affecting March 15 11:35am March 15, 2025 11:3 5am Previous section March 15 11:35am Supervision of high-risk March 15, 2025 11:35am Chief Complaint Admit Date 25 wk ob December 08, 2024 10:2 0am 28 wk ob/glucose *med recs December 28, 025 9:46am 30 wk ob January 11, 2025 10:1 1am 32 wk ob January 26, 2025 10: 55am 33 wk ob/nst February 01, 2025 11: 19am 34 wk ob/nst February 08, 2025 10:03a m BPP February 08, 2025 10:45a m BPP February 08, 2025 12:46p m 35 wk ob/nst February 16, 2025 3:06p m EXTENDED MONITORING February 16, 2025 3:27pm EXTENDED MONITORING February 16, 2025 8:45pm 36 wk ob/nst February 24, 2025 10:28 am 37 wk ob March 04, 2025 9:48a m 38 wk ob March 10, 2025 10:31 am 39 wk ob March 15, 2025 11:3 5am 40 wk ob *HAPPY DUE DATE March 21, 2025 8:34am Reason for Visit Admit Date Obesity affecting December 08 10:20am December 08, 2024 10:2 0am Previous section December 08 10:20am Supervision of high-risk December 08, 2024 10:20am Mother currently breast-feeding December 10:20am Obesity affecting December 28, 2024 9:46am December 28, 2024 9:4 6am Previous section December 28 9:46am Supervision of high-risk December 28, 2024 9:46am Obesity affecting January 11 10:11am January 11, 2025 10:1 1am Previous section January 11 10:11am Supervision of high-risk January 11, 2025 10:11am Obesity affecting January 26, 2025 10:55am January 26, 2025 10: 55am Previous section January 26 10:55am Supervision of high-risk January 26, 2025 10:55am Polyhydramnios January 26, 2025 10: 55am Obesity affecting February 01, 2025 11:19am February 01, 2025 11: 19am Previous section February 01 11:19am Supervision of high-risk February 01, 2025 11:19am Polyhydramnios February 01, 2025 11: 19am Obesity affecting February 08 10:03am February 08, 2025 10:03a m Previous section February 08, 2025 10:03am Supervision of high-risk February 082024 10:03am Polyhydramnios February 08, 2025 10:03a m Obesity affecting February 08 10:45am February 08, 2025 10:45a m Previous section February 08, 2025 10:45am Supervision of high-risk February 082024 10:45am Non-reassuring electronic monitori ng tracing February 08, 2025 10:45am Polyhydramnios February 08, 2025 10:45a m Obesity affecting February 16 3:06pm February 16, 2025 3:06p m Previous section February 16, 2025 3:06pm Supervision of high-risk February 032024 3:06pm Non-reassuring electronic monitori ng tracing February 16, 2025 3:06pm Polyhydramnios February 16, 2025 3:06p m Obesity affecting February 16 3:27pm February 16, 2025 3:27p m Previous section February 16, 2025 3:27pm Supervision of high-risk February 032024 3:27pm Non-reassuring electronic monitori ng tracing February 16, 2025 3:27pm Polyhydramnios February 16, 2025 3:27p m Obesity affecting February 24 10:28am February 24, 2025 10:28 am Previous section February 24, 2025 10:28am Supervision of high-risk February 042024 10:28am Non-reassuring electronic monitori ng tracing February 24, 2025 10:28am Polyhydramnios February 24, 2025 10:28 am Obesity affecting March 04 9:48am March 04, 2025 9:48a m Previous section March 04, 2025 9:48am Supervision of high-risk February 052024 9:48am Obesity affecting March 10 10:31am March 10, 2025 10:31 am Previous section March 10, 2025 10:31am Supervision of high-risk March 10, 2025 10:31am Obesity affecting March 15, 025 11:35am March 15, 2025 11:3 5am Previous section March 15 11:35am Supervision of high-risk March 15, 2025 11:35am Obesity affecting March 21, 2 025 8:34am March 21, 2025 8:34 am Previous section March 21 8:34am Supervision of high-risk March 21, 2025 8:34am Chief Complaint Admit Date 25 wk ob December 08, 2024 10:2 0am 28 wk ob/glucose *med recs December 28 9:46am 30 wk ob January 11, 2025 10:1 1am 32 wk ob January 26, 2025 10: 55am 33 wk ob/nst February 01, 2025 11: 19am 34 wk ob/nst February 08, 2025 10:03a m BPP February 08, 2025 10:45a m BPP February 08, 2025 12:46p m 35 wk ob/nst February 16, 2025 3:06p m EXTENDED MONITORING February 16, 2025 3:27pm EXTENDED MONITORING February 16, 2025 8:45pm 36 wk ob/nst February 24, 2025 10:28 am 37 wk ob March 04, 2025 9:48a m 38 wk ob March 10, 2025 10:31 am 39 wk ob March 15, 2025 11:3 5am 40 wk ob *HAPPY DUE DATE March 21, 2025 8:34am membrane sweep per KW March 23, 2025 2: 29pm Reason for Visit Admit Date Obesity affecting December 08 10:20am December 08, 2024 10:2 0am Previous section December 08 10:20am Supervision of high-risk December 08, 2024 10:20am Mother currently breast-feeding December 10:20am Obesity affecting December 28, 2024 9:46am December 28, 2024 9:4 6am Previous section December 28 9:46am Supervision of high-risk December 28, 2024 9:46am Obesity affecting January 11 10:11am January 11, 2025 10:1 1am Previous section January 11 10:11am Supervision of high-risk January 11, 2025 10:11am Obesity affecting January 26, 2025 10:55am January 26, 2025 10: 55am Previous section January 26 10:55am Supervision of high-risk January 26, 2025 10:55am Polyhydramnios January 26, 2025 10: 55am Obesity affecting February 01, 2025 11:19am February 01, 2025 11: 19am Previous section February 01 11:19am Supervision of high-risk February 01, 2025 11:19am Polyhydramnios February 01, 2025 11: 19am Obesity affecting February 08 10:03am February 08, 2025 10:03a m Previous section February 08, 2025 10:03am Supervision of high-risk February 082024 10:03am Polyhydramnios February 08, 2025 10:03a m Obesity affecting February 08 10:45am February 08, 2025 10:45a m Previous section February 08, 2025 10:45am Supervision of high-risk February 082024 10:45am Non-reassuring electronic monitori ng tracing February 08, 2025 10:45am Polyhydramnios February 08, 2025 10:45a m Obesity affecting February 16 3:06pm February 16, 2025 3:06p m Previous section February 16, 2025 3:06pm Supervision of high-risk February 032024 3:06pm Non-reassuring electronic monitori ng tracing February 16, 2025 3:06pm Polyhydramnios February 16, 2025 3:06p m Obesity affecting February 16 3:27pm February 16, 2025 3:27p m Previous section February 16, 2025 3:27pm Supervision of high-risk February 032024 3:27pm Non-reassuring electronic monitori ng tracing February 16, 2025 3:27pm Polyhydramnios February 16, 2025 3:27p m Obesity affecting February 24 10:28am February 24, 2025 10:28 am Previous section February 24, 2025 10:28am Supervision of high-risk February 042024 10:28am Non-reassuring electronic monitori ng tracing February 24, 2025 10:28am Polyhydramnios February 24, 2025 10:28 am Obesity affecting March 04 9:48am March 04, 2025 9:48a m Previous section March 04, 2025 9:48am Supervision of high-risk February 052024 9:48am Obesity affecting March 10 10:31am March 10, 2025 10:31 am Previous section March 10, 2025 10:31am Supervision of high-risk March 10, 2025 10:31am Obesity affecting March 15 11:35am March 15, 2025 11:3 5am Previous section March 15 11:35am Supervision of high-risk March 15, 2025 11:35am Obesity affecting March 21 8:34am March 21, 2025 8:34 am Previous section March 21 8:34am Supervision of high-risk March 21, 2025 8:34am Obesity affecting March 23 2:29pm March 23, 2025 2:29 pm Previous section March 23 2:29pm Supervision of high-risk March 23, 2025 2:29pm Summary Purpose Family History Relationship Condition Age at Onset Recorded Date/T darryn grandmother Diabetes mellitus Unknown Cardiac disease 74 Malignant neoplasm of breast 70 grandfather Diabetes mellitus Unknown Malignant neoplasm 67 Malignant neoplasm of colon 67 grandmother Myocardial infarction 54 uncle Myocardial infarction 60 Additional Source Comments Care Teams (unrecognized sec tion and content) Team Status: Active Member Role Status Dates Dr. Billy Cates MD Family Provider Active Dr. Billy Cates MD Primary Care Provider Active Team Status: Inactive Member Role Status Dates Dr. Billy Cates MD Primary Care Provider Active Dr. Bolivar Kumar MD Attending Provider Active Team Status: Inactive Member Role Status Dates Dr. Billy Cates MD Primary Care Provider Active ALBANIA Solorzano Attending Provider Active Team Status: Inactive Member Role Status Dates Dr. Billy Cates MD Primary Care Provider Active Dr. Bolivar Kumar MD Admit Provider, Attending Provid er Active Team Status: Active Member Role Status Dates Dr. Billy Cates MD Primary Care Provider Active Team Status: Inactive Member Role Status Dates Dr. Billy Cates MD Primary Care Provider Active Start: September 13, 2024 End: September 13, 2024 Dr. Billy Cates MD Referring Provider Active S tart: September 13, 2024 End: September 13, 2024 Yady Maguire CNM Attending Provider Active S tart: September 13, 2024 End: September 13, 2024 Team Status: Inactive Member Role Status Dates Dr. Billy Cates MD Primary Care Provider Active Start: September 13, 2024 End: September 13, 2024 Yady Maguire CNM Attending Provider Active S tart: September 13, 2024 End: September 13, 2024 Yady Maguire CNM Referring Provider Active S tart: September 13, 2024 End: September 13, 2024 Team Status: Inactive Member Role Status Dates Dr. Billy Cates MD Primary Care Provider Active Start: October 12, 2024 End: October 12, 2024 Dr. Billy Cates MD Referring Provider Active S tart: October 12, 2024 End: October 12, 2024 Tessie Levine NP, MIXING MACHINE [employer]-C Attending Provider Active Start: October 12, 2024 End: October 12, 2024 Team Status: Inactive Member Role Status Dates Dr. Billy Cates MD Primary Care Provider Active Start: November 09, 2024 End: November 09, 2024 Dr. Billy Cates MD Referring Provider Active S tart: November 09, 2024 End: November 09, 2024 Dr. Dianna Alberts DO Attending Provider Activ e Start: November 09, 2024 End: November 09, 2024 Team Status: Inactive Member Role Status Dates Dr. Billy Cates MD Primary Care Provider Active Start: December 08, 2024 End: December 08, 2024 Dr. Billy Cates MD Referring Provider Active S tart: December 08, 2024 End: December 08, 2024 Dr. Carol Zaman MD Attending Provider Active Start: December 08, 2024 End: December 08, 2024 Team Status: Inactive Member Role Status Dates Dr. Billy Cates MD Primary Care Provider Active Start: December 28, 2024 End: December 28, 2024 Dr. Billy Cates MD Referring Provider Active S tart: December 28, 2024 End: December 28, 2024 Tessie Levine NP, MIXING MACHINE [employer]-C Attending Provider Active Start: December 28, 2024 End: December 28, 2024 Team Status: Inactive Member Role Status Dates Dr. Billy Cates MD Primary Care Provider Active Start: December 28, 2024 End: December 28, 2024 Dr. Carol Zaman MD Attending Provider Active Start: December 28, 2024 End: December 28, 2024 Dr. Carol Zaman MD Referring Provider Active Start: December 28, 2024 End: December 28, 2024 Team Status: Inactive Member Role Status Dates Dr. Billy Cates MD Primary Care Provider Active Start: January 11, 2025 End: January 11, 2025 Dr. Billy Cates MD Referring Provider Active S tart: January 11, 2025 End: January 11, 2025 Dr. Carol Zaman MD Attending Provider Active Start: January 11, 2025 End: January 11, 2025 Team Status: Inactive Member Role Status Dates Dr. Billy Cates MD Primary Care Provider Active Start: January 26, 2025 End: January 26, 2025 Dr. Billy Cates MD Referring Provider Active S tart: January 26, 2025 End: January 26, 2025 Dr. Dianna Alberts DO Attending Provider Activ e Start: January 26, 2025 End: January 26, 2025 Team Status: Inactive Member Role Status Dates Dr. Billy Cates MD Primary Care Provider Active Start: February 01, 2025 End: February 01, 2025 Dr. Billy Cates MD Referring Provider Active S tart: February 01, 2025 End: February 01, 2025 Yady Maguire CNM Attending Provider Active S tart: February 01, 2025 End: February 01, 2025 Team Status: Inactive Member Role Status Dates Dr. Billy Cates MD Primary Care Provider Active Start: February 08, 2025 End: February 08, 2025 Dr. Billy Cates MD Referring Provider Active S tart: February 08, 2025 End: February 08, 2025 Yady Maguire CNM Attending Provider Active S tart: February 08, 2025 End: February 08, 2025 Team Status: Inactive Member Role Status Dates Dr. Billy Cates MD Primary Care Provider Active Start: February 08, 2025 End: February 08, 2025 Yady Maguire CNM Attending Provider Active S tart: February 08, 2025 End: February 08, 2025 Yady Maguire CNM Referring Provider Active S tart: February 08, 2025 End: February 08, 2025 Team Status: Active Member Role Status Dates Dr. Billy Cates MD Primary Care Provider Active Start: February 08, 2025 Yady Maguire CNM Attending Provider Active S tart: February 08, 2025 Yady Maguire CNM Referring Provider Active S tart: February 08, 2025 Yady Maguire CNM Other Provider Active Start : February 08, 2025 Team Status: Inactive Member Role Status Dates Dr. Billy Cates MD Primary Care Provider Active Start: February 16, 2025 End: February 16, 2025 Dr. Billy Cates MD Referring Provider Active S tart: February 16, 2025 End: February 16, 2025 Tessie Levine MIXING MACHINE [employer], MIXING MACHINE T[employer]ER [employer] G[employer]-C Attending Provider Active Start: February 16, 2025 End: February 16, 2025 Team Status: Inactive Member Role Status Dates Dr. Billy Cates MD Primary Care Provider Active Start: February 16, 2025 End: February 16, 2025 Dr. Dianna Alberts , DO Attending Provider Activ e Start: February 16, 2025 End: February 16, 2025 Dr. Dianna Alberts , DO Referring Provider Activ e Start: February 16, 2025 End: February 16, 2025 Team Status: Active Member Role Status Dates Dr. Billy Cates MD Primary Care Provider Active Start: February 16, 2025 Dr. Dianna Alberts , DO Attending Provider Activ e Start: February 16, 2025 Dr. Dianna Alberts , DO Referring Provider Activ e Start: February 16, 2025 Dr. Dianna Alberts , DO Other Provider Active Start: February 16, 2025 Team Status: Inactive Member Role Status Dates Dr. Billy Cates MD Primary Care Provider Active Start: February 24, 2025 End: February 24, 2025 Dr. Billy Cates MD Referring Provider Active S tart: February 24, 2025 End: February 24, 2025 Dr. Carol Zaman MD Attending Provider Active Start: February 24, 2025 End: February 24, 2025 Team Status: Inactive Member Role Status Dates Dr. Billy Cates MD Primary Care Provider Active Start: February 24, 2025 End: February 24, 2025 Dr. Carol Zaman MD Attending Provider Active Start: February 24, 2025 End: February 24, 2025 Dr. Carol Zaman MD Referring Provider Active Start: February 24, 2025 End: February 24, 2025 Team Status: Inactive Member Role Status Dates Dr. Billy Cates MD Primary Care Provider Active Start: March 04, 2025 End: March 04, 2025 Dr. Billy Cates MD Referring Provider Active S tart: March 04, 2025 End: March 04, 2025 Nicole Fajardo CNM Attending Provider Active Start: March 04, 2025 End: March 04, 2025 Team Status: Inactive Member Role Status Dates Dr. Billy Cates MD Primary Care Provider Active Start: March 10, 2025 End: March 10, 2025 Dr. Billy Cates MD Referring Provider Active S tart: March 10, 2025 End: March 10, 2025 Dr. Carol Zaman MD Attending Provider Active Start: March 10, 2025 End: March 10, 2025 Team Status: Inactive Member Role Status Dates Dr. Billy Cates MD Primary Care Provider Active Start: March 15, 2025 End: March 15, 2025 Dr. Billy Cates MD Referring Provider Active S tart: March 15, 2025 End: March 15, 2025 Yady Maguire CNM Attending Provider Active S tart: March 15, 2025 End: March 15, 2025 Team Status: Inactive Member Role Status Dates Dr. Billy Cates MD Primary Care Provider Active Start: March 21, 2025 End: March 21, 2025 Dr. Billy Cates MD Referring Provider Active S tart: March 21, 2025 End: March 21, 2025 Yady Maguire CNM Attending Provider Active S tart: March 21, 2025 End: March 21, 2025 Team Status: Inactive Member Role Status Dates Dr. Billy Cates MD Primary Care Provider Active Start: March 23, 2025 End: March 23, 2025 Dr. Billy Cates MD Referring Provider Active S tart: March 23, 2025 End: March 23, 2025 Dr. Carol Zaman MD Attending Provider Active Start: March 23, 2025 End: March 23, 2025 Goals (unrecognized section and content) Goals may be documented in a n alternate sectionGoals may be documented in an alternate sectionGoals may be documented in an alternate sectionGoals may be documented in an alternate sectionGoals may be documented in an alternate sectionGoals may be documented in an alternate sectionGoals may be documented in an alternate sectionGoals may be documented in an alternate sectionGoals may be documented in an alternate sectionGoals may be documented in an alternate sectionGoals may be documented in an alternate sectionGoals may be documented in an alternate sectionGoals may be documented in an alternate sectionGoals may be documented in an alternate section Source Comments (unrecognize d section and content) In the event this informatio n is protected by the Federal Confidentiality of Alcohol and Drug Abuse Patient Records regulations: The Federal rules restrict any use of the information to criminally investigate or prosecute any alcohol or drug abuse patient.[facility] the event this information is protected by the Federal Confidentiality of Alcohol and Drug Abuse Patient Records regulations: The Federal rules restrict any use of the information to criminally investigate or prosecute any alcohol or drug abuse patient.[facility] the event this information is protected by the Federal Confidentiality of Alcohol and Drug Abuse Patient Records regulations: The Federal rules restrict any use of the information to criminally investigate or prosecute any alcohol or drug abuse patient.[facility] the event this information is protected by the Federal Confidentiality of Alcohol and Drug Abuse Patient Records regulations: The Federal rules restrict any use of the information to criminally investigate or prosecute any alcohol or drug abuse patient.[facility] Reason for Visit (unrecogniz ed section and content) Reason Comments Cough Chest congestion, fe earl intermittent x2 weeks Reason Comments Chest Congestion cough, sob x 1 month , 25 weeks INFORMATION SOURCE (unrecogn ized section and content) DATE CREATED AUTHOR 12/10/2024 [facility] DATE CREATED AUTHOR AUTHOR'S ORGANIZ ATION 01/22/2025 [facility] DATE CREATED AUTHOR AUTHOR'S ORGANIZ ATION 03/22/2025 [facility] FOR RECORDS PERTAINING TO PATIENTS WHO ARE OR HAVE BEEN ENROLLED IN A CHEMICAL DEPENDENCY/SUBSTANCEABUSE PROGRAM, SOME INFORMATION MAY BE OMITTED. This clinical summary was aggregated from multiple sources. Caution should be exercised in using it in the provision of clinical care. This summary normalizes information from multiple sources, and as a consequence, information in this document may materially change the coding, format and clinical context of patient data. In addition, data may be omitted in some cases. CLINICAL DECISIONS SHOULD BE BASED ON THE PRIMARY CLINICAL RECORDS. [facility] [employer] [facility]. provides no warranty or guarantee of the accuracy or completeness of information in this document.
--- OUTSIDE RECORDS SUMMARY | 2025-03-25 07:30 | XMS RPT_ITS | CCD ---
Author Organization [facility] Team Providers Care Water Sponger Name Role Phone Unavailable Primary Care Provider UnavailMAIKOL Nixon Referring Unavailable Dr. Billy Cates MD Primary Care Provider Dr. Billy Cates MD Referring Provider Yady Maguire CNM Attending Provider 1(330) Yady Maguire CNM Referring Provider 1(330) Tessie Nieves Attending Provider 1(330) Dr. Dianna Alberts DO Attending Provider Dr. Carol Zaman MD Attending Provider Dr. Carol Zaman MD Referring Provider NO PRIMARY CARE, Primary Care Unavailable KAREEM WINSTON Attending Unavailable CAROL ZAMAN Referring UnavailYADY Wade Referring Unavailable NO PRIMARY CARE, Primary Care Unavailable STEPHEN VARGAS Attending Unavailable Dr. Billy Cates MD Primary Care Provider Dr. Billy Cates MD Referring Provider Yady Maguire CNM Attending Provider 1(330) Yady Maguire CNM Referring Provider 1(330) Yady Maguire CNM Other Provider 1(330) Dr. Billy Cates MD Primary Care Provider Dr. Billy Cates MD Referring Provider [phone] Tessie Nieves Attending Provider [phone] Dr. Dianna Alberts DO Referring Provider Dr. Dianna Alberts DO Other Provider [phone] Nicole Fajardo CNM Attending Provider Darryn CARPENTER, Dr. Cervantes Primary Care Provider Darryn CARPENTER, Dr. Cervantes Referring Provider [phone] Dr. Dianna Alberts DO Attending Provider Strong, Billy Primary Care Unavailable Strong, Billy Referring Unavailable DanielYady Attending Unavailable Strong, Billy Primary Care Unavailable Strong, Billy Referring Unavailable Daniel, Yady Attending Unavailable Strong, Billy Referring Unavailable Strong, Billy Primary Care Unavailable MarcanthonyDaleon Attending Unavailable Abner WORLDWIDE CHIEF CREATIVE OFFICER, Tessie Attending Unavailable Strong, Billy Primary Care [...] Primary Care Unavailable Strong, Billy Referring Unavailable Weed WORLDWIDE CHIEF CREATIVE OFFICER, Tessie Attending Unavailable Strong, Billy Primary Care Unavailable Daniel, Yady Referring Unavailable Daniel, Yady Attending Unavailable Daniel, Yady Consulting Unavailable Strong, Billy Primary Care Unavailable Strong, Billy Primary Care Unavailable Vande Velde, Dianna Consulting Unavailabl e Vande Velde, Dianna Referring Unavailabl e Vande Velde, Dianna Attending Unavailabl e Strong, Billy Primary Care Unavailable Strong, Billy Referring Unavailable Weed WORLDWIDE CHIEF CREATIVE OFFICER, Tessie Attending Unavailable Strong, Billy Referring Unavailable [...] Class(es) Dates Sig (Normalized) Sig (Original) Multivit 25-Bxey-Pynctw 1-Dha (Pnv-Dha) 27 mg iron-1 mg -300 mg capsule (10 sources) Start: 08-10-2024 Multivit 16-Rbrk-Eeonjw 1-Dha (Pnv-Dha) 27 mg iron-1 mg -300 [...] Test Name Value Interpretation Reference Range Facility [facility] Office Visit Reporton 03-21-2025 [facility] Office Visit Report [facility] [address], [address] [place] [address] OFFICE VISIT Date of Service: 03/21/25 MR#: [id number] Acct: [id number] Name: BRENDEN HART Rep #: [id number] : 2000 Provider: PADMA Tesfaye ams Age/Sex: 25/F Location: [facility] Status: Signed Intake Vital Signs 10/12/24 13:43 02/16/25 18:31 03/15/25 11:38 03/21/25 08:36 Height 5 ft 1 in 5 ft 1 in 5 ft 1 in 5 ft 1 in Weight: 189 lb 8 oz BMI 35.8 BP 111/74 Intake Visit Reasons: 40 wk ob *HAPPY DUE DATE Chief Complaint: 40wk OB [facility] Manager Required: No Is patient in pain?: No [...] 1 current occupational status: unemployed current occupation: [employer] pets and animals: Yes (outside animals) [...] physical activity do you participate in: none cristela/anglican: Anglican seatbelt use: always do you feel safe at home: Yes 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 Date Name GA/Weeks Outcome Route Bth Weight Gen Labor Lgth Anesthesia Del Locatn Provider FOB 06/11/23 Dwight 38 live - full term 6#4oz Male spinal [facility] [address] Kumar Jeremy Delivery Date: 06/11/23 [...] -???-???-???-???-??? -??? (more content not included)... Normal [facility] Laboratory - Chemistry and C hemistry - challengeOrdered By: Yady Maguire on 03-15-2025 Glucose Ql (U) Negative [facility] Laboratory - UrinalysisOrder ed By: Yady Maguire on 03-15-2025 Protein Ql (U) Negative [facility] Office Visit Reporton 03-15-2025 Row [facility] Office Visit Report [facility] [address], [address] [place] [address] OFFICE VISIT Date of Service: 03/15/25 MR#: [id number] Acct: [id number] Name: BRENDEN HART Rep #: [id number] : 2000 Provider: PADMA Tesfaye ams Age/Sex: 24/F Location: [facility] Status: Signed Intake Vital Signs 10/12/24 13:43 03/10/25 10:37 03/15/25 11:38 Height 5 ft 1 in 5 ft 1 in 5 ft 1 in Weight: 186 lb 6 oz BMI 35.2 BP 118/76 Intake Visit Reasons: 39 wk ob Auto Care Center Manager Required: No Is patient in pain?: No [...] 1 current occupational status: unemployed current occupation: [employer] pets and animals: Yes (outside animals) [...] physical activity do you participate in: none cristela/anglican: Anglican seatbelt use: always do you feel safe at home: Yes 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 Date Name GA/Weeks Outcome Route Bth Weight Gen Labor Lgth Anesthesia Del Locatn Provider FOB 06/11/23 Dwight 38 live - full term 6#4oz Male spinal [facility] ld José Luna Delivery Date: 06/11/23 Last [...] Negative -???-???-???-?? (more content not included)... Normal [facility] Laboratory - Chemistry and C hemistry - challengeOrdered By: Carol Zaman on 03-10-2025 Glucose Ql (U) Negative [facility] Laboratory - UrinalysisOrder ed By: Carol Zaman on 03-10-2025 Protein Ql (U) Negative [facility] Office Visit Reporton 03-10-2025 Row [facility] Office Visit Report [facility] [address], [address] [place] [address] OFFICE VISIT Date of Service: 03/10/25 MR#: [id number] Acct: [id number] Name: BRENDEN HART Rep #: [id number] : 2000 Provider: Dr. Carol dumont MD Age/Sex: 24/F Location: [facility] Status: Signed Intake Vital Signs 10/12/24 13:43 03/04/25 09:50 03/10/25 10:37 03/10/25 10:37 Height 5 ft 1 in 5 ft 1 in 5 ft 1 in 5 ft 1 in Weight: 187 lb 2 oz BMI 35.3 BP 115/63 Intake Visit Reasons: 38 wk ob Auto Care Center Manager Required: No Is patient in pain?: No [...] occupational status: unemployed current occupation: [employer] pets and animals: Yes (outside animals) pets [...] physical activity do you participate in: none cristela/anglican: Anglican seatbelt use: always do you feel safe at home: Yes 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 Date Name GA/Weeks Outcome Route Bth Weight Infant Gen Labor Lgth Anesthesia Del Locatn Provider FOB 06/11/23 Dwight 38 live - full term 6#[facility]oz [facility] Delivery Date: 06/11/23 [...] -???-???- 12w (more content not included)... Normal [facility] Laboratory - Chemistry and C hemistry - challengeOrdered By: Nicole Fajardo on 03-04-2025 Glucose Ql (U) Negative [facility] Laboratory - UrinalysisOrder ed By: Nicole Fajardo on 03-04-2025 Protein Ql (U) Negative [facility] Office Visit Reporton 03-04-2025 [facility] Office Visit Report [facility] [address], [address] [place] [address] OFFICE VISIT Date of Service: 03/04/25 MR#: [id number] Acct: [id number] Name: BRENDEN HART Rep #: [id number] : 2000 Provider: PADMA napoles Age/Sex: 24/F Location: [facility] Status: Signed Intake Vital Signs 10/12/24 13:43 02/24/25 10:31 03/04/25 09:50 Height 5 ft 1 in 5 ft 1 in 5 ft 1 in Weight: 184 lb 2 oz BMI 34.7 BP 113/72 Intake Visit Reasons: 37 wk ob Auto Care Center Manager Required: No Is patient in pain?: No [...] 1 current occupational status: unemployed current occupation: [employer] pets and animals: Yes (outside animals) [...] physical activity do you participate in: none cristela/anglican: Anglican seatbelt use: always do you feel safe at home: Yes 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 Date Name GA/Weeks Outcome Route Bth Weight Infant Gen Labor Lgth Anesthesia Del Locatn Provider FOB 06/11/23 Dwight 38 live - full term 6#4oz Male spinal [facility] ld Luna Delivery Date: 06/11/23 Last Updated [...] 107/75 Negat (more content not included)... Normal [facility] Rule out Beta Strep (Grp. B) on 02-26-2025 LIUS Group B Beta Streptococcus is not isolated. Normal [facility] Comment on above: Performed By: #### M [id number] #### [facility] Laboratory [place], [address] Laboratory - Chemistry and C hemistry - challengeOrdered By: Carol Zaman on 02-24-2025 Glucose Ql (U) Negative [facility] Laboratory - UrinalysisOrder ed By: Carol Karen on 02-24-2025 Protein Ql (U) Negative [facility] Office Visit Reporton 02-24-2025 Row [facility] Office Visit Report [facility] [address], [address] [place] [address] OFFICE VISIT Date of Service: 02/24/25 MR#: [id number] Acct: [id number] Name: BRENDEN HART Rep #: [id number] : 2000 Provider: Dr. Carol dumont MD Age/Sex: 24/F Location: [facility] Status: Signed Intake Vital Signs 10/12/24 13:43 02/16/25 18:31 02/24/25 10:31 02/24/25 10:31 Height 5 ft 1 in 5 ft 1 in 5 ft 1 in 5 ft 1 in Weight: 185 lb 2 oz BMI 34.9 BP 113/76 Intake Visit Reasons: 36 wk ob/nst Auto Care Center Manager Required: No Is patient in pain?: No [...] 1 current occupational status: unemployed current occupation: [employer] pets and animals: Yes (outside animals) [...] physical activity do you participate in: none cristela/anglican: Anglican seatbelt use: always do you feel safe at home: Yes 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 Date Name GA/Weeks Outcome Route Bth Weight Gen Labor Lgth Anesthesia Del Locatn Provider FOB 06/11/23 Dwight 38 live - full term 6#4oz Male spinal [facility] ld Kumar Jeremy Delivery Date: 06/11/23 Last [...] 6d 1 (more content not included)... Normal [facility] Screening beta-hemolytic Str eptococcus cultureOrdered By: Carol Gómezshannonluzmaria on 02-24-2025 Beta-hemolytic Streptococcus culture Group B Beta Streptococcus is not isolated. [facility] Biophysical Prof W/O Non Str eson 02-16-2025 Biophysical Prof W/O Non Stres [facility] Imaging Services [address] [place] [address] Biophysical Prof W/O Non Stres MR#: [id number] Acct: [id number] Name: BRENDEN HART Rep #: [id number] : 2000 24 From: Link Brito MD PCP: Dr. Billy Cates MD Status: REG CLI Study: Biophysical Prof W/O Non Stres Date of Exam: 0 02/16/25 Exam# [id number] Ordering Dr: Dianna Alberts DO EXAM: US [...] profile with score of 8/8. Reading Location: [facility] CC: Dr. Dianna Alberts DO; Dr. Billy Cates MD Automatic Teller Machine Servicer: Signed Normal [facility] Laboratory - Chemistry and C hemistry - challengeOrdered By: Dianna Luther on 02-16-2025 Glucose Ql (U) Negative [facility] Laboratory - UrinalysisOrder ed By: Dianna Luther on 02-16-2025 Protein Ql (U) Negative [facility] OB Triage Physician Noteon 0 02-16-2025 OB Triage Physician Note [facility] Medical Records Department [address] [place] [address] OB Triage Physician Note 02/16/252044 MR#: [id number] Acct: [id number] Name: BRENDEN HART Rep #: [id number] : 2000 24 From: Dianna Alberts DO PCP: Dr. Billy Cates MD Status:REG CLI Y Location: [id number] HPI - General HPI Narrative BRENDEN HART, [...] 1 current occupational status: unemployed current occupation: [employer] pets and animals: Yes (outside animals) [...] physical activity do you participate in: none cristela/anglican: Anglican seatbelt use: always do you feel safe at home: Yes 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 Date Name GA/Weeks Outcome Route Bth Weight Gen Labor Lgth Anesthesia Del Locatn Provider FOB 06/11/23 Dwight 38 live - full term 6#4oz Male spinal [facility] ld Kumar Jeremy Delivery Date: 06/11/23 Last [...] no vb/c (more content not included)... Normal [facility] Office Visit Reporton 02-16-2025 Row [facility]ing Office Visit Report [facility] [address] [place] [address], [address] [place] [address] OFFICE VISIT Date of Service: 02/16/25 MR#: [id number] Acct: [id number] Name: BRENDEN HART Rep #: [id number] : 2000 Provider: ALBANIA honeycutt Age/Sex: 24/F Location: [facility] Status: Signed Intake Vital Signs 01/26/25 11:07 01/31/25 08:09 02/16/25 13:53 02/16/25 13:53 Height 5 ft 1 in 5 ft 1 in 5 ft 5 ft Weight: 180 lb 6 oz BMI 35.2 BP 119/77 Intake Visit Reasons: 35 wk ob/nst Auto Care Center Manager Required: No Is patient in pain?: No [...] 1 current occupational status: unemployed current occupation: [employer] pets and animals: Yes (outside animals) [...] physical activity do you participate in: none cristela/anglican: Anglican seatbelt use: always do you feel safe at home: Yes 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 Date Name GA/Weeks Outcome Route Bth Weight Gen Labor Lgth Anesthesia Del Locatn Provider FOB 06/11/23 Dwight 38 live - full term 6#4oz [facility] Delivery Date: 06/11/23 [...] 107/75 Nega (more content not included)... Normal [facility] Biophysical Prof W/O Non Str eson 02-08-2025 Biophysical Prof W/O Non Stres [facility] Imaging Services [address] [place] [address] Biophysical Prof W/O Elizabet Hornerchet MR#: [id number] Acct: [id number] Name: BRENDEN HART Rep #: [id number] : 2000 F 24 From: David zhang MD PCP: Dr. Billy Cates MD Status: DEP CLI Study: Biophysical Prof W/O Non Stres Date of Exam: 0 02/08/25 Exam# [id number] Ordering Dr: Yady Maguire CNM PROCEDURE: BIOPHYSICAL [...] Stres IMPRESSION: Normal biophysical profile. Reading Location: [facility] CC: PADMA Maguire; Dr. Billy Cates MD Automatic Teller Machine Servicer: Signed Normal [facility] Laboratory - Chemistry and C hemistry - challengeOrdered By: Yady Maguire on 02-08-2025 Glucose Ql (U) Negative [facility] Laboratory - UrinalysisOrder ed By: Yady Maguire on 02-08-2025 Protein Ql (U) Negative [facility] OB Limited With Biometricson 02-08-2025 OB Limited With Biometrics [facility] Imaging Services [address] [place], [place] [address] OB Limited With Biometrics MR#: [id number] Acct: [id number] Name: BRENDEN HART Rep #: [id number] : 2000 F 24 From: David zhang MD PCP: Dr. Billy Cates MD Status: DEP CLI Study: OB Limited With Biometrics Date of Exam: 02/08 Exam# [id number] Ordering Dr: Yady Maguire CNM PROCEDURE: OB [...] gestational age of 34 weeks. Reading Location: [place] [address] CC: PADMA Maguire; Dr. Billy Cates MD Automatic Teller Machine Servicer: Signed Normal [facility] OB Triage Progress Noteon OB Triage Progress Note [facility] Medical Records Department [address] [place] [address] OB Triage Progress Note 02/08/25 1246 MR#: [id number] Acct: [id number] Name: BRENDEN HART Rep #: [id number] : 2000 24 From: Yady Maguire CNM PCP: Dr. Billy Cates MD Status:REG CLI Y DOS: Location: [place] [address] Progress Notes Date of Service: 02/08/25 Progress Note: Patient presents for triage evaluation secondary to nonreassuring NST in office at 34 weeks. FHT: 140 Moderate variability reactive no decelerations category I tracing Seadrift: rare Contractions Assessment and plan: BPP 05/13 repeat kirk is 20 cm, Reactive NST, reassuring maternal and status patient discharged to home to follow-up in office. See problem list details for additional plan information. Charges/Coding Multi Select Codes Urinary/Genital Urinary/Genital CPT Codes: 29135-51 non-stress test Interp Assessment Plan (1) Polyhydramnios: [...] Date _ CC: PADMA Maguire; Dr. Billy Ctaes MD Signed Normal [facility] Row [facility] Office Visit Reporton 02-08-2025 Row Boss Hoeing Office Visit Report [facility] [address], [address] [place] [address] OFFICE VISIT Date of Service: 02/08/25 MR#: [id number] Acct: [id number] Name: BRENDEN HART Rep #: [id number] : 2000 Provider: PADMA Tesfaye ams Age/Sex: 24/F Location: [facility] Status: Signed Intake Vital Signs 10/12/24 13:43 02/01/25 11:26 02/08/25 10:06 Height 5 ft 1 in 5 ft 1 in 5 ft 1 in Weight: 181 lb 2 oz BMI 34.2 BP 107/72 Intake Visit Reasons: 34 wk ob/nst Chief Complaint: 34wk OB Auto Care Center Manager Required: No Is patient in pain?: No [...] 1 current occupational status: unemployed current occupation: [employer] pets and animals: Yes (outside animals) [...] physical activity do you participate in: none cristela/anglican: Anglican seatbelt use: always do you feel safe at home: Yes additional social history: Jeremy- 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 Normal [facility] Laboratory - Chemistry and C hemistry - challengeOrdered By: Yady Maguire on 02-01-2025 Glucose Ql (U) Negative [facility] Laboratory - UrinalysisOrder ed By: Yady Maguire on 02-01-2025 Protein Ql (U) Negative [facility] Office Visit Reporton 02-01-2025 Row Boss Hoeing Office Visit Report [facility] [address], [address] [place] [address] OFFICE VISIT Date of Service: 02/01/25 MR#: [id number] Acct: [id number] Name: BRENDEN HART Rep #: [id number] : 2000 Provider: PADMA Tesfaye ams Age/Sex: 24/F Location: [facility] Status: Signed Intake Vital Signs 01/26/25 11:07 02/01/25 11:26 Height 5 ft 1 in 5 ft 1 in Weight: 178 lb BMI 33.6 BP 113/74 Intake Visit Reasons: 33 wk ob/nst Chief Complaint: 33wk OB/NST Auto Care Center Manager Required: No Is patient in pain?: No [...] 1 current occupational status: unemployed current occupation: [employer] pets and animals: Yes (outside animals) [...] physical activity do you participate in: none cristela/anglican: Anglican seatbelt use: always do you feel safe at home: Yes additional social history: Jeremy- 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 (more content not included)... Normal [facility] Laboratory - Chemistry and C hemistry - challengeOrdered By: Dianna Luther on 01-26-2025 Glucose Ql (U) Negative [facility] Laboratory - UrinalysisOrder ed By: Dianna Luther on 01-26-2025 Protein Ql (U) Negative [facility] Row [facility]ing Office Visit Reporton 01-26-2025 Row Boss Hoeing Office Visit Report [facility] [address], [address] [place] [address] OFFICE VISIT Date of Service: 01/26/25 MR#: [id number] Acct: [id number] Name: BRENDEN HART Rep #: [id number] : 2000 Provider: Dr. Dianna Rain DO Age/Sex: 24/F Location: [facility] Status: Signed Intake Vital Signs 10/12/24 13:43 01/11/25 10:14 01/26/25 10:58 01/26/25 11:07 Height 5 ft 1 in 5 ft 1 in 5 ft 1 in 5 ft 1 in Weight: 177 lb 2 oz BMI 33.5 BP 122/72 H Intake Visit Reasons: 32 wk ob Auto Care Center Manager Required: No Is patient in pain?: No [...] 1 current occupational status: unemployed current occupation: [employer] pets and animals: Yes (outside animals) [...] physical activity do you participate in: none cristela/anglican: Anglican seatbelt use: always do you feel safe at home: Yes 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 Date Name GA/Weeks Outcome Route Bth Weight Gen Labor Lgth Anesthesia Del Locatn Provider FOB 06/11/23 Dwight 38 live - full term 6#4oz Male spinal [facility] ld [place] Delivery Date: 06/11/23 Last Updated by: Rachel Mcfalrand decels, cord around neck HPI 32 wk [...] 107/75 Ne (more content not included)... Normal [facility] Laboratory - Chemistry and C hemistry - challengeOrdered By: Carol Zaman on 01-11-2025 Glucose Ql (U) Negative [facility] Laboratory - UrinalysisOrder ed By: Carol Zaman on 01-11-2025 Protein Ql (U) Negative [facility] Row [facility]ing Office Visit Reporton 01-11-2025 Row Boss Hoeing Office Visit Report [facility] [address], [address] [place] [address] OFFICE VISIT Date of Service: 01/11/25 MR#: [id number] Acct: [id number] Name: BRENDEN HART Rep #: [id number] : 2000 Provider: Dr. Carol dumont MD Age/Sex: 24/F Location: [facility] Status: Signed Intake Vital Signs 10/12/24 13:43 12/28/24 09:52 01/11/25 10:14 Height 5 ft 1 in 5 ft 1 in 5 ft 1 in Weight: 178 lb 179 lb 6 oz BMI 33.6 33.9 BP 122/79 H 125/78 H Intake Visit Reasons: 30 wk ob Auto Care Center Manager Required: No Is patient in pain?: No [...] 1 current occupational status: unemployed current occupation: [employer] pets and animals: Yes (outside animals) [...] physical activity do you participate in: none cristela/anglican: Anglican seatbelt use: always do you feel safe at home: Yes additional social history: 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 (more content not included)... Normal [facility] Absolute lymphocyte countOrd ered By: Carol Zaman on 12-28-2024 Lymphocytes Auto (Unsp spec) [#/Vol] 2.45 10*3/uL 0.83-4.51 [facility] Absolute neutrophil countOrd ered By: Carol Zaman on 12-28-2024 Neutrophils (Bld) [#/Vol] 6.8 10*3/uL 2.0-7.7 [facility] Automated lymphocyte count a s percentage of total leukocytesOrdered By: Carol Zaman on 12-28-2024 Lymphocytes/100 WBC Auto (Unsp spec) 24.4 % 19-41 [facility] Basophil percentageOrdered B y: Carol Zaman on 12-28-2024 Basophils/100 WBC (Bld) 0.5 % 0-1 [facility] CBC W/Diff, Automatedon 12-05 Absolute Lymph 2.45 X10 3/uL Normal 0.83-4.51 [facility] Comment on above: Performed By: #### L 501.0250, L509.8002, L3890.6006, L100.0100 ####[facility] [address] [place], [address] Absolute Neut 6.8 X10 3/uL Normal 2.0-7.7 [facility] Comment on above: Performed By: #### L 501.0250, L509.8002, L3890.6006, L100.0100 ####[facility] [address] [place], [address] Basophils/100 WBC (Bld) 0.5 % Normal 0-1 [facility] Comment on above: Performed By: #### L 501.0250, L509.8002, L3890.6006, L100.0100 ####[facility] [address] [place], [address] Eosinophils/100 WBC (Bld) 0.9 % Normal 0-5 [facility] Comment on above: Performed By: #### L 501.0250, L509.8002, L3890.6006, L100.0100 ####[facility] [address] [place], [address] Erythrocyte distribution width (RBC) [Ratio] 13.3 % Normal 11.6-14.6 [facility] Comment on above: Performed By: #### L 501.0250, L509.8002, L3890.6006, L100.0100 ####[facility] [address] [place], [address] Hematocrit (Bld) [Volume fraction] 35.4 % Low 37-47 [facility] Comment on above: Performed By: #### L 501.0250, L509.8002, L3890.6006, L100.0100 ####[facility] [address] [place], [address] Hemoglobin (Bld) [Mass/Vol] 11.7 g/dL Low 12.0-15.0 [facility] Comment on above: Performed By: #### L 501.0250, L509.8002, L3890.6006, L100.0100 ####[facility] [address] [place], [address] IG% 0.700 Normal 0.0-0.9 [facility] Comment on above: Result Comment: IG% - Immature Granulocytes (promyelocytes, myelocytes and metamyelocytes) > 1% indicates that a LEFT SHIFT is Present. Performed By: #### L 501.0250, L509.8002, L3890.6006, L100.0100 ####[facility] [address] [place], [address] Lymphocytes/100 WBC (Bld) 24.4 % Normal 19-41 [facility] Comment on above: Performed By: #### L 501.0250, L509.8002, L3890.6006, L100.0100 ####[facility] [address] [place], [address] MCH (RBC) [Entitic mass] 30.5 pg Normal 27.0-32.0 [facility] Comment on above: Performed By: #### L 501.0250, L509.8002, L3890.6006, L100.0100 ####[facility] [address] [place], [address] MCHC (RBC) [Mass/Vol] 33.1 g/dL Normal 32-[address] [facility] Comment on above: Performed By: #### L 501.0250, L509.8002, L3890.6006, L100.0100 ####[facility] [address] [place], [address] MCV (RBC) [Entitic vol] 92.2 fL Normal 81-99 [facility] Comment on above: Performed By: #### L 501.0250, L509.8002, L3890.6006, L100.0100 ####[facility] [address] [place], [address] Monocytes/100 WBC (Bld) 6.0 % Normal 0-10 [facility] Comment on above: Performed By: #### L 501.0250, L509.8002, L3890.6006, L100.0100 ####[facility] [address] [place], [address] Neutrophils/100 WBC (Bld) 67.5 % Normal 47-70 [facility] Comment on above: Performed By: #### L 501.0250, L509.8002, L3890.6006, L100.0100 ####[facility] [address] [place], [address] Nucleated RBC (Bld) [#/Vol] 0 10*3/uL Normal 0-5 [facility] Comment on above: Performed By: #### L 501.0250, L509.8002, L3890.6006, L100.0100 ####[facility] [address] [place], [address] Platelet mean volume (Bld) [Entitic vol] 9.8 fL Normal 6.2-12.0 [facility] Comment on above: Performed By: #### L 501.0250, L509.8002, L3890.6006, L100.0100 ####[facility] [address] [place], [address] Platelets (Bld) [#/Vol] 288 10*3/uL Normal 150-450 [facility] Comment on above: Performed By: #### L 501.0250, L509.8002, L3890.6006, L100.0100 ####[facility] [address] [place], [address] RBC (Bld) [#/Vol] 3.84 10*6/uL Low 4.2-5.4 [facility] Comment on above: Performed By: #### L 501.0250, L509.8002, L3890.6006, L100.0100 ####[facility] [address] [place], [address] RDW SD 44.9 fl High 35.1-43.9 [facility] Comment on above: Performed By: #### L 501.0250, L509.8002, L3890.6006, L100.0100 ####[facility] [address] [place], [address] WBC (Bld) [#/Vol] 10.0 10*3/uL Normal 4.4-11.0 [facility] Comment on above: Performed By: #### L 501.0250, L509.8002, L3890.6006, L100.0100 ####[facility] [address] [place], [address] Eosinophil percentageOrdered By: Carol Zaman on 12-28-2024 Eosinophils/100 WBC (Bld) 0.9 % 0-5 [facility] Erythrocyte distribution wid th ratioOrdered By: Carol Zaman on 12-28-2024 Erythrocyte distribution width (RBC) [Ratio] 13.3 % 11.6-14.6 [facility] Erythrocyte distribution wid th standard deviationOrdered By: Carol Zaman on 12-28-2024 Erythrocyte distribution width (RBC) [Entitic vol] 44.9 fL High 35.1-43.9 [facility] Erythrocyte distribution width (RBC) [Ratio] 44.9 fl High 35.1-43.9 [facility] Glucose Challenge Gest 1H 50 rivas 12-28-2024 GLU GEST 50g 1H 86 mg/dL Normal 70-140 [facility] Comment on above: Performed By: #### L 501.0250, L509.8002, L3890.6006, L100.0100 ####[facility] [address] [place], [place], [id number] Glucose measurement at 2 allan rs post-dose gestational glucose tolerance testOrdered By: Carol Zaman on 12-28-2024 Glucose [Mass/Vol] 86 mg/dL 70-140 [facility] Hematocrit Auto (Bld) [Volum e fraction]Ordered By: Carol Zaman on 12-28-2024 Hematocrit (Bld) [Volume fraction] 35.4 % Low 37-47 [facility] Hemoglobin measurementOrdere d By: Carol Zaman on 12-28-2024 Hemoglobin (Bld) [Mass/Vol] 11.7 g/dL Low 12.0-15.0 [facility] Immature granulocytes/100 WB C Auto (Bld)Ordered By: Carol Zaman on 12-28-2024 Immature granulocytes/100 WBC (Bld) 0.700 % 0.0-0.9 [facility] Comment on above: IG% - Immature Granu locytes (promyelocytes, myelocytes and metamyelocytes) > 1% indicates that a LEFT SHIFT is Present. L3890.6006on 12-28-2024 HIV Non-Reactive Normal Nonreactive [facility] Comment on above: Result Comment: Non- Reactive Reactive Repeatedly reactive samples must be confirmed according to CDC recommended confirmatory algorithms. The subresults for either HIVAG or AHIV can be used as an aid in the selection of the confirmation algorithm for reactive samples. Send out specimens with Reactive results to [facility] for confirmation. Order the HIV antibody detection and differentiation: lc#[id number] Performed By: #### L 501.0250, L509.8002, L3890.6006, L100.0100 ####[facility] [address] [place], [address] L509.8002on 12-28-2024 Syphilis Abs Non-Reactive Normal Nonreactive [facility] Comment on above: Performed By: #### L 501.0250, L509.8002, L3890.6006, L100.0100 ####[facility] [address] [place], [address] Laboratory - Chemistry and C hemistry - challengeOrdered By: Tessie Levine on 12-28-2024 Glucose Ql (U) Negative [facility] Laboratory - UrinalysisOrder ed By: Tessie Levine on 12-28-2024 Protein Ql (U) Negative [facility] Lymphocytes Auto (Unsp spec) [#/Vol]Ordered By: Carol Zaman on 12-28-2024 Lymphocytes (Bld) [#/Vol] 2.45 10*3/uL 0.83-4.51 [facility] Lymphocytes/100 WBC Auto (Un sp spec)Ordered By: Carol Zaman on 12-28-2024 Lymphocytes/100 WBC (Bld) 24.4 % 19-41 [facility] MCV (mean corpuscular volume ) determinationOrdered By: Carol Zaman on 12-28-2024 MCV (RBC) [Entitic vol] 92.2 fL 81-99 [facility] Mean corpuscular hemoglobin (MCH) determinationOrdered By: Carol Zaman on 12-28-2024 MCH (RBC) [Entitic mass] 30.5 pg 27.0-32.0 [facility] Mean corpuscular hemoglobin concentration (MCHC) determinationOrdered By: Carol Zaman on 12-28-2024 MCHC (RBC) [Mass/Vol] 33.1 g/dL 32-[address] [facility] Mean platelet volume determi nationOrdered By: Carol Zmaan on 12-28-2024 Platelet mean volume (Bld) [Entitic vol] 9.8 fL 6.2-12.0 [facility] Monocyte percentageOrdered B y: Carol Zaman on 12-28-2024 Monocytes/100 WBC (Bld) 6.0 % 0-10 [facility] Neutrophil percentageOrdered By: Carol Zaman on 12-28-2024 Neutrophils/100 WBC (Bld) 67.5 % 47-70 [facility] No Panel InformationOrdered By: Carol Zaman on 12-28-2024 HIV (1&2) Antibody Non-Reactive Nonreactive [facility] Comment on above: Non-ReactiveReactive Repeatedly reactive samples must be confirmed according to CDC recommended confirmatory algorithms. The subresults for either HIVAG or AHIV can be used as an aid in the selection of the confirmation algorithm for reactive samples.Send out specimens with Reactive results to [facility] for confirmation.Order the HIV antibody detection and differentiation: #[id number] Nucleated red blood cell per centageOrdered By: Carol Zaman on 12-28-2024 Nucleated RBC/100 WBC (Bld) [Ratio] 0 % 0-5 [facility] Office Visit Reporton 12-28-2024 [facility] Office Visit Report [facility] [address], [address] [place] [address] OFFICE VISIT Date of Service: 12/28/24 MR#: [id number] Acct: [id number] Name: HARTBRENDEN Ajith SAMMI Rep #: [id number] : 2000 Provider: ALBANIA honeycutt Age/Sex: 24/F Location[place] [facility] Status: Signed Intake Vital Signs 10/12/24 13:43 12/08/24 10:29 12/28/24 09:52 Height 5 ft 1 in 5 ft 1 in 5 ft 1 in Weight: 178 lb BMI 33.6 BP 122/79 H Intake Visit Reasons: 28 wk ob/glucose *med recs Chief Complaint: 28 Week OB/Glucose [employer] [facility] Manager Required: No Is patient in pain?: No [...] 1 current occupational status: unemployed current occupation: [employer] pets and animals: Yes (outside animals) [...] physical activity do you participate in: none cristela/anglican: Anglican seatbelt use: always do you feel safe at home: Yes 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 Date Name GA/Weeks Outcome Route Bth Weight Gen Labor Lgth Anesthesia Del Locatn Provider FOB 06/11/23 Dwight 38 live - full term 6#4oz Male spinal [facility] [address] Luna Delivery Date: 06/11/23 Last [...] Negative -? (more content not included)... Normal [facility] Platelet countOrdered By: Scott Zaman on 12-28-2024 Platelets (Bld) [#/Vol] 288 10*3/uL 150-450 [facility] RBC Auto (Bld) [#/Vol]Ordere d By: Carol Zaman on 12-28-2024 RBC (Bld) [#/Vol] 3.84 10*6/uL Low 4.2-5.4 [facility] T. pallidum abOrdered By: Scott Zaman on 12-28-2024 Syphilis Total Antibody Non-Reactive Nonreactiv e [facility] White blood cell (WBC) count Ordered By: Carol Zaman on 12-28-2024 WBC (Bld) [#/Vol] 10.0 10*3/uL 4.4-11.0 [facility] CNOVon 12-08-2024 CNOV Office Visit (UCWSTR) BRENDEN HART ([id number]) 2000 F Date Time Provider Department 12/08/24 11:30 AM MAIKOL TAYLOR [facility] During your visit today, we recorded [...] weeks gestation [Z3A.25] Order(s):XR CHEST 2V FRONTAL/LAT [[id number]] Order #: [id number] FUTURE Prescriptions as of 12/08/2024 - PNV no.95/ferrous fum/folic ac ( ORAL) Take by mouth. Problem List As Of Date 12/08/2024 Noted Resolved Mastoid pain [H92.09] 11/30/2013 04/25/2014 Level of Service: OFFICE/OUTPATIENT ESTABLISHED MOD [facility] 30 MIN [07027] Encounter Status:Closed by MAIKOL TAYLOR on 12/08/24 Normal [facility] - Chemistry and C hemistry - challengeOrdered By: Carol Zaman on 12-08-2024 Glucose Ql (U) Negative [facility] Laboratory - UrinalysisOrder ed By: Carol Zaman on 12-08-2024 Protein Ql (U) Negative [facility] Office Visit Reporton 12-08-2024 [facility] Office Visit Report [facility]'s [address], [address] [place] [address] OFFICE VISIT Date of Service: 12/08/24 MR#: [id number] Acct: [id number] Name: JUNGBRENDEN D SAMMI Rep #: [id number] : 2000 Provider: Dr. Carol dumont MD Age/Sex: 24/F Location: [facility] [place] Status: Signed Intake Vital Signs 10/12/24 13:43 11/09/24 11:06 12/08/24 10:29 Height 5 ft 1 in 5 ft 1 in 5 ft 1 in Weight: 171 lb 4 oz BMI 32.3 BP 130/81 H Intake Visit Reasons: 25 wk ob [employer] [facility] Manager Required: No Feel stressed/tense/nervo us/anxious/difficult y sleeping: [...] 1 current occupational status: unemployed current occupation: [employer] pets and animals: Yes (outside animals) [...] physical activity do you participate in: none cristela/anglican: Anglican seatbelt use: always do you feel safe at home: Yes 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 Date Name GA/Weeks Outcome Route Bth Weight Gen Labor Lgth Anesthesia Del Locatn Provider FOB 06/11/23 Dwight 38 live - full term 6#4oz Male spinal [facility] [address] Luna Delivery Date: 06/11/23 Last [...] -???-???-???-???-??? - (more content not included)... Normal [facility] XR CHEST 2V FRONTAL/LATon XR CHEST 2V [...] tissues: Unremarkable. IMPRESSION: No acute radiographic abnormality. Automatic Teller Machine Servicer: TONE Transcribe Date/Time: Dec 08 2024 11:46A Dictated by : STACEY HAMM MD This examination was interpreted and the report reviewed and electronically signed by: STACEY HAMM MD on Dec 08 2024 11:47AM EST [id number] Normal [facility] XR Chest PA and Lateralon Radiology Study observation (narrative) Vasquez canseco [facility] IMPRESSION: No acute radiographic abnormality. Automatic Teller Machine Servicer: TONE Transcribe Date/Time: Dec 08 2024 11:46A [...] soft tissues: Unremarkable. DIVISION OF RADIOLOGY Provider, [facility] - 12/08/2024 * * *Final Report* * [...] Unremarkable. IMPRESSION IMPRESSION: No acute radiographic abnormality. Automatic Teller Machine Servicer: TONE Transcribe Date/Time: Dec 08 2024 11:46A Dictated by : STACEY HAMM MD This examination was interpreted and the report reviewed and electronically signed by: STACEY HAMM MD on Dec 08 2024 11:47AM EST [facility] XR Chest PA and LateralOrder ed By: Ccf Provider on 12-08-2024 [facility] CNOVon 11-25-2024 CNOV Office Visit (UCWSTR) BRENDEN HART ([id number]) 2000 F Date Time Provider Department 11/25/24 10:30 AM MAIKOL TAYLOR [facility] During your visit today, we recorded [...] convulsions (simple), unspecified 12/04 Seizure. Seen at [facility]. Varicella without mention of complication 09/2006 mild [...] AND RSV PCR, ROUTINE [SQCVFLRS] Order #: [id number]. #:[id number] Prescriptions as of 11/25/2024 - PNV no.95/ferrous [...] Reported on 11/25/2024 Level of Service: OFFICE/OUTPATIENT [facility] 30 MINUTES [01402] Encounter Status:Closed by MAIKOL TAYLOR on 11/25/24 Normal [facility] - Chemistry and C hemistry - challengeOrdered By: Dianna Luther on 11-09-2024 Glucose Ql (U) Negative [facility] Laboratory - UrinalysisOrder ed By: Dianna Luther on 11-09-2024 Protein Ql (U) Negative [facility] Office Visit Reporton 11-09-2024 [facility] Office Visit Report [facility]'s [address], [address] [place] [address] OFFICE VISIT Date of Service: 11/09/24 MR#: [id number] Acct: [id number] Name: BRENDEN HART Rep #: [id number] : 2000 Provider: Dr. Dianna Rain DO Age/Sex: 24/F Location: [facility] Status: Signed Intake Vital Signs 09/13/24 14:39 10/12/24 13:43 11/09/24 11:05 11/09/24 11:06 Height 5 ft 1 in 5 ft 1 in 5 ft 1 in 5 ft 1 in Weight: 169 lb 8 oz BMI 32.0 BP 104/75 Intake Visit Reasons: 21 WK OB [employer] Care [facility] Manager Required: No Is patient in pain?: No [...] 1 current occupational status: unemployed current occupation: [employer] pets and animals: Yes (outside animals) [...] physical activity do you participate in: none cristela/anglican: Anglican seatbelt use: always do you feel safe at home: Yes 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 Date Name GA/Weeks Outcome Route Bth Weight Gen Labor Lgth Anesthesia Del Locatn Provider FOB 06/11/23 Dwight 38 live - full term 6#4oz Male spinal [facility] ld [place] Delivery Date: 06/11/23 Last [...] 160 -???-???-???-???-?? (more content not included)... Normal [facility] Laboratory - Chemistry and C hemistry - challengeon 10-12-2024 Glucose Ql (U) Negative [facility] Laboratory - Urinalysison Protein Ql (U) Negative [facility] Office Visit Reporton 10-12-2024 [facility] Office Visit Report [facility]'s [address], [address] [place] [address] OFFICE VISIT Date of Service: 10/12/24 MR#: [id number] Acct: [id number] Name: BRENDEN HART Rep #: [id number] : 2000 Provider: ALBANIA honeycutt Age/Sex: 24/F Location: [facility] Status: Signed Intake Vital Signs 08/16/24 13:47 [...] occupational status: unemployed current occupation: [employer] pets and animals: Yes (outside animals) pets [...] physical activity do you participate in: none cristela/anglican: Anglican seatbelt use: always do you feel safe at home: Yes 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 Date Name GA/Weeks Outcome Route Bth Weight Gen Labor Lgth Anesthesia Del Locatn Provider FOB 06/11/23 Dwight 38 live - full term 6#4oz Male spinal [facility] [address] jaffe [place] Delivery Date: [...] -???-???-???-???-??? -???-???- (more content not included)... Normal [facility] Absolute neutrophil countOrd ered By: Dianna Mominklaus on 09-13-2024 Neutrophils (Bld) [#/Vol] 6.1 10*3/uL 2.0-7.7 [facility] Basophil percentageOrdered B y: Dianna Homa on 09-13-2024 Basophils/100 WBC (Bld) 0.2 % 0-1 [facility] CBC W/Diff, Automatedon 12-0 Absolute Lymph 3.06 X10 3/uL Normal 0.83-4.51 [facility] Comment on above: Performed By: #### L 509.4005, L3890.6005, L100.0100, L3890.6300, L3890.6100, L501.9985, L509.8000, BTS #### [facility] [address] [place], [place], [id number] (516) Absolute Neut 6.1 X10 3/uL Normal 2.0-7.7 [facility] Comment on above: Performed By: #### L 509.4005, L3890.6005, L100.0100, L3890.6300, L3890.6100, L501.9985, L509.8000, BTS #### [facility] [address] [place], [address] Basophils/100 WBC (Bld) 0.2 % Normal 0-1 [facility] Comment on above: Performed By: #### L 509.4005, L3890.6005, L100.0100, L3890.6300, L3890.6100, L501.9985, L509.8000, BTS #### [facility] [address] [place], [address] Eosinophils/100 WBC (Bld) 1.2 % Normal 0-5 [facility] Comment on above: Performed By: #### L 509.4005, L3890.6005, L100.0100, L3890.6300, L3890.6100, L501.9985, L509.8000, BTS #### [facility] [address] [place], [address] Erythrocyte distribution width (RBC) [Ratio] 12.9 % Normal 11.6-14.6 [facility] Comment on above: Performed By: #### L 509.4005, L3890.6005, L100.0100, L3890.6300, L3890.6100, L501.9985, L509.8000, BTS #### [facility] [address] [place], [address] Hematocrit (Bld) [Volume fraction] 38.7 % Normal 37-47 [facility] Comment on above: Performed By: #### L 509.4005, L3890.6005, L100.0100, L3890.6300, L3890.6100, L501.9985, L509.8000, BTS #### [facility] [address] [place], [address] Hemoglobin (Bld) [Mass/Vol] 12.7 g/dL Normal 12.0-15.0 [facility] Comment on above: Performed By: #### L 509.4005, L3890.6005, L100.0100, L3890.6300, L3890.6100, L501.9985, L509.8000, BTS #### [facility] [address] [place], [address] IG% 0.300 Normal 0.0-0.9 [facility] Comment on above: Result Comment: IG% - Immature Granulocytes (promyelocytes, myelocytes and metamyelocytes) > 1% indicates that a LEFT SHIFT is Present. Performed By: #### L 509.4005, L3890.6005, L100.0100, L3890.6300, L3890.6100, L501.9985, L509.8000, BTS #### [facility] [address] [place], [address] Lymphocytes/100 WBC (Bld) 31.2 % Normal 19-41 [facility] Comment on above: Performed By: #### L 509.4005, L3890.6005, L100.0100, L3890.6300, L3890.6100, L501.9985, L509.8000, BTS #### [facility] [address] [place], [address] MCH (RBC) [Entitic mass] 30.0 pg Normal 27.0-32.0 [facility] Comment on above: Performed By: #### L 509.4005, L3890.6005, L100.0100, L3890.6300, L3890.6100, L501.9985, L509.8000, BTS #### [facility] [address] [place], [address] MCHC (RBC) [Mass/Vol] 32.8 g/dL Normal 32-[address] [facility] Comment on above: Performed By: #### L 509.4005, L3890.6005, L100.0100, L3890.6300, L3890.6100, L501.9985, L509.8000, BTS #### [facility] [address] [place], [address] MCV (RBC) [Entitic vol] 91.3 fL Normal 81-99 [facility] Comment on above: Performed By: #### L 509.4005, L3890.6005, L100.0100, L3890.6300, L3890.6100, L501.9985, L509.8000, BTS #### [facility] [address] [place], [address] Monocytes/100 WBC (Bld) 5.1 % Normal 0-10 [facility] Comment on above: Performed By: #### L 509.4005, L3890.6005, L100.0100, L3890.6300, L3890.6100, L501.9985, L509.8000, BTS #### [facility] [address] [place], [address] Neutrophils/100 WBC (Bld) 62.0 % Normal 47-70 [facility] Comment on above: Performed By: #### L 509.4005, L3890.6005, L100.0100, L3890.6300, L3890.6100, L501.9985, L509.8000, BTS #### [facility] [address] [place], [address] Nucleated RBC (Bld) [#/Vol] 0 10*3/uL Normal 0-5 [facility] Comment on above: Performed By: #### L 509.4005, L3890.6005, L100.0100, L3890.6300, L3890.6100, L501.9985, L509.8000, BTS #### [facility] [address] [place], [address] Platelet mean volume (Bld) [Entitic vol] 9.7 fL Normal 6.2-12.0 [facility] Comment on above: Performed By: #### L 509.4005, L3890.6005, L100.0100, L3890.6300, L3890.6100, L501.9985, L509.8000, BTS #### [facility] [address] [place], [address] Platelets (Bld) [#/Vol] 290 10*3/uL Normal 150-450 [facility] Comment on above: Performed By: #### L 509.4005, L3890.6005, L100.0100, L3890.6300, L3890.6100, L501.9985, L509.8000, BTS #### [facility] [address] [place], [address] RBC (Bld) [#/Vol] 4.24 10*6/uL Normal 4.2-5.4 [facility] Comment on above: Performed By: #### L 509.4005, L3890.6005, L100.0100, L3890.6300, L3890.6100, L501.9985, L509.8000, BTS #### [facility] [address] [place], [address] RDW SD 42.2 fl Normal 35.1-43.9 [facility] Comment on above: Performed By: #### L 509.4005, L3890.6005, L100.0100, L3890.6300, L3890.6100, L501.9985, L509.8000, BTS #### [facility] [address] [place], [address] WBC (Bld) [#/Vol] 9.8 10*3/uL Normal 4.4-11.0 [facility] Comment on above: Performed By: #### L 509.4005, L3890.6005, L100.0100, L3890.6300, L3890.6100, L501.9985, L509.8000, BTS #### [facility] [address] [place], [address] Eosinophil percentageOrdered By: Dianna Luther on 09-13-2024 Eosinophils/100 WBC (Bld) 1.2 % 0-5 [facility] Erythrocyte distribution wid th ratioOrdered By: Dianna Homa on 09-13-2024 Erythrocyte distribution width (RBC) [Ratio] 12.9 % 11.6-14.6 [facility] Erythrocyte distribution wid th standard deviationOrdered By: Dianna Homa on 09-13-2024 Erythrocyte distribution width (RBC) [Entitic vol] 42.2 fL 35.1-43.9 [facility] HIV - WCHon 09-13-2024 HIV Non-Reactive Normal Nonreactive [facility] Comment on above: Order Comment: Reaso n for Exam: Performed By: #### L 509.4005, L3890.6005, L100.0100, L3890.6300, L3890.6100, L501.9985, L509.8000, BTS ####[facility] [address] [place], [address] HIV 1+2 Ab+HIV1 p24 Ag IA Ql Ordered By: Dianna Luther on 09-13-2024 HIV (1&2) Antibody Non-Reactive Nonreactive [facility] Hematocrit Auto (Bld) [Volum e fraction]Ordered By: Dianna Luther on 09-13-2024 Hematocrit (Bld) [Volume fraction] 38.7 % 37-47 [facility] Hemoglobin A1con 09-13-2024 HbA1c (Bld) [Mass fraction] 5.1 % Normal 3.8-5.6 [facility] Comment on above: Result Comment: Norm al < 5.7 % Prediabetic 5.7 - 6.4 % Diabetic >or= 6.5 % Please note range changes. Performed By: #### L 509.4005, L3890.6005, L100.0100, L3890.6300, L3890.6100, L501.9985, L509.8000, BTS ####[facility] [address] [place], [place], [address] Hemoglobin A1c percentageOrd ered By: Dianna Luther on 09-13-2024 HbA1c (Bld) [Mass fraction] 5.1 % 3.8-5.6 [facility] Comment on above: Normal < 5.7 % Predi abetic 5.7 - 6.4 % Diabetic >or= 6.5 % Please note range changes. Hemoglobin measurementOrdere d By: Dianna Luther on 09-13-2024 Hemoglobin (Bld) [Mass/Vol] 12.7 g/dL 12.0-15.0 [facility] Hepatitis B Surface Antigeno n 09-13-2024 HEP B Surf Ag Non-Reactive Normal Nonreactive [facility] Comment on above: Order Comment: Reaso n for Exam: Performed By: #### L 509.4005, L3890.6005, L100.0100, L3890.6300, L3890.6100, L501.9985, L509.8000, BTS ####[facility] [address] [place], [address] Hepatitis B surface antigen detectionOrdered By: Dianna Luther on 09-13-2024 Hepatitis B Surface Antigen Non-Reactive Nonreactive [facility] Hepatitis C Antibodyon 09-13 Hepatitis C AB Non-Reactive [facility] Comment on above: Order Comment: Reaso n for Exam: Result Comment: Non Reactive: < 0.8 Equivocal: >/= 0.8 to < 1.0 Reactive: >/= 1.0 The [facility] requires that a reactive/equivocal HCV antibody result be sent out for confirmation. HCV Quant by PCR testing. Performed By: #### L 509.4005, L3890.6005, L100.0100, L3890.6300, L3890.6100, L501.9985, L509.8000, BTS ####[facility] [address] [place], [address] Hepatitis C virus antibody a ssayOrdered By: Dianna Luther on 09-13-2024 Hepatitis C Antibody Non-Reactive Nonreactive [facility] Comment on above: Non Reactive: < 0.8 Equivocal: >/= 0.8 to < 1.0 Reactive: >/= 1.0The CDC requires that a reactive/equivocal HCV antibody result be sent out for confirmation. HCV Quant by PCR testing. Immature granulocytes/100 WB C Auto (Bld)Ordered By: Dianna Luther on 09-13-2024 Immature granulocytes/100 WBC (Bld) 0.300 % 0.0-0.9 [facility] Comment on above: IG% - Immature Granu locytes (promyelocytes, myelocytes and metamyelocytes) > 1% indicates that a LEFT SHIFT is Present. L509.8000on 09-13-2024 Syphilis Abs Non-Reactive Normal [facility] Comment on above: Order Comment: Reaso n for Exam: Performed By: #### L 509.4005, L3890.6005, L100.0100, L3890.6300, L3890.6100, L501.9985, L509.8000, BTS ####[facility] [address] [place], [address] Laboratory - Chemistry and C hemistry - challengeon 09-13-2024 Glucose Ql (U) Negative [facility] - Urinalysison Protein Ql (U) Negative [facility] Lymphocytes Auto (Unsp spec) [#/Vol]Ordered By: Dianna Luther on 09-13-2024 Lymphocytes (Bld) [#/Vol] 3.06 10*3/uL 0.83-4.51 [facility] Lymphocytes/100 WBC Auto (Un sp spec)Ordered By: Dianna Luther on 09-13-2024 Lymphocytes/100 WBC (Bld) 31.2 % 19-41 [facility] MCV (mean corpuscular volume ) determinationOrdered By: Dianna Luther on 09-13-2024 MCV (RBC) [Entitic vol] 91.3 fL 81-99 [facility] Mean corpuscular hemoglobin (MCH) determinationOrdered By: Dianna Luther on 09-13-2024 MCH (RBC) [Entitic mass] 30.0 pg 27.0-32.0 [facility] Mean corpuscular hemoglobin concentration (MCHC) determinationOrdered By: Dianna Luther on 09-13-2024 MCHC (RBC) [Mass/Vol] 32.8 g/dL 32-[address] [facility] Mean platelet volume determi nationOrdered By: Dianna Homa on 09-13-2024 Platelet mean volume (Bld) [Entitic vol] 9.7 fL 6.2-12.0 [facility] Monocyte percentageOrdered B y: Dianna Homa on 09-13-2024 Monocytes/100 WBC (Bld) 5.1 % 0-10 [facility] Neutrophil percentageOrdered By: Dianna Homa on 09-13-2024 Neutrophils/100 WBC (Bld) 62.0 % 47-70 [facility] Nucleated red blood cell per centageOrdered By: Dianna Homa on 09-13-2024 Nucleated RBC/100 WBC (Bld) [Ratio] 0 % 0-5 [facility] [employer] [facility] [facility] Visit Reporton 09-13-2024 [facility] Office Visit Report [facility] [address], [address] [place] [address] OFFICE VISIT Date of Service: 09/13/24 MR#: [id number] Acct: [id number] Name: BRENDEN HART Rep #: [id number] : 2000 Provider: PADMA Tesfaye ams Age/Sex: 24/F Location: [facility] Status: Signed Intake Vital Signs 06/11/23 04:31 08/16/24 13:47 09/13/24 14:32 09/13/24 14:39 Height 5 ft 1 in 5 ft 1 in 5 ft 1 in 5 ft 1 in Weight: 164 lb BMI 30.9 BP 107/75 Intake Visit Reasons: 13wk OB [employer] [facility] [employer] Required: No Is patient in pain?: No [...] 1 current occupational status: unemployed current occupation: [employer] pets and animals: Yes (outside animals) [...] physical activity do you participate in: none cristela/anglican: Anglican seatbelt use: always do you feel safe at home: Yes 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 Date Name GA/Weeks Outcome Route Bth Weight Infant Gen Labor Lgth Anesthesia Del Locatn Provider FOB 06/11/23 Dwight 38 live - full term 6#4oz Male spinal [facility] [address] jaffe José Luna Delivery Date: [...] Negative 16 (more content not included)... Normal [facility] Platelet countOrdered By: Tao Luther on 09-13-2024 Platelets (Bld) [#/Vol] 290 10*3/uL 150-450 [facility] RBC Auto (Bld) [#/Vol]Ordere d By: Dianna Luther on 09-13-2024 RBC (Bld) [#/Vol] 4.24 10*6/uL 4.2-5.4 [facility] Rubella IgGon 09-13-2024 Rubella IgG Reactive Normal Nonreactive [facility] Comment on above: Order Comment: Reaso n for Exam: Result Comment: Anti body Results Interpretation of Immune Status Non Reactive Presumed Non-Immune Equivocal Equivocal Reactive Presumed Immune Performed By: #### L 509.4005, L3890.6005, L100.0100, L3890.6300, L3890.6100, L501.9985, L509.8000, BTS ####[facility] [address] [place], [place], [address] Rubella immune status IgGOrd ered By: Dianna Luther on 09-13-2024 Rubella IgG Antibody Reactive Nonreactive [facility] Comment on above: Antibody Results Int erpretation of Immune Status Non Reactive Presumed Non-Immune Equivocal Equivocal Reactive Presumed Immune Treponema sp Ab Ql (S)Ordere d By: Dianna Luther on 09-13-2024 Syphilis Total Antibody Non-Reactive [facility] Type AND Screenon 09-13-2024 ABO and Rh group Nom (Bld) Blood group A Rh(D) positive Normal [facility] Comment on above: Order Comment: PN Performed By: #### L 509.4005, L3890.6005, L100.0100, L3890.6300, L3890.6100, L501.9985, L509.8000, BTS ####[facility] [address] [place], [address] White blood cell (WBC) count Ordered By: Dianna Luther on 09-13-2024 WBC (Bld) [#/Vol] 9.8 10*3/uL 4.4-11.0 [facility] PAP I-G w/rfx hrHPV-Aptimaon 08-24-2024 ADEQ Comment Normal . [facility] Comment on above: Order Comment: Speci men Comment: [id number] Comment: Source.............CervixSpecimen Comment: LMP / Prev Treat...[id number] Comment: Other..............Specimen Comment: No. of containers..01 ThinPrep Vial Result Comment: Sati sfactory for evaluation. Endocervical and/or squamous metaplastic cells (endocervical component) are present. Performed By: #### M 100.2200, L7000.1800, L7400.0353 ####[facility] [address] [place], [address] COMM . Normal . [facility] Comment on above: Order Comment: Speci men Comment: [id number] Comment: Source.............CervixSpecimen Comment: LMP / Prev Treat...[id number] Comment: Other..............Specimen Comment: No. of containers..01 ThinPrep Vial Performed By: #### M 100.2200, L7000.1800, L7400.0353 ####[facility] [address] [place], [place], [address] COMMENT Comment Normal . [facility] Comment on above: Order Comment: Speci men Comment: [id number] Comment: Source.............CervixSpecimen Comment: LMP / Prev Treat...[id number] Comment: Other..............Specimen Comment: No. of containers..01 ThinPrep Vial Result Comment: This liquid based ThinPrep(R) pap test was screened with the use of an image guided system. Performed By: #### M 100.2200, L7000.1800, L7400.0353 ####[facility] [address] [place], [place], [address] DIAG Comment Normal . [facility] Comment on above: Order Comment: Speci men Comment: [id number] Comment: Source.............CervixSpecimen Comment: LMP / Prev Treat...[id number] Comment: Other..............Specimen Comment: No. of containers..01 ThinPrep Vial Result Comment: NEGA TIVE FOR INTRAEPITHELIAL LESION OR MALIGNANCY. CELLULAR CHANGES ASSOCIATED WITH INFLAMMATION ARE PRESENT. Performed By: #### M 100.2200, L7000.1800, L7400.0353 ####[facility] [address] [place], [place], [address] HPV RFLX Comment Normal . [facility] Comment on above: Order Comment: Speci men Comment: [id number] Comment: Source.............CervixSpecimen Comment: LMP / Prev Treat...[id number] Comment: Other..............Specimen Comment: No. of containers..01 ThinPrep Vial Result Comment: The HPV DNA reflex criteria were not met with this specimen result therefore, no HPV testing was performed. Performed at: [address] [id number] [employer] [place]: Violet Larson MD, Phone: [phone] Performed By: #### M 100.2200, L7000.1800, L7400.0353 ####[facility] [address] [place], [address] PAPSMR Comment Normal . [facility] Comment on above: Order Comment: Speci men Comment: [id number] Comment: Source.............CervixSpecimen Comment: LMP / Prev Treat...[id number] Comment: Other..............Specimen Comment: No. of containers..01 ThinPrep [...] Performed By: #### M 100.2200, L7000.1800, L7400.0353 ####[facility] [address] [facility] [address] [place], [place], [id number] PERFORM Comment Normal . [facility] Comment on above: Order Comment: Speci men Comment: [id number] Comment: Source.............CervixSpecimen Comment: LMP / Prev Treat...[id number] Comment: Other..............Specimen Comment: No. of containers..01 ThinPrep Vial Result Comment: Riana Winkler Sole Rounder (ASCP) Performed By: #### M 100.2200, L7000.1800, L7400.0353 ####[facility] [address] [place], [address] Chlamydia/GC DEXTER aptimaon CHLAMY,NUC ACID Negative Normal Negative [facility] Comment on above: Performed By: #### M 100.2200, L7000.1800, L7400.0353 ####[facility] [address] [place], [address] GC BY NUC ACID Negative Normal Negative [facility] Comment on above: Result Comment: Perf ormed at: =G - [facility] [address] [id number] [employer]: Violet Larson MD, Phone: [phone] Performed By: #### M 100.2200, L7000.1800, L7400.0353 ####[facility] [address] [place], [address] Urine Cultureon 08-18-2024 [facility] Mixed Gram Positive Organisms [place] Count 80,000-100,000 MIXC Mixed contaminants. Submit a new specimen if indicated. Normal [facility] Comment on above: Performed By: #### M 100.2200, L7000.1800, L7400.0353 ####[facility] [address] [place], [address] [employer] [facility] Office Visit Reporton 08-16-2024 [employer] Office Visit Report [facility] [address], [address] [place] [address] OFFICE VISIT Date of Service: 08/16/24 MR#: [id number] Acct: [id number] Name: JUNGBRENDENREJI CHAPA Rep #: [id number] : 2000 Provider: Dr. Dianna Rain DO Age/Sex: 24/F Location: [facility] Status: Signed Intake Vital Signs 06/11/23 04:31 08/16/24 13:46 08/16/24 13:47 Height 5 ft 1 in 5 ft 1 in 5 ft 1 in Weight: 161 lb 6 oz BMI 30.4 BP 128/76 H Intake Visit Reasons: NOB LMP 06/07 [employer] [facility] Manager Required: No Is patient in pain?: No [...] No current occupational status: unemployed current occupation: [employer] pets and animals: Yes (outside animals) [...] physical activity do you participate in: none cristela/anglican: Anglican seatbelt use: always do you feel safe at home: Yes 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 Normal [facility] Basophil percentageOrdered B y: Bolivar Kumar on 06-12-2023 WBC (Bld) [#/Vol] 14.4 10*3/uL 4.4-11.0 [facility] Blood erythrocytes count (nu mber/volume)Ordered By: Bolivar Kumar on 06-12-2023 RBC (Bld) [#/Vol] 3.18 10*6/uL 4.2-5.4 [facility] Blood hemoglobin measurement (mass/volume)Ordered By: Bolivar Kumar on 06-12-2023 Hemoglobin (Bld) [Mass/Vol] 9.8 g/dL 12.0-15.0 [facility] Blood platelet mean volumeOr dered By: Bolivar Kumar on 06-12-2023 Platelet mean volume (Bld) [Entitic vol] 10.1 fL 6.2-12.0 [facility] Determination of erythrocyte mean corpuscular volume (MCV)Ordered By: Bolivar Kumar on 06-12-2023 MCV (RBC) [Entitic vol] 91.8 fL 81-99 [facility] Hematocrit Auto (Bld) [Volum e fraction]Ordered By: Bolivar Kumar on 06-12-2023 Hematocrit (Bld) [Volume fraction] 29.2 % 37-47 [facility] - Hematology and Cell countsOrdered By: Bolivar Kumar on 06-12-2023 Erythrocyte distribution width (RBC) [Entitic vol] 44.3 fL 35.1-43.9 [facility] Erythrocyte distribution width (RBC) [Ratio] 13.3 % 11.6-14.6 [facility] MCH (RBC) [Entitic mass] 30.8 pg 27.0-32.0 [facility] MCHC Auto (RBC) [Mass/Vol]Or dered By: Bolivar Kumar on 06-12-2023 MCHC (RBC) [Mass/Vol] 33.6 g/dL 32-[address] [facility] Platelets bldOrdered By: Scott Kumar on 06-12-2023 Platelets (Bld) [#/Vol] 214 10*3/uL 150-450 [facility] Absolute lymphocyte countOrd ered By: Marlee Kumar on 06-11-2023 Lymphocytes Auto (Unsp spec) [#/Vol] 2.33 10*3/uL 0.83-4.51 [facility] Basophil percentageOrdered B y: Marlee Kumar on 06-11-2023 Basophils/100 WBC (Bld) 0.3 % 0-1 [facility] Eosinophils/100 WBC (Bld) 0.3 % 0-5 [facility] Neutrophils (Bld) [#/Vol] 12.1 10*3/uL 2.0-7.7 [facility] Neutrophils/100 WBC (Bld) 79.0 % 47-70 [facility] Blood lymphocytes/100 leukoc ytesOrdered By: Marlee Kumar on 06-11-2023 Lymphocytes/100 WBC (Bld) 15.2 % 19-41 [facility] Blood monocytes/100 leukocyt esOrdered By: Marlee Kumar on 06-11-2023 Monocytes/100 WBC (Bld) 4.5 % 0-10 [facility] - Hematology and Cell countsOrdered By: Marlee Kumar on 06-11-2023 Immature granulocytes/100 WBC (Bld) 0.700 % 0.0-0.9 [facility] Comment on above: IG% - Immature Granu locytes (promyelocytes, myelocytes and metamyelocytes) > 1% indicates that a LEFT SHIFT is Present. Nucleated RBC/100 WBC (Bld) [Ratio] 0 % 0-5 [facility] Neisseria gonorrhoeae genita l PCROrdered By: Marlee Kumar on 06-11-2023 N. gonorrhoeae DNA DEXTER+probe Ql (Genital specimen) [facility] No Panel InformationOrdered By: Marlee Kumar on 06-11-2023 Chlamydia trachomatis (PCR) [facility] Vaginal Amniotic Fluid Detection Positive Negative [facility] Comment on above: Amniotic fluid prese nt indicates rupture of Membranes. RESULTS CALLED TO Miroslava MONSALVE RN (WP) 06/11/23 4568 Korey Goodrich.REPORT READ BACK BY SAME . Serum Treponema species anti body detectionOrdered By: Marlee Kumar on 06-11-2023 Treponema sp Ab Ql (S) Non-Reactive [facility] Basophil percentageOrdered B y: Bolivar Kumar on 05-23-2023 WBC (Bld) [#/Vol] 11.1 10*3/uL 4.4-11.0 [facility] Blood erythrocytes count (nu mber/volume)Ordered By: Bolivar Kumar on 05-23-2023 RBC (Bld) [#/Vol] 3.89 10*6/uL 4.2-5.4 [facility] Blood hemoglobin measurement (mass/volume)Ordered By: Bolivar Kumar on 05-23-2023 Hemoglobin (Bld) [Mass/Vol] 12.2 g/dL 12.0-15.0 [facility] Blood platelet mean volumeOr dered By: Bolivar Kumar on 05-23-2023 Platelet mean volume (Bld) [Entitic vol] 10.1 fL 6.2-12.0 [facility] Determination of erythrocyte mean corpuscular volume (MCV)Ordered By: Bolivar Kumar on 05-23-2023 MCV (RBC) [Entitic vol] 92.0 fL 81-99 [facility] Hematocrit Auto (Bld) [Volum e fraction]Ordered By: Bolivar Kumar on 05-23-2023 Hematocrit (Bld) [Volume fraction] 35.8 % 37-47 [facility] - Hematology and Cell countsOrdered By: Bolivar Kumar on 05-23-2023 Erythrocyte distribution width (RBC) [Entitic vol] 41.2 fL 35.1-43.9 [facility] Erythrocyte distribution width (RBC) [Ratio] 12.5 % 11.6-14.6 [facility] MCH (RBC) [Entitic mass] 31.4 pg 27.0-32.0 [facility] MCHC Auto (RBC) [Mass/Vol]Or dered By: Bolivar Kumar on 05-23-2023 MCHC (RBC) [Mass/Vol] 34.1 g/dL 32-[address] [facility] No Panel InformationOrdered By: Bolivar Kumar on 05-23-2023 Group B Streptococcus Culture Group B Beta Streptococcus is not isolated. [facility] Platelets bldOrdered By: Scott Kumar on 05-23-2023 Platelets (Bld) [#/Vol] 262 10*3/uL 150-450 [facility] Culture, urineOrdered By: Ngoc Tobar on 04-11-2023 Bacteria identified Cx Nom (U) Positive [facility] Basophil percentageOrdered B y: Dr. Kumar on 03-21-2023 WBC (Bld) [#/Vol] 9.6 10*3/uL 4.4-11.0 [facility] Blood erythrocytes count (nu mber/volume)Ordered By: Dr. Kumar on 03-21-2023 RBC (Bld) [#/Vol] 3.77 10*6/uL 4.2-5.4 [facility] Blood hemoglobin measurement (mass/volume)Ordered By: Dr. Kumar on 03-21-2023 Hemoglobin (Bld) [Mass/Vol] 11.7 g/dL 12.0-15.0 [facility] Blood platelet mean volumeOr dered By: Dr. Kumar on 03-21-2023 Platelet mean volume (Bld) [Entitic vol] 9.8 fL 6.2-12.0 [facility] Determination of erythrocyte mean corpuscular volume (MCV)Ordered By: Dr. Kumar on 03-21-2023 MCV (RBC) [Entitic vol] 96.0 fL 81-99 [facility] Gestational diabetes screen 1-hour screen with 50g oral glucose loadOrdered By: Dr. Kumar on 03-21-2023 Glucose 1 Hr post 50 g glucose PO [Mass/Vol] 93 mg/dL 70-140 [facility] Hematocrit Auto (Bld) [Volum e fraction]Ordered By: Dr. Kumar on 03-21-2023 Hematocrit (Bld) [Volume fraction] 36.2 % 37-47 [facility] - Hematology and Cell countsOrdered By: Dr. Kumar on 03-21-2023 Erythrocyte distribution width (RBC) [Entitic vol] 44.5 fL 35.1-43.9 [facility] Erythrocyte distribution width (RBC) [Ratio] 12.6 % 11.6-14.6 [facility] MCH (RBC) [Entitic mass] 31.0 pg 27.0-32.0 [facility] MCHC Auto (RBC) [Mass/Vol]Or dered By: Dr. Kumar on 03-21-2023 MCHC (RBC) [Mass/Vol] 32.3 g/dL 32-[address] [facility] Platelets bldOrdered By: Dr. Kumar on 03-21-2023 Platelets (Bld) [#/Vol] 235 10*3/uL 150-450 [facility] Serum Treponema species anti body detectionOrdered By: Dr. Kumar on 03-21-2023 Treponema sp Ab Ql (S) Non-Reactive [facility] Culture, urineOrdered By: Dr Fabiola Kumar on 10-27-2022 Bacteria identified Cx Nom (U) Escherichia coli [facility] Absolute lymphocyte countOrd ered By: Dr. Kumar on 10-25-2022 Lymphocytes Auto (Unsp spec) [#/Vol] 3.02 10*3/uL 0.83-4.51 [facility] Basophil percentageOrdered B y: Dr. Kumar on 10-25-2022 Basophils/100 WBC (Bld) 0.3 % 0-1 [facility] Eosinophils/100 WBC (Bld) 0.3 % 0-5 [facility] Neutrophils (Bld) [#/Vol] 7.6 10*3/uL 2.0-7.7 [facility] Neutrophils/100 WBC (Bld) 66.3 % 47-70 [facility] WBC (Bld) [#/Vol] 11.5 10*3/uL 4.4-11.0 [facility] Blood erythrocytes count (nu mber/volume)Ordered By: Dr. Kumar on 10-25-2022 RBC (Bld) [#/Vol] 4.33 10*6/uL 4.2-5.4 [facility] Blood hemoglobin measurement (mass/volume)Ordered By: Dr. Kumar on 10-25-2022 Hemoglobin (Bld) [Mass/Vol] 13.3 g/dL 12.0-15.0 [facility] Blood lymphocytes/100 leukoc ytesOrdered By: Dr. Kumar on 10-25-2022 Lymphocytes/100 WBC (Bld) 26.4 % 19-41 [facility] Blood monocytes/100 leukocyt esOrdered By: Dr. Kumar on 10-25-2022 Monocytes/100 WBC (Bld) 6.4 % 0-10 [facility] Blood platelet mean volumeOr dered By: Dr. Kumar on 10-25-2022 Platelet mean volume (Bld) [Entitic vol] 9.9 fL 6.2-12.0 [facility] Determination of erythrocyte mean corpuscular volume (MCV)Ordered By: Dr. Kumar on 10-25-2022 MCV (RBC) [Entitic vol] 92.8 fL 81-99 [facility] HIV 1 and HIV-2 antibody ass ay with HIV-1 p24 antigen detectionOrdered By: Dr. Kumar on 10-25-2022 HIV 1+2 Ab+HIV1 p24 Ag IA Ql Non-Reactive Nonreactive [facility] Hematocrit Auto (Bld) [Volum e fraction]Ordered By: Dr. Kumar on 10-25-2022 Hematocrit (Bld) [Volume fraction] 40.2 % 37-47 [facility] Laboratory - Hematology and Cell countsOrdered By: Dr. Kumar on 10-25-2022 Erythrocyte distribution width (RBC) [Entitic vol] 39.8 fL 35.1-43.9 [facility] Erythrocyte distribution width (RBC) [Ratio] 11.6 % 11.6-14.6 [facility] Immature granulocytes/100 WBC (Bld) 0.300 % 0.0-0.9 [facility] Comment on above: IG% - Immature Granu locytes (promyelocytes, myelocytes and metamyelocytes) > 1% indicates that a LEFT SHIFT is Present. MCH (RBC) [Entitic mass] 30.7 pg 27.0-32.0 [facility] Nucleated RBC/100 WBC (Bld) [Ratio] 0 % 0-[facility] Auto (RBC) [Mass/Vol]Or dered By: Dr. Kumar on 10-25-2022 MCHC (RBC) [Mass/Vol] 33.1 g/dL 32-[address] [facility] No Panel InformationOrdered By: Dr. Kumar on 10-25-2022 Hepatitis B Surface Antigen Non-Reactive Nonreactive [facility] Hepatitis C Antibody Non-Reactive Nonreactive [facility] Comment on above: Non Reactive: < 0.8 Equivocal: >/= 0.8 to < 1.0 Reactive: >/= 1.0The CDC recommends that a reactive/equivocal HCV antibody result be followed up by the HCV Nucleic Acid Amplificationtest ([id number]) Rubella IgG Antibody Reactive Nonreactive [facility] Comment on above: Antibody Results Int erpretation of Immune Status Non Reactive Presumed Non-Immune Equivocal Equivocal Reactive Presumed Immune Platelets bldOrdered By: Dr. Kmuar on 10-25-2022 Platelets (Bld) [#/Vol] 300 10*3/uL 150-450 [facility] Serum Treponema species anti body detectionOrdered By: Dr. Kumar on 10-25-2022 Treponema sp Ab Ql (S) Non-Reactive [facility] Serum Varicella zoster virus IgG antibody assay by immunoassay (units/volume)Ordered By: Dr. Kumar on 10-25-2022 VZV IgG IA Qn (S) 396 index Immune >165 [facility] Comment on above: Negative <135 Equivo patty 135 - 165 Positive >165A positive result generally indicates exposure to thepathogen or administration of specific immunoglobulins,but it is not indication of active infection or stageof disease.Performed at: [address] [id number] Director: Diomedes Subramanian PhD, Phone: [phone] Vital Signs Date Time Vital Sign Value Performing Clinician Facility 03-23-2025 14:31-0400 Body height 154.[address] Billy Cates MD Work Phone: [facility] 03-23-2025 14:31-0400 Body mass index (BMI) [Ratio] 35.9 kg/m2 Dr. Billy Cates MD Work Phone: [facility] 03-23-2025 14:31-0400 Body weight 86.[address] Billy Cates MD Work Phone: 1(395)735-152188 [place] [address] 03-23-2025 14:31-0400 Diastolic blood pressure 69 mm[Hg] Dr. Billy Cates MD Work Phone: 4(315)170-875188 [place] [address] 03-23-2025 14:31-0400 Systolic blood pressure 111 mm[Hg] Dr. Billy Cates MD Work Phone: 0(937)923-249788 [place] [address] 03-21-2025 08:36-0400 Body height 154.[address] Billy Cates MD Work Phone: 2(247)298-392388 [place] [address] 03-21-2025 08:36-0400 Body mass index (BMI) [Ratio] 35.8 kg/m2 Dr. Billy Cates MD Work Phone: 5(231)987-233288 [place] [address] 03-21-2025 08:36-0400 Body weight 85.[address] Billy Cates MD Work Phone: 1(807)151-425588 [place] [address] 03-21-2025 08:36-0400 Diastolic blood pressure 74 mm[Hg] Dr. Billy Cates MD Work Phone: 2(596)619-643188 [place] [address] 03-21-2025 08:36-0400 Systolic blood pressure 111 mm[Hg] Dr. Billy Cates MD Work Phone: 1(088)718-262588 [place] [address] 03-15-2025 11:38-0400 Body height 154.[address] Billy Cates MD Work Phone: 6(954)528-901588 [place] [address] 03-15-2025 11:38-0400 Body mass index (BMI) [Ratio] 35.2 kg/m2 Dr. Billy Cates MD Work Phone: 6(080)789-064888 [place] [address] 03-15-2025 11:38-0400 Body weight 84.[address] Billy Cates MD Work Phone: 2(884)702-303788 [place] [address] 03-15-2025 11:38-0400 Diastolic blood pressure 76 mm[Hg] Dr. Billy Cates MD Work Phone: 3(829)153-121988 [place] [address] 03-15-2025 11:38-0400 Systolic blood pressure 118 mm[Hg] Dr. Billy Cates MD Work Phone: 4(943)624-219888 [place] [address] 03-10-2025 10:37-0400 Body height 154.[address] Billy Cates MD Work Phone: 6(795)575-699388 [place] [address] 03-10-2025 10:37-0400 Body mass index (BMI) [Ratio] 35.3 kg/m2 Dr. Billy Cates MD Work Phone: 8(380)516-202288 [place] [address] 03-10-2025 10:37-0400 Body weight 84.[address] Billy Cates MD Work Phone: 6(597)842-326388 [place] [address] 03-10-2025 10:37-0400 Diastolic blood pressure 63 mm[Hg] Dr. Billy Cates MD Work Phone: 9(484)762-414688 [place] [address] 03-10-2025 10:37-0400 Systolic blood pressure 115 mm[Hg] Dr. Billy Cates MD Work Phone: 0(502)658-009688 [place] [address] 03-04-2025 09:50-0400 Body height 154.[address] Billy Cates MD Work Phone: 9(478)769-879288 [place] [address] 03-04-2025 09:50-0400 Body mass index (BMI) [Ratio] 34.7 kg/m2 Dr. Billy Cates MD Work Phone: 8(496)076-088588 [place] [address] 03-04-2025 09:50-0400 Body weight 83.[address] Billy Cates MD Work Phone: 1(070)308-159788 [place] [address] 03-04-2025 09:50-0400 Diastolic blood pressure 72 mm[Hg] Dr. Billy Cates MD Work Phone: 9(590)067-607988 [place] [address] 03-04-2025 09:50-0400 Systolic blood pressure 113 mm[Hg] Dr. Billy Cates MD Work Phone: 3(993)896-826288 [place] [address] 02-24-2025 10:31-0400 Body height 154.[address] Billy Cates MD Work Phone: 1(802)329-238788 [place] [address] 02-24-2025 10:31-0400 Body mass index (BMI) [Ratio] 34.9 kg/m2 Dr. Billy Cates MD Work Phone: 7(121)624-470888 [place] [address] 02-24-2025 10:31-0400 Body weight 83.[address] Billy Cates MD Work Phone: 6(442)110-983788 [place] [address] 02-24-2025 10:31-0400 Diastolic blood pressure 76 mm[Hg] Dr. Billy Cates MD Work Phone: 9(372)205-356788 [place] [address] 02-24-2025 10:31-0400 Systolic blood pressure 113 mm[Hg] Dr. Billy Cates MD Work Phone: 7(889)458-078788 [place] [address] 02-16-2025 22:22-0400 Heart rate 106 /min Dr. Billy Cates MD Work Phone: 4(215)294-724288 [place] [address] 02-16-2025 22:22-0400 SaO2% (BldA) [Mass fraction] 98 % Dr. Billy Cates MD Work Phone: 2(731)295-597088 [place] [address] 02-16-2025 22:02-0400 Diastolic blood pressure 71 mm[Hg] Dr. Billy Cates MD Work Phone: 3(860)109-600888 [place] [address] 02-16-2025 22:02-0400 Systolic blood pressure 119 mm[Hg] Dr. Billy Cates MD Work Phone: 0(868)723-963988 [place] [address] 02-16-2025 19:52-0400 Diastolic blood pressure 67 mm[Hg] Dr. Billy Cates MD Work Phone: 0(970)709-004188 [place] [address] 02-16-2025 19:52-0400 Heart rate 83 /min Dr. Billy Cates MD Work Phone: 3(614)915-963188 [place] [address] 02-16-2025 19:52-0400 Systolic blood pressure 109 mm[Hg] Dr. Billy Cates MD Work Phone: 0(826)773-926388 [place] [address] 02-16-2025 18:31-0400 Body height 154.[address] Billy Cates MD Work Phone: 4(005)692-340388 [place] [address] 02-16-2025 18:31-0400 Body mass index (BMI) [Ratio] 33.8 kg/m2 Dr. Billy Cates MD Work Phone: 8(889)968-003188 [place] [address] 02-16-2025 18:31-0400 Body weight 81.[address] Billy Cates MD Work Phone: 4(390)119-643288 [place] [address] 02-16-2025 17:01-0400 Body temperature 98.1 [degF] Dr. Billy Cates MD Work Phone: 7(622)856-211888 [place] [address] 02-16-2025 17:01-0400 Respiratory rate 13 /min Dr. Billy Cates MD Work Phone: 1(993)507-536188 [place] [address] 02-16-2025 13:53-0400 Body height 152.[address] Billy Cates MD Work Phone: 1(566)041-544188 [place] [address] 02-16-2025 13:53-0400 Body mass index (BMI) [Ratio] 35.2 kg/m2 Dr. Billy Cates MD Work Phone: 9(050)533-038388 [place] [address] 02-16-2025 13:53-0400 Body weight 81.[address] Billy Cates MD Work Phone: 4(010)891-334388 [place] [address] 02-16-2025 13:53-0400 Diastolic blood pressure 77 mm[Hg] Dr. Billy Cates MD Work Phone: 1(782)433-251488 [place] [address] 02-16-2025 13:53-0400 Systolic blood pressure 119 mm[Hg] Dr. Billy Cates MD Work Phone: 8(540)192-479188 [place] [address] 02-08-2025 11:37-0400 Body height 152.[address] Billy Cates MD Work Phone: 3(485)789-549088 [place] [address] 02-08-2025 11:37-0400 Body mass index (BMI) [Ratio] 34.7 kg/m2 Dr. Billy Cates MD Work Phone: 9(566)281-556988 [place] [address] 02-08-2025 11:37-0400 Body weight 80.[address] Billy Cates MD Work Phone: 6(136)643-837888 [place] [address] 02-08-2025 11:10-0400 Diastolic blood pressure 73 mm[Hg] Dr. Billy Cates MD Work Phone: 1(188)058-041488 [place] [address] 02-08-2025 11:10-0400 Heart rate 86 /min Dr. Billy Cates MD Work Phone: 7(419)093-465588 [place] [address] 02-08-2025 11:10-0400 SaO2% (BldA) [Mass fraction] 97 % Dr. Billy Cates MD Work Phone: 0(107)901-735788 [place] [address] 02-08-2025 11:10-0400 Systolic blood pressure 110 mm[Hg] Dr. Billy Cates MD Work Phone: 1(930)898-358588 [place] [address] 02-08-2025 11:07-0400 Respiratory rate 18 /min Dr. Billy Cates MD Work Phone: 4(348)135-466988 [place] [address] 02-08-2025 10:06-0400 Body mass index (BMI) [Ratio] 34.2 kg/m2 Dr. Billy Cates MD Work Phone: 0(820)582-459088 [place] [address] 02-08-2025 10:06-0400 Body weight 82.[address] Billy Cates MD Work Phone: 1(088)988-457388 [place] [address] 02-08-2025 10:06-0400 Diastolic blood pressure 72 mm[Hg] Dr. Billy Cates MD Work Phone: 6(161)257-938688 [place] [address] 02-08-2025 10:06-0400 Systolic blood pressure 107 mm[Hg] Dr. Billy Cates MD Work Phone: 2(340)902-493488 [place] [address] 02-01-2025 11:26-0400 Body mass index (BMI) [Ratio] 33.6 kg/m2 Dr. Billy Cates MD Work Phone: 3(594)688-747888 [place] [address] 02-01-2025 11:26-0400 Body weight 80.[address] Billy Cates MD Work Phone: 6(760)543-148288 [place] [address] 02-01-2025 11:26-0400 Diastolic blood pressure 74 mm[Hg] Dr. Billy Cates MD Work Phone: 3(114)909-836088 [place] [address] 02-01-2025 11:26-0400 Systolic blood pressure 113 mm[Hg] Dr. Billy Cates MD Work Phone: 8(304)277-398188 [place] [address] 01-26-2025 10:58-0400 Body mass index (BMI) [Ratio] 33.5 kg/m2 Dr. Billy Cates MD Work Phone: 8(666)252-535988 [place] [address] 01-26-2025 10:58-0400 Body weight 80.[address] Billy Cates MD Work Phone: 4(241)018-415188 [place] [address] 01-26-2025 10:58-0400 Diastolic blood pressure 72 mm[Hg] Dr. Billy Cates MD Work Phone: 6(600)098-887388 [place] [address] 01-26-2025 10:58-0400 Systolic blood pressure 122 mm[Hg] Dr. Billy Cates MD Work Phone: 0(292)275-905788 [place] [address] 01-11-2025 10:14-0400 Body mass index (BMI) [Ratio] 33.9 kg/m2 Dr. Billy Cates MD Work Phone: 7(737)067-257788 [place] [address] 01-11-2025 10:14-0400 Body weight 81.[address] Billy Cates MD Work Phone: 8(203)174-037988 [place] [address] 01-11-2025 10:14-0400 Diastolic blood pressure 78 mm[Hg] Dr. Billy Cates MD Work Phone: 0(036)150-957788 [place] [address] 01-11-2025 10:14-0400 Systolic blood pressure 125 mm[Hg] Dr. Billy Cates MD Work Phone: 8(636)562-026788 [place] [address] 12-28-2024 09:52-0400 Body height 154.[address] Billy Cates MD Work Phone: 8(382)500-690988 [place] [address] 12-28-2024 09:52-0400 Body mass index (BMI) [Ratio] 33.6 kg/m2 Dr. Billy Cates MD Work Phone: 6(666)928-923488 [place] [address] 12-28-2024 09:52-0400 Body weight 80.[address] Billy Cates MD Work Phone: 6(223)512-536988 [place] [address] 12-28-2024 09:52-0400 Diastolic blood pressure 79 mm[Hg] Dr. Billy Cates MD Work Phone: 4(417)260-280688 [place] [address] 12-28-2024 09:52-0400 Systolic blood pressure 122 mm[Hg] Dr. Billy Cates MD Work Phone: 8(921)544-991988 [place] [address] 12-08-2024 11:27-0500 Body mass index (BMI) [Ratio] 33.14 kg/m2 Maikol Taylor MD Work Phone: [facility] 12-08-2024 11:27-0500 Body temperature 97.39 [degF] Maikol Taylor MD Work Phone: [facility] 12-08-2024 11:27-0500 Body weight 78.6 kg Maikol Taylor MD Work Phone: [facility] 12-08-2024 11:27-0500 Diastolic blood pressure 72 mm[Hg] Maikol Taylor MD Work Phone: [facility] 12-08-2024 11:27-0500 Heart rate 94 /min Maikol Taylor MD Work Phone: [facility] 12-08-2024 11:27-0500 Respiratory rate 16 /min Maikol Taylor MD Work Phone: [facility] 12-08-2024 11:27-0500 SaO2% (BldA) [Mass fraction] 97 % Maikol Taylor MD Work Phone: [facility] 12-08-2024 11:27-0500 Systolic blood pressure 122 mm[Hg] Maikol Taylor MD Work Phone: [facility] 12-08-2024 10:29-0500 Body mass index (BMI) [Ratio] 32.3 kg/m2 Dr. Billy Cates MD Work Phone: [facility] 12-08-2024 10:29-0500 Body weight 77.[address] Billy Cates MD Work Phone: [facility] 12-08-2024 10:29-0500 Diastolic blood pressure 81 mm[Hg] Dr. Billy Cates MD Work Phone: [facility] 12-08-2024 10:29-0500 Systolic blood pressure 130 mm[Hg] Dr. Billy Cates MD Work Phone: [facility] 11-25-2024 10:45-0500 Body mass index (BMI) [Ratio] 32.93 kg/m2 Maikol Taylor MD Work Phone: [facility] 11-25-2024 10:45-0500 Body temperature 97.5 [degF] Maikol Taylor MD Work Phone: [facility] 11-25-2024 10:45-0500 Body weight 78.1 kg Maikol Taylor MD Work Phone: [facility] 11-25-2024 10:45-0500 Diastolic blood pressure 69 mm[Hg] Maikol Taylor MD Work Phone: [facility] 11-25-2024 10:45-0500 Heart rate 85 /min Maikol Taylor MD Work Phone: [facility] 11-25-2024 10:45-0500 Respiratory rate 18 /min Maikol Taylor MD Work Phone: [facility] 11-25-2024 10:45-0500 SaO2% (BldA) [Mass fraction] 96 % Maikol Taylor MD Work Phone: [facility] 11-25-2024 10:45-0500 Systolic blood pressure 100 mm[Hg] Maikol Taylor MD Work Phone: [facility] 11-09-2024 11:05-0500 Body mass index (BMI) [Ratio] 32 kg/m2 Dr. Billy Cates MD Work Phone: [facility] 11-09-2024 11:05-0500 Body weight 76.[address] Billy Cates MD Work Phone: [facility] 11-09-2024 11:05-0500 Diastolic blood pressure 75 mm[Hg] Dr. Billy Cates MD Work Phone: [facility] 11-09-2024 11:05-0500 Systolic blood pressure 104 mm[Hg] Dr. Billy Cates MD Work Phone: [facility] 10-12-2024 13:43-0500 Body mass index (BMI) [Ratio] 32.3 kg/m2 Dr. Billy Cates MD Work Phone: [facility] 10-12-2024 13:43-0500 Body weight 77.[address] Billy Cates MD Work Phone: [facility] 10-12-2024 13:43-0500 Diastolic blood pressure 73 mm[Hg] Dr. Billy Cates MD Work Phone: [facility] 10-12-2024 13:43-0500 Systolic blood pressure 108 mm[Hg] Dr. Billy Cates MD Work Phone: [facility] 09-13-2024 14:32-0500 Body mass index (BMI) [Ratio] 30.9 kg/m2 Dr. Billy Cates MD Work Phone: [facility] 09-13-2024 14:32-0500 Body weight 74.[address] Billy Cates MD Work Phone: [facility] 09-13-2024 14:32-0500 Diastolic blood pressure 75 mm[Hg] Dr. Billy Cates MD Work Phone: [facility] 09-13-2024 14:32-0500 Systolic blood pressure 107 mm[Hg] Dr. Billy Cates MD Work Phone: [facility] 06-13-2023 14:00-0400 SaO2% (BldA) [Mass fraction] 96 % [facility] 06-13-2023 08:00-0400 Body temperature 98.3 [degF] [facility] 06-13-2023 08:00-0400 Diastolic blood pressure 67 mm[Hg] [facility] 06-13-2023 08:00-0400 Heart rate 83 /min [facility] 06-13-2023 08:00-0400 Respiratory rate 16 /min [facility] 06-13-2023 08:00-0400 Systolic blood pressure 125 mm[Hg] [facility] 06-11-2023 04:31-0400 Body height 154.94 cm [facility] 06-11-2023 04:31-0400 Body mass index (BMI) [Ratio] 32.9 kg/m2 [facility] 06-11-2023 04:31-0400 Body weight 79 kg [facility] Encounters Encounter Date Encounter Type Care Provider Facility Start: 03-23-2025 End: 03-23-[address] Billy Cates MD Work Phone: [facility] Work Phone: Start: 03-23-2025 End: 03-23-[address] Carol Zaman MD -[facility] Work Phone: Start: 03-21-2025 End: 03-21-[address] Billy Cates MD Work Phone: [facility] Work Phone: Start: 03-21-2025 End: 03-21-2025 Patient encounter procedure Yady Maguire [facility] -[facility] Work Phone: Start: 03-15-2025 End: 03-15-2025 Patient encounter procedure Yady TAVARES -[facility] Work Phone: Start: 03-15-2025 End: 03-15-[address] Billy Cates MD Work Phone: [facility] Work Phone: Start: 03-10-2025 End: 03-10-[address] Carol Zaman MD -[facility] Work Phone: Start: 03-10-2025 End: 03-10-[address] Billy Cates MD Work Phone: [facility] Work Phone: Start: 03-04-2025 End: 03-04-2025 Patient encounter procedure Nicole TAVRAES -[facility] Work Phone: Start: 03-04-2025 End: 03-04-[address] Billy Cates MD Work Phone: [facility] Work Phone: Start: 02-24-2025 End: 02-24-[address] Billy Cates MD Work Phone: [facility] Work Phone: Start: 02-24-2025 End: 02-24-[address] Carol Zaman MD -Laboratory Specimen Work Phone: Start: 02-24-2025 End: 02-24-[address] Carol Zaman MD -[facility] Work Phone: Start: 02-24-2025 End: 02-24-2025 ambulatory Billy Edgar [place] Start: 02-24-2025 End: 02-24-2025 ambulatory Billy Edgar Facility:[facility] Start: 02-16-2025 ambulatory Billy Edgar Facility:[facility] Start: 02-16-2025 Non-patient / Non-visit Dr. Dianna Alberts DO -[facility] Start: 02-16-2025 End: 02-16-2025 Patient encounter procedure Tessie LOVELACE -[facility] Work Phone: Start: 02-16-2025 End: 02-16-[address] Billy Cates MD Work Phone: [facility] Work Phone: Start: 02-08-2025 ambulatory Yady Maguire Facility :[facility] Start: 02-08-2025 Non-patient / Non-visit Yady Maguire CNM -[facility] Start: 02-08-2025 End: 02-08-2025 Patient encounter procedure Yady Maguire CNM -[facility] Work Phone: Start: 02-08-2025 End: 02-08-[address] Billy Cates MD Work Phone: [facility] Work Phone: Start: 02-01-2025 End: 02-01-2025 Patient encounter procedure Yady Maguire CNM -[facility] Work Phone: Start: 02-01-2025 End: 02-01-2025 ambulatory Billy Cates Facility:[facility] Start: 01-26-2025 End: 01-26-[address] Dianna Alberts DO -[facility] Work Phone: Start: 01-26-2025 End: 01-26-2025 ambulatory Billy Darryn Facility:[facility] Start: 01-20-2025 End: 01-20-2025 ambulatory MD CAMPBELL [facility] Start: 01-11-2025 End: 01-11-[address] Carol Zaman MD -[facility] Work Phone: Start: 01-11-2025 End: 01-11-2025 ambulatory Billy Cates Facility:[facility] Start: 12-28-2024 End: 12-28-2024 Patient encounter procedure Tessie LOVELACE -[facility] Work Phone: Start: 12-28-2024 End: 12-28-[address] Billy Cates MD Work Phone: [facility] Work Phone: Start: 12-28-2024 End: 12-28-2024 ambulatory Carol Zaman Facility:[facility] Start: 12-08-2024 End: 12-08-2024 Subsequent hospital visit by physician Xr [facility] Work Phone: Radiology Comment on above: Subacute cough [R05. 2] Start: 12-08-2024 End: 12-08-2024 ambulatory MAIKOL TAYLOR Facility:[facility] Start: 12-08-2024 End: 12-08-2024 Office outpatient visit 25 minutes Maikol Taylor MD Work Phone: [facility] Comment on above: Subacute cough (Prim jessica Dx); Rib pain on left side; with 25 completed weeks gestation Start: 12-08-2024 End: 12-08-[address] Carol Zaman MD -[facility] Work Phone: Start: 12-08-2024 End: 12-08-2024 ambulatory Billy Darryn Facility:[facility] Start: 11-26-2024 End: 01-26-2025 Follow-up encounter Kobi Qureshi APRN.CNP Work Phone: [facility] Start: 11-25-2024 End: 11-25-2024 ambulatory MAIKOL TAYLOR Facility:[facility] Start: 11-25-2024 End: 11-25-2024 Office outpatient new 30 minutes Maikol Taylor MD Work Phone: [facility] Comment on above: Viral URI with cough (Primary Dx) Start: 11-09-2024 End: 11-09-[address] Dianna Alberts DO -[facility] Work Phone: Start: 11-09-2024 End: 11-09-2024 ambulatory Billy Cates Facility:[facility] Start: 10-21-2024 End: 10-21-2024 ambulatory YADY MAGUIRE [facility] Start: 10-12-2024 End: 10-12-2024 Patient encounter procedure Tessie Levine [employer]-C -[facility] Work Phone: Start: 10-12-2024 End: 10-12-2024 ambulatory Tessie Levine NP [place] Start: 09-13-2024 End: 09-13-2024 Patient encounter procedure Yady Maguire CN -[facility] Work Phone: Start: 09-13-2024 End: 09-13-2024 ambulatory Billy Cates Facility:[facility] Start: 09-13-2024 End: 09-13-2024 ambulatory Billy Cates Facility:[facility] Start: 08-16-2024 End: 08-16-2024 ambulatory Billy Cates Facility:[facility] Start: 08-16-2024 End: 08-16-2024 ambulatory Dianna Alberts Facility:[facility] Start: 06-11-2023 End: 06-13-2023 Evaluation and management of inpatient [facility] [place] Work Phone: Start: 05-23-2023 End: 05-23-2023 ambulatory [facility] Work Phone: Start: 05-23-2023 End: 05-23-2023 Patient encounter procedure [facility], 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 Start: 04-11-2023 End: 04-11-2023 ambulatory [facility] Work Phone: Start: 04-11-2023 End: 04-11-2023 [facility] Start: 03-21-2023 End: 03-21-2023 ambulatory [facility] Work Phone: Start: 03-21-2023 End: 03-21-2023 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 Start: 10-25-2022 End: 10-25-2022 ambulatory [facility] Work Phone: Start: 10-25-2022 End: 10-25-2022 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 Procedures Date Procedure Procedure Detail Performing [...] section Previous c esarean section 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 Dianna Alberts DO H/O: section Previous c esarean section Dr. 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 Carol Zaman MD H/O: section Previous c esarean section Dr. 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 [...] Activity Detail Author Start: 03-29-2025 ambulatory Ambulatory Facility:[facility] Start: 02-16-2025 Nonstress test [facility] Start: 02-16-2025 Obstetric monitoring [facility] Start: 02-16-2025 Vital signs measurements [facility] Start: 02-16-2025 [facility] Start: 02-16-2025 Patient discharge [facility] Start: 02-08-2025 Nonstress test [facility] Start: 02-08-2025 Ultrasound scan for growth [facility] Start: 02-08-2025 Obstetric monitoring [facility] Start: 02-08-2025 [facility] Start: 02-08-2025 Biophysical profile panel US [facility] Start: 02-08-2025 Ultrasonography for biophysical profile without non-stress testing Biophysical Prof W/O Non Stres [facility] Start: 02-08-2025 Vital signs measurements [facility] Start: 06-06-2024 Covid-19 Vaccine ( season) Covid-19 Vaccine ( season) [facility] Start: 06-06-2024 Influenza vaccination Influenza Vaccine (#1) [facility] Start: 06-13-2023 Patient discharge [facility] Start: 06-12-2023 Application of abdominal corset [facility] Start: 06-11-2023 End: 06-12-2023 [facility] Start: 06-11-2023 Administration of medication [facility] Start: 06-11-2023 Ambulation therapy management [facility] Start: 06-11-2023 Application of device [facility] Start: 06-11-2023 Application of intermittent pneumatic compression device [facility] Start: 06-11-2023 Assessment of risk of venous thromboembolism [facility] Start: 06-11-2023 Catheterization of vein [facility] Start: 06-11-2023 Deep breathing and coughing exercises [facility] Start: 06-11-2023 Exercises [facility] Start: 06-11-2023 Measuring intake and output [facility] Start: 06-11-2023 End: 06-11-2023 Notification of physician [facility] Start: 06-11-2023 Procedure discontinued [facility] Start: 06-11-2023 Provision of activity privileges [facility] Start: 06-11-2023 Wound care [facility] Start: 06-11-2023 Application of abdominal corset [facility] Start: 06-11-2023 Vital signs measurements [facility] Start: 06-11-2023 Notification of physician [facility] Start: 06-11-2023 Admission procedure [facility] Start: 06-11-2023 Anesthesia consultation [facility] Start: 06-11-2023 Insertion of catheter into peripheral vein [facility] Start: 06-11-2023 Introduction of urinary catheter [facility] Start: 06-11-2023 End: 09-06-2023 Obstetric monitoring [facility] Start: 06-11-2023 Vital signs measurements [facility] Start: 04-12-2020 Urine microalbumin profile DTaP,Tdap,Td Vaccine (7 - Td or Tdap) [facility] Start: 2020 Screening for malignant neoplasm of cervix Cervical Cancer Screening [facility] Start: 2017 Anxiety Screening Anxiety Screening [facility] Start: 2017 Depression Screening Depression Screening [facility] Start: 2017 Hepatitis C screening Hepatitis C Screening [facility] Start: 2017 HIV screening HIV Screening [facility] Start: 2013 Peds To Adult Transition Annual Assessment Peds To Adult Transition Annual Assessment [facility] Start: 2011 Peds To Adult Transition Initial Discussion Peds To Adult Transition Initial Discussion [facility] COVID & INFLUENZA A/ B & RSV PCR, ROUTINE COVID & INFLUENZA A/B & RSV PCR, ROUTINE Microbiology Routine Viral URI with cough 11/25/2024 12:04 PM EST [facility] Work Phone: Patient Education [facility] Work Phone: Patient referral [facility] Work Phone: Ultrasound scan for growth [facility] Immunizations Immunization Date Immunization Notes Care Provider Lizabeth zavala 05-04-2018 hepatitis A vaccine, adult dosage Maikol Taylor MD Work Phone: [facility] 04-26-2015 meningococcal polysaccharide (groups A, C, Y and W-135) diphtheria toxoid conjugate vaccine (MCV4P) Maikol Taylor MD Work Phone: [facility] 11-22-2011 human papilloma viru s vaccine, quadrivalent Maikol Taylor MD Work Phone: [facility] 07-31-2011 human papilloma viru s vaccine, quadrivalent Maikol Taylor MD Work Phone: [facility] Work Phone: 05-13-2011 human papilloma viru s vaccine, quadrivalent Maikol Taylor MD Work Phone: [facility] 04-12-2010 Meningococcal, MCV4, unspecified conjugate formulation(groups A, C, Y and W-135) Maikol Taylor MD Work Phone: [facility] 04-12-2010 tetanus toxoid, redu koko diphtheria toxoid, and acellular pertussis vaccine, adsorbed Maikol Taylor MD Work Phone: [facility] Work Phone: 2006 chicken pox (disease) Maikol Taylor MD Work Phone: [facility] 06-04-2004 diphtheria, tetanus toxoids and acellular pertussis vaccine Maikol Taylor MD Work Phone: [facility] 04-25-2004 measles, mumps and rubella virus vaccine Maikol Taylor MD Work Phone: [facility] 04-25-2004 poliovirus vaccine, inactivated Maikol Taylor MD Work Phone: [facility] 05-10-2002 diphtheria, tetanus toxoids and acellular pertussis vaccine Maikol Taylor MD Work Phone: [facility] 05-18-2001 haemophilus influenz ae type b vaccine, HbOC conjugate Maikol Taylor MD Work Phone: [facility] 04-21-2000 measles, mumps and rubella virus vaccine Maikol Taylor MD Work Phone: [facility] 04-21-2000 poliovirus vaccine, inactivated Maikol Taylor MD Work Phone: [facility] 04-21-2000 varicella virus vaccine Veto Taylor MD Work Phone: [facility] 1999 diphtheria, tetanus toxoids and acellular pertussis vaccine Maikol Taylor MD Work Phone: [facility] 1999 haemophilus influenz ae type b vaccine, HbOC conjugate Maikol Taylor MD Work Phone: [facility] 1999 hepatitis B vaccine, pediatric or pediatric/adolescent dosage Maikol Taylor MD Work Phone: [facility] 1999 diphtheria, tetanus toxoids and acellular pertussis vaccine Maikol Taylor MD Work Phone: [facility] 1999 haemophilus influenz ae type b vaccine, HbOC conjugate Maikol Taylor MD Work Phone: [facility] 1999 poliovirus vaccine, inactivated Maikol Taylor MD Work Phone: [facility] 1999 diphtheria, tetanus toxoids and acellular pertussis vaccine Maikol Taylor MD Work Phone: [facility] Work Phone: 1999 haemophilus influenz ae type b vaccine, HbOC conjugate Maikol Taylor MD Work Phone: [facility] 1999 hepatitis B vaccine, pediatric or pediatric/adolescent dosage Maikol Taylor MD Work Phone: [facility] 1999 poliovirus vaccine, inactivated Maikol Taylor MD Work Phone: [facility] 1999 hepatitis B vaccine, pediatric or pediatric/adolescent dosage Maikol Taylor MD Work Phone: [facility] Payers Date Payer Category Payer [facility] [id number] 2024 Self-pay [id number] 2024 Unknown [id number] 2000 Unknown [facility] [id number] 1999 Unknown [id number] 1999 Unknown [id number] Unknown ALTHEA [id number] Unknown [facility] [id number] Unknown [id number] 2.16.840.1.425983.3.579.2.462 Unknown [id number] 2.16.840.1.687695.3.579.2.462 Unknown [id number] 2.16.840.1.344618.3.579.2.462 Unknown [id number] 2.16.840.1.339220.3.579.2.462 Unknown [id number] 2.16.840.1.409127.3.579.2.462 Unknown [id number] 2.16.840.1.737258.3.579.2.462 Unknown [id number] 2.16.840.1.720615.3.579.2.462 Unknown [id number] 2.16.840.1.034597.3.579.2.462 Unknown [id number] 2.16.840.1.611864.3.579.2.462 Unknown [id number] 2.16.840.1.854084.3.579.2.462 Unknown [id number] 2.16.840.1.587013.3.579.2.462 Unknown [id number] 2.16.840.1.810665.3.579.2.462 Unknown [id number] 2.16.840.1.082112.3.579.2.462 Unknown [id number] 2.16.840.1.243976.3.579.2.462 Unknown [id number] 2.16.840.1.350737.3.579.2.462 Unknown [id number] 2.16.840.1.452698.3.579.2.462 Unknown [id number] 2.16.840.1.981179.3.579.2.462 Unknown [id number] 2.16.840.1.778276.3.579.2.462 Unknown [id number] 2.16.840.1.672247.3.579.2.462 Unknown [id number] 2.16.840.1.007935.3.579.2.462 Unknown [id number] 2.16.840.1.027064.3.579.2.462 Unknown [id number] 2.16.840.1.069736.3.579.2.462 Unknown [id number] 2.16.840.1.059761.3.579.2.462 Unknown [id number] 2.16.840.1.827270.3.579.2.462 Unknown [id number] 2.16.840.1.708208.3.579.2.462 Social History Date Type Detail Facility Start: 09-28-2017 End: 06-11-2023 Tobacco smoking status [facility] Unknown if ever smoked [facility] Start: 2000 Sex Assigned At Female W [facility] Start: 11-25-2024 End: 01-31-2025 Tobacco smoking status GAIS Never smoked tobacco [facility] Start: 11-25-2024 Tobacco use and exposure Smokeless tobacco non-user [facility] Start: 11-25-2024 Alcoholic beverage intake Not Asked [facility] Start: 09-13-2020 End: 11-25-2024 History of Social function [facility] Start: 09-13-2020 End: 11-25-2024 Tobacco use panel [facility] National Score (1-10 0), lower number is lower risk Not on file [facility] Start: 06-29-2024 [facility] Start: 2000 Sex assigned at Not on file [facility] Start: 01-03-2025 End: 02-08-2025 Sex Female (finding) [facility] Goals Date Patient Goal Desired Activity /State Functional Status Date Assessment Result Facility 04-26-2015 Are you deaf, or do you have serious difficulty hearing No 04/26/2015 3:43 PM EDT Jessika Leyva RN No [facility] 04-26-2015 Are you blind, or do you have serious difficulty seeing, even when wearing glasses No 04/26/2015 3:43 PM EDT Jessika Leyva RN No [facility] 04-26-2015 Do you have serious difficulty walking or climbing stairs No 04/26/2015 3:43 PM EDT Jessika Leyva RN No [facility] 04-26-2015 Do you have difficul ty dressing or bathing No 04/26/2015 3:43 PM EDT Jessika Leyva RN No [facility] 04-26-2015 Because of a physica l, mental, or emotional condition, do you have difficulty doing errands alone such as visiting a physician's office or shopping No 04/26/2015 3:43 PM EDT Jessika Leyva RN No [facility] Mental Status Date Assessment Result Facility 06-12-2023 Cognitive function Level Of Cons ciousness Awake;Alert;Appropriate [facility] Work Phone: 04-26-2015 Because of a physica l, mental, or emotional condition, do you have serious difficulty concentrating, remembering, or making decisions No 04/26/2015 3:43 PM EDT Jessika Leyva RN No [facility] Clinical Notes 06-11-2023 to 03-21-2025 Note Date & Type Note Facility 03-21-2025 Progress note [facility] 03-15-2025 Progress note [facility] 03-10-2025 Progress note [facility] 02-16-2025 History and physi patty note [facility] 02-16-2025 Radiology Diagnostic study note [facility] Imaging Services [address] [place], [place] [address] Biophysical Prof W/O Non Stres MR#: [id number] Acct: [id number] Name: BRENDEN HART SAMMI Rep #: [id number] : 2000 24 From: Hellen Brito MD PCP: Dr. Billy Cates MD Status: REG CL I Study:Biophysical Prof W/O Non Stres Date of Exam: 02/16/25 Exam# [id number] Ordering Dr: Dianna Rothman DO EXAM: US [...] profile with score of 8/8. Reading Location: [facility] CC: Dr. Dianna Alberts DO; Dr. 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 Billy Cates MD Status:REG CL I Y DOS: Location: [place] [id number] Progress Notes Date of Service: 02/08/25 Progress Note: Patient presents for triage evaluation secondary to nonreassuring NST in office at 34 weeks. FHT: 140 Moderate variability reactive no decelerations category I tracing Seadrift: rare Contractions Assessment and plan: BPP 05/13 repeat kirk is 20 cm, Reactive NST, reassuring maternal and status patient discharged to home to follow-up in office. See problem list details for additional plan information. Charges/Coding Multi Select Codes Urinary/Genital Urinary/Genital CPT Codes: 27035-22 non-stress test Interp Assessment & Plan (1) [...] Maguire; Dr. Billy Cates MD ~ Signed [facility] Work Phone: 1(854) 236-810905-06-2025 Progress note [facility] Medical Records Department [address] [place] [address] OB Triage Progress Note 02/08/25 1246 MR#: [id number] Acct: [id number] Name: BRENDEN HART Rep #:[id number] : 2000 From: Yady Maguire CNM PCP: Dr. Billy Cates MD Status:REG CL I Y DOS: Location: [place] [address] Progress Notes Date of Service: 02/08/25 Progress Note: Patient presents for triage evaluation secondary to nonreassuring NST in office at 34 weeks. FHT: 140 Moderate variability reactive no decelerations category I tracing Seadrift: rare Contractions Assessment and plan: BPP 05/13 repeat kirk is 20 cm, Reactive NST, reassuring maternal and status patient discharged to home to follow-up in office. See problem list details for additional plan information. Charges/Coding Multi Select Codes Urinary/Genital Urinary/Genital CPT Codes: 21739-24 non-stress test Interp Assessment & Plan (1) [...] Maguire; Dr. Billy Cates MD ~ Signed [facility]03-05-2025 Evaluation note* Diagnosis Onset Date Resolution Status [...] high-risk acute March 10, 2025 1 0:31am [facility] Work Phone: 1(910) 813-231603-05-2025 Evaluation note* Diagnosis Onset Date Resolution Status [...] of high-risk acute March 15, 2025 11:35am [facility] Work Phone: 1(579) 607-229403-05-2025 Evaluation note* Diagnosis Onset Date Resolution Status [...] of high-risk acute March 21, 2025 8:34am [facility] Work Phone: 1(208) 446-119303-05-2025 Evaluation note* Diagnosis Onset Date Resolution Status [...] of high-risk acute March 23, 2025 2:29pm [facility] Work Phone: 1(314) 727-722103-05-2025 History of Present illness Narrative* Tali Abdi [...] PATIENT PRESENTS WITH AN IMPLANTABLE OR ATTACHED INSURANCE CHECKER: No RADIOLOGY DEPARTMENT: General X-ray: Exam(s) Completed: Chest X-Ray PERIPHERAL IV DATA: Not applicable SIGNED BY: Cheri Crews December 08, 2024 11:37 AM documented in [facility]2025 NoteHNO ID: [id number] Author: TALI ABDI Tech Service: ? Author [...] PATIENT PRESENTS WITH AN IMPLANTABLE OR ATTACHED INSURANCE CHECKER: No RADIOLOGY DEPARTMENT: General X-ray: Exam(s) Completed: Chest X-Ray PERIPHERAL IV DATA: Not applicable SIGNED BY: Cheri Crews December 08, 2024 11:37 [facility]03-05-2025 NoteHNO ID: [id number] Author: MAIKOL TAYLOR MD Service: ? Author [...] pain, or late onset fever. Maikol Taylor [facility]03-05-2025 History of Present illness Narrative* [...] onsetfever. Maikol Taylor MD documented in this encounterC[facility]02-20-2025 [id number] (AGENT OF COVID-19) RNA: Not detected INFLUENZA A RNA: Not detected INFLUENZA B RNA: Not detected RESPIRATORY SYNCYTIAL VIRUS (RSV) RNA: Not detectedParkview HealthComment on above:Performed By: #### [id number] #### [facility] CLIA [id number] [address] [place], [place] [address] [place] [address] [place] [id number] NoteHNO ID: [id number] Author: MAIKOL TAYLOR MD Service: ? Author [...] convulsions (simple), unspecified 12/04 Seizure. Seen at [facility]. Varicella without mention of complication 09/2006 mild [...] A/B AND RSV PCR, ROUTINE Maikol Taylor [facility]02-20-2025 History of Present illness Narrative* [...] convulsions (simple), unspecified 12/04 Seizure. Seen at [facility]. Varicella without mention of complication 09/2006 mild [...] ROUTINE Maikol Taylor MD documented in this encounterC[facility]02-04-2025 Evaluation note* Diagnosis Onset Date Resolution Status [...] high-risk acute February 08, 2025 10 :45am [facility] Work Phone: 1(402) 993-750302-04-2025 Evaluation note* Diagnosis Onset Date Resolution Status [...] high-risk acute February 16, 2025 3 :27pm [facility] Work Phone: 1([phone]) 471-166302-04-2025 Evaluation note* Diagnosis Onset Date Resolution Status [...] 10:28am Polyhydramnios resolved February 24, 2025 10:28am [facility] Work Phone: 1(396) 167-517902-04-2025 Evaluation note* Diagnosis Onset Date Resolution Status [...] high-risk acute March 04, 2025 9 :48am [facility] Work Phone: 1(155) 163-929101-07-2025 Evaluation note* Diagnosis Onset Date Resolution Status [...] high-risk acute February 08, 2025 10 :45am [facility] Work Phone: 1([phone]) 527-357212-09-2024 Evaluation note* Diagnosis Onset Date Resolution Status [...] of high-risk acute December 28, 2024 9:46am [facility] Work Phone: 1([phone]) 948-592009-08-2023 Discharge summary Author Bolivar Kumar [facility] June 13, 2023 7:15am Note Date/Time June 13, 2023 7:14am [facility] Medical Records Department [address] [place] [address] Discharge Summary 06/13/23712 MR#: [id number] Acct: [id number] Name: BRENDEN DE PAZ Rep #:[id number] : 2000 23 From: Bolivar Kumar MD PCP: Dr. Billy Cates MD Status:ADM IN Location: [id number] Discharge Summary Date of Admission: 06/11/23 Date [...] Kumar MD; Dr. Billy Cates MD~ Signed [facility] Work Phone: 1(409) 871-999709-08-2023 Progress note Author Bolivar Kumar [facility] June 13, 2023 7:15am Note Date/Time June 13, 2023 7:16am [facility] Medical Records Department [address] [place] [address] Progress Note - OBGYN 06/13/23714 MR#: [id number] Acct: [id number] Name: BRENDEN DE PAZ Rep #:[id number] : 2000 23 From: Bolivar Kumar MD PCP: Dr. Billy Cates MD Status:ADM IN Location: [id number] Subjective Subjective No overnight complaints Objective Data [...] Cosigner Signature (if applicable): CC: ~ Signed [facility] Work Phone: 1(980) 289-825009-08-2023 Hospital Discharge instructions Additional Instructions Regular diet. Okay to shower. No tub baths for 2 weeks. No lifting over 25 pounds for 2 to 3 weeks. No intercourse for 6 to 8 weeks. Call if fevers, chills, chest pain, shortness of breath. Follow-up 2 weeks postoperatively Date of Discharge: 06/13/23[facility] Work Phone: 1([phone]) 371-341409-07-2023 Progress note Author Bolivar Kumar [facility] June 12, 2023 8:31am Note Date/Time June 12, 2023 8:31am [facility] Medical Records Department [address] [place] [address] Progress Note - OBGYN 06/12/23827 MR#: [id number] Acct: [id number] Name: ZANDRABRENDEN D SAMMI Rep #:[id number] : 2000 23 From: Bolivar Kumar MD PCP: Dr. Billy Cates MD Status:ADM IN Location: [id number] Subjective Subjective No overnight complaints Objective Data [...] Cosigner Signature (if applicable): CC: ~ Signed [facility] Work Phone: 1(755) 945-659209-06-2023 Progress note Author Bolivar Kumar [facility] June 11, 2023 8:20pm Note Date/Time June 11, 2023 8:02pm [facility] Medical Records Department [address] [place] [address] Progress Note - OBGYN 06/11/231956 MR#: [id number] Acct: [id number] Name: BRENDEN DE PAZ Rep #:[id number] : 2000 From: Bolivar Kumar MD PCP: Dr. Billy Cates MD Status:ADM IN Location: [id number] Subjective Subjective Patient comfortable with epidural Objective [...] (Auto) 79.0 H, Lymph % (Auto) 15.2 L,[place] % (Auto) 4.5, Eos % (Auto) 0.3, [...] g Ancef and 500 mg of azithromycin. FACULTY RESEARCH PHYSICIAN and anesthesia notified. Discussed case with planner intern, to be at delivery. 06/11/232019<Electronically signed by Bolivar Kumar MD> Cosigner Signature (if applicable): cc: ~* Signed [facility] Work Phone: 1(475) 511-535309-06-2023 Procedure [facility] 06-11-2023 Progress note Author Bolivar Kumar [facility] June 11, 2023 4:56pm Note Date/Time June 11, 2023 4:56pm [facility] Medical Records Department [address] [place] [address] Progress Note - OBGYN 06/11/23 1654 MR#: [id number] Acct: [id number] Name: BRENDEN DE PAZ Rep #:[id number] : 2000 23 From: Bolivar Kumar MD PCP: Dr. Billy Cates MD Status:ADM IN Location: [place] [id number] Subjective Subjective Patient uncomfortable with contractions Objective [...] (Auto) 79.0 H, Lymph % (Auto) 15.2 L,[place] % (Auto) 4.5, Eos % (Auto) 0.3, [...] plan, patient and partner state understanding 06/11/23 5102 <Electronically signed by Bolivar Kumar MD> Cosigner Signature (if applicable): CC: ~ Signed [facility] Work Phone: 1(131) 291-264709-06-2023 History and physical note Author Bolivar Kumar [facility] June 11, 2023 7:12am Note Date/Time June 11, 2023 6:48am [facility] Medical Records Department [address] [place] [address] H&P Exam - APPLIQUE SEWER 06/11/23 0646 MR#: [id number] Acct: [id number] Name: BRENDEN DE PAZ Rep #:[id number] : 2000 23 From: Bolivar Kumar MD PCP: Dr. Billy Cates MD Status:ADM IN Location: [address] History and Physical Date of Admission: [...] Kumar MD; Dr. Billy Cates MD~ Signed [facility] Work Phone: Evaluation noteNo assessment information available [facility] Work Phone: Evaluation note* Diagnosis Onset Date Resolution Status delivery delivered acute acute [facility] Work Phone: Evaluation note* Diagnosis Viral URI with cough- Primary Acute upper respiratory infections of unspecified site [facility] Diagnosis Subacute cough- Primary Cough Rib pain on left side Chest pain, unspecified with 25 completed weeks gestation Subacute cough Cough Rib pain on left side Chest pain, unspecified with 25 completed weeks gestation [facility] Diagnosis Subacute cough Cough Rib pain on left side Chest pain, unspecified with 25 completed weeks gestation [facility] this encounter [facility] and [facility] note Author Dianna Luther [facility] Note Date/Time February 16, 2025 8:47p m [facility] Medical Records Department [address] [place] [address] OB Triage Physician Note 02/16/252044 MR#: [id number] Acct: [id number] Name: BRENDEN HART Rep #:[id number] : 2000 24 From: Dianna Alberts DO PCP: Dr. 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 Date Name GA/Weeks Outcome Route Bth Weight Gen Labor Lgth Anesthesia Del Locatn Provider FOB 06/11/23 Dwight 38 live - full term 6#4oz Male sp inal [facility] Bolivar Kumar Jeremy Delivery Date: 06/11/23 [...] 154 -?-?-?-?-?-?-?-?-?-?-?-?- -Jessy. Maranda frank. Denies concerns. [facility] 10/2111/09/24 -?-?-?-?-?-?-?-?-?-?-?-?- 21w 0d 169 lb 8 [...] Multi Select Codes Visit Charges Office Visit/Consults: 69015 OV L3 Est 20min Urinary/Genital Urinary/Genital CPT Codes: 61069-22 non-stress test Interp 02/16/252046 <Electronically signed by Dianna Chong DO> Date _ Dianna Alberts DO Cosigner Signature (if applicable): Date CC: Dr. Dianna Alberts DO; Dr. Billy Cates MD ~ Signed [facility] Work Phone: Progress note Author Carol Zaman [facility] Note Date/Time March 10, 2025 11:06 am [facility] [address] [place] [address], [address] [place] [address] OFFICE VISIT Date of Service: 03/10/25 MR#: [id number] Acct: [id number] Name: BRENDEN HART ep #: [id number] : 2000 Provider: Dr. Dale Zaman MD Age/Sex: 24/F Location: [facility] Status: Signed Intake Vital Signs 10/12/24 13:43 03/04/25 09:50 03/10/25 10:37 03/10/25 10:37 Height 5 ft 1 in 5 ft 1 in 5 ft 1 in 5 ft 1 in Weight: 187 lb 2 oz BMI 35.3 BP 115/63 Intake Visit Reasons: 38 wk ob Auto Care Center Manager Required: No Is patient in pain?: No [...] 1 current occupational status: unemployed current occupation: [employer] pets and animals: Yes (outside animals) [...] physical activity do you participate in: none cristela/anglican: Anglican seatbelt use: always do you feel safe at home: Yes 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 Date Name GA/Weeks Outcome Route Bth Weight Infant Gen Labor Lgth Anesthesia Del Locatn Provider FOB 06/11/23 Dwight 38 live - full term 6#4oz Male sp inal [facility] Bolivar Luna Delivery Date: 06/11/23 Last [...] Cosigner Signature: Date (if applicable) CC: ~ [facility] Work Phone: progrrns note Author Yady Maguire [facility] Note Date/Time March 15, 2025 12:0 0pm [facility] [address] [place] [address], [address] [place] [address] OFFICE VISIT Date of Service: 03/15/25 MR#: [id number] Acct: [id number] Name: BRENDEN HART ep #: [id number] : 2000 Provider: PADMA Maguire Age/Sex: 24/F Location: [facility] Status: Signed Intake Vital Signs 10/12/24 13:43 03/10/25 10:37 03/15/25 11:38 Height 5 ft 1 in 5 ft 1 in 5 ft 1 in Weight: 186 lb 6 oz BMI 35.2 BP 118/76 Intake Visit Reasons: 39 wk ob Auto Care Center Manager Required: No Is patient in pain?: No [...] 1 current occupational status: unemployed current occupation: [employer] pets and animals: Yes (outside animals) [...] physical activity do you participate in: none cristela/anglican: Anglican seatbelt use: always do you feel safe at home: Yes 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 Date Name GA/Weeks Outcome Route Bth Weight Infant Gen Labor Lgth Anesthesia Del Locatn Provider FOB 06/11/23 Dwight 38 live - full term 6#4oz Male sp inal [facility] Bolivar Luna Delivery Date: 06/11/23 Last [...] 154 -?-?-?-?-?-?-?-?-?-?-?-?- -NoVb. Maranda frank. Denies concerns. [facility] 10/2111/09/24 -?-?-?-?-?-?-?-?-?-?-?-?- 21w 0d 169 lb 8 [...] Cosigner Signature: Date (if applicable) CC: ~ [facility] Work Phone: Progress note Author Yady Maguire [facility] Note Date/Time March 21, 2025 9:09 am [facility] [address] [place] [address], [address] [place] [address] OFFICE VISIT Date of Service: 03/21/25 MR#: [id number] Acct: [id number] Name: BRENDEN HART ep #: [id number] : 2000 Provider: PADMA Maguire Age/Sex: 25/F Location: [facility] Status: Signed Intake Vital Signs 10/12/24 13:43 02/16/25 18:31 03/15/25 11:38 03/21/25 08:36 Height 5 ft 1 in 5 ft 1 in 5 ft 1 in 5 ft 1 in Weight: 189 lb 8 oz BMI 35.8 BP 111/74 Intake Visit Reasons: 40 wk ob *HAPPY DUE DATE Chief Complaint: 40wk OB Auto Care Center Manager Required: No Is patient in pain?: No [...] 1 current occupational status: unemployed current occupation: [employer] pets and animals: Yes (outside animals) [...] physical activity do you participate in: none cristela/anglican: Anglican seatbelt use: always do you feel safe at home: Yes 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 Date Name GA/Weeks Outcome Route Bth Weight Gen Labor Lgth Anesthesia Del Brianatn Provider FOB 06/11/23 Dwight [place] live - full term 6#4oz Male sp inal [facility] Bolivar Luna Delivery Date: 06/11/23 Last [...] 154 -?-?-?-?-?-?-?-?-?-?-?-?- -NoV. Maranda frank. Denies concerns. [facility] 10/2111/09/24 -?-?-?-?-?-?-?-?-?-?-?-?- 21w 0d 169 lb 8 [...] Cosigner Signature: Date (if applicable) CC: ~ [facility] Work Phone: Reason for referral (narrative)No reason for referral [facility] Work Phone: Advance Directives Advance Directive Response Recorded Date/ Time Living Will No September 28, 2 017 4:30am Power of Education Reviewer No September 28, 2017 4:30am Advance Directive Response Recorded Date/ Time Living Will No September 28, 2 017 5:30am Power of Education Reviewer No September 28, 2017 5:30am Advance Directive Response Recorded Date/ Time Living Will No June 11, 2 023 6:02am Power of Education Reviewer No June 11, 2023 6:02am Advance Directive Response Recorded Date/ Time Living Will No June 11 023 6:02am Do you have a Healthcare Power of Education Reviewer? No June 11, 2023 6:02am Chief Complaint [...] End: October 12, 2024 Tessie Levine NP, WORLDWIDE CHIEF CREATIVE OFFICER-C Attending Provider Active Start: October 12, 2024 [...] End: December 28, 2024 Tessie Levine NP, WORLDWIDE CHIEF CREATIVE OFFICER-C Attending Provider Active Start: December 28, 2024 [...] 2025 End: February 16, 2025 Tessie Levine WORLDWIDE CHIEF CREATIVE OFFICER, WORLDWIDE CHIEF CREATIVE OFFICER-C Attending Provider Active Start: February 16, 2025 [...] or prosecute any alcohol or drug abuse patient.[facility] the event this information is protected by the Federal Confidentiality of Alcohol and Drug Abuse Patient Records regulations: The Federal rules restrict any use of the information to criminally investigate or prosecute any alcohol or drug abuse patient.[facility] Rehabilitation[facility] the event this information is protected by the Federal Confidentiality of Alcohol and Drug Abuse Patient Records regulations: The Federal rules restrict any use of the information to criminally investigate or prosecute any alcohol or drug abuse patient.[facility] Rehabilitation[facility] the event this information is protected by the Federal Confidentiality of Alcohol and Drug Abuse Patient Records regulations: The Federal rules restrict any use of the information to criminally investigate or prosecute any alcohol or drug abuse patient.[facility] Reason for Visit (unrecogniz ed section and content) Reason Comments Cough Chest congestion, fe earl intermittent x2 weeks Reason Comments Chest Congestion cough, sob x 1 month , 25 weeks INFORMATION SOURCE (unrecogn ized section and content) DATE CREATED AUTHOR 12/10/2024 [facility] DATE CREATED AUTHOR AUTHOR'S ORGANIZ ATION 01/22/2025 [facility] DATE CREATED AUTHOR AUTHOR'S ORGANIZ ATION 03/22/2025 [facility] FOR RECORDS PERTAINING TO PATIENTS WHO ARE [...] BE BASED ON THE PRIMARY CLINICAL RECORDS. [facility] [employer] [facility]. provides no warranty or guarantee of the accuracy or completeness of information in this document.
[2025-03-25 08:53] LABS: Absolute Lymphocyte Count 2.56 X10^3/uL (0.83-4.51); Absolute Neutrophil Count 11.8 X10^3/uL (2.0-7.7); Basophil# 0.03 X10^3/uL; Basophil% 0.2 % (0-1); Eosinophil# 0.01 X10^3/uL; Eosinophils% 0.1 % (0-5); Hematocrit 34.8 % (37-47); Hemoglobin 11.7 g/dL (12.0-15.0); Lymphocyte # 2.56 X10^3/ul (0.83-4.51); Lymphocyte % 16.9 % (19-41); Mean Corp Hgb Conc 33.6 g/dL (32-36); Mean Corpuscular Hgb 28.9 pg (27.0-32.0); Mean Corpuscular Volume 85.9 fL (81-99); Mean Platelet Vol. 9.4 fl (6.2-12.0); Monocyte# 0.69 X10^3/uL; Monocyte% 4.5 % (0-10); NRBC Flagged by Analyzer 0 % (0-5); Neutrophil # 11.81 X10^3/uL (2.7-7.7); Neutrophil % 77.7 % (47-70); Platelet Count 269 K/mm3 (150-450); RBC Distribution Width CV 13.7 % (11.6-14.6); RBC Distribution Width SD 42.9 fl (35.1-43.9); Red Blood Count 4.05 M/mm3 (4.2-5.4); White Blood Count 15.2 K/mm3 (4.4-11.0)
[2025-03-25 09:23] LABS: Syphilis Antibodies Nonreactive (Nonreactive)
[2025-03-25] MEDS: Lactated Ringers 1,000 ML 999 ML IV ×2 (09:44→12:25)
[2025-03-25] MEDS: 0.9% Saline Lock 10 ML Syringe IV ×2 (09:46→17:26)
[2025-03-25] MEDS: Lactated Ringers 1,000 ML 200 ML IV (13:00)
[2025-03-25] MEDS: Cefazolin 2 GM in 0.9% Normal Saline (100mL Bag) 100 ML IV (13:35)
[2025-03-25] MEDS: Azithromycin 500 MG in 0.9% Normal Saline (250mL Bag) 250 ML 255 MG IV (15:00)
[2025-03-25] MEDS: Oxytocin 15 Units/NS 250ml 15 UNITS/250 ML IV.SOLN 83 UNITS IV (15:00)
--- NOTE | 2025-03-25 15:34 | CASEMGMT ---
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 Sw assisted support person get prepared for OR. Sw supported support person and answered questions. No other needs or concerns at this time. KRISTAN was eventually resolved. Pepe Spicer, COVER ASSEMBLER, CARTON FORMING MACHINE OPERATOR
[2025-03-25] MEDS: fentaNYL-bupivacaine (epidural) 100 ML BAG EPIDURAL (15:50)
--- NOTE | 2025-03-25 17:04 | OP.PCM_ITS ---
Assessment & Plan (1) delivery delivered: COMMENT: CS NRFHR SM (2) Obesity affecting : QUALIFIERS: Obesity type affecting : unspecified obesity Trimester: second trimester Qualified Code(s): O99.212 - Obesity complicating , second trimester COMMENT: HgbA1c (3) Supervision of high-risk : QUALIFIERS: Trimester: third trimester Qualified Code(s): O09.93 - Supervision of high risk , unspecified, third trimester COMMENT: PRR , MERLE 03/22/25 boy, BING Quintanilla, Jeremy (4) : QUALIFIERS: Weeks of gestation: 40 weeks Qualified Code(s): Z3A.40 - 40 weeks gestation of COMMENT: gbs neg. declines NIPT & Carrier testing (5) Previous section: COMMENT: interested in . c/s scheduled 03/29. Maternal Data Information MERLE Calculator Estimated Delivery Date Method Current WG Current Estimate 03/22/25 Ultrasound #1 40w 4d Other Estimates 03/14/25 LMP (Certain) 41w 5d Final MERLE Source: LMP Operative Report (OB) Details Procedure Type: low transverse Date of Procedure: 03/25/25 Procedure Start Time: 13:38 Procedure Stop Time: 14:25 Pre-Operative Diagnosis: Distress Post-Operative Diagnosis: Same as Pre-operative diagnosis Classification: Stat Type of Anesthesia: Epidural Special Medications: none Antibiotic Given: Ancef 3 grams IV x1 Drain: Shelton to straight drain Estimated Blood Loss: 900 Fluids Replaced: crystalloid Findings Description of surgery: patient was in active labor trial of labor after , she started having recurrent decelerations, she made quick change and was completely dilated but the head was too high 0 to +1 station with pushing and it was unclear if a vacuum would be successful, and little reserve was suspected due to recurrent late decels, so the decision to proceed with RLTCS was made. The patient was placed in the dorsal supine position with leftward tilt. Patient was prepped and draped in the normal sterile fashion. Pfannenstiel skin incision was made with the scalpel and carried through to the underlying layer of fascia with the scalpel. Fascia was nicked in the midline and the incision extended laterally. The rectus bellies were dissected off superiorly and inferiorly with out complication both sharply and bluntly. The peritoneum was entered digitally. The incision was stretched and a low transverse uterine incision was made with the scalpel. The 's head was delivered atraumatically followed by the anterior and posterior shoulders without complication the rest of the infant delivered. The cord was clamped and cut and the infant was handed off to awaiting nurse. The placenta was delivered spontaneously immediately following and was noted to be intact and have a three- vessel cord. The uterus was exteriorized cleared of all clots and debris, and the incision was closed in a single layer closure using #1 Monocryl. The ovaries and fallopian tubes were noted to be within normal limits. The uterus was returned to the maternal abdomen and gutters were cleared of all clots and debris. The peritoneum was closed with 3-0 Monocryl in a running fashion. Gloves were changed prior to fascial closure. Fascia was closed with 0 PDS in a running fashion. Subcutaneous tissue was copiously irrigated and the skin was closed with 3-0 Monocryl in a subcuticular fashion. Mepilex dressing was applied without complication. Patient was taken to recovery in stable condition. It was discussed with the patient that based on the clinical information obtained during this encounter, combined with her history, at this time I would recommend vaginal or for future deliveries if further pregnancies are desired. Surgical findings: nl uterus tubes Presentation: Vertex Amniotic Membrane Rupture Type: Artificial Amniotic Fluid Description: Clear Placental Delivery Description: Spontaneous Specimen collected: Yes Description of specimen(s) removed: placenta and baby Cord Vessel Description: 3 Vessels Delayed Cord Clamping: Yes Rx Specialist machine straw hat presser: Yes Care Management Specialist: Mtiul Soliman Tasks completed by director of first impressions: Opening & closing, Retracting and Other (assisting in delivery of the ) Additional rehab care assistant?: No Complications Complications: No Admit VTE Documentation VTE Present on Admission: No VTE Mechan Device Prophylaxis: SCD's Procedures Urinary/Genital 52xxx-59xxx: [id number] Delivery [facility]
--- NOTE | 2025-03-25 17:04 | HP.PCM.OB_ITS ---
HPI - General General Date of Admission: 03/25/25 HPI Narrative BRENDEN FENG, is a 25 F who presents IAL regualr ctx 5 cm dilated bulging bag wanting trial of labor Maternal Data Information MERLE Calculator Estimated Delivery Date Method Current WG Current Estimate 03/22/25 Ultrasound #1 40w 5d Other Estimates 03/14/25 LMP (Certain) 41w 6d PFSH PFSH Medical History delivery delivered Seizures Autoimmune disease Home Medications ?Medication ?Instructions ?Recorded ?Last Taken ?Type multivitamin no.47-iron fum 27 1 cap PO DAILY 08/10/24 02/08/25 09:00 History mg-folate no.1 1 mg-dha 300 mg 1 cap capsule (PNV-DHA) Allergy/AdvReac Type Severity Reaction Status Date / Time No Known Allergies Allergy Verified 03/25/25 06:56 Family History Grandmother Diabetes Paternal- Type 2 Heart disease, Onset Age: 74 Paternal-2 stents Breast cancer, Onset Age: 70 Paternal- All 11 siblings have some type of cancer Grandfather Diabetes Cancer, Onset Age: 68 Lung Colon cancer, Onset Age: 68 Grandmother Myocardial infarction, Onset Age: 54 Maternal Uncle Myocardial infarction, Onset Age: 60 Maternal Surgical History History of surgery Social History adopted: No household members: spouse and children number of children: 1 current occupational status: unemployed current occupation: [employer] pets and animals: Yes (outside animals) pets and animals: cat(s) and other details: chickens history of recent travel: No sexually active: Yes Smoking Status: Never smoker alcohol intake: never substance use type: does not use well-balanced diet: daily or most days caffeine: Yes Type: coffee Number of servings: 1 eating out: rarely or never during the past year weight has: remained stable what type of physical activity do you participate in: none cristela/mandaeism: Druze seatbelt use: always do you feel safe at home: Yes 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 Date Name GA/Weeks Outcome Route Bth Weight Infant Gen Labor Lgth Anesthesia Del Locatn Provider FOB 06/11/23 Dwight 38 live - full term 6#4oz Male sp inal [facility] Bol[facility] Luna Delivery Date: 06/11/23 Last Updated by: Rachel Mcfarland decels, cord around neck Visit Details Expected Delivery Route/Plan TOLAC by 41 weeks patient counseled regarding risks/benefits of trial of labor versus repeat . ACOG/uptodate education given to patient. 59.7 % likelihood of success per calculator TOLAC consent form signed: [] Support person Jeremy Plans Covid status: [] Flu vaccine: [] Tdap vaccine: declines Rhogam: declines LARC form signed: yes movement and labor precautions reviewed. Problem list reviewed and updated with the most current plan of care details and appropriate orders placed. Relevant counseling for the gestational age provided. Continue routine care and follow up unless otherwise noted in visit notes/problem list details OB Flowsheet Initial Weight: Not Recorded Date -?-?-?-?-?-?-?-?-?-?-?-?- EGA Weight BP Urine Prot -?-?-?-?-?-?-?-?-?-?-?-?- Glucose FHR FuHt Pres Dilation -?-?-?-?-?-?-?-?-?-?-?-?- Effaced St Visit Note 08/16/24 -?-?-?-?-?-?-?-?-?-?-?-?- 8w 6d 161 lb 6 oz 128/76 -?-?-?-?-?-?-?-?-?-?-?-?- 187 -?-?-?-?-?-?-?-?-?-?-?-?- JV- CRL measures 8 weeks 6 days. JV- CRL measures 8 weeks 6 d ays and not consistent with LMP> pt wants to TOLAC.was not given a chance to labor last time due to decels at 38 weeks. undecided about NIPT. 09/13/24 -?-?-?-?-?-?-?-?-?-?-?-?- 12w 6d 164 lb 107/75 Negative -?-?-?-?-?-?-?-?-?-?-?-?- Negative 160 -?-?-?-?-?-?-?-?-?-?-?-?- KW- no vb/cramandyi ng. US ordered. 10/12/24 -?-?-?-?-?-?-?-?-?-?-?-?- 17w 0d 171 lb 108/73 Negative -?-?-?-?-?-?-?-?-?-?-?-?- Negative 154 -?-?-?-?-?-?-?-?-?-?-?-?- -NoVb. Maranda frank. Denies concerns. [facility] 10/2111/09/24 -?-?-?-?-?-?-?-?-?-?-?-?- 21w 0d 169 lb 8 oz 104/75 Nega tive -?-?-?-?-?-?-?-?-?-?-?-?- Negative 155 21 -?-?-?-?-?-?-?-?-?-?-?-?- JV- no complaint s today. has a sinus infection. Still plans tolac and does not want to schedule a cs at 40 or 41 weeks yet. 12/08/24 -?-?-?-?-?-?-?-?-?-?-?-?- 25w 1d 171 lb 4 oz 130/81 Nega tive -?-?-?-?-?-?-?-?-?-?-?-?- Negative 150 25 -?-?-?-?-?-?-?-?-?-?-?-?- SM- still having URI symptoms, send to urgent care now for treatment 12/28/24 -?-?-?-?-?-?-?-?-?-?-?-?- 28w 0d 178 lb 122/79 Negative -?-?-?-?-?-?-?-?-?-?-?-?- Negative 158 28 -?-?-?-?-?-?-?-?-?-?-?-?- MH-No VB, LOF. G ood Fm. 28 wk labs pending. Declines tdap. Larc done. 01/11/25 -?-?-?-?-?-?-?-?-?-?-?-?- 30w 0d 179 lb 6 oz 125/78 Nega tive -?-?-?-?-?-?-?-?-?-?-?-?- Negative 145 30 -?-?-?-?-?-?-?-?-?-?-?-?- SM- no vb lof go odfm no regular ctx SM- no vb lof goodfm no regu lar ctx still needs fu anatomy views 01/26/25 -?-?-?-?-?-?-?-?-?-?-?-?- 32w 1d 177 lb 2 oz 122/72 Nega tive -?-?-?-?-?-?-?-?-?-?-?-?- Negative 147 32.5 -?-?-?-?-?-?-?-?-?-?-?-?- JV_ polyhydramni os on last scan. patient states she feels large but no other complaints. Her son broke his femur and it is just a little hard to carry him around (19 months) 02/01/25 -?-?-?-?-?-?-?-?-?-?-?-?- 33w 0d 178 lb 113/74 Negative -?-?-?-?-?-?-?-?-?-?-?-?- Negative 130 -?-?-?-?-?-?-?-?-?-?-?-?- KW- no vb/lof/ct x. good fm. NST reactive 02/08/25 -?-?-?-?-?-?-?-?-?-?-?-?- 34w 0d 181 lb 2 oz 107/72 Nega tive -?-?-?-?-?-?-?-?-?-?-?-?- Negative 140 -?-?-?-?-?-?-?-?-?-?-?-?- KW- NST not reac tive to for BPP. needs to schedule growth. 02/16/25 -?-?-?-?-?-?-?-?-?-?-?-?- 35w 1d 180 lb 6 oz 119/77 Nega tive -?-?-?-?-?-?-?-?-?-?-?-?- Negative 145 -?-?-?-?-?-?-?-?-?-?-?-?- JV- NST shows ir regular rare contractions but there was a late decel from 140's down to 120's x 30 seconds. sending to L&D for continuous monitoring and a bpp. had kirk of 30 until last week when it came back at 20 02/24/25 -?-?-?-?-?-?-?-?-?-?-?-?- 36w 2d 185 lb 2 oz 113/76 Nega tive -?-?-?-?-?-?-?-?-?-?-?-?- Negative 140 0 -?-?-?-?-?-?-?-?-?-?-?-?- SM- no vb lof go od fm no regualr ctx reactive nst discussed doesn't need NSTs anymore 03/04/25 -?-?-?-?-?-?-?-?-?-?-?-?- 37w 3d 184 lb 2 oz 113/72 Nega tive -?-?-?-?-?-?-?-?-?-?-?-?- Negative 145 37 Cephalic 0 -?-?-?-?-?-?-?-?-?-?-?-?- LC- no vb/ctx/lo f. good fm. no concerns today. reviewed preferences. LC- no vb/ctx/lof. good fm. no concerns today. reviewed preferences. in ternal os closed. 03/10/25 -?-?-?-?-?-?-?-?-?-?-?-?- 38w 2d 187 lb 2 oz 115/63 Nega tive -?-?-?-?-?-?-?-?-?-?-?-?- Negative 140 37 Cephalic -?-?-?-?-?-?-?-?-?-?-?-?- SM- no vb lof go od fm no reuglar ctx discussed RLTCS at 41 weeks or consider IOL if favorable cervix 03/15/25 -?-?-?-?-?-?-?-?-?-?-?-?- 39w 0d 186 lb 6 oz 118/76 Nega tive -?-?-?-?-?-?-?-?-?-?-?-?- Negative 125 39 Cephalic -?-?-?-?-?-?-?-?-?-?-?-?- KW- no vb/lof/ct x. good fm. no concerns 03/21/25 -?-?-?-?-?-?-?-?-?-?-?-?- 39w 6d 189 lb 8 oz 111/74 Nega tive -?-?-?-?-?-?-?-?-?-?-?-?- Negative 140 39 Cephalic 1 -?-?-?-?-?-?--?-?-?-?-?-?- 60 -3 KW- no vb/ lof/ctx. good fm. unable to do membrane sweep this week. will return later this week for sweep and C/S instructions. 03/23/25 -?-?-?-?-?-?-?-?-?-?--?-?- 40w 1d 190 lb 111/69 Negative -?-?-?-?-?-?-?-?-?-?-?-?- Negative 140 40 Cephalic 2 .5 -?-?-?-?-?-?-?-?-?-?-?-?- 70 -3 SM- no vb lof good fm no regualr ctx membrane sweep done and discussed IOL for friday NST FHR Rate Baby A Baseline: 140 Variability:: Moderate Accelerations:: 15 x 15 Decelerations:: None NST Reactive:: Yes FHR Category:: Category I Uterine Activity:: q3-5 ROS Constitutional Constitutional: Reports systems reviewed and no addt'l complaints, except as documented ENT HEENT: Reports systems reviewed and no addt'l complaints, except as documented Cardiovascular Cardiovascular: Reports systems reviewed and no addt'l complaints, except as documented Respiratory/Chest Respiratory/Chest: Reports systems reviewed and no addt'l complaints, except as documented Gastrointestinal Gastrointestinal: Reports systems reviewed and no addt'l complaints, except as documented and nausea; Denies abdominal pain Genitourinary Genitourinary: Reports systems reviewed and no addt'l complaints, except as documented, contractions Details: present and frequency (regular ) and movement Details: present Musculoskeletal Musculoskeletal: Reports systems reviewed and no addt'l complaints, except as documented Integumentary Integumentary: Reports as per HPI Neurologic Neurologic: Reports systems reviewed and no addt'l complaints, except as documented Endocrine Endocrinology: Reports systems reviewed and no addt'l complaints, except as documented Vital Signs Vital Signs Vital Signs: 03/25/25 06:44 03/25/25 06:44 03/25/25 06:45 Temperature Temperature Source Pulse Rate 95 101 H Respiratory Rate Respiratory Pattern Blood Pressure Blood Pressure Mean BP Systolic BP Diastolic Blood Pressure Source Blood Pressure Position Blood Pressure Location Pulse Ox 91 Oxygen Delivery Method 03/25/25 06:45 03/25/25 06:50 03/25/25 06:50 Temperature Temperature Source Pulse Rate 87 Respiratory Rate Respiratory Pattern Blood Pressure Blood Pressure Mean BP Systolic BP Diastolic Blood Pressure Source Blood Pressure Position Blood Pressure Location Pulse Ox 94 95 Oxygen Delivery Method 03/25/25 06:51 03/25/25 06:51 03/25/25 06:53 Temperature Temperature Source Pulse Rate 103 H Respiratory Rate Respiratory Pattern Blood Pressure 120/73 Blood Pressure Mean BP Systolic 120 BP Diastolic 73 Blood Pressure Source Blood Pressure Position Blood Pressure Location Pulse Ox 94 Oxygen Delivery Method 03/25/25 06:53 03/25/25 07:22 03/25/25 07:22 Temperature Temperature Source Pulse Rate 96 89 Respiratory Rate Respiratory Pattern Blood Pressure 119/76 Blood Pressure Mean BP Systolic 119 BP Diastolic 76 Blood Pressure Source Blood Pressure Position Blood Pressure Location Pulse Ox Oxygen Delivery Method 03/25/25 07:22 03/25/25 07:22 03/25/25 07:22 Temperature Temperature Source Pulse Rate 96 Respiratory Rate Respiratory Pattern Blood Pressure Blood Pressure Mean BP Systolic BP Diastolic Blood Pressure Source Blood Pressure Position Blood Pressure Location Pulse Ox 90 89 Oxygen Delivery Method 03/25/25 07:22 03/25/25 07:22 03/25/25 07:22 Temperature 97.7 F L Temperature Source Temporal Pulse Rate Respiratory Rate 16 Respiratory Pattern Blood Pressure Blood Pressure Mean BP Systolic BP Diastolic Blood Pressure Source Blood Pressure Position Blood Pressure Location Pulse Ox Oxygen Delivery Method 03/25/25 11:32 03/25/25 11:32 03/25/25 11:32 Temperature Temperature Source Pulse Rate 100 Respiratory Rate Respiratory Pattern Blood Pressure 137/74 H Blood Pressure Mean BP Systolic 137 BP Diastolic 74 Blood Pressure Source Blood Pressure Position Blood Pressure Location Pulse Ox 94 Oxygen Delivery Method 03/25/25 11:34 03/25/25 11:37 03/25/25 11:37 Temperature Temperature Source Pulse Rate 94 Respiratory Rate 16 Respiratory Pattern Blood Pressure 150/82 H Blood Pressure Mean BP Systolic 150 BP Diastolic 82 Blood Pressure Source Blood Pressure Position Blood Pressure Location Pulse Ox Oxygen Delivery Method 03/25/25 11:37 03/25/25 11:37 03/25/25 11:39 Temperature Temperature Source Pulse Rate 84 93 Respiratory Rate Respiratory Pattern Blood Pressure Blood Pressure Mean BP Systolic BP Diastolic Blood Pressure Source Blood Pressure Position Blood Pressure Location Pulse Ox 93 Oxygen Delivery Method 03/25/25 11:39 03/25/25 11:40 03/25/25 11:40 Temperature Temperature Source Pulse Rate 89 Respiratory Rate Respiratory Pattern Blood Pressure 142/77 H Blood Pressure Mean BP Systolic 142 BP Diastolic 77 Blood Pressure Source Blood Pressure Position Blood Pressure Location Pulse Ox 94 Oxygen Delivery Method 03/25/25 11:40 03/25/25 11:42 03/25/25 11:42 Temperature Temperature Source Pulse Rate 95 Respiratory Rate 16 Respiratory Pattern Blood Pressure Blood Pressure Mean BP Systolic BP Diastolic Blood Pressure Source Blood Pressure Position Blood Pressure Location Pulse Ox 94 Oxygen Delivery Method 03/25/25 11:44 03/25/25 11:45 03/25/25 11:45 Temperature Temperature Source Pulse Rate 96 Respiratory Rate 16 Respiratory Pattern Blood Pressure 134/75 H Blood Pressure Mean BP Systolic 134 BP Diastolic 75 Blood Pressure Source Blood Pressure Position Blood Pressure Location Pulse Ox Oxygen Delivery Method 03/25/25 11:46 03/25/25 11:46 03/25/25 11:47 Temperature Temperature Source Pulse Rate 96 99 Respiratory Rate Respiratory Pattern Blood Pressure Blood Pressure Mean BP Systolic BP Diastolic Blood Pressure Source Blood Pressure Position Blood Pressure Location Pulse Ox 94 Oxygen Delivery Method 03/25/25 11:47 03/25/25 11:50 03/25/25 11:51 Temperature Temperature Source Pulse Rate Respiratory Rate 16 Respiratory Pattern Blood Pressure 139/60 H Blood Pressure Mean BP Systolic 139 BP Diastolic 60 Blood Pressure Source Blood Pressure Position Blood Pressure Location Pulse Ox 93 Oxygen Delivery Method 03/25/25 11:51 03/25/25 11:52 03/25/25 11:52 Temperature Temperature Source Pulse Rate 94 91 Respiratory Rate Respiratory Pattern Blood Pressure Blood Pressure Mean BP Systolic BP Diastolic Blood Pressure Source Blood Pressure Position Blood Pressure Location Pulse Ox 95 Oxygen Delivery Method 03/25/25 11:54 03/25/25 11:54 03/25/25 11:55 Temperature Temperature Source Pulse Rate Respiratory Rate 16 16 Respiratory Pattern Blood Pressure 127/60 H Blood Pressure Mean BP Systolic 127 BP Diastolic 60 Blood Pressure Source Blood Pressure Position Blood Pressure Location Pulse Ox Oxygen Delivery Method 03/25/25 11:55 03/25/25 11:57 03/25/25 11:57 Temperature Temperature Source Pulse Rate 109 H 111 H Respiratory Rate Respiratory Pattern Blood Pressure Blood Pressure Mean BP Systolic BP Diastolic Blood Pressure Source Blood Pressure Position Blood Pressure Location Pulse Ox 95 Oxygen Delivery Method 03/25/25 12:02 03/25/25 12:02 03/25/25 12:02 Temperature Temperature Source Pulse Rate 94 99 Respiratory Rate Respiratory Pattern Blood Pressure 100/56 L Blood Pressure Mean BP Systolic 100 BP Diastolic 56 Blood Pressure Source Blood Pressure Position Blood Pressure Location Pulse Ox Oxygen Delivery Method 03/25/25 12:02 03/25/25 12:04 03/25/25 12:04 Temperature Temperature Source Pulse Rate 89 Respiratory Rate Respiratory Pattern Blood Pressure Blood Pressure Mean BP Systolic BP Diastolic Blood Pressure Source Blood Pressure Position Blood Pressure Location Pulse Ox 95 94 Oxygen Delivery Method 03/25/25 12:07 03/25/25 12:07 03/25/25 12:08 Temperature Temperature Source Temporal Pulse Rate 111 H Respiratory Rate Respiratory Pattern Blood Pressure Blood Pressure Mean BP Systolic BP Diastolic Blood Pressure Source Blood Pressure Position Blood Pressure Location Pulse Ox 95 Oxygen Delivery Method 03/25/25 12:08 03/25/25 12:08 03/25/25 12:09 Temperature 97.7 F L Temperature Source Pulse Rate 100 Respiratory Rate 16 Respiratory Pattern Blood Pressure Blood Pressure Mean BP Systolic BP Diastolic Blood Pressure Source Blood Pressure Position Blood Pressure Location Pulse Ox Oxygen Delivery Method 03/25/25 12:09 03/25/25 12:11 03/25/25 12:11 Temperature Temperature Source Pulse Rate 80 Respiratory Rate Respiratory Pattern Blood Pressure 100/59 L Blood Pressure Mean BP Systolic 100 BP Diastolic 59 Blood Pressure Source Blood Pressure Position Blood Pressure Location Pulse Ox 94 Oxygen Delivery Method 03/25/25 12:12 03/25/25 12:12 03/25/25 12:16 Temperature Temperature Source Pulse Rate 99 Respiratory Rate Respiratory Pattern Blood Pressure 98/52 L Blood Pressure Mean BP Systolic 98 BP Diastolic 52 Blood Pressure Source Blood Pressure Position Blood Pressure Location Pulse Ox 92 Oxygen Delivery Method 03/25/25 12:16 03/25/25 12:17 03/25/25 12:17 Temperature Temperature Source Pulse Rate 83 79 Respiratory Rate Respiratory Pattern Blood Pressure Blood Pressure Mean BP Systolic BP Diastolic Blood Pressure Source Blood Pressure Position Blood Pressure Location Pulse Ox 95 Oxygen Delivery Method 03/25/25 14:39 03/25/25 14:39 03/25/25 14:40 Temperature 97.1 F L Temperature Source Temporal Temporal Temporal Pulse Rate 99 Respiratory Rate 16 Respiratory Pattern Blood Pressure 105/85 H Blood Pressure Mean 91 BP Systolic BP Diastolic Blood Pressure Source Monitor Blood Pressure Position Semi-Fowlers Blood Pressure Location Right Arm Pulse Ox 95 Oxygen Delivery Method Room Air 03/25/25 14:40 03/25/25 15:02 03/25/25 15:18 Temperature 97.1 F L Temperature Source Temporal Pulse Rate 99 91 90 Respiratory Rate 16 16 15 Respiratory Pattern Normal Blood Pressure 105/85 H 79/52 L 89/64 L Blood Pressure Mean 91 61 72 BP Systolic BP Diastolic Blood Pressure Source Monitor Monitor Monitor Blood Pressure Position Semi-Fowlers Semi-Fowlers Semi-Fowlers Blood Pressure Location Right Arm Right Arm Right Arm Pulse Ox 95 97 100 Oxygen Delivery Method Room Air Room Air Room Air 03/25/25 15:34 03/25/25 15:34 03/25/25 15:48 Temperature 98.0 F Temperature Source Temporal Temporal Pulse Rate 92 86 Respiratory Rate 20 H 15 Respiratory Pattern Blood Pressure 95/60 89/52 L Blood Pressure Mean 71 64 BP Systolic BP Diastolic Blood Pressure Source Monitor Monitor Blood Pressure Position Semi-Fowlers Semi-Fowlers Blood Pressure Location Right Arm Right Arm Pulse Ox 99 98 Oxygen Delivery Method Room Air Room Air 03/25/25 16:07 03/25/25 16:18 03/25/25 16:45 Temperature Temperature Source Temporal Pulse Rate 97 94 Respiratory Rate 16 20 H Respiratory Pattern Blood Pressure 99/57 L 103/60 Blood Pressure Mean 71 74 BP Systolic BP Diastolic Blood Pressure Source Monitor Monitor Blood Pressure Position Semi-Fowlers Semi-Fowlers Blood Pressure Location Right Arm Right Arm Pulse Ox 99 100 Oxygen Delivery Method Room Air 03/25/25 16:45 Temperature 97.5 F L Temperature Source Temporal Pulse Rate 100 Respiratory Rate 15 Respiratory Pattern Blood Pressure 105/54 L Blood Pressure Mean 71 BP Systolic BP Diastolic Blood Pressure Source Monitor Blood Pressure Position Semi-Fowlers Blood Pressure Location Right Arm Pulse Ox 99 Oxygen Delivery Method Room Air Weight Weight: 188 lb 9.6 oz Body Mass Index (BMI) 35.6 Physical Exam Const alert, oriented x3 and healthy appearing Constitutional Narrative: uncomfortable with contractions HEENT normocephalic and moist oral mucous membranes Head and Scalp: atraumatic Neck full ROM, no lymphadenopathy, supple and thyroid normal General: trachea midline Thyroid: thyroid normal Lymph Lymphatic: no lymphadenopathy noted Chest inspection of chest normal Resp normal respiratory effort Cardio regular rate GI soft to palpation and non-tender GI Narrative: gravid Inspection: gravid external exam normal Bimanual Exam - Vag & Uterus: uterus non-tender Manual OB Exam: estimated gestational size appropriate, presentation cephalic, dilated, effaced and station Extremity normal to inspection General Extremity: Negative for edema Skin no rashes or lesions noted Neuro deep tendon reflexes 2+ bilaterally Motor Exam: strength 5/5 throughout and clonus absent Psych mental status grossly normal Labs Labs Labs: Blood Type A POSITIVE Antibody Screen NEGATIVE Hct 25.3 % (37-47) L Hgb 8.0 g/dL (12.0-15.0) L Obstetrics Ultrasound Syphilis Total Ab Nonreactive (Nonreactive) VZV IgG Antibody 396 index (Immune >165) Rubella IgG Antibody Reactive (Nonreactive) Hep Bs Antigen Non-Reactive (Nonreactive) Hepatitis C Antibody Non-Reactive (Nonreactive) Hepatitis C Ab (EIA) <0.1 s/co ratio (0.0-0.9) Chlamydia DNA (DEXTER) Negative (Negative) N.gonorrhoeae DNA (DEXTER) Negative (Negative) HIV 1&2 Antibody Nonreactive (Nonreactive) Glucose 1 Hr 50 gm 86 mg/dL (70-140) Assessment & Plan (1) Obesity affecting : QUALIFIERS: Trimester: second trimester Obesity type affecting : unspecified obesity Qualified Code(s): O99.212 - Obesity complicating , second trimester COMMENT: HgbA1c (2) Supervision of high-risk : QUALIFIERS: Trimester: third trimester Qualified Code(s): O09.93 - Supervision of high risk , unspecified, third trimester COMMENT: PRR , MERLE 03/22/25 boy, PC Dwight, Jeremy (3) : QUALIFIERS: Weeks of gestation: 40 weeks Qualified Code(s): Z3A.40 - 40 weeks gestation of COMMENT: gbs neg. declines NIPT & Carrier testing (4) Previous section: COMMENT: interested in . c/s scheduled 03/29. (5) Active labor: PLAN: Plan admit in active labor trial after
[2025-03-25] MEDS: Acetaminophen 500 MG Tablet 1000 MG PO ×2 (17:24→23:34)
[2025-03-25] MEDS: Ketorolac 30 MG/ML Syringe IV ×2 (17:25→23:34)
[2025-03-25] MEDS: Lactated Ringers 1,000 ML 100 ML IV (17:53)
[2025-03-26] VITALS (10 sets, daily range): BP systolic 94–112; BP diastolic 52–67; PULSE 84–94; RESP 16; TEMP 36.4; O2SAT 98–99
[2025-03-26] MEDS: Ketorolac 30 MG/ML Syringe IV ×2 (05:39→11:45)
[2025-03-26] MEDS: Acetaminophen 500 MG Tablet 1000 MG PO ×4 (05:39→23:55)
[2025-03-26 06:48] LABS: Hematocrit 25.3 % (37-47); Mean Corp Hgb Conc 31.6 g/dL (32-36); Mean Corpuscular Hgb 28.6 pg (27.0-32.0); Mean Corpuscular Volume 90.4 fL (81-99); Mean Platelet Vol. 9.3 fl (6.2-12.0); Platelet Count 164 K/mm3 (150-450); RBC Distribution Width CV 14.1 % (11.6-14.6); RBC Distribution Width SD 46.2 fl (35.1-43.9); White Blood Count 11.7 K/mm3 (4.4-11.0)
[2025-03-26 07:00] LABS: Scan Indicated on CBC? Y/N NO
--- NOTE | 2025-03-26 09:01 | PCM.PN.CNM ---
Subjective Subjective Patient doing well without complaints. Tolerating PO. Ambulating and voiding without difficulty. Feeding well. Denies chest pain, shortness of breath, calf pain/swelling, fevers, chills, lightheadedness. Objective Data Objective Data Vital Signs: Vital Signs Temp Pulse Resp BP Pulse Ox O2 Del Method 97.5 F L 91 16 94/60 98 Room Air 03/26/25 08:18 03/26/25 08:18 03/26/25 08:18 03/26/25 08:18 03/26/25 08:18 03/26/25 08:18 Oxygen Delivery Method Room Air Weight: 188 lb 9.6 oz Body Mass Index (BMI) 35.6 Intake & Output: Intake and Output for Last 24 Hours 03/24/25 03/25/25 03/26/25 23:59 23:59 23:59 Intake Total 3533.72 / 3533.72 518.33 / 518.33 Output Total 1900 / 1900 600 / 600 Balance 1633.72 / 1633.72 -81.67 / -81.67 Lab / Micro Data 03/26/25 06:40 Labs: Laboratory Results - last 24 hr 03/25/25 08:40: Syphilis Total Ab Nonreactive, Blood Type A POSITIVE, Antibody Screen NEGATIVE 03/26/25 06:40: WBC 11.7 H, RBC 2.80 L, Hgb 8.0 L, Hct 25.3 L, MCV 90.4 D, MCH 28.6, MCHC 31.6 L D, RDW Std Deviation 46.2 H, RDW Coeff of Fany 14.1, Plt Count 164, MPV 9.3 Physical Exam Const alert and oriented x3 Chest inspection of chest normal Resp normal respiratory effort and normal air movement Effort and Inspection: able to speak in complete sentences Cardio regular rate and regular rhythm GI normal to inspection, nondistended, normoactive bowel sounds Narrative: fundus firm, below u, normal lochia Extremity normal to inspection, full ROM and no calf tenderness Skin Skin Narrative: dressing c/d/i Psych mental status grossly normal Assessment & Plan (1) delivery delivered: COMMENT: CS NRFHR SM PLAN: Plan s/p LTCS PPD # 1 1. routine post care 2. breast feeding- support given 3. rh positive 4. rubella immune 5. add oral iron for asymptomatic anemia
[2025-03-26] MEDS: Senna/Docusate Sodium 1 Tablet PO (10:51)
[2025-03-26] MEDS: Enoxaparin 40 MG/0.4 ML Syringe SC (10:51)
[2025-03-26] MEDS: Ferrous Gluconate 324 MG Tablet PO ×2 (11:45→18:03)
[2025-03-26] MEDS: Naproxen 500 MG Tablet PO (18:03)
[2025-03-27] MEDS: Naproxen 500 MG Tablet PO ×2 (01:49→09:49)
[2025-03-27 01:50] VITALS: BP 106/60; PULSE 92; RESP 16; TEMP 36.6; O2SAT 99
[2025-03-27] MEDS: Acetaminophen 500 MG Tablet 1000 MG PO (06:20)
[2025-03-27 08:25] VITALS: BP 97/62; PULSE 99; RESP 18; TEMP 36.3; O2SAT 98
[2025-03-27] MEDS: Ferrous Gluconate 324 MG Tablet PO (08:33)
--- NOTE | 2025-03-27 09:52 | PN.OBGYN_ITS ---
Subjective Subjective Patient doing well without complaints. Tolerating PO. Ambulating and voiding without difficulty. Feeding well. Denies chest pain, shortness of breath, calf pain/swelling, fevers, chills, lightheadedness. Objective Data Objective Data Vital Signs: Vital Signs Temp Pulse Resp BP Pulse Ox O2 Del Method 97.3 F L 99 18 97/62 98 Room Air 03/27/25 08:25 03/27/25 08:25 03/27/25 08:25 03/27/25 08:25 03/27/25 08:25 03/27/25 08:25 Oxygen Delivery Method Room Air Weight: 188 lb 9.6 oz Body Mass Index (BMI) 35.6 Intake & Output: Intake and Output for Last 24 Hours 03/25/25 03/26/25 03/27/25 23:59 23:59 23:59 Intake Total 3533.72 / 3533.72 518.33 / 518.33 Output Total 1900 / 1900 600 / 600 Balance 1633.72 / 1633.72 -81.67 / -81.67 Lab / Micro Data 03/26/25 06:40 Physical Exam Const alert and oriented x3 Chest inspection of chest normal Resp normal respiratory effort and normal air movement Effort and Inspection: able to speak in complete sentences Cardio regular rate and regular rhythm GI normal to inspection, nondistended, normoactive bowel sounds Narrative: fundus firm, below u, normal lochia Extremity normal to inspection, full ROM and no calf tenderness Skin Skin Narrative: dressing c/d/i Psych mental status grossly normal Assessment & Plan (1) delivery delivered: COMMENT: CS [facility] (2) Obesity affecting : QUALIFIERS: Trimester: second trimester Obesity type affecting : unspecified obesity Qualified Code(s): O99.212 - Obesity complicating , second trimester COMMENT: HgbA1c PLAN: Plan s/p LTCS PPD #2 1. routine post care 2. breast feeding- support given 3. rh positive 4. rubella immune 5. d/c home today
--- NOTE | 2025-03-27 09:53 | DS.PCM_ITS ---
Providers Date of Admission: 03/25/25 Primary Care Physician: Lucía Primary Care Phys Reason For Visit: REPEAT C-SEC Diagnosis Discharge Diagnosis (1) delivery delivered: Status: Acute Code(s): O82 - Encounter for delivery without indication (2) Obesity affecting : Status: Acute Code(s): O99.210 - Obesity complicating , unspecified trimester Qualifiers: Trimester: second trimester Obesity type affecting : u nspecified obesity Qualified Code(s): O99.212 - Obesity complicating , second trimester Plan s/p LTCS PPD #2 1. routine post care 2. breast feeding- support given 3. rh positive 4. rubella immune 5. d/c home today Medications at Discharge Home Medications multivitamin no.47-iron fum 27 mg-folate no.1 1 mg-dha 300 mg capsule (PNV-DHA) 1 cap PO DAILY 08/10/24 Hospital Course Operations section Procedures None Summary of Care Provided Minutes Spent on Discharge: 15 Hospital Course: with s/p cs for NRFHR, stable pp course. iron added for asymptomatic anemia. Weight / BMI Weight Weight: 188 lb 9.6 oz Body Mass Index (BMI) 35.6 ABG / Lab / Microbiology Data 03/26/25 06:40 D/C Instructions Discharge Diet: No restrictions Discharge Activity: May Shower May resume sexual activity in: 6 weeks Lifting Restricted to (Lbs): 10 Call your doctor if your incision/area has: Continuous Slow Oozing, Sudden Increased Bleeding, Increased Pain/ Swelling, Increased Redness and Foul Smelling Discharge Call your doctor if you observe: Fever of 101 or Higher, Using more than 1 pad per hour, Fainting spells, Chest pain and Uncontrolled pain Suture Line Care: Avoid Pulling/Pushing and Avoid Pinching/Bending Remove Dressing in: 1 week DC O2, CPAP, BIPAP Needs Home O2 Discharge instructions: No Please Follow Up With: Carol Jones MD When: 6 weeks Meaningful Use Info Meaningful Use Meaningful Use Diagnoses (Choose all that apply): None applicable Ischemic Stroke Statin Dosing Therapy Reference: STATIN DOSE THERAPY REFERENCE: * Patients > 75 years receive moderate or high dose statin therapy. * Patients 75 years or YOUNGER should receive HIGH intensity statin dose unless contraindicated. You will be required to document reason for non-treatment if statin daily dose does not meet guidelines. HIGH DOSE STATIN THERAPY DAILY Atorvastatin > than or = to 40 mg Rosuvastatin > than or = to 20 mg Amlodipine + Atorvastatin > than or = to 2.5/40 mg Ezetimibe + Simvastatin 10/80 mg Simvastatin 80mg Discharge Plan Admission Admit Date/Time: 03/25/25 07:20 Attending Provider: Carol Jones Primary Care Provider: Care Physician,No Primary Discharge Orders/Prescriptions Prescriptions: No Action PNV-DHA 27 mg iron-1 mg -300 mg capsule 1 cap PO DAILY Referrals / Follow Up: Care Physician,No Primary [Primary Care Provider] - Disposition Disposition (needs filled in before D/C Order can be placed): Home, Self Care
== END 2025-03-27 11:00 | disposition home or self-care (01) | DRG 788 ==
LOC: WPOUT 07:25 → WP 07:25
PROVIDERS: Admitting Provider Obstetrics & Gynecology; Referring Provider Obstetrics & Gynecology; Visit Provider Obstetrics & Gynecology
DX: O76 Abnormality in fetal heart rate and rhythm complicating labor and delivery (principal); O99.214 Obesity complicating childbirth; D64.9 Anemia, unspecified; O34.211 Maternal care for low transverse scar from previous cesarean delivery; Z37.0 Single live birth; Z3A.40 40 weeks gestation of pregnancy; O48.0 Post-term pregnancy; O99.03 Anemia complicating the puerperium
CPT/HCPCS: 59050; 85025; 85027; 86780; 86850; 86900; 86901; 99221; A4216; G0378; J2405